=== PATIENT | male | born 1955 | race Caucasian/White ===

== ENCOUNTER 2018-11-14 14:16 | Inpatient (IN) ==
[2018-11-14] MEDS ORDERED: Sod Chloride 0.9% Inj 1,000 ML IV.SIG ONE (17:35)
[2018-11-14 17:57] LABS: Baso # (Auto) 0.1 th/mm3 (0.0-0.2); Baso % (Auto) 0.2 % (0.0-2.0); Hematocrit 39.6 % (39.0-51.0); Lymph # (Auto) 5.7 th/mm3 (1.0-4.8); Lymph % (Auto) 15.7 % (9.0-44.0); Mean Corpuscular HGB Conc 32.9 % (32.0-36.0); Mean Corpuscular Hemoglobin 25.8 pg (27.0-34.0); Mean Corpuscular Volume 78.5 fL (80.0-100.0); Mono # (Auto) 1.8 th/mm3 (0.0-0.9); Neut # (Auto) 28.5 th/mm3 (1.8-7.7); Neut % (Auto) 79.1 % (16.0-70.0); Platelet Count 363 th/mm3 (150-450); Red Blood Count 5.04 mil/mm3 (4.50-5.90)
[2018-11-14 18:09] LABS: Activated Partial Thrombo Time 36.2 sec (23.4-31.7); INR 1.3 Ratio; Prothrombin Time 13.5 sec (9.8-11.6)
[2018-11-14 18:12] LABS: Alanine Aminotransferase 34 U/L (12-78); Albumin 2.5 g/dL (3.4-5.0); Anion Gap 10 meq/L (5-15); Aspartate Aminotransferase 28 U/L (15-37); Blood Urea Nitrogen 20 mg/dL (7-18); Calcium 8.3 mg/dL (8.5-10.1); Carbon Dioxide 25.7 meq/L (21.0-32.0); Chloride 105 meq/L (98-107); Glomerular Filtration Rate 65 mL/min (>89); Glucose,Random 148 mg/dL (74-106); Lipase 114 U/L (73-393); Magnesium 2.1 mg/dL (1.5-2.5); Sodium 141 meq/L (136-145)
--- NOTE | 2018-11-14 18:15 | ED ---
HPI General Chief Complaint: Abdominal Pain Stated Complaint: Abd pain complaint Time Seen by Provider: 11/14/18 17:08 History of Present Illness HPI narrative: 63 year old male with week long history of crampy RUQ pain. He has a history of colitis, cholelithiasis, dementia, and elevated ammonia levels that he takes lactulose for. He is a poor historian and his step-father and son assisted with history. He reports intermittent diarrhea that he says temporarily relieves his abdominal pain. He states that his crampy pain happens periodically but that it usually resolves in a couple days. He denies fevers, nausea/vomiting, and bloody stools. Patient denies chest pain, SOB, cardiac history. Patient is a very poor historian and is really hard to get a history. Family themselves are also not good historian says there are no his medical history other than a few things. Patient apparently takes lactulose as well as a pill that he takes 3 times a day but the family and the patient cannot really tell me what it is. He and the family do tell me that they have a history of gallbladder disease but they are unclear as to what it is alert and having gallstones. Again patient is a poor historian as well as the family' s is really hard to get a good history. Related Data Home Medications Medication Instructions Recorded Confirmed Unable to Obtain Home Meds 11/14/18 11/14/18 Allergies Allergy/AdvReac Type Severity Reaction Status Date / Time No Known Allergies Allergy Verified 11/14/18 17:35 Review of Systems ROS Unobtainable ROS Unobtainable: unobtainable due to mental condition ROS: all other systems reviewed are negative [facility] Medical History Medical History Colitis (Acute) Dementia (Acute) Hypertension (Acute) Social History Social History Substance History: No History of Abuse Second Hand Smoke Exposure: No Smoking Status: Never smoker How Often Do You Have a Drink Containing Alcohol: 2 to 4 times a month Recent Travel in [facility] within the Last 8 Weeks: No Recent Out of Country Travel within the Last 8 Weeks: No Immunization History Tetanus Immunization: Unsure Exam Narrative Exam Narrative: GENERAL: Well-appearing no distress. SKIN: Focused skin assessment warm/dry. HEAD: Atraumatic. Normocephalic. EYES: Pupils equal and round. No scleral icterus. No injection or drainage. ENT: No nasal bleeding or discharge. Mucous membranes pink and moist. Tongue is midline. No uvula deviation. NECK: Trachea midline. No JVD. CARDIOVASCULAR: Regular rate and rhythm. No murmur appreciated. RESPIRATORY: No accessory muscle use. Clear to auscultation. Breath sounds equal bilaterally. GASTROINTESTINAL: Abdomen soft, non-tender, nondistended. Hepatic and splenic margins not palpable. MUSCULOSKELETAL: No obvious deformities. No clubbing. No cyanosis. No edema. Full range of motion of the upper and lower extremities bilaterally. 2+ possible NEUROLOGICAL: Awake and alert. No obvious cranial nerve deficits. Motor grossly within normal limits. Normal speech. PSYCHIATRIC: Appropriate mood and affect; insight and judgment normal. Course Initial Documented Vital Signs Temperature 97.1 F L 11/14/18 14:23 Pulse Rate 111 H 11/14/18 14:23 Respiratory Rate 18 11/14/18 14:23 Blood Pressure 101/55 L 11/14/18 14:23 Pulse Oximetry 96 11/14/18 14:23 Last Documented Vital Signs Temperature 97.7 F 11/16/18 08:00 Pulse Rate 73 11/16/18 08:00 Respiratory Rate 18 11/16/18 08:00 Blood Pressure 178/81 H 11/16/18 08:00 Pulse Oximetry 92 L 11/16/18 08:00 Critical Care Time Critical Care Time: Yes Total Critical Care Time: 40 Attestation: Aggregate critical care time was 40 minutes. Time to perform other separately billable procedures was not included in the critical care time. My time did not include minutes spent treating any other patients simultaneously or on activities that did not directly contribute to the patient's treatment. The services I provided to this patient were to treat and/or prevent clinically significant deterioration that could result in: cardiovascular collapse or . I provided critical care services requiring my management, as noted below: Chart data review, documentation time, medication orders and management, vital sign assessments/reviewing monitor data, ordering and reviewing lab tests, ordering and interpreting/reviewing x-rays and diagnostic studies, care of the patient and discussion of the patient with the admitting physicians. Medical Decision Making NEIL Attestation NEIL supervised visit: Yes Attestation: I, Dr. Ríos, have reviewed the advance practice practitioner's documentation and am in agreement, met with the patient face to face, made the diagnosis, and the medical decision making was done by me. *My assessment and Findings: Acute cholecystitis vs. choledocholithiasis vs. pancreatitis vs. colitis 63yo M with dementia, cholelithiasis here with RUQ pain for a few days. Labs reviewed, marked leukocytosis at 36,000. H/H normal. +Toxic vacuolation. Pt given zosyn. Hypokalemia at 3.0, replaced. BUN elevated at 20. Ammonia mildly elevated at 33, pt takes lactulose. Troponin negative. US showed gallbladder slude and gallstones. Gallbladder wall thickened to 7mm. Common bile duct and pancreas not well visualized. CT a/p showed gallbladder is distended with multiple gallstones including a probable impacted gallstone in gallbladder neck. Questionable adjacent inflammatory changes in right colon versus mild right sided colitis. Common bile duct not significantly dilated. Discussed with GI physician orientation and mobility instructor Dr. Serrano and he will arrange for ERCP tomorrow. Recommended surgery consult for cholecystectomy. Routine general surgery consult placed. Discussed with Dr. Cuellar and accepted to her service. MDM Narrative Medical decision making narrative: 63-year-old male who presents to the ED for evaluation of abdominal pain and altered mental status. Patient was properly examined and was found to have signs and symptoms concerning for abdominal discomfort. Unclear etiology with likely concerning for gallbladder disease. Labs and imaging ordered. Labs and imaging show signs and symptoms consistent with gallbladder stones and what appears to be cholecystitis as well as possible colitis. Case was discussed with my attending Dr. Ríos who spoke with Dr. Serrano who wants the patient n.p.o. and will do ERCP tomorrow. Patient will likely require cholecystectomy as well but will defer this after procedure as well as defer this to general surgery. My attending spoke with [facility] Who agrees to admission to their service. Patient was started on Zosyn here. Patient was admitted. Patient and family agree with plan. Medical Screen Exam Complete: Yes Emergency Medical Condition: Yes Differential Diagnosis Differential Diagnosis: Sepsis versus cholecystitis versus cholelithiasis versus colitis versus obstruction versus cirrhosis Medical Records Medical records reviewed: Yes I reviewed the patient's medical records. Lab Data Lab results reviewed: Yes I reviewed the patient's lab results. Result diagrams: 11/16/18 05:38 11/16/18 05:38 Lab Results 11/14/18 11/14/18 11/14/18 Range/Units 17:40 17:40 17:40 WBC 36.0 H (4.0-11.0) th/mm3 RBC 5.04 (4.50-5.90) mil/mm3 Hgb 13.0 (13.0-17.0) gm/dL Hct 39.6 (39.0-51.0) % MCV 78.5 L (80.0-100.0) fL MCH 25.8 L (27.0-34.0) pg MCHC 32.9 (32.0-36.0) % RDW 17.0 (11.6-17.2) % Plt Count 363 (150-450) th/mm3 MPV 9.0 (7.0-11.0) fL Prelim Diff (Auto) Slide review pending Neut % (Auto) 79.1 H (16.0-70.0) % Lymph % (Auto) 15.7 (9.0-44.0) % Cataño % (Auto) 5.0 (0.0-8.0) % Eos % (Auto) 0.0 (0.0-4.0) % Baso % (Auto) 0.2 (0.0-2.0) % Neut # (Auto) 28.5 H (1.8-7.7) th/mm3 Lymph # (Auto) 5.7 H (1.0-4.8) th/mm3 Cataño # (Auto) 1.8 H (0.0-0.9) th/mm3 Eos # (Auto) 0.0 (0.0-0.4) th/mm3 Baso # (Auto) 0.1 (0.0-0.2) th/mm3 WBC Differential . Diff Scan Auto diff confirmed Differential Comment . Toxic Granulation 1+ H (None) Toxic Vacuolation Present H (None) Dohle Bodies Present H (None) Platelet Estimate Normal (Normal) Platelet Morphology Normal (Normal) RBC Morphology Normal (Normal) PT 13.5 H (9.8-11.6) sec INR 1.3 Ratio APTT 36.2 H (23.4-31.7) sec Sodium 141 (136-145) meq/L Potassium 3.0 L (3.5-5.1) meq/L Chloride 105 (98-107) meq/L Carbon Dioxide 25.7 (21.0-32.0) meq/L Anion Gap 10 (5-15) meq/L BUN 20 H (7-18) mg/dL Creatinine 1.14 (0.60-1.30) mg/dL Estimated GFR 65 L (>89) mL/min Random Glucose 148 H (74-106) mg/dL Lactic Acid (0.4-2.0) mmol/L Calcium 8.3 L (8.5-10.1) mg/dL Magnesium 2.1 (1.5-2.5) mg/dL Total Bilirubin 1.9 H (0.2-1.0) mg/dL AST 28 (15-37) U/L ALT 34 (12-78) U/L Alkaline Phosphatase 240 H (45-117) U/L Ammonia (11-32) mcmol/L Total Creatine Kinase 12 L (39-308) U/L Troponin I Less than 0.02 L (0.02-0.05) ng/mL Total Protein 7.8 (6.4-8.2) g/dL Albumin 2.5 L (3.4-5.0) g/dL Lipase 114 (73-393) U/L 11/14/18 11/14/18 11/15/18 Range/Units 17:47 17:47 05:35 WBC 24.4 H (4.0-11.0) th/mm3 RBC 4.51 (4.50-5.90) mil/mm3 Hgb 11.6 L (13.0-17.0) gm/dL Hct 35.8 L (39.0-51.0) % MCV 79.3 L (80.0-100.0) fL MCH 25.6 L (27.0-34.0) pg MCHC 32.3 (32.0-36.0) % RDW 17.4 H (11.6-17.2) % Plt Count 283 (150-450) th/mm3 MPV 9.0 (7.0-11.0) fL Prelim Diff (Auto) Neut % (Auto) 80.0 H (16.0-70.0) % Lymph % (Auto) 14.6 (9.0-44.0) % Cataño % (Auto) 4.8 (0.0-8.0) % Eos % (Auto) 0.3 (0.0-4.0) % Baso % (Auto) 0.3 (0.0-2.0) % Neut # (Auto) 19.5 H (1.8-7.7) th/mm3 Lymph # (Auto) 3.6 (1.0-4.8) th/mm3 Cataño # (Auto) 1.2 H (0.0-0.9) th/mm3 Eos # (Auto) 0.1 (0.0-0.4) th/mm3 Baso # (Auto) 0.1 (0.0-0.2) th/mm3 WBC Differential . Diff Scan Differential Comment Auto diff final Toxic Granulation (None) Toxic Vacuolation (None) Dohle Bodies (None) Platelet Estimate (Normal) Platelet Morphology (Normal) RBC Morphology (Normal) PT (9.8-11.6) sec INR Ratio APTT (23.4-31.7) sec Sodium (136-145) meq/L Potassium (3.5-5.1) meq/L Chloride (98-107) meq/L Carbon Dioxide (21.0-32.0) meq/L Anion Gap (5-15) meq/L BUN (7-18) mg/dL Creatinine (0.60-1.30) mg/dL Estimated GFR (>89) mL/min Random Glucose (74-106) mg/dL Lactic Acid 1.8 (0.4-2.0) mmol/L Calcium (8.5-10.1) mg/dL Magnesium (1.5-2.5) mg/dL Total Bilirubin (0.2-1.0) mg/dL AST (15-37) U/L ALT (12-78) U/L Alkaline Phosphatase (45-117) U/L Ammonia 33 H (11-32) mcmol/L Total Creatine Kinase (39-308) U/L Troponin I (0.02-0.05) ng/mL Total Protein (6.4-8.2) g/dL Albumin (3.4-5.0) g/dL Lipase (73-393) U/L 11/15/18 11/16/18 11/16/18 Range/Units 05:35 05:38 05:38 WBC 17.1 H (4.0-11.0) th/mm3 RBC 4.35 L (4.50-5.90) mil/mm3 Hgb 10.9 L (13.0-17.0) gm/dL Hct 33.7 L (39.0-51.0) % MCV 77.5 L (80.0-100.0) fL MCH 25.1 L (27.0-34.0) pg MCHC 32.3 (32.0-36.0) % RDW 17.0 (11.6-17.2) % Plt Count 307 (150-450) th/mm3 MPV 8.7 (7.0-11.0) fL Prelim Diff (Auto) Neut % (Auto) 71.4 H (16.0-70.0) % Lymph % (Auto) 21.5 (9.0-44.0) % Cata[place] % (Auto) 5.3 (0.0-8.0) % Eos % (Auto) 1.7 (0.0-4.0) % Baso % (Auto) 0.1 (0.0-2.0) % Neut # (Auto) 12.2 H (1.8-7.7) th/mm3 Lymph # (Auto) 3.7 (1.0-4.8) th/mm3 Cataño # (Auto) 0.9 (0.0-0.9) th/mm3 Eos # (Auto) 0.3 (0.0-0.4) th/mm3 Baso # (Auto) 0.0 (0.0-0.2) th/mm3 WBC Differential . Diff Scan Differential Comment Auto diff final Toxic Granulation (None) Toxic Vacuolation (None) Dohle Bodies (None) Platelet Estimate (Normal) Platelet Morphology (Normal) RBC Morphology (Normal) PT (9.8-11.6) sec INR Ratio APTT (23.4-31.7) sec Sodium 145 148 H (136-145) meq/L Potassium 3.5 3.0 L (3.5-5.1) meq/L Chloride 112 H 115 H (98-107) meq/L Carbon Dioxide 22.1 23.8 (21.0-32.0) meq/L Anion Gap 11 9 (5-15) meq/L BUN 15 12 (7-18) mg/dL Creatinine 0.71 0.66 (0.60-1.30) mg/dL Estimated GFR Greater than 89 Greater than 89 (>89) mL/min Random Glucose 77 82 (74-106) mg/dL Lactic Acid (0.4-2.0) mmol/L Calcium 7.8 L 7.7 L (8.5-10.1) mg/dL Magnesium (1.5-2.5) mg/dL Total Bilirubin 1.5 H 1.2 H (0.2-1.0) mg/dL AST 24 33 (15-37) U/L ALT 27 26 (12-78) U/L Alkaline Phosphatase 205 H 231 H (45-117) U/L Ammonia (11-32) mcmol/L Total Creatine Kinase (39-308) U/L Troponin I (0.02-0.05) ng/mL Total Protein 6.7 D 6.6 (6.4-8.2) g/dL Albumin 2.1 L 2.0 L (3.4-5.0) g/dL Lipase (73-393) U/L Imaging Data Attestation: I personally reviewed and interpreted this imaging study as follows : Radiologist's impression: Gallbladder Ultrasound 11/14/18 17:35 CONCLUSION: 1. Positive for gallbladder sludge and gallstones also seen on prior MRI from May 2018. Gallbladder wall thickened to 7 mm. Common bile duct and pancreas not well visualized. 2. 6.9 cm right renal cyst. No hydronephrosis. 3. Fatty infiltration of the liver. Abdomen/Pelvis CT 11/14/18 18:02 CONCLUSION: 1. Distended gallbladder with pericholecystic inflammatory changes and gallstones including a gallstone that may be impacted in the gallbladder neck. Findings most characteristic of cholecystitis. Questionable adjacent contiguous inflammatory changes in the right colon versus mild right-sided colitis. 2. Subsegmental atelectasis at the lung bases. 3. Mild intrahepatic ductal dilatation. Common bile duct is not significantly dilated. Cholangiopancreatography MRI 11/15/18 00:00 CONCLUSION: 1. ECG Data Attestation: I personally reviewed and interpreted this ECG as follows: Interpretation: EKG shows sinus rhythm with no sign of acute ischemia and arrhythmia read by me and attending. KS interval 160 ms. Ventricular rate 87 bpm. Discharge Plan Discharge Disposition Patient Disposition: ED Admit(ED Internal Use Only) Discharge Order Discharge Orders: ED Use Only Admit Order (Routine); Ordered 11/14/18 Ordered By: Renetta Ríos Discharge Details Diagnosis: Acute cholecystitis Physicians Team ED Provider: Renetta Ríos ED Midlevel Provider: Pacheco Grullon Primary Care Provider: Tabatha Murrell Attending Provider: Ashtyn Canchola Other Providers: Harmeet Serrano ; Gabriele Byers ; Dylan Borja Status ED Status: Left Department Discharge Information Discharge Date/Time: 11/14/18 23:54
[2018-11-14 18:17] LABS: Alkaline Phosphatase 240 U/L (45-117); Creatine Kinase 12 U/L (39-308); Total Protein 7.8 g/dL (6.4-8.2)
[2018-11-14 18:29] LABS: Platelet Estimate Normal (Normal); Platelet Morphology Normal (Normal); RBC Morphology Normal (Normal); Toxic Vacuolation Present
[2018-11-14 18:30] LABS: Dohle Bodies Present; Toxic Granulation 1+
--- NOTE | 2018-11-14 19:17 | US ---
EXAM DATE: 11/14/2018 7:07 PM EST AGE/SEX: 63 years / Male INDICATIONS: Right upper quadrant pain. CLINICAL DATA: This is the patient's initial encounter. Patient reports that signs and symptoms have been present for > 1 year and indicates a pain score of 6/10. MEDICAL/SURGICAL HISTORY: Hypertension. Colitis. None. COMPARISON: . MEASUREMENTS: Liver:__ 16.6 cm. Common Bile Duct:__ Nonvisualized. FINDINGS: Liver: Increased echogenicity with calcification in posterior right lobe. Portal Vein: Hepatopedal flow seen in portal vein. Common Duct: Not clearly visualized. Gallbladder: Positive gallstone with some gallbladder wall thickening to 7 mm. Pancreas: Not well visualized. Right Kidney: Increased echogenicity. 6.9 cm cyst. Other: None. CONCLUSION: 1. Positive for gallbladder sludge and gallstones also seen on prior MRI from May 2018. Gallbladd er wall thickened to 7 mm. Common bile duct and pancreas not well visualized. 2. 6.9 cm right renal cyst. No hydronephrosis. 3. Fatty infiltration of the liver. Electronically signed by: Gabriele Miller MD Board Certified Radiologist 11/14/2018 7:16 PM EST
[2018-11-14] MEDS ORDERED: Piperacil/Tazo 3.375 GM Premix 3.375 GM/50 ML PIGGYBACK IV.SIG ONE (20:08)
--- NOTE | 2018-11-14 20:19 | CT ---
EXAM DATE: 11/14/2018 8:08 PM EST AGE/SEX: 63 years / Male INDICATIONS: Right lower abdomen pain for one week. CLINICAL DATA: This is the patient's initial encounter. Patient reports that signs and symptoms have been present for 1 day and indicates a pain score of 6/10. MEDICAL/SURGICAL HISTORY: Dementia. Hypertension. None. ORAL CONTRAST: No oral contrast ingested. RADIATION DOSE: 12.73 CTDI (mGy) COMPARISON: POI, CT ABDOMEN AND PELVIS W/ CONTRAST, 03/02/2017. . TECHNIQUE: Multiple contiguous axial images were obtained through the abdomen and pelvis following b olus infusion of 93 ml Omnipaque 350 (iohexol) nonionic water-soluble contrast as a single exam dos e. No oral contrast ingested. Using automated exposure control and adjustment of the mA and/or kV ac cording to patient size, radiation dose was kept as low as reasonably achievable to obtain optimal di agnostic quality images. DICOM format image data is available electronically for review and comparis on. FINDINGS: Subsegmental basilar opacity in the lungs is probably atelectasis The gallbladder is distended with multiple gallstones including a probable impacted gallstone in gall bladder neck. There are inflammatory changes around the gallbladder most characteristic cholecystitis . Inflammatory changes extend to adjacent right colon with some mild mural thickening of the right co christine near the hepatic flexure. There is no significant free fluid. No free air. Liver demonstrates somewhat minimal biliary ductal dilatation. Splenic cysts noted. Adrenals and kidn eys and pancreas demonstrate no acute finding. Stable right renal cyst compared with 2017. Mild coronary calcifications. No pelvic mass or adenopathy. No acute bony CONCLUSION: 1. Distended gallbladder with pericholecystic inflammatory changes and gallstones including a gallst one that may be impacted in the gallbladder neck. Findings most characteristic of cholecystitis. Ques tionable adjacent contiguous inflammatory changes in the right colon versus mild right-sided colitis. 2. Subsegmental atelectasis at the lung bases. 3. Mild intrahepatic ductal dilatation. Common bile duct is not significantly dilated. Electronically signed by: Gabriele Miller MD Board Certified Radiologist 11/14/2018 8:18 PM EST
[2018-11-14] MEDS ORDERED: Sod Chloride 0.9% Inj 1,000 ML IV.SIG SCH (21:00)
[2018-11-14] MEDS ORDERED: Morphine Inj 4 MG/ML Vial IV.PUSH ONE (21:17)
[2018-11-14] MEDS ORDERED: Acetaminophen 325 MG Tablet PO PRN (22:44)
[2018-11-14] MEDS ORDERED: Bisacodyl 10 MG Supp RECTAL PRN (22:44)
--- NOTE | 2018-11-14 23:46 | P.HP ---
History of Present Illness Service: [facility] Primary Care Physician: Tabatha Murrell MD History of Present Illness: 63-year-old male with a past medical history significant for dementia, ulcerative colitis and hypertension presents to the emergency department for evaluation of abdominal pain. The patient reports approximately 3 days of bad cramping with associated abdominal pain. He denies any fevers or chills. He states the pain is in his right upper quadrant. He reports intermittent diarrhea. He denies any fevers or nausea/vomiting. No chest pain or shortness of breath. No focal neurologic deficits. Review of Systems All other systems reviewed negative except as stated in HPI [facility] - History History Provided By: Family Member - Medical History Medical History: Medical History (Last Reviewed 11/14/18 @ 23:39 by Pearl Cuellar MD) Colitis Dementia Hypertension - Surgical History Surgical History: Surgical History (Last Updated 11/14/18 @ 23:39 by Pearl Cuellar MD) No history of previous surgery - Family History Family History: Family History (Last Updated 11/14/18 @ 23:39 by Pearl Cuellar MD) Other Family history normal - Social History I have reviewed the patient's Social History: Yes - Tobacco History Smoking Status: Never smoker - Alcohol History How Often Do You Have a Drink Containing Alcohol: Never - Substance Use History Substance History: No History of Abuse - Travel History Recent Travel in the [place] Within the Last 8 Weeks: No Recent Travel Out of the Country Within the Last 8 Weeks: No - Immunization History Tetanus Immunization: Unsure Medications and Allergies Active Medications: Active Medications Acetaminophen (Tylenol) 650 mg PO Q4H PRN PRN Reason: Temp > 100.4 Al Hydroxide/Mg Hydroxide (Milk Of Magnesia Liq) 30 ml PO Q12H PRN PRN Reason: Mild Constipation Bisacodyl (Dulcolax Supp) 10 mg RECTAL DAILY PRN PRN Reason: SEVERE CONSITIPATION Potassium Chloride 10 meq/ (Sodium Chloride) 1,005 mls @ 100 mls/hr IV.CONT .Q10H3M ANG Piperacillin/Tazobactam/Dextrose (Zosyn 3.375 Gm Premix) 3.375 gm in 50 mls @ 100 mls/hr IV.SIG Q6H ANG Ondansetron HCl (Zofran Inj) 4 mg IV.PUSH Q6H PRN PRN Reason: NAUSEA OR VOMITING Sennosides (Senokot) 17.2 mg PO Q12H PRN PRN Reason: Moderate Constipation Sodium Chloride (Ns Flush) 2 ml IV.FLUSH BID ANG Sodium Chloride (Ns Flush) 2 ml IV.FLUSH PRN PRN PRN Reason: FLUSH AFTER USING IV ACCESS Allergies Allergy/AdvReac Type Severity Reaction Status Date / Time No Known Allergies Allergy Verified 11/14/18 17:35 Home Medications Medication Instructions Recorded Confirmed Type Unable to Obtain Home Meds 11/14/18 11/14/18 History Exam Vital signs: Vital Signs 11/14/18 14:23 11/14/18 17:28 11/14/18 20:31 Temperature 97.1 F L Pulse Rate 111 H 81 Respiratory Rate 18 20 20 Blood Pressure 101/55 L 142/71 H Pulse Oximetry 96 95 Intake & Output 11/14/18 11/14/18 11/15/18 06:59 18:59 06:59 Intake Total 2049 Balance 2049 Weight 107.955 kg Intake: IV 2049 Zosyn 3.375 GM Premix 3.375 gm 50 / 50 In 50 ml @ 100 mls/hr IV.SIG ONCE ONE Rx#:[id number] NS Inj 1,000 ML @ 1000 mls/hr 1999 IV.SIG BOLUS AGN Rx#:[id number] Narrative: Gen.: No acute distress Head: Normocephalic. Atraumatic. EENT: Pupils equal round and reactive to light. Nose without drainage. Airway intact. Throat without injection. Cardiovascular: Regular rate and rhythm. No murmurs, rubs or gallops. Respiratory: Lungs clear to auscultation bilaterally. No wheezes or rhonchi. Abdomen: Soft, tender to palpation in the right upper quadrant, nondistended. No peritoneal signs. Musculoskeletal: No gross deformities. No edema. Skin: No obvious rashes or erythema. Neuro: Sensory and motor grossly intact. Cranial nerves II through XII grossly intact. Results - Labs CBC & Chem 7: 11/14/18 17:40 11/14/18 17:40 Labs: Laboratory Results - last 24 hr 11/14/18 11/14/18 11/14/18 17:40 17:40 17:40 WBC 36.0 H RBC 5.04 Hgb 13.0 Hct 39.6 MCV 78.5 L MCH 25.8 L MCHC 32.9 RDW 17.0 Plt Count 363 MPV 9.0 Prelim Diff (Auto) Slide review pending Neut % (Auto) 79.1 H Lymph % (Auto) 15.7 [place] % (Auto) 5.0 Eos % (Auto) 0.0 Baso % (Auto) 0.2 Neut # (Auto) 28.5 H Lymph # (Auto) 5.7 H [place] # (Auto) 1.8 H Eos # (Auto) 0.0 Baso # (Auto) 0.1 WBC Differential . Diff Scan Auto diff confirmed Differential Comment . Toxic Granulation 1+ H Toxic Vacuolation Present H Dohle Bodies Present H Platelet Estimate Normal Platelet Morphology Normal RBC Morphology Normal PT 13.5 H INR 1.3 APTT 36.2 H Sodium 141 Potassium 3.0 L Chloride 105 Carbon Dioxide 25.7 Anion Gap 10 BUN 20 H Creatinine 1.14 Estimated GFR 65 L Random Glucose 148 H Lactic Acid Calcium 8.3 L Magnesium 2.1 Total Bilirubin 1.9 H AST 28 ALT 34 Alkaline Phosphatase 240 H Ammonia Total Creatine Kinase 12 L Troponin I Less than 0.02 L Total Protein 7.8 Albumin 2.5 L Lipase 114 11/14/18 11/14/18 17:47 17:47 WBC RBC Hgb Hct MCV MCH MCHC RDW Plt Count MPV Prelim Diff (Auto) Neut % (Auto) Lymph % (Auto) [place] % (Auto) Eos % (Auto) Baso % (Auto) Neut # (Auto) Lymph # (Auto) [place] # (Auto) Eos # (Auto) Baso # (Auto) WBC Differential Diff Scan Differential Comment Toxic Granulation Toxic Vacuolation Dohle Bodies Platelet Estimate Platelet Morphology RBC Morphology PT INR APTT Sodium Potassium Chloride Carbon Dioxide Anion Gap BUN Creatinine Estimated GFR Random Glucose Lactic Acid 1.8 Calcium Magnesium Total Bilirubin AST ALT Alkaline Phosphatase Ammonia 33 H Total Creatine Kinase Troponin I Total Protein Albumin Lipase - Imaging Impressions Gallbladder Ultrasound 11/14/18 17:35 CONCLUSION: 1. Positive for gallbladder sludge and gallstones also seen on prior MRI from May 2018. Gallbladder wall thickened to 7 mm. Common bile duct and pancreas not well visualized. 2. 6.9 cm right renal cyst. No hydronephrosis. 3. Fatty infiltration of the liver. Abdomen/Pelvis CT 11/14/18 18:02 CONCLUSION: 1. Distended gallbladder with pericholecystic inflammatory changes and gallstones including a gallstone that may be impacted in the gallbladder neck. Findings most characteristic of cholecystitis. Questionable adjacent contiguous inflammatory changes in the right colon versus mild right-sided colitis. 2. Subsegmental atelectasis at the lung bases. 3. Mild intrahepatic ductal dilatation. Common bile duct is not significantly dilated. Caprini VTE Risk Assessment Caprini VTE Risk Assessment: Moderate/High Risk (score >= 2) Caprini Risk Assessment Model: Point Value = 1 Point Value = 2 Point Value = 3 Point Value = 5 Age 41-60 Minor surgery BMI > 25 kg/m2 Swollen legs Varicose veins or History of unexplained or recurrent spontaneous Oral contraceptives or hormone replacement Sepsis (< 1 month) Serious lung disease, including pneumonia (< 1 month) Abnormal pulmonary function Acute myocardial infarction Congestive heart failure (< 1 month) History of inflammatory bowel disease Medical patient at bed rest Age 61-74 Arthroscopic surgery Major open surgery (> 45 min) Laparoscopic surgery (> 45 min) Malignancy Confined to bed (> 72 hours) Immobilizing plaster cast Central venous access Age >= 75 History of VTE Family history of VTE Factor V Leiden Prothrombin [id number] Lupus anticoagulant Anticardiolipin antibodies Elevated serum homocysteine Heparin-induced thrombocytopenia Other congenital or acquired thrombophilia Stroke (< 1 month) Elective arthroplasty Hip, pelvis, or leg fracture Acute spinal cord injury (< 1 month) Prophylaxis Regimen: Total Risk Factor Score Risk Level Prophylaxis Regimen 0-1 Low Early ambulation 2 Moderate Order ONE of the following: *Sequential Compression Device (SCD) *Heparin 5000 units SQ BID 3-4 Higher Order ONE of the following medications: *Heparin 5000 units SQ TID *Enoxaparin/Lovenox 40 mg SQ daily (WT < 150 kg, CrCl > 30 mL/min) *Enoxaparin/Lovenox 30 mg SQ daily (WT < 150 kg, CrCl > 10-29 mL/min) *Enoxaparin/Lovenox 30 mg SQ BID (WT < 150 kg, CrCl > 30 mL/min) AND/OR *Sequential Compression Device (SCD) 5 or more Highest Order ONE of the following medications: *Heparin 5000 units SQ TID (Preferred with Epidurals) *Enoxaparin/Lovenox 40 mg SQ daily (WT < 150 kg, CrCl > 30 mL/min) *Enoxaparin/Lovenox 30 mg SQ daily (WT < 150 kg, CrCl > 10-29 mL/min) *Enoxaparin/Lovenox 30 mg SQ BID (WT < 150 kg, CrCl > 30 mL/min) AND *Sequential Compression Device (SCD) Assessment and Plan - Plan Assessment/plan: 1. Cholecystitis/choledocholithiasis CT abdomen/pelvis shows a distended gallbladder with pericholecystic inflammatory changes and gallstone that may be impacted in the gallbladder neck [facility]on Gastroenterology and general surgery consulted, appreciate assistance Anticipate ERCP tomorrow 2. Hypertension Home medications unknown Vasotec as needed Intensive at this time 3. Dementia Patient's primary caregiver is his father, Saul Carlton, who wishes to be contacted regarding any plans of care for his son. He can be reached at 4. Hypokalemia IV Monitor BMP FEN N.p.o. Electrolytes: As above NS at 100 cc/hour Holding pharmacologic anticoagulation given probable procedure tomorrow
[2018-11-15] MEDS: Potassium Chlor 10 mEq Premix 10 MEQ/100 ML PIGGYBACK IV.SIG SCH ×3 (01:33→05:00)
[2018-11-15] MEDS: Potassium Chloride Inj 10 MEQ in Sod Chloride 0.9% Inj 1,000 ML IV.CONT SCH ×4 (02:03→20:18)
[2018-11-15] MEDS: Piperacil/Tazo 3.375 GM Premix 3.375 GM/50 ML PIGGYBACK IV.SIG SCH ×4 (02:34→20:25)
[2018-11-15 07:19] LABS: Baso # (Auto) 0.1 th/mm3 (0.0-0.2); Baso % (Auto) 0.3 % (0.0-2.0); Eos # (Auto) 0.1 th/mm3 (0.0-0.4); Eos % (Auto) 0.3 % (0.0-4.0); Hematocrit 35.8 % (39.0-51.0); Hemoglobin 11.6 gm/dL (13.0-17.0); Lymph # (Auto) 3.6 th/mm3 (1.0-4.8); Lymph % (Auto) 14.6 % (9.0-44.0); Mean Corpuscular HGB Conc 32.3 % (32.0-36.0); Mean Corpuscular Hemoglobin 25.6 pg (27.0-34.0); Mean Corpuscular Volume 79.3 fL (80.0-100.0); Mono # (Auto) 1.2 th/mm3 (0.0-0.9); Mono % (Auto) 4.8 % (0.0-8.0); Neut # (Auto) 19.5 th/mm3 (1.8-7.7); Platelet Count 283 th/mm3 (150-450); Red Blood Count 4.51 mil/mm3 (4.50-5.90); Red Cell Distribution Width 17.4 % (11.6-17.2); White Blood Count 24.4 th/mm3 (4.0-11.0)
[2018-11-15 09:12] LABS: Albumin 2.1 g/dL (3.4-5.0); Anion Gap 11 meq/L (5-15); Aspartate Aminotransferase 24 U/L (15-37); Blood Urea Nitrogen 15 mg/dL (7-18); Calcium 7.8 mg/dL (8.5-10.1); Carbon Dioxide 22.1 meq/L (21.0-32.0); Chloride 112 meq/L (98-107); Glomerular Filtration Rate Greater Than 89 mL/min (>89); Glucose,Random 77 mg/dL (74-106); Potassium 3.5 meq/L (3.5-5.1); Sodium 145 meq/L (136-145)
[2018-11-15 09:18] LABS: Alanine Aminotransferase 27 U/L (12-78); Alkaline Phosphatase 205 U/L (45-117); Total Protein 6.7 g/dL (6.4-8.2)
--- NOTE | 2018-11-15 10:13 | P.PNIM ---
Subjective Interval history: Follow-up for abdominal pain, acute cholecystitis/ choledocholithiasis. Patient is seen with his patsyronnie Angelo at bedside. Patient is currently oriented to self and [facility] only. Patient is a poor historian himself. He denies any abdominal pain, although has tenderness on exam. Denies any nausea or vomiting. Afebrile. No other medical complaints reported. Physical Exam Vital signs: Vital Signs 11/14/18 14:23 11/14/18 17:28 11/14/18 20:31 Temperature 97.1 F L Pulse Rate 111 H 81 Respiratory Rate 18 20 20 Blood Pressure 101/55 L 142/71 H Pulse Oximetry 96 95 11/15/18 03:14 11/15/18 04:00 11/15/18 07:31 Temperature 98.4 F 98.4 F Pulse Rate 83 74 82 Respiratory Rate 20 16 Blood Pressure 133/73 132/74 Pulse Oximetry 94 L 94 L 11/15/18 08:00 Temperature Pulse Rate 75 Respiratory Rate Blood Pressure Pulse Oximetry Intake & Output 11/14/18 11/15/18 11/15/18 18:59 06:59 18:59 Intake Total 2400 / 2400 655 / 655 Balance 2400 / 2400 655 / 655 Weight 107.955 kg Intake: IV 2400 / 2400 655 / 655 KCl Inj 10 MEQ In NS Inj 1,000 605 / 605 ML @ 100 mls/hr IV.CONT .Q10H3M ANG Rx#:[id number] Zosyn 3.375 GM Premix 3.375 gm 100 / 100 50 / 50 In 50 ml @ 100 mls/hr IV.SIG Q6H ANG Rx#:[id number] KCl 10 mEq Premix Inj 10 meq In 300 / 300 100 ml @ 100 mls/hr IV.SIG Q1H ANG Rx#:[id number] NS Inj 1,000 ML @ 1000 mls/hr 1999 / 1999 IV.SIG BOLUS ANG Rx#:[id number] Oral 0 / 0 Other: # Voids 0 Date of Last Bowel Movement 11/14/18 11/14/18 Narrative: GENERAL: Well-nourished, well-developed middle-aged male in [facility]. SKIN: Warm and dry. No rash. HEENT: Normocephalic. Atraumatic. Pupils equal and round. Mucous membranes pink and slightly dry. NECK: Supple. Trachea midline. No lymphadenopathy noted. CARDIOVASCULAR: Regular rate and rhythm. No murmur appreciated. RESPIRATORY: No accessory muscle use. Clear to auscultation. Breath sounds equal bilaterally. GASTROINTESTINAL: Abdomen soft, moderate diffuse upper abdominal tenderness to palpation, nondistended. Normoactive bowel sounds x4. No hepatosplenomegaly noted. MUSCULOSKELETAL: No obvious deformities. Extremities without clubbing, cyanosis , or edema. NEUROLOGICAL: Awake and alert, oriented to self and place only. No obvious cranial nerve deficits. Motor grossly within normal limits. Moving all extremities spontaneously. Normal speech. PSYCHIATRIC: Appropriate mood and affect; insight and judgment limited. Results Labs CBC & Chem 7: 11/15/18 05:35 11/15/18 05:35 Imaging Imaging: Impressions Gallbladder Ultrasound 11/14/18 17:35 CONCLUSION: 1. Positive for gallbladder sludge and gallstones also seen on prior MRI from May 2018. Gallbladder wall thickened to 7 mm. Common bile duct and pancreas not well visualized. 2. 6.9 cm right renal cyst. No hydronephrosis. 3. Fatty infiltration of the liver. Abdomen/Pelvis CT 11/14/18 18:02 CONCLUSION: 1. Distended gallbladder with pericholecystic inflammatory changes and gallstones including a gallstone that may be impacted in the gallbladder neck. Findings most characteristic of cholecystitis. Questionable adjacent contiguous inflammatory changes in the right colon versus mild right-sided colitis. 2. Subsegmental atelectasis at the lung bases. 3. Mild intrahepatic ductal dilatation. Common bile duct is not significantly dilated. Assessment and Plan Plan 63-year-old male with a past medical history significant for dementia, ulcerative colitis, and hypertension presented to the ED on 11/14 for evaluation of abdominal pain x 3 days. Sepsis with Acute Cholecystitis/Cholelithiasis:+abdominal pain in the bilateral upper quadrants. +Leukocytosis WBC 36K, Tachycardia HR 111, suspected source- cholecystitis. T.bili 1.9, alk phos 240, AST 28, ALT 34. -2/4: Gallbladder US shows gallbladder sludge and gallstones. GB wall thickened to 7 mm. CBD well visualized. -2/4: CT abd/pelvis reviewed, shows a distended gallbladder with pericholecystic inflammatory changes and gallstone that may be impacted in the gallbladder neck; most characteristic of cholecystitis. Mild intrahepatic ductal dilatation. Common bile duct is not significantly dilated. -Continue antibiotics with IV Zosyn 3.375 grams every 6 hours -Gastroenterology and general surgery consulted; recommendations appreciated -MRCP and ERCP scheduled for today 11/15; results pending -Diet per GI/Surgery recommendations, NPO for now -Supportive treatment with IVF hydration, antiemetics prn, IV morphine prn pain -Monitor CBC/CMP Hypertension: chronic; BP fairly well controlled -Obtain and restart home medications -Continue IV Vasotec 2.5mg q6h PRN SBP>160 and/or DBP >90 -Monitor blood pressure; adjust antihypertensives as needed Dementia: chronic. Patient's primary caregiver is his step-father, Saul Carlton , who wishes to be contacted regarding any plans of care for his son. He can be reached at [phone] -Continue home meds once med rec updated Hypokalemia: K 3.0 on 11/14; likely secondary to recent diarrhea and poor oral intake -Replaced with IV KCl -11/15: repeat K 3.5; improving -Monitor BMP DVT Prophylaxis: Holding chemical prophylaxis due to upcoming ERCP. Plan to start Lovenox 40mg subq daily once cleared by GI/Surgery Progress Note: Quality VTE Deep Vein Thrombosis/Pulmonary Embolism Present on Admission: No
--- NOTE | 2018-11-15 12:59 | MR ---
EXAM DATE: 11/15/2018 12:27 PM EST AGE/SEX: 63 years / Male INDICATIONS: Abdominal pain. CLINICAL DATA: This is the patient's subsequent encounter. Patient reports that signs and symptoms h ave been present for 2 days and indicates a pain score of 3/10. MEDICAL/SURGICAL HISTORY: Hypertension. None. COMPARISON: No prior exams available for comparison. TECHNIQUE: Multiplanar, multisequence images of the abdomen were obtained without contrast including dedicated cholangiographic images. FINDINGS: CONCLUSION: 1. Electronically signed by: Kinjal Reeves MD Board Certified Radiologist 11/15/2018 12:58 PM EST
--- NOTE | 2018-11-15 14:48 | P.PNIM ---
Subjective Interval history: Follow up for cholecystitis/choledocholithiasis, HTN, hypokalemia, and dementia. The patient was seen lying in the bed with step-father at bedside. The patient reports 7/10 constant, dull, diffuse abdominal pain in the right and left upper quadrants. The patient denies any fevers, chills, shortness of breath, or chest pain. Patient endorses no nausea, vomiting, or bowel changes. The patient is requesting ice chips, however he is currently NPO. Vital signs reviewed and stable. RN at bedside; no new medical concerns. Physical Exam Vital signs: Vital Signs 11/14/18 14:23 11/14/18 17:28 11/14/18 20:31 Temperature 97.1 F L Pulse Rate 111 H 81 Respiratory Rate 18 20 20 Blood Pressure 101/55 L 142/71 H Pulse Oximetry 96 95 11/15/18 03:14 11/15/18 04:00 11/15/18 07:31 Temperature 98.4 F 98.4 F Pulse Rate 83 74 82 Respiratory Rate 20 16 Blood Pressure 133/73 132/74 Pulse Oximetry 94 L 94 L 11/15/18 08:00 11/15/18 12:00 Temperature Pulse Rate 75 89 Respiratory Rate 16 Blood Pressure 124/78 Pulse Oximetry 92 L Intake & Output 11/14/18 11/15/18 11/15/18 18:59 06:59 18:59 Intake Total 2400 / 2400 655 / 655 Balance 2400 / 2400 655 / 655 Weight 107.955 kg Intake: IV 2400 / 2400 655 / 655 KCl Inj 10 MEQ In NS Inj 1,000 605 / 605 ML @ 100 mls/hr IV.CONT .Q10H3M ANG Rx#:[id number] Zosyn 3.375 GM Premix 3.375 gm 100 / 100 50 / 50 In 50 ml @ 100 mls/hr IV.SIG Q6H ANG Rx#:[id number] KCl 10 mEq Premix Inj 10 meq In 300 / 300 100 ml @ 100 mls/hr IV.SIG Q1H ANG Rx#:[id number] NS Inj 1,000 ML @ 1000 mls/hr 1999 / 1999 IV.SIG BOLUS ANG Rx#:[id number] Oral 0 / 0 Other: # Voids 0 Date of Last Bowel Movement 11/14/18 11/14/18 Narrative: GENERAL: Well-nourished, well-developed middle-aged male in [place]. SKIN: Warm and dry. No rash. HEENT: Normocephalic. Atraumatic. Pupils equal and round. Mucous membranes pink and dry. NECK: Supple. Trachea midline. No lymphadenopathy noted. CARDIOVASCULAR: Regular rate and rhythm. No murmur appreciated. RESPIRATORY: No accessory muscle use. Clear to auscultation. Breath sounds equal bilaterally. GASTROINTESTINAL: Abdomen soft, moderate tenderness to palpation, nondistended. Normoactive bowel sounds x4. Tympanitic sound to percussion in all 4 quadrants. No hepatosplenomegaly noted. MUSCULOSKELETAL: No obvious deformities. Extremities without clubbing, cyanosis , or edema. NEUROLOGICAL: Awake and alert. No obvious cranial nerve deficits. Motor grossly within normal limits. Moving all extremities spontaneously. Normal speech. PSYCHIATRIC: Appropriate mood and affect; insight and judgment impaired. Results - Labs CBC & Chem 7: 11/15/18 05:35 11/15/18 05:35 Laboratory Results - last 24 hr 11/14/18 11/14/18 11/14/18 17:40 17:40 17:40 WBC 36.0 H RBC 5.04 Hgb 13.0 Hct 39.6 MCV 78.5 L MCH 25.8 L MCHC 32.9 RDW 17.0 Plt Count 363 MPV 9.0 Prelim Diff (Auto) Slide review pending Neut % (Auto) 79.1 H Lymph % (Auto) 15.7 [place] % (Auto) 5.0 Eos % (Auto) 0.0 Baso % (Auto) 0.2 Neut # (Auto) 28.5 H Lymph # (Auto) 5.7 H [place] # (Auto) 1.8 H Eos # (Auto) 0.0 Baso # (Auto) 0.1 WBC Differential . Diff Scan Auto diff confirmed Differential Comment . Toxic Granulation 1+ H Toxic Vacuolation Present H Dohle Bodies Present H Platelet Estimate Normal Platelet Morphology Normal RBC Morphology Normal PT 13.5 H INR 1.3 APTT 36.2 H Sodium 141 Potassium 3.0 L Chloride 105 Carbon Dioxide 25.7 Anion Gap 10 BUN 20 H Creatinine 1.14 Estimated GFR 65 L Random Glucose 148 H Lactic Acid Calcium 8.3 L Magnesium 2.1 Total Bilirubin 1.9 H AST 28 ALT 34 Alkaline Phosphatase 240 H Ammonia Total Creatine Kinase 12 L Troponin I Less than 0.02 L Total Protein 7.8 Albumin 2.5 L Lipase 114 11/14/18 11/14/18 11/15/18 17:47 17:47 05:35 WBC 24.4 H RBC 4.51 Hgb 11.6 L Hct 35.8 L MCV 79.3 L MCH 25.6 L MCHC 32.3 RDW 17.4 H Plt Count 283 MPV 9.0 Prelim Diff (Auto) Neut % (Auto) 80.0 H Lymph % (Auto) 14.6 [place] % (Auto) 4.8 Eos % (Auto) 0.3 Baso % (Auto) 0.3 Neut # (Auto) 19.5 H Lymph # (Auto) 3.6 [place] # (Auto) 1.2 H Eos # (Auto) 0.1 Baso # (Auto) 0.1 WBC Differential . Diff Scan Differential Comment Auto diff final Toxic Granulation Toxic Vacuolation Dohle Bodies Platelet Estimate Platelet Morphology RBC Morphology PT INR APTT Sodium Potassium Chloride Carbon Dioxide Anion Gap BUN Creatinine Estimated GFR Random Glucose Lactic Acid 1.8 Calcium Magnesium Total Bilirubin AST ALT Alkaline Phosphatase Ammonia 33 H Total Creatine Kinase Troponin I Total Protein Albumin Lipase 11/15/18 05:35 WBC RBC Hgb Hct MCV MCH MCHC RDW Plt Count MPV Prelim Diff (Auto) Neut % (Auto) Lymph % (Auto) [place] % (Auto) Eos % (Auto) Baso % (Auto) Neut # (Auto) Lymph # (Auto) [place] # (Auto) Eos # (Auto) Baso # (Auto) WBC Differential Diff Scan Differential Comment Toxic Granulation Toxic Vacuolation Dohle Bodies Platelet Estimate Platelet Morphology RBC Morphology PT INR APTT Sodium 145 Potassium 3.5 Chloride 112 H Carbon Dioxide 22.1 Anion Gap 11 BUN 15 Creatinine 0.71 Estimated GFR Greater than 89 Random Glucose 77 Lactic Acid Calcium 7.8 L Magnesium Total Bilirubin 1.5 H AST 24 ALT 27 Alkaline Phosphatase 205 H Ammonia Total Creatine Kinase Troponin I Total Protein 6.7 D Albumin 2.1 L Lipase - Imaging 2 Impressions Gallbladder Ultrasound 11/14/18 17:35 CONCLUSION: 1. Positive for gallbladder sludge and gallstones also seen on prior MRI from May 2018. Gallbladder wall thickened to 7 mm. Common bile duct and pancreas not well visualized. 2. 6.9 cm right renal cyst. No hydronephrosis. 3. Fatty infiltration of the liver. Abdomen/Pelvis CT 11/14/18 18:02 CONCLUSION: 1. Distended gallbladder with pericholecystic inflammatory changes and gallstones including a gallstone that may be impacted in the gallbladder neck. Findings most characteristic of cholecystitis. Questionable adjacent contiguous inflammatory changes in the right colon versus mild right-sided colitis. 2. Subsegmental atelectasis at the lung bases. 3. Mild intrahepatic ductal dilatation. Common bile duct is not significantly dilated. Cholangiopancreatography MRI 11/15/18 00:00 CONCLUSION: 1. Assessment and Plan - Plan 63-year-old male with a past medical history significant for dementia, ulcerative colitis and hypertension presented to the ED on 11/14 for evaluation of abdominal pain and cramping x 3 days. Cholecystitis/choledocholithiasis: patient reports abdominal pain in the upper quadrants -11/14: Gallbladder US showed positive for gallbladder sludge and gallstones also seen on prior MRI from May 2018. Gallbladder wall thickened to 7 mm. Common bile duct and pancreas not well visualized. 6.9 cm right renal cyst. No hydronephrosis. Fatty infiltration of the liver -11/14: CT abdomen/pelvis shows a distended gallbladder with pericholecystic inflammatory changes and gallstone that may be impacted in the gallbladder neck. Findings most characteristic of cholecystitis. Questionable adjacent contiguous inflammatory changes in the right colon versus mild right-sided colitis. Subsegmental atelectasis at the lung bases. Mild intrahepatic ductal dilatation. Common bile duct is not significantly dilated. -Continue IV Zosyn 3.375 grams every 6 hours -Gastroenterology and general surgery consulted; recommendations appreciated -ERCP scheduled for today 11/15; results pending -Diet per GI/Surgery recommendations Hypertension: chronic; BP fairly well controlled -Obtain and confirm home medications -Continue IV Vasotec 2.5mg every 6 hours PRN SBP>160 and/or DBP >90 -11/15: BP 132/74; improving -Monitor blood pressure; adjust antihypertensives as needed Dementia: chronic -Patient's primary caregiver is his step-father, Saul Carlton, who wishes to be contacted regarding any plans of care for his son. He can be reached at [phone] -Home medications unknown -Obtain and confirm home medications Hypokalemia: K 3.0 on 11/14; likely secondary to recent diarrhea and poor oral intake -Replaced with 1L NS with KCL 10meq at 100ml/hr -11/15: K 3.5; improving -Monitor BMP DVT Prophylaxis: Holding chemical prophylaxis due to ERCP scheduled for today 11/15 -Will start Lovenox 40mg subq daily once cleared by GI/Surgery Note prepared by ROBERTA FultonS2. Discussed the patient with Isabel Calles PA-C, agrees with above assessment and plan. See official note from Isabel Calles PA-C.
--- NOTE | 2018-11-15 14:59 | ECG ---
Date Performed: 11/14/2018 Time Performed: 18:12:54 PTAGE: 63 years EKG: Sinus rhythm NONSPECIFIC T-WAVE ABNORMALITY Since the previous tracing, no significant change noted BORDERLINE EC G NO PREVIOUS TRACING DOCTOR: Iza Hooper Interpretating Date/Time 11/15/2018 14:57:45
[2018-11-15] MEDS ORDERED: Morphine Sulfate Inj 2 MG/ML Vial IV.PUSH PRN (15:54)
--- NOTE | 2018-11-15 17:18 | MB ---
cc: Dylan Borja MD,Tabatha DAVID DATE: 11/15/2018 ROOM NUMBER: [id number] REFERRING PHYSICIAN: Pearl Cuellar MD REASON FOR CONSULTATION: Abdominal pain. HISTORY OF PRESENT ILLNESS: This is a 63-year-old male, well known to the undersigned with a history of longstanding ulcerative colitis and a history of chronic liver disease. The patient has had prior liver biopsy a few years ago suggesting possible drug-induced liver disease or liver disease caused by inflammatory bowel disease. He has had common bile duct stones a few years ago and underwent ERCP with removal. He has had a bad gallbladder for some time but has been unable to have it removed because he lost his health insurance sometime ago. He also has not been able to have many studies done that he was advised to have or to have his routine surveillance colonoscopy yet because of his financial situation. He also has been developing dementia, which has been getting somewhat worse. He lives with his stepfather. He states that he started having abdominal pain about 3 days ago, and he points to the right upper quadrant. He denies nausea or vomiting. He has chronic loose bowel movements. He is a poor historian. SOCIAL HISTORY: The patient lives with his stepfather. I believe he is . He does have children. He does not smoke or drink alcohol. MEDICAL HISTORY: Remarkable for history of hypertension, dementia, ulcerative colitis, chronic liver disease, cholelithiasis in the past, history of choledocholithiasis. He also has some cysts in the spleen and a small pancreatic cyst by MRI from last year. FAMILY HISTORY: Negative for liver disease or colon cancer. REVIEW OF SYSTEMS: The patient has chronic loose bowel movements. He denies any cardiopulmonary complaints. No complaints. No fever or chills. No nausea or vomiting. PHYSICAL EXAMINATION: GENERAL: A well-developed male in no acute distress. VITAL SIGNS: His blood pressure is 149/76, pulse 77, respirations 16 and nonlabored, temperature is 98.5 orally. Sclerae are anicteric. LUNGS: Grossly clear with slightly diminished breath sounds at the bases. HEART: Sounds are regular. ABDOMEN: Soft and nondistended. He does have tenderness in the right upper quadrant, but no rebound or guarding. No appreciable ascites. SKIN: Warm and dry. EXTREMITIES: No peripheral edema. He was alert and mostly oriented. He knew the year and the month, that he was in [facility], but did not have the correct name of the hospital. LABORATORY DATA: His BUN is 15 with a creatinine 0.71, total bilirubin 1.5. Transaminases are normal. Alkaline phosphatase 205. Ammonia level 33. Albumin 2.1. Lipase was normal at 114. His white count yesterday was 36,000 and today is down to 24,000. There is a left shift. His hemoglobin is 11.6 and platelet count 283,000. INR is 1.3. Imaging gallbladder ultrasound shows gallbladder sludge and gallstones. Fatty infiltration of the liver. The common bile duct was not well seen. CT scan of the abdomen and pelvis without oral contrast shows a distended gallbladder with what appears to be a stone impacted in the gallbladder neck. Minimal intrahepatic ductal dilatation, but the common bile duct is not significantly dilated. MRCP was done today, and the report is not available, but I reviewed it with Dr. Davison, and it shows distended gallbladder with a stone impacted at the neck of the gallbladder or may be within the cystic duct, but the bile duct is nondilated, and there are no bile duct stones seen. No significant intrahepatic ductal dilatation which is very minimal. IMPRESSION: 1. Right upper quadrant pain. 2. Cholelithiasis and probable cholecystitis. 3. History of chronic liver disease, possibly related to inflammatory bowel disease or medication-induced. Also have been somewhat concerned for primary sclerosing cholangitis, although there has been no clear sign of this. 4. Chronic ulcerative colitis. PLAN: I discussed the case with general surgery, Dr. Byers. I do not see any indication for ERCP. He does need a cholecystectomy, and I have asked for a liver biopsy at the same time. Dr. Byers will arrange for his surgery. We will have the patient follow up in the office in a couple weeks to go over the pathology results. He also will need to get scheduled for a colonoscopy for routine surveillance. We will be available if needed. Thank you for this consult. MD LEILA Durand/leandro , 04:36 PM , 04:49 PM
--- NOTE | 2018-11-15 17:24 | P.CONGS ---
[facility] Gen Surgery Consult Note Consult date: 11/15/18 Reason for consult: gallstones Requesting physician: Pearl Cuellar Narrative: Consultation NOTE FOR SURGICAL ATTENDING, DR. GABRIELE BYERS This is a 63-year-old male with a past medical history of dementia, ulcerative colitis and hypertension. The patient came to the ER after 3 days of abdominal pain. He reports no fevers, chills, nausea or vomiting. A gallbladder ultrasound was obtained which shows gallbladder sludge and gallstones with gallbladder wall thickening up to 7 mm. An abdominal/pelvis CT was obtained which shows distended gallbladder with pericholecystic inflammatory changes and gallstones including one impacted in the neck of the gallbladder and findings consistent with cholecystitis. He does have mild intrahepatic ductal dilatation. His white blood cell count was elevated at 36,000 on admission and now down to 24,000. His total bilirubin on admission was 1.9. An MRCP is pending at this time. His father is at the bedside who assist with his history and history of present illness. A General Surgery consultation has been requested. Review of Systems All other systems reviewed negative except as stated in [facility] (abtained from step father) PMFSH - History History Provided By: Patient, Family Member - Medical History Medical History: Medical History (Last Reviewed 11/15/18 @ 18:20 by Gabriele Byers MD) Colitis Dementia Hypertension Ulcerative colitis - Surgical History Surgical History: Surgical History (Last Reviewed 11/15/18 @ 18:20 by Gabriele Byers MD) No history of previous surgery - Family History Family History: Family History (Last Reviewed 11/15/18 @ 18:20 by Gabriele Byers MD) Other Family history normal - Social History I have reviewed the patient's Social History: Yes - Tobacco History Second Hand Smoke Exposure: No Tobacco Use In Past 30 Days: No Smoking Status: Never smoker - Alcohol History How Often Do You Have a Drink Containing Alcohol: 2 to 4 times a month - Substance Use History Substance History: No History of Abuse - Travel History Recent Travel in the [place] Within the Last 8 Weeks: No Recent Travel Out of the Country Within the Last 8 Weeks: No - Immunization History Tetanus Immunization: Unsure Medications and Allergies Allergies Allergy/AdvReac Type Severity Reaction Status Date / Time No Known Allergies Allergy Verified 11/14/18 17:35 Home Medications Medication Instructions Recorded Confirmed Type Unable to Obtain Home Meds 11/14/18 11/14/18 History Active Medications: Active Medications Acetaminophen (Tylenol) 650 mg PO Q4H PRN PRN Reason: Temp > 100.4 Al Hydroxide/Mg Hydroxide (Milk Of Magnkelli Liq) 30 ml PO Q12H PRN PRN Reason: Mild Constipation Bisacodyl (Dulcolax Supp) 10 mg RECTAL DAILY PRN PRN Reason: SEVERE CONSITIPATION Enalaprilat (Vasotec Inj) 2.5 mg IV.PUSH Q6H PRN PRN Reason: SBP>160, DBP>90 Potassium Chloride 10 meq/ (Sodium Chloride) 1,005 mls @ 100 mls/hr IV.CONT .Q10H3M [facility] Last Admin: 11/15/18 15:36 Dose: 100 mls/hr Piperacillin/Tazobactam/Dextrose (Zosyn 3.375 Gm Premix) 3.375 gm in 50 mls @ 100 mls/hr IV.SIG Q6H [facility] Last Infusion: 11/15/18 14:34 Dose: Infused Morphine Sulfate (Morphine Inj) 2 mg IV.PUSH Q3H PRN PRN Reason: pain scale 1-10 Ondansetron HCl (Zofran Inj) 4 mg IV.PUSH Q6H PRN PRN Reason: NAUSEA OR VOMITING Sennosides (Senokot) 17.2 mg PO Q12H PRN PRN Reason: Moderate Constipation Sodium Chloride (Ns Flush) 2 ml IV.FLUSH BID [facility] Last Admin: 11/15/18 09:08 Dose: Not Given Sodium Chloride (Ns Flush) 2 ml IV.FLUSH PRN PRN PRN Reason: FLUSH AFTER USING IV ACCESS Last Admin: 11/15/18 01:34 Dose: 2 ml Exam Vital signs: Vital Signs 11/14/18 17:28 11/14/18 20:31 11/15/18 03:14 Temperature 98.4 F Pulse Rate 81 83 Respiratory Rate 20 20 20 Blood Pressure 142/71 H 133/73 Pulse Oximetry 95 94 L 11/15/18 04:00 11/15/18 07:31 11/15/18 08:00 Temperature 98.4 F Pulse Rate 74 82 75 Respiratory Rate 16 Blood Pressure 132/74 Pulse Oximetry 94 L 11/15/18 12:00 11/15/18 15:57 Temperature 98.5 F Pulse Rate 89 77 Respiratory Rate 16 16 Blood Pressure 124/78 149/76 H Pulse Oximetry 92 L 93 L Intake & Output 11/14/18 11/15/18 11/15/18 18:59 06:59 18:59 Intake Total 2400 / 2400 1105 / 1105 Balance 2400 / 2400 1105 / 1105 Weight 107.955 kg Intake: IV 2400 / 2400 1105 / 1105 KCl Inj 10 MEQ In NS Inj 1,000 1005 / 1005 ML @ 100 mls/hr IV.CONT .Q10H3M ANG Rx#:[id number] Zosyn 3.375 GM Premix 3.375 gm 100 / 100 100 / 100 In 50 ml @ 100 mls/hr IV.SIG Q6H ANG Rx#:[id number] KCl 10 mEq Premix Inj 10 meq In 300 / 300 100 ml @ 100 mls/hr IV.SIG Q1H ANG Rx#:[id number] NS Inj 1,000 ML @ 1000 mls/hr 1999 / 1999 IV.SIG BOLUS ANG Rx#:[id number] Oral 0 / 0 Other: # Voids 0 Date of Last Bowel Movement 11/14/18 11/14/18 Narrative: GENERAL: 63 year old male resting in bed; pleasantly mildly confused. SKIN: Warm and dry. HEAD: Atraumatic. Normocephalic. EYES: Pupils equal and round. No scleral icterus. No injection or drainage. ENT: No nasal bleeding or discharge. Mucous membranes pink and moist. NECK: Trachea midline. CARDIOVASCULAR: Regular rate and rhythm. RESPIRATORY: No accessory muscle use. Clear to auscultation. Breath sounds equal bilaterally. GASTROINTESTINAL: Abdomen soft, nondistended. RUQ tenderness with palpation. No visible scars of hernias. MUSCULOSKELETAL: Extremities without clubbing, cyanosis, or edema. No obvious deformities. NEUROLOGICAL: Awake and alert. not speaking much PSYCHIATRIC: abnormal Results - Labs 11/15/18 05:35 11/15/18 05:35 Laboratory Results WBC 24.4 th/mm3 (4.0-11.0) H 11/15/18 05:35 RBC 4.51 mil/mm3 (4.50-5.90) 11/15/18 05:35 Hgb 11.6 gm/dL (13.0-17.0) L 11/15/18 05:35 Hct 35.8 % (39.0-51.0) L 11/15/18 05:35 MCV 79.3 fL (80.0-100.0) L 11/15/18 05:35 MCH 25.6 pg (27.0-34.0) L 11/15/18 05:35 MCHC 32.3 % (32.0-36.0) 11/15/18 05:35 RDW 17.4 % (11.6-17.2) H 11/15/18 05:35 Plt Count 283 th/mm3 (150-450) 11/15/18 05:35 MPV 9.0 fL (7.0-11.0) 11/15/18 05:35 Prelim Diff (Auto) Slide review pending 11/14/18 17:40 Neut % (Auto) 80.0 % (16.0-70.0) H 11/15/18 05:35 Lymph % (Auto) 14.6 % (9.0-44.0) 11/15/18 05:35 [place] % (Auto) 4.8 % (0.0-8.0) 11/15/18 05:35 Eos % (Auto) 0.3 % (0.0-4.0) 11/15/18 05:35 Baso % (Auto) 0.3 % (0.0-2.0) 11/15/18 05:35 Neut # (Auto) 19.5 th/mm3 (1.8-7.7) H 11/15/18 05:35 Lymph # (Auto) 3.6 th/mm3 (1.0-4.8) 11/15/18 05:35 [place] # (Auto) 1.2 th/mm3 (0.0-0.9) H 11/15/18 05:35 Eos # (Auto) 0.1 th/mm3 (0.0-0.4) 11/15/18 05:35 Baso # (Auto) 0.1 th/mm3 (0.0-0.2) 11/15/18 05:35 WBC Differential . 11/15/18 05:35 Diff Scan Auto diff confirmed 11/14/18 17:40 Differential Comment Auto diff final 11/15/18 05:35 Toxic Granulation 1+ (None) H 11/14/18 17:40 Toxic Vacuolation Present (None) H 11/14/18 17:40 Dohle Bodies Present (None) H 11/14/18 17:40 Platelet Estimate Normal (Normal) 11/14/18 17:40 Platelet Morphology Normal (Normal) 11/14/18 17:40 RBC Morphology Normal (Normal) 11/14/18 17:40 PT 13.5 sec (9.8-11.6) H 11/14/18 17:40 INR 1.3 Ratio 11/14/18 17:40 APTT 36.2 sec (23.4-31.7) H 11/14/18 17:40 Sodium 145 meq/L (136-145) 11/15/18 05:35 Potassium 3.5 meq/L (3.5-5.1) 11/15/18 05:35 Chloride 112 meq/L (98-107) H 11/15/18 05:35 Carbon Dioxide 22.1 meq/L (21.0-32.0) 11/15/18 05:35 Anion Gap 11 meq/L (5-15) 11/15/18 05:35 BUN 15 mg/dL (7-18) 11/15/18 05:35 Creatinine 0.71 mg/dL (0.60-1.30) 11/15/18 05:35 Estimated GFR Greater than 89 mL/min (>89) 11/15/18 05:35 Random Glucose 77 mg/dL (74-106) 11/15/18 05:35 Lactic Acid 1.8 mmol/L (0.4-2.0) 11/14/18 17:47 Calcium 7.8 mg/dL (8.5-10.1) L 11/15/18 05:35 Magnesium 2.1 mg/dL (1.5-2.5) 11/14/18 17:40 Total Bilirubin 1.5 mg/dL (0.2-1.0) H 11/15/18 05:35 AST 24 U/L (15-37) 11/15/18 05:35 ALT 27 U/L (12-78) 11/15/18 05:35 Alkaline Phosphatase 205 U/L (45-117) H 11/15/18 05:35 Ammonia 33 mcmol/L (11-32) H 11/14/18 17:47 Total Creatine Kinase 12 U/L (39-308) L 11/14/18 17:40 Troponin I Less than 0.02 ng/mL (0.02-0.05) L 11/14/18 17:40 Total Protein 6.7 g/dL (6.4-8.2) D 11/15/18 05:35 Albumin 2.1 g/dL (3.4-5.0) L 11/15/18 05:35 Lipase 114 U/L (73-393) 11/14/18 17:40 Impressions Gallbladder Ultrasound 11/14/18 17:35 CONCLUSION: 1. Positive for gallbladder sludge and gallstones also seen on prior MRI from May 2018. Gallbladder wall thickened to 7 mm. Common bile duct and pancreas not well visualized. 2. 6.9 cm right renal cyst. No hydronephrosis. 3. Fatty infiltration of the liver. Abdomen/Pelvis CT 11/14/18 18:02 CONCLUSION: 1. Distended gallbladder with pericholecystic inflammatory changes and gallstones including a gallstone that may be impacted in the gallbladder neck. Findings most characteristic of cholecystitis. Questionable adjacent contiguous inflammatory changes in the right colon versus mild right-sided colitis. 2. Subsegmental atelectasis at the lung bases. 3. Mild intrahepatic ductal dilatation. Common bile duct is not significantly dilated. Cholangiopancreatography MRI 11/15/18 00:00 CONCLUSION: 1. - Imaging Imaging: ITS Impressions Gallbladder Ultrasound 11/14/18 17:35 CONCLUSION: 1. Positive for gallbladder sludge and gallstones also seen on prior MRI from May 2018. Gallbladder wall thickened to 7 mm. Common bile duct and pancreas not well visualized. 2. 6.9 cm right renal cyst. No hydronephrosis. 3. Fatty infiltration of the liver. Abdomen/Pelvis CT 11/14/18 18:02 CONCLUSION: 1. Distended gallbladder with pericholecystic inflammatory changes and gallstones including a gallstone that may be impacted in the gallbladder neck. Findings most characteristic of cholecystitis. Questionable adjacent contiguous inflammatory changes in the right colon versus mild right-sided colitis. 2. Subsegmental atelectasis at the lung bases. 3. Mild intrahepatic ductal dilatation. Common bile duct is not significantly dilated. Cholangiopancreatography MRI 11/15/18 00:00 CONCLUSION: 1. CT scan - abdomen: report reviewed, image reviewed CT scan - pelvis: report reviewed, image reviewed US - abdomen: report reviewed, image reviewed Assessment and Plan - Assessment (1) RUQ abdominal pain Code(s): R10.11 - Right upper quadrant pain Status: Acute (2) Acute cholecystitis Code(s): K81.0 - Acute cholecystitis Status: Acute - Plan 63 year old male with RUQ tenderness; CT and US findings c/w cholecystis s -Request consult to Dr. Borja as the patient is known to him -Await MRCP results -Repeat CBC in AM -Plan for lap [place] with liver biopsy -Okay for clear liquids from GS standpoint for tonight and tomorrow; NPO after MN Wednesday -Plan explained to patient as well as father at the bedside -Thank you for this consult; We will continue to follow Discussed Condition With: Dr. Modesta FunesLay Lloyd and family - Attending Attestation CONSULTATION NOTE FOR SURGICAL ATTENDING, DR. GABRIELE BYERS I spoke with Dr. Borja his life science technical officer He has had 2 episodes of common duct stones in the past requiring ERCP he does not have a common duct stone at this point I believe he will benefit from cholecystectomy We will try to do this admission Discussed with minal I agree with above assessment and plan. The exam, history, and the medical decision-making described in the above note were completed with the assistance of the mid-level provider. I reviewed and agree with the findings presented. I attest that I had a [id number] encounter with the patient on the same day, and personally performed and documented my assessment and findings in the medical record. The following services were provided during this hospital visit: Chart data review, vital sign assessments/reviewing monitor data Review of consultations notes if present. Medication orders/review and/or management Ordering and/or reviewing lab tests Ordering and/or interpreting/reviewing x-rays and/or diagnostic studies Care of the patient and discussion of the patient with the care team Documentation time To help prompt me to consider important information that might be impacting today's encounter and assessment, Information from prior notes written by myself or my colleagues may have been "brought forward/copy and pasted" into today's note.
[2018-11-16] MEDS: Piperacil/Tazo 3.375 GM Premix 3.375 GM/50 ML PIGGYBACK IV.SIG SCH ×4 (02:09→21:50)
[2018-11-16] MEDS: Potassium Chloride Inj 10 MEQ in Sod Chloride 0.9% Inj 1,000 ML IV.CONT SCH ×3 (02:38→15:07)
[2018-11-16 06:37] LABS: Baso % (Auto) 0.1 % (0.0-2.0); Eos # (Auto) 0.3 th/mm3 (0.0-0.4); Eos % (Auto) 1.7 % (0.0-4.0); Hematocrit 33.7 % (39.0-51.0); Hemoglobin 10.9 gm/dL (13.0-17.0); Lymph # (Auto) 3.7 th/mm3 (1.0-4.8); Lymph % (Auto) 21.5 % (9.0-44.0); Mean Corpuscular HGB Conc 32.3 % (32.0-36.0); Mean Corpuscular Hemoglobin 25.1 pg (27.0-34.0); Mean Corpuscular Volume 77.5 fL (80.0-100.0); Mean Platelet Volume 8.7 fL (7.0-11.0); Mono # (Auto) 0.9 th/mm3 (0.0-0.9); Mono % (Auto) 5.3 % (0.0-8.0); Neut # (Auto) 12.2 th/mm3 (1.8-7.7); Neut % (Auto) 71.4 % (16.0-70.0); Platelet Count 307 th/mm3 (150-450); Red Blood Count 4.35 mil/mm3 (4.50-5.90); White Blood Count 17.1 th/mm3 (4.0-11.0)
[2018-11-16 06:50] LABS: Alanine Aminotransferase 26 U/L (12-78); Anion Gap 9 meq/L (5-15); Aspartate Aminotransferase 33 U/L (15-37); Blood Urea Nitrogen 12 mg/dL (7-18); Calcium 7.7 mg/dL (8.5-10.1); Carbon Dioxide 23.8 meq/L (21.0-32.0); Chloride 115 meq/L (98-107); Glomerular Filtration Rate Greater Than 89 mL/min (>89); Glucose,Random 82 mg/dL (74-106); Sodium 148 meq/L (136-145)
[2018-11-16 06:52] LABS: Alkaline Phosphatase 231 U/L (45-117); Total Protein 6.6 g/dL (6.4-8.2)
--- NOTE | 2018-11-16 13:19 | P.PNIM ---
Subjective Interval history: Patient laying down in bed. Says his abd pain is better with pain meds. No other complaints from him. Physical Exam Vital signs: Vital Signs 11/15/18 15:57 11/15/18 20:46 11/15/18 21:53 Temperature 98.5 F 98.4 F Pulse Rate 77 73 Respiratory Rate 16 20 18 Blood Pressure 149/76 H 207/92 H 137/79 Pulse Oximetry 93 L 95 93 L 11/16/18 00:00 11/16/18 04:00 11/16/18 08:00 Temperature 98.1 F 98.3 F 97.7 F Pulse Rate 79 70 73 Respiratory Rate 18 18 18 Blood Pressure 155/81 H 168/92 H 178/81 H Pulse Oximetry 94 L 92 L 92 L 11/16/18 12:00 Temperature 97.7 F Pulse Rate 69 Respiratory Rate 18 Blood Pressure 137/75 Pulse Oximetry 95 Intake & Output 11/15/18 11/16/18 11/16/18 18:59 06:59 18:59 Intake Total 1375 / 1375 1105 / 1105 50 / 50 Balance 1375 / 1375 1105 / 1105 50 / 50 Weight 107.955 kg Intake: IV 1105 / 1105 1105 / 1105 50 / 50 KCl Inj 10 MEQ In NS Inj 1,000 1005 / 1005 1005 / 1005 ML @ 100 mls/hr IV.CONT .Q10H3M ANG Rx#:[id number] Zosyn 3.375 GM Premix 3.375 gm 100 / 100 100 / 100 50 / 50 In 50 ml @ 100 mls/hr IV.SIG Q6H ANG Rx#:[id number] Oral 270 / 270 Other: # Voids 2 # Incontinent Voids 3 Date of Last Bowel Movement 11/15/18 11/16/18 11/16/18 # Incontinent Bowel Movements 1 Narrative: awake and alert S1S2 CTA b/l abd soft, nontender on palpation, normal bowel sounds no neuro deficits, patient moves all 4 exts, sensation intact b/l Results Labs CBC & Chem 7: 11/16/18 05:38 11/16/18 05:38 Imaging Imaging: Impressions Abdomen/Pelvis CT 11/14/18 18:02 CONCLUSION: 1. Distended gallbladder with pericholecystic inflammatory changes and gallstones including a gallstone that may be impacted in the gallbladder neck. Findings most characteristic of cholecystitis. Questionable adjacent contiguous inflammatory changes in the right colon versus mild right-sided colitis. 2. Subsegmental atelectasis at the lung bases. 3. Mild intrahepatic ductal dilatation. Common bile duct is not significantly dilated. Cholangiopancreatography MRI 11/15/18 00:00 CONCLUSION: 1. Assessment and Plan (1) RUQ abdominal pain: Code(s): R10.11 - Right upper quadrant pain Status: Acute (2) Acute cholecystitis: Code(s): K81.0 - Acute cholecystitis Status: Acute Plan 63 y/o Male with dementia, ulcerative colitis, htn, presented to the ED for evaluation of abd pain and was found to have cholecystitis. 1. Sepsis 2/2 Acute cholecystitis POA Patient with elevated wbc count and tachycardia on admission CT and US findings consistent with cholecystisis MRCP shows a stone in the cystic duct, multiple gallstones, findings consistent with cholecystitis. Dr. Borja evaluated the patient from GI. Gen surgery following the patient. Started on IVF today, tolerating clears NPO pmn fro cholecystectomy tomorrow with liver bx. Blood cxs ordered, pending Continue zosyn. Follow up am labs. WBC ct downtrending 36 to 17 2. HTN Norvasc will be started today Cont to monitor and adjust meds as needed. 3. Dementia Chronic issue. Currently patient is awake and alert. He responds to my questions and commands appropriately. 4. Hypokalemia Electrolytes replaced, follow up am labs. DVT prophylaxis, plan for surgery tomorrow am. SCDs. Progress Note: Quality VTE Deep Vein Thrombosis/Pulmonary Embolism Present on Admission: No
[2018-11-16] MEDS ORDERED: Potassium Chloride 25 MEQ Effervescent Tablet PO ONE (13:20)
[2018-11-16] MEDS: Dextrose 5% in Water Inj 1,000 ML IV.CONT SCH (14:00)
[2018-11-16] MEDS: amLODIPine 5 MG Tablet PO SCH (14:00)
--- NOTE | 2018-11-16 15:34 | P.PNGS ---
Subjective Interval history: DAILY PROGRESS NOTE FOR SURGICAL ATTENDING, DR. HUEY PURCELL Patient is confused; He would like to go home for the evening and come back tomorrow for surgery Reports Dr. Borja came to see him yesterday Physical Exam Vital signs: Vital Signs 11/15/18 15:57 11/15/18 20:46 11/15/18 21:53 Temperature 98.5 F 98.4 F Pulse Rate 77 73 Respiratory Rate 16 20 18 Blood Pressure 149/76 H 207/92 H 137/79 Pulse Oximetry 93 L 95 93 L 11/16/18 00:00 11/16/18 04:00 11/16/18 08:00 Temperature 98.1 F 98.3 F 97.7 F Pulse Rate 79 70 73 Respiratory Rate 18 18 18 Blood Pressure 155/81 H 168/92 H 178/81 H Pulse Oximetry 94 L 92 L 92 L 11/16/18 12:00 Temperature 97.7 F Pulse Rate 69 Respiratory Rate 18 Blood Pressure 137/75 Pulse Oximetry 95 Intake & Output 11/15/18 11/16/18 11/16/18 18:59 06:59 18:59 Intake Total 1375 / 1375 1105 / 1105 1105 / 1105 Balance 1375 / 1375 1105 / 1105 1105 / 1105 Weight 107.955 kg Intake: IV 1105 / 1105 1105 / 1105 1105 / 1105 KCl Inj 10 MEQ In NS Inj 1,000 1005 / 1005 1005 / 1005 1005 / 1005 ML @ 100 mls/hr IV.CONT .Q10H3M ANG Rx#:[id number] Zosyn 3.375 GM Premix 3.375 gm 100 / 100 100 / 100 100 / 100 In 50 ml @ 100 mls/hr IV.SIG Q6H ANG Rx#:[id number] Oral 270 / 270 Other: # Voids 2 # Incontinent Voids 3 Date of Last Bowel Movement 11/15/18 11/16/18 11/16/18 # Incontinent Bowel Movements 1 Narrative: Awake; confused Abd: RUQ tenderness to palpation Results - Labs 11/16/18 05:38 11/16/18 05:38 Laboratory Results - last 24 hr 11/16/18 11/16/18 05:38 05:38 WBC 17.1 H RBC 4.35 L Hgb 10.9 L Hct 33.7 L MCV 77.5 L MCH 25.1 L MCHC 32.3 RDW 17.0 Plt Count 307 MPV 8.7 Neut % (Auto) 71.4 H Lymph % (Auto) 21.5 [place] % (Auto) 5.3 Eos % (Auto) 1.7 Baso % (Auto) 0.1 Neut # (Auto) 12.2 H Lymph # (Auto) 3.7 [place] # (Auto) 0.9 Eos # (Auto) 0.3 Baso # (Auto) 0.0 WBC Differential . Differential Comment Auto diff final Sodium 148 H Potassium 3.0 L Chloride 115 H Carbon Dioxide 23.8 Anion Gap 9 BUN 12 Creatinine 0.66 Estimated GFR Greater than 89 Random Glucose 82 Calcium 7.7 L Total Bilirubin 1.2 H AST 33 ALT 26 Alkaline Phosphatase 231 H Total Protein 6.6 Albumin 2.0 L - Imaging Imaging: ITS Impressions Gallbladder Ultrasound 11/14/18 17:35 CONCLUSION: 1. Positive for gallbladder sludge and gallstones also seen on prior MRI from May 2018. Gallbladder wall thickened to 7 mm. Common bile duct and pancreas not well visualized. 2. 6.9 cm right renal cyst. No hydronephrosis. 3. Fatty infiltration of the liver. Abdomen/Pelvis CT 11/14/18 18:02 CONCLUSION: 1. Distended gallbladder with pericholecystic inflammatory changes and gallstones including a gallstone that may be impacted in the gallbladder neck. Findings most characteristic of cholecystitis. Questionable adjacent contiguous inflammatory changes in the right colon versus mild right-sided colitis. 2. Subsegmental atelectasis at the lung bases. 3. Mild intrahepatic ductal dilatation. Common bile duct is not significantly dilated. Cholangiopancreatography MRI 11/15/18 00:00 CONCLUSION: 1. Assessment and Plan - Assessment (1) RUQ abdominal pain Code(s): R10.11 - Right upper quadrant pain Status: Acute (2) Acute cholecystitis Code(s): K81.0 - Acute cholecystitis Status: Acute - Plan 63 year old male with RUQ tenderness; CT and US findings c/w cholecystis s -Plan for lap clayton with liver biopsy -Clear liquids tonight; NPO after MN -Obtain consents - Attending Attestation NOTE FOR SURGICAL ATTENDING, DR. HUEY PURCELL Spoke with family at bedside Patient had some diarrhea C. difficile pending Plan laparoscopic cholecystectomy tomorrow I agree with above assessment and plan. The exam, history, and the medical decision-making described in the above note were completed with the assistance of the mid-level provider. I reviewed and agree with the findings presented. I attest that I had a [id number] encounter with the patient on the same day, and personally performed and documented my assessment and findings in the medical record. The following services were provided during this hospital visit: Chart data review, vital sign assessments/reviewing monitor data Review of consultations notes if present. Medication orders/review and/or management Ordering and/or reviewing lab tests Ordering and/or interpreting/reviewing x-rays and/or diagnostic studies Care of the patient and discussion of the patient with the care team Documentation time To help prompt me to consider important information that might be impacting today's encounter and assessment, Information from prior notes written by myself or my colleagues may have been "brought forward/copy and pasted" into today's note.
[2018-11-17] MEDS: Dextrose 5% in Water Inj 1,000 ML IV.CONT SCH ×3 (03:27→17:31)
[2018-11-17] MEDS: Piperacil/Tazo 3.375 GM Premix 3.375 GM/50 ML PIGGYBACK IV.SIG SCH ×4 (03:28→21:19)
[2018-11-17] MEDS: Potassium Chloride Inj 10 MEQ in Sod Chloride 0.9% Inj 1,000 ML IV.CONT SCH ×3 (04:59→23:47)
[2018-11-17 06:48] LABS: Baso % (Auto) 0.2 % (0.0-2.0); Eos # (Auto) 0.4 th/mm3 (0.0-0.4); Hematocrit 35.1 % (39.0-51.0); Hemoglobin 11.4 gm/dL (13.0-17.0); Lymph % (Auto) 21.7 % (9.0-44.0); Mean Corpuscular HGB Conc 32.5 % (32.0-36.0); Mean Corpuscular Hemoglobin 25.5 pg (27.0-34.0); Mean Corpuscular Volume 78.3 fL (80.0-100.0); Mean Platelet Volume 8.5 fL (7.0-11.0); Mono # (Auto) 0.6 th/mm3 (0.0-0.9); Mono % (Auto) 4.6 % (0.0-8.0); Neut # (Auto) 9.7 th/mm3 (1.8-7.7); Neut % (Auto) 70.5 % (16.0-70.0); Platelet Count 273 th/mm3 (150-450); Red Blood Count 4.48 mil/mm3 (4.50-5.90); Red Cell Distribution Width 16.7 % (11.6-17.2); White Blood Count 13.7 th/mm3 (4.0-11.0)
[2018-11-17 07:15] LABS: Anion Gap 8 meq/L (5-15); Blood Urea Nitrogen 6 mg/dL (7-18); Calcium 7.8 mg/dL (8.5-10.1); Chloride 108 meq/L (98-107); Glomerular Filtration Rate Greater Than 89 mL/min (>89); Glucose,Random 89 mg/dL (74-106); Sodium 141 meq/L (136-145)
[2018-11-17 07:26] LABS: Potassium 2.8 meq/L (3.5-5.1)
[2018-11-17] MEDS: amLODIPine 5 MG Tablet PO SCH (09:25)
[2018-11-17] MEDS: Potassium Chlor 20 mEq Premix 20 MEQ/100 ML PIGGYBACK IV.SIG SCH ×4 (11:06→18:34)
[2018-11-17] MEDS ORDERED: Potassium Chlor 20 mEq Premix 20 MEQ/100 ML PIGGYBACK IV.SIG SCH (11:18)
--- NOTE | 2018-11-17 11:24 | P.PNIM ---
Subjective Interval history: Patient laying down in bed. He is awake and alert. He is ready for his surgery today. No specific complaints from the patient. Physical Exam Vital signs: Vital Signs 11/16/18 12:00 11/16/18 16:00 11/16/18 20:00 Temperature 97.7 F 97.9 F 97.9 F Pulse Rate 69 69 68 Respiratory Rate 18 16 18 Blood Pressure 137/75 166/91 H 173/92 H Pulse Oximetry 95 94 L 96 11/17/18 00:00 11/17/18 05:34 11/17/18 07:20 Temperature 98.6 F 98.4 F 98.6 F Pulse Rate 69 65 64 Respiratory Rate 18 16 20 Blood Pressure 131/71 165/90 H 179/90 H Pulse Oximetry 95 94 L 96 11/17/18 09:26 Temperature Pulse Rate Respiratory Rate Blood Pressure 162/88 H Pulse Oximetry Intake & Output 11/16/18 11/17/18 11/17/18 18:59 06:59 18:59 Intake Total 1105 / 1105 1220 / 1220 Balance 1105 / 1105 1220 / 1220 Intake: IV 1105 / 1105 1100 / 1100 D5W Inj 1,000 ML @ 84 mls/hr IV 1000 / 1000 .CONT .[id number] ANG Rx#:[id number] KCl Inj 10 MEQ In NS Inj 1,000 1005 / 1005 ML @ 100 mls/hr IV.CONT .Q10H3M ANG Rx#:[id number] Zosyn 3.375 GM Premix 3.375 gm 100 / 100 100 / 100 In 50 ml @ 100 mls/hr IV.SIG Q6H ANG Rx#:[id number] Oral 120 / 120 Other: # Incontinent Voids 3 Date of Last Bowel Movement 11/16/18 11/17/18 # Incontinent Bowel Movements 1 1 Narrative: awake and alert S1S2 CTA b/l abd soft, nontender on palpation, normal bowel sounds no neuro deficits, patient moves all 4 exts, sensation intact b/l Results Labs CBC & Chem 7: 11/17/18 05:49 11/17/18 05:49 Labs: Microbiology 11/16/18 15:11 Blood - Peripheral Aerobic Blood Culture - Preliminary No growth in 1 day 11/16/18 15:11 Blood - Peripheral Anaerobic Blood Culture - Preliminary No growth in 1 day 11/16/18 15:05 Blood - Peripheral Aerobic Blood Culture - Preliminary No growth in 1 day 11/16/18 15:05 Blood - Peripheral Anaerobic Blood Culture - Preliminary No growth in 1 day Assessment and Plan (1) RUQ abdominal pain: Code(s): R10.11 - Right upper quadrant pain Status: Acute (2) Acute cholecystitis: Code(s): K81.0 - Acute cholecystitis Status: Acute Plan 63 y/o Male with dementia, ulcerative colitis, htn, presented to the ED for evaluation of abd pain and was found to have cholecystitis. 1. Sepsis 2/2 Acute cholecystitis POA Patient with elevated wbc count and tachycardia on admission CT and US findings consistent with cholecystisis MRCP shows a stone in the cystic duct, multiple gallstones, findings consistent with cholecystitis. Dr. Borja evaluated the patient from GI. Gen surgery following the patient. Started on IVF today, tolerating clears WBC ct is downtrending Continue IV antibiotics Plan is for lap clayton today. Will follow up with surgery for their recs after surgery this afternoon. Discussed with nurse, no diarrhea for today. Stool for c diff was not sent yesterday. Patient's diarrhea has improved. If he has diarrhea will send stool for c diff. 2. HTN Norvasc dose increased. Will monitor and cont to adjust meds if needed. 3. Dementia Chronic. Patient awake and alert as of now. Answering my questions appropriately. 4. Hypokalemia K 2.8 this am. Ordered IV potassium follow up am labs. DVT prophylaxis, plan for surgery today. SCDs. Progress Note: Quality VTE Deep Vein Thrombosis/Pulmonary Embolism Present on Admission: No
[2018-11-17] MEDS ORDERED: Bupivacaine/Epinephrine PF Inj 0.5% 30 ML Vial ONE (12:56)
--- NOTE | 2018-11-17 15:55 | P.OP ---
- Preoperative Diagnosis (1) Abnormal liver enzymes (2) Acute cholecystitis (3) RUQ abdominal pain - Postoperative Diagnosis (1) Acute cholecystitis (2) RUQ abdominal pain (3) Abnormal liver enzymes Date of procedure: 11/17/18 Procedure: Laparoscopic cholecystectomy with laparoscopic liver biopsy Anesthesia: GETA Surgeon: Gabriele Byers MD Estimated blood loss (mL): 50 Pathology: other (gallbladder) Operation and Findings: PREOPERATIVE DIAGNOSIS: Cholelithiasis And/or Cholecystitis Abnormal liver enzymes POSTOP DIAGNOSIS: Gangrenous cholecystitis Abnormal liver enzymes PROCEDURE: Laparoscopic Cholecystectomy Laparoscopic liver biopsy ANESTHESIA: General SURGEON: Gabriele Byers M.D. PROCEDURE DETAILS The patient was brought to the operating room and after proper identification. The patient was intubated after the induction of appropriate anesthesia. The patient remained under general anesthesia for the duration of the case. The patient was prepped with an antiseptic over the abdomen in the usual fashion and then he was draped in the usual sterile fashion. Following the draping, the pneumoperitoneum was established via Veress needle after saline load test had been performed via a infra-umbilical incision. After direct visualization of the peritoneum, the trocar was introduced and insufflation was begun. After appropriate insufflation a scope was inserted and the abdomen was visually inspected to be benign in gross visualization. Next, another 5 mm port was placed just below the xiphoid. This was then followed by the placement of 5 mm ports in between the 2 previously placed ports. Third working port was placed in the right upper quadrant. all port sites were anesthetized with a Marcaine solution. The gallbladder was easily identified. There were adhesions in the omentum is draped over the gallbladder which is divided and using blunt dissection and hydrodissection. The gallbladder was obviously inflamed and very tense and for this reason a gallbladder drainage needle was placed in the gallbladder and 180 cc of purulent cloudy fluid is returned and sent for cultures Some intraabdominal fluid is seen and evacuated upon retraction of the gallbladder, the infundibulum was identified. After some blunt dissection, the cystic duct was identified and then skeletonized using the small grasper. After appropriate identification of the cystic duct, it was clipped 3 times with 2 clips staying, 1 clip going. It was then transected with scissors. This was performed without any complication. Next, a cystic artery was identified and 2 surgical clips on the proximal end and 1 surgical clip on the distal end were applied and this was transected using the laparoscopic scissors. Following this, the gallbladder was easily retracted back and electrocautery was used to dissect the gallbladder fossa. There was a well- established plane but very inflamed and necrotic. After the gallbladder was resected bleeding is stopped with the electrocautery device A liver biopsy was obtained at the request of the electrical mechanic who is followed this patient for many years. This was accomplished using the Rosalind Biopty gun and 3 passes of the right lobe of the liver were taken for adequate sampling of the liver After application of the clips, no further bleeding from this site was appreciated. Hemostasis was attained on the gallbladder fossa using a small amount of electrocautery. We did place 3 g of Gladys along the gallbladder fossa to assure hemostasis following the removal of the gallbladder from the gallbladder fossa, it was placed in an endobag and subsequently removed from the supraumbilical port site. We double checked for hemostasis at the cystic artery. Also checked the cystic duct stump which showed no bile leakage. All ports were then removed The infra-umbilical fascia was closed directly with 0 Vicryl and then the dermis was closed at all 3 incision sites with a 4-0 absorbable monofilament in a running subcuticular manner. The fascia was closed in a simple interrupted manner. In addition we did place a ASHLYN in the gallbladder fossa and brought out through the right port site secured to the skin with a 3-0 nylon Steri-Strips and dressings were placed over the incision sites. The patient was awakened from anesthesia. The patient was returned to post-anesthesia care unit in a stable condition. DETAIL SPECIFIC TO THIS PROCEDURE: Very inflamed gallbladder Densely adhesed to the omentum Liver with findings consistent with early cirrhosis Cultures were taken of the gallbladder fluid that was purulent Gabriele Byers M.D.
[2018-11-17] MEDS ORDERED: Morphine Inj 4 MG/ML Vial ONE (15:58)
[2018-11-17] MEDS ORDERED: fentaNYL Citrate Inj 100 MCG/2 ML Ampul ONE (15:58)
[2018-11-18] MEDS: Dextrose 5% in Water Inj 1,000 ML IV.CONT SCH ×2 (01:51→05:11)
[2018-11-18] MEDS: Piperacil/Tazo 3.375 GM Premix 3.375 GM/50 ML PIGGYBACK IV.SIG SCH ×4 (01:51→21:17)
[2018-11-18 07:02] LABS: Baso % (Auto) 0.2 % (0.0-2.0); Hematocrit 33.9 % (39.0-51.0); Mean Corpuscular HGB Conc 32.4 % (32.0-36.0); Mean Corpuscular Hemoglobin 25.7 pg (27.0-34.0); Mean Corpuscular Volume 79.3 fL (80.0-100.0); Mean Platelet Volume 8.7 fL (7.0-11.0); Mono # (Auto) 0.8 th/mm3 (0.0-0.9); Mono % (Auto) 4.1 % (0.0-8.0); Neut # (Auto) 15.1 th/mm3 (1.8-7.7); Neut % (Auto) 79.7 % (16.0-70.0); Platelet Count 320 th/mm3 (150-450); Red Blood Count 4.28 mil/mm3 (4.50-5.90); Red Cell Distribution Width 17.1 % (11.6-17.2)
[2018-11-18] MEDS: Potassium Chloride Inj 10 MEQ in Sod Chloride 0.9% Inj 1,000 ML IV.CONT SCH (07:25)
[2018-11-18 07:30] LABS: Anion Gap 7 meq/L (5-15); Blood Urea Nitrogen 8 mg/dL (7-18); Carbon Dioxide 26.6 meq/L (21.0-32.0); Chloride 106 meq/L (98-107); Glomerular Filtration Rate Greater Than 89 mL/min (>89); Glucose,Random 136 mg/dL (74-106); Magnesium 2.2 mg/dL (1.5-2.5); Potassium 3.7 meq/L (3.5-5.1); Sodium 140 meq/L (136-145)
[2018-11-18] MEDS: amLODIPine 10 MG Tablet PO SCH (08:09)
--- NOTE | 2018-11-18 10:33 | P.PNIM ---
Subjective Interval history: Evaluated this morning at the bedside after surgical intervention for cholecystitis Patient denies subjective fever and chills Patient does report abdominal discomfort status post surgery. Expanded patient at this is normal post surgical intervention to have discomfort in the abdominal region we will continue to monitor closely Pain is controlled at this time Physical Exam Vital signs: Vital Signs 11/17/18 11:20 11/17/18 12:37 11/17/18 15:54 Temperature 98.6 F 98.6 F 100.3 F H Pulse Rate 98 H 98 H 98 H Respiratory Rate 20 20 22 Blood Pressure 170/78 H 170/78 H 113/56 L Pulse Oximetry 91 L 93 L 94 L 11/17/18 16:00 11/17/18 16:15 11/17/18 16:30 Temperature Pulse Rate 97 H 96 H 93 H Respiratory Rate 18 20 21 Blood Pressure 124/72 121/69 127/72 Pulse Oximetry 93 L 94 L 95 11/17/18 16:45 11/17/18 17:00 11/17/18 17:15 Temperature Pulse Rate 93 H 90 86 Respiratory Rate 17 22 22 Blood Pressure 127/74 130/77 126/73 Pulse Oximetry 95 93 L 93 L 11/17/18 17:25 11/17/18 18:00 11/17/18 20:00 Temperature 98 F 98.3 F 97.4 F L Pulse Rate 88 84 70 Respiratory Rate 20 18 20 Blood Pressure 126/73 120/62 127/65 Pulse Oximetry 95 96 97 11/18/18 00:00 11/18/18 04:00 11/18/18 08:00 Temperature 97.6 F 97.7 F 98.3 F Pulse Rate 65 63 60 Respiratory Rate 20 20 18 Blood Pressure 142/75 H 137/77 134/76 Pulse Oximetry 94 L 97 93 L Intake & Output 11/17/18 11/18/18 11/18/18 18:59 06:59 18:59 Intake Total 3100 / 3100 1200 / 1200 50 / 50 Output Total 1280 / 1280 2345 / 2345 Balance 1820 / 1820 -1145 / -1145 50 / 50 Weight 97.1 kg 96.6 kg Intake: IV 1400 / 1400 1200 / 1200 50 / 50 D5W Inj 1,000 ML @ 84 mls/hr IV 1000 / 1000 1000 / 1000 .CONT .[id number] [facility] Rx#:[id number] Zosyn 3.375 GM Premix 3.375 gm 100 / 100 100 / 100 50 / 50 In 50 ml @ 100 mls/hr IV.SIG Q6H ANG Rx#:[id number] KCl 20 mEq Premix Inj 20 meq In 300 / 300 100 / 100 100 ml @ 50 mls/hr IV.SIG Q2H ANG Rx#:[id number] Anesthesia Amount 1700 / 1700 Output: Urine 600 / 600 2250 / 2250 Estimated Blood Loss 50 / 50 Urine Amount (Catheter) 600 / 600 Indwelling Urethral Catheter 600 / 600 Wound Drainage 95 / 95 # 1 Abdomen 95 / 95 Other: # Incontinent Voids 1 Date of Last Bowel Movement 11/17/18 11/17/18 Weight On Admission 96.4 kg Narrative: awake and alert S1S2 CTA b/l without wheezing or rales abd soft, nontender on palpation, normal bowel sounds no neuro deficits, patient moves all 4 exts, sensation intact b/l Urinary Catheter Management Indwelling Urethral Catheter: Cath placed during this visit: yes Reason for continuing: Hourly intake/output Insertion date: 11/17/18 Insertion time: 14:07 Results Labs CBC & Chem 7: 11/18/18 06:02 11/18/18 06:02 Labs: Microbiology 11/16/18 15:11 Blood - Peripheral Aerobic Blood Culture - Preliminary No growth in 1 day 11/16/18 15:11 Blood - Peripheral Anaerobic Blood Culture - Preliminary No growth in 1 day 11/16/18 15:05 Blood - Peripheral Aerobic Blood Culture - Preliminary No growth in 1 day 11/16/18 15:05 Blood - Peripheral Anaerobic Blood Culture - Preliminary No growth in 1 day Assessment and Plan (1) RUQ abdominal pain: Code(s): R10.11 - Right upper quadrant pain Status: Acute (2) Acute cholecystitis: Code(s): K81.0 - Acute cholecystitis Status: Acute Plan Patient is a 63-year-old gentleman with reported history of dementia, ulcerative colitis and hypertension who presented with complaints of acute onset abdominal pain found on imaging studies to have cholecystitis status post cholecystectomy 11/17 . Surgery: Cholecystitis status post cholecystectomy Surgery consulted Patient status post cholecystectomy on 11/17 Remove [place], discontinue IV fluid hydration as patient is tolerating oral, clear liquids and advance as tolerated Daily abdominal examination CT and US findings consistent with cholecystisis MRCP shows a stone in the cystic duct, multiple gallstones, findings consistent with cholecystitis. Dr. Borja evaluated the patient from GI. Continue IV antibiotics Cardiology: HTN Norvasc Will monitor and cont to adjust meds if needed. Neurology: Dementia Chronic. Patient CARE: Deconditioning Physical therapy evaluation DVT prophylaxis: SCDs Diet: Clears and advance as tolerated Progress Note: Quality VTE Deep Vein Thrombosis/Pulmonary Embolism Present on Admission: No
--- NOTE | 2018-11-18 12:43 | P.PNGS ---
Subjective Interval history: Up to chair; working with PT Misha Father at bedside Physical Exam Vital signs: Vital Signs 11/17/18 15:54 11/17/18 16:00 11/17/18 16:15 Temperature 100.3 F H Pulse Rate 98 H 97 H 96 H Respiratory Rate 22 18 20 Blood Pressure 113/56 L 124/72 121/69 Pulse Oximetry 94 L 93 L 94 L 11/17/18 16:30 11/17/18 16:45 11/17/18 17:00 Temperature Pulse Rate 93 H 93 H 90 Respiratory Rate 21 17 22 Blood Pressure 127/72 127/74 130/77 Pulse Oximetry 95 95 93 L 11/17/18 17:15 11/17/18 17:25 11/17/18 18:00 Temperature 98 F 98.3 F Pulse Rate 86 88 84 Respiratory Rate 22 20 18 Blood Pressure 126/73 126/73 120/62 Pulse Oximetry 93 L 95 96 11/17/18 20:00 11/18/18 00:00 11/18/18 04:00 Temperature 97.4 F L 97.6 F 97.7 F Pulse Rate 70 65 63 Respiratory Rate 20 20 20 Blood Pressure 127/65 142/75 H 137/77 Pulse Oximetry 97 94 L 97 11/18/18 08:00 Temperature 98.3 F Pulse Rate 60 Respiratory Rate 18 Blood Pressure 134/76 Pulse Oximetry 93 L Intake & Output 11/17/18 11/18/18 11/18/18 18:59 06:59 18:59 Intake Total 3100 / 3100 1200 / 1200 50 / 50 Output Total 1280 / 1280 2345 / 2345 Balance 1820 / 1820 -1145 / -1145 50 / 50 Weight 97.1 kg 96.6 kg Intake: IV 1400 / 1400 1200 / 1200 50 / 50 D5W Inj 1,000 ML @ 84 mls/hr IV 1000 / 1000 1000 / 1000 .CONT .[id number] ANG Rx#:[id number] Zosyn 3.375 GM Premix 3.375 gm 100 / 100 100 / 100 50 / 50 In 50 ml @ 100 mls/hr IV.SIG Q6H ANG Rx#:[id number] KCl 20 mEq Premix Inj 20 meq In 300 / 300 100 / 100 100 ml @ 50 mls/hr IV.SIG Q2H ANG Rx#:[id number] Anesthesia Amount 1700 / 1700 Output: Urine 600 / 600 2250 / 2250 Estimated Blood Loss 50 / 50 Urine Amount (Catheter) 600 / 600 Indwelling Urethral Catheter 600 / 600 Wound Drainage 95 / 95 # 1 Abdomen 95 / 95 Other: # Incontinent Voids 1 Date of Last Bowel Movement 11/17/18 11/17/18 Weight On Admission 96.4 kg Narrative: Alert; pleasantly confused Abd: soft; mildly distended in RUQ; Steri strips in place; ASHLYN with serosanguineous drainage - Urinary Catheter Management Indwelling Urethral Catheter Cath placed during this visit: yes Reason for continuing: Hourly intake/output Insertion date: 11/17/18 Insertion time: 14:07 Results - Labs 11/18/18 06:02 11/18/18 06:02 Laboratory Results - last 24 hr 11/18/18 11/18/18 06:02 06:02 WBC 19.0 H RBC 4.28 L Hgb 11.0 L Hct 33.9 L MCV 79.3 L MCH 25.7 L MCHC 32.4 RDW 17.1 Plt Count 320 MPV 8.7 Neut % (Auto) 79.7 H Lymph % (Auto) 16.0 [place] % (Auto) 4.1 Eos % (Auto) 0.0 Baso % (Auto) 0.2 Neut # (Auto) 15.1 H Lymph # (Auto) 3.0 [place] # (Auto) 0.8 Eos # (Auto) 0.0 Baso # (Auto) 0.0 WBC Differential . Differential Comment Auto diff final Sodium 140 Potassium 3.7 D Chloride 106 Carbon Dioxide 26.6 Anion Gap 7 BUN 8 Creatinine 0.69 Estimated GFR Greater than 89 Random Glucose 136 H Calcium 8.0 L Magnesium 2.2 - Imaging Imaging: ITS Impressions Gallbladder Ultrasound 11/14/18 17:35 CONCLUSION: 1. Positive for gallbladder sludge and gallstones also seen on prior MRI from May 2018. Gallbladder wall thickened to 7 mm. Common bile duct and pancreas not well visualized. 2. 6.9 cm right renal cyst. No hydronephrosis. 3. Fatty infiltration of the liver. Abdomen/Pelvis CT 11/14/18 18:02 CONCLUSION: 1. Distended gallbladder with pericholecystic inflammatory changes and gallstones including a gallstone that may be impacted in the gallbladder neck. Findings most characteristic of cholecystitis. Questionable adjacent contiguous inflammatory changes in the right colon versus mild right-sided colitis. 2. Subsegmental atelectasis at the lung bases. 3. Mild intrahepatic ductal dilatation. Common bile duct is not significantly dilated. Cholangiopancreatography MRI 11/15/18 00:00 CONCLUSION: 1. Assessment and Plan - Assessment (1) RUQ abdominal pain Code(s): R10.11 - Right upper quadrant pain Status: Acute (2) Acute cholecystitis Code(s): K81.0 - Acute cholecystitis Status: Acute - Plan 63 year old male with RUQ tenderness; CT and US findings c/w cholecystis -POD1 lap clayton with drain placement; gangrenous cholecystitis -Continue routine ASHLYN care and monitoring -Continue liquid for today -Pain control -Continue antibiotics -Will need to stay atleast through the weekend for IV antibiotics
[2018-11-19] MEDS: Piperacil/Tazo 3.375 GM Premix 3.375 GM/50 ML PIGGYBACK IV.SIG SCH ×4 (01:21→21:25)
[2018-11-19 09:00] LABS: Anion Gap 9 meq/L (5-15); Blood Urea Nitrogen 11 mg/dL (7-18); Calcium 8.5 mg/dL (8.5-10.1); Carbon Dioxide 27.3 meq/L (21.0-32.0); Chloride 106 meq/L (98-107); Glomerular Filtration Rate Greater Than 89 mL/min (>89); Glucose,Random 80 mg/dL (74-106); Potassium 3.7 meq/L (3.5-5.1)
[2018-11-19 09:04] LABS: Magnesium 2.3 mg/dL (1.5-2.5); Sodium 142 meq/L (136-145)
[2018-11-19] MEDS: amLODIPine 10 MG Tablet PO SCH (09:32)
--- NOTE | 2018-11-19 11:47 | P.PNIM ---
Subjective Interval history: Patient seen on follow up with stepfather and friends present denied fever or chills denied belly pain tolerating PO still with copius serosanguinous fluid outpt into ASHLYN drain + BM as per patient WBC > 19 post surgery may be reactive vs transient bacteremia following OR Physical Exam Vital signs: Vital Signs 11/18/18 12:00 11/18/18 16:00 11/18/18 20:00 Temperature 98.1 F 98 F 97.4 F L Pulse Rate 72 76 80 Respiratory Rate 18 18 18 Blood Pressure 123/75 154/80 H 111/78 Pulse Oximetry 92 L 93 L 87 L 11/19/18 00:00 11/19/18 00:30 11/19/18 03:40 Temperature 98.1 F 97.5 F L Pulse Rate 80 78 76 Respiratory Rate 18 18 Blood Pressure 155/87 H 148/86 H Pulse Oximetry 90 L 91 L 11/19/18 04:00 11/19/18 08:00 Temperature 97.6 F Pulse Rate 87 70 Respiratory Rate 18 Blood Pressure 145/87 H Pulse Oximetry 94 L Intake & Output 11/18/18 11/19/18 11/19/18 18:59 06:59 18:59 Intake Total 980 / 980 340 / 340 50 / 50 Output Total 750 / 750 1110 / 1110 Balance 230 / 230 -770 / -770 50 / 50 Weight 94.4 kg Intake: IV 500 / 500 100 / 100 50 / 50 D5W Inj 1,000 ML @ 84 mls/hr IV 400 / 400 .CONT .[id number] ANG Rx#:[id number] Zosyn 3.375 GM Premix 3.375 gm 100 / 100 100 / 100 50 / 50 In 50 ml @ 100 mls/hr IV.SIG Q6H ANG Rx#:[id number] Oral 480 / 480 240 / 240 Output: Urine 700 / 700 250 / 250 Wound Drainage 50 / 50 860 / 860 # 1 Abdomen 50 / 50 860 / 860 Other: Date of Last Bowel Movement 11/18/18 # Bowel Movements 0 0 gen: NAD heent: eomi cvs: s1/s2 resp: CTA GI: soft, non tender, non distended, no guarding + ASHLYN with serous drainage ext: no edema Urinary Catheter Management Indwelling Urethral Catheter: Cath placed during this visit: yes, but has since been removed by the nurse Reason for continuing: Hourly intake/output Insertion date: 11/17/18 Insertion time: 14:07 Removal date: 11/18/18 Removal time: 13:30 Results Labs CBC & Chem 7: 11/18/18 06:02 11/19/18 08:00 Labs: Microbiology 11/16/18 15:11 Blood - Peripheral Aerobic Blood Culture - Preliminary No growth in 3 days 11/16/18 15:11 Blood - Peripheral Anaerobic Blood Culture - Preliminary No growth in 3 days 11/16/18 15:05 Blood - Peripheral Aerobic Blood Culture - Preliminary No growth in 3 days 11/16/18 15:05 Blood - Peripheral Anaerobic Blood Culture - Preliminary No growth in 3 days 11/17/18 14:44 Fluid - Gallbladder Gram Stain - Final 11/17/18 14:44 Fluid - Gallbladder Wound Culture - Preliminary Assessment and Plan (1) RUQ abdominal pain: Code(s): R10.11 - Right upper quadrant pain Status: Acute (2) Acute cholecystitis: Code(s): K81.0 - Acute cholecystitis Status: Acute Plan Patient is a 63-year-old gentleman with reported history of dementia, ulcerative colitis and hypertension who presented with complaints of acute onset abdominal pain found on imaging studies to have cholecystitis status post cholecystectomy 11/17 . Surgery: Cholecystitis status post cholecystectomy Surgery consulted Patient status post cholecystectomy on 11/[address] and US findings consistent with cholecystisis MRCP shows a stone in the cystic duct, multiple gallstones, findings consistent with cholecystitis. Dr. Borja evaluated the patient from GI. Continue IV antibiotics and follow fever curve Cardiology: HTN Norvasc Will monitor and cont to adjust meds if needed. Neurology: Dementia Chronic. Patient CARE: Deconditioning Physical therapy evaluation - home w/ home health PT DVT prophylaxis: SCDs Diet: advance diet low fat Progress Note: Quality VTE Deep Vein Thrombosis/Pulmonary Embolism Present on Admission: No
[2018-11-19 12:34] LABS: Hematocrit 42.7 % (39.0-51.0); Hemoglobin 13.8 gm/dL (13.0-17.0); Mean Corpuscular HGB Conc 32.4 % (32.0-36.0); Mean Corpuscular Hemoglobin 25.9 pg (27.0-34.0); Mean Platelet Volume 8.6 fL (7.0-11.0); Platelet Count 595 th/mm3 (150-450); Red Blood Count 5.34 mil/mm3 (4.50-5.90); Red Cell Distribution Width 17.3 % (11.6-17.2); White Blood Count 34.5 th/mm3 (4.0-11.0)
--- NOTE | 2018-11-19 22:09 | P.PNGS ---
Subjective Patient reports: feels better, pain is less Physical Exam Vital signs: Vital Signs 11/19/18 00:00 11/19/18 00:30 11/19/18 03:40 Temperature 98.1 F 97.5 F L Pulse Rate 80 78 76 Respiratory Rate 18 18 Blood Pressure 155/87 H 148/86 H Pulse Oximetry 90 L 91 L 11/19/18 04:00 11/19/18 08:00 11/19/18 12:00 Temperature 97.6 F 97.7 F Pulse Rate 87 88 94 H Respiratory Rate 18 18 Blood Pressure 145/87 H 135/90 Pulse Oximetry 94 L 93 L 11/19/18 16:00 11/19/18 19:35 Temperature 98.1 F 97.3 F L Pulse Rate 90 118 H Respiratory Rate 18 18 Blood Pressure 134/81 122/81 Pulse Oximetry 94 L 93 L Intake & Output 11/19/18 11/19/18 11/20/18 06:59 18:59 06:59 Intake Total 340 / 340 820 / 820 Output Total 1110 / 1110 Balance -770 / -770 820 / 820 Weight 94.4 kg Intake: IV 100 / 100 100 / 100 Zosyn 3.375 GM Premix 3.375 gm 100 / 100 100 / 100 In 50 ml @ 100 mls/hr IV.SIG Q6H ANG Rx#:[id number] Oral 240 / 240 720 / 720 Output: Urine 250 / 250 Wound Drainage 860 / 860 # 1 Abdomen 860 / 860 Other: # Voids 3 Date of Last Bowel Movement 11/18/18 # Bowel Movements 0 0 - Constitutional no acute distress - Routine Abdominal Exam Present: soft, normoactive bowel sounds. Absent: tenderness, distended, rebound , guarding Comments: Dressings clean dry and intact, ASHLYN drain with serosanguineous fluid without bile - Urinary Catheter Management Indwelling Urethral Catheter Cath placed during this visit: yes, but has since been removed by the nurse Reason for continuing: Hourly intake/output Insertion date: 11/17/18 Insertion time: 14:07 Removal date: 11/18/18 Removal time: 13:30 Results - Labs 11/19/18 11:58 11/19/18 08:00 Laboratory Results - last 24 hr 11/19/18 11/19/18 08:00 11:58 WBC 34.5 H RBC 5.34 Hgb 13.8 D Hct 42.7 MCV 80.0 MCH 25.9 L MCHC 32.4 RDW 17.3 H Plt Count 595 H D MPV 8.6 Sodium 142 Potassium 3.7 Chloride 106 Carbon Dioxide 27.3 Anion Gap 9 BUN 11 Creatinine 0.69 Estimated GFR Greater than 89 Random Glucose 80 Calcium 8.5 Magnesium 2.3 - Imaging Imaging: ITS Impressions Gallbladder Ultrasound 11/14/18 17:35 CONCLUSION: 1. Positive for gallbladder sludge and gallstones also seen on prior MRI from May 2018. Gallbladder wall thickened to 7 mm. Common bile duct and pancreas not well visualized. 2. 6.9 cm right renal cyst. No hydronephrosis. 3. Fatty infiltration of the liver. Abdomen/Pelvis CT 11/14/18 18:02 CONCLUSION: 1. Distended gallbladder with pericholecystic inflammatory changes and gallstones including a gallstone that may be impacted in the gallbladder neck. Findings most characteristic of cholecystitis. Questionable adjacent contiguous inflammatory changes in the right colon versus mild right-sided colitis. 2. Subsegmental atelectasis at the lung bases. 3. Mild intrahepatic ductal dilatation. Common bile duct is not significantly dilated. Cholangiopancreatography MRI 11/15/18 00:00 CONCLUSION: 1. Assessment and Plan - Assessment (1) RUQ abdominal pain Code(s): R10.11 - Right upper quadrant pain Status: Acute (2) Acute cholecystitis Code(s): K81.0 - Acute cholecystitis Status: Acute Plan: 63-year-old male status post laparoscopic cholecystectomy for acute cholecystitis Pain is well controlled Patient can advance to regular diet as tolerated Continue ASHLYN drain Surgery will follow Discharge planning
[2018-11-20] MEDS: Piperacil/Tazo 3.375 GM Premix 3.375 GM/50 ML PIGGYBACK IV.SIG SCH ×3 (02:18→14:29)
[2018-11-20] MEDS: amLODIPine 10 MG Tablet PO SCH (08:39)
[2018-11-20 08:45] LABS: Hematocrit 36.7 % (39.0-51.0); Mean Corpuscular HGB Conc 32.7 % (32.0-36.0); Mean Corpuscular Hemoglobin 26.1 pg (27.0-34.0); Mean Corpuscular Volume 79.9 fL (80.0-100.0); Mean Platelet Volume 8.6 fL (7.0-11.0); Platelet Count 567 th/mm3 (150-450); Red Blood Count 4.59 mil/mm3 (4.50-5.90); Red Cell Distribution Width 17.1 % (11.6-17.2); White Blood Count 28.4 th/mm3 (4.0-11.0)
[2018-11-20 09:13] LABS: Anion Gap 6 meq/L (5-15); Blood Urea Nitrogen 26 mg/dL (7-18); Calcium 8.2 mg/dL (8.5-10.1); Carbon Dioxide 31.2 meq/L (21.0-32.0); Chloride 104 meq/L (98-107); Glomerular Filtration Rate Greater Than 89 mL/min (>89); Glucose,Random 105 mg/dL (74-106); Magnesium 2.3 mg/dL (1.5-2.5); Potassium 3.8 meq/L (3.5-5.1); Sodium 141 meq/L (136-145)
--- NOTE | 2018-11-20 11:15 | P.PNGS ---
Subjective Patient reports: feels better, pain is less, tolerating a regular diet, afebrile Physical Exam Vital signs: Vital Signs 11/19/18 12:00 11/19/18 16:00 11/19/18 19:35 Temperature 97.7 F 98.1 F 97.3 F L Pulse Rate 94 H 90 118 H Respiratory Rate 18 18 18 Blood Pressure 135/90 134/81 122/81 Pulse Oximetry 93 L 94 L 93 L 11/19/18 20:00 11/20/18 03:39 11/20/18 03:40 Temperature 98.2 F Pulse Rate 111 H 97 H 89 Respiratory Rate 18 Blood Pressure 111/70 Pulse Oximetry 94 L 11/20/18 04:00 11/20/18 08:00 11/20/18 08:01 Temperature 98.0 F Pulse Rate 92 H 87 91 H Respiratory Rate 18 Blood Pressure 107/78 Pulse Oximetry 93 L Intake & Output 11/19/18 11/20/18 11/20/18 18:59 06:59 18:59 Intake Total 820 / 820 340 / 340 50 / 50 Output Total 125 / 125 Balance 820 / 820 215 / 215 50 / 50 Weight 93.1 kg Intake: IV 100 / 100 100 / 100 50 / 50 Zosyn 3.375 GM Premix 3.375 gm 100 / 100 100 / 100 50 / 50 In 50 ml @ 100 mls/hr IV.SIG Q6H [facility] Rx#:[id number] Oral 720 / 720 240 / 240 Output: Wound Drainage 125 / 125 # 1 Abdomen 125 / 125 Other: # Voids 3 # Urine Diapers 2 Date of Last Bowel Movement 11/19/18 # Bowel Movements 0 0 - Routine Abdominal Exam Present: soft, normoactive bowel sounds, wound, drain Comments: drain with serous output, no bile, no pus - Urinary Catheter Management Indwelling Urethral Catheter Cath placed during this visit: yes, but has since been removed by the nurse Reason for continuing: Hourly intake/output Insertion date: 11/17/18 Insertion time: 14:07 Removal date: 11/18/18 Removal time: 13:30 Results - Labs 11/20/18 08:07 11/20/18 08:07 Laboratory Results - last 24 hr 11/19/18 11/20/18 11/20/18 11:58 08:07 08:07 WBC 34.5 H 28.4 H RBC 5.34 4.59 Hgb 13.8 D 12.0 L Hct 42.7 36.7 L MCV 80.0 79.9 L MCH 25.9 L 26.1 L MCHC 32.4 32.7 RDW 17.3 H 17.1 Plt Count 595 H D 567 H MPV 8.6 8.6 Sodium 141 Potassium 3.8 Chloride 104 Carbon Dioxide 31.2 Anion Gap 6 BUN 26 H Creatinine 0.78 Estimated GFR Greater than 89 Random Glucose 105 Calcium 8.2 L Magnesium 2.3 - Imaging Imaging: ITS Impressions Gallbladder Ultrasound 11/14/18 17:35 CONCLUSION: 1. Positive for gallbladder sludge and gallstones also seen on prior MRI from May 2018. Gallbladder wall thickened to 7 mm. Common bile duct and pancreas not well visualized. 2. 6.9 cm right renal cyst. No hydronephrosis. 3. Fatty infiltration of the liver. Abdomen/Pelvis CT 11/14/18 18:02 CONCLUSION: 1. Distended gallbladder with pericholecystic inflammatory changes and gallstones including a gallstone that may be impacted in the gallbladder neck. Findings most characteristic of cholecystitis. Questionable adjacent contiguous inflammatory changes in the right colon versus mild right-sided colitis. 2. Subsegmental atelectasis at the lung bases. 3. Mild intrahepatic ductal dilatation. Common bile duct is not significantly dilated. Cholangiopancreatography MRI 11/15/18 00:00 CONCLUSION: 1. Assessment and Plan - Assessment (1) RUQ abdominal pain Code(s): R10.11 - Right upper quadrant pain Status: Acute (2) Acute cholecystitis Code(s): K81.0 - Acute cholecystitis Status: Acute Plan: 63-year-old male status post laparoscopic cholecystectomy for acute cholecystitis Pain is well controlled Patient can advance to regular diet as tolerated Continue ASHLYN drain Surgery will follow Discharge planning - Plan clinically doing well continue ABX, drain unsure of etiology of elevated WBC? SHARRI per CECILIA Byers in office this week to SHARRI drain [phone]
--- NOTE | 2018-11-20 14:20 | P.PNIM ---
Subjective Interval history: Patient seen in follow-up status post cholecystectomy Patient denies subjective fever and chills but continues to have leukocytosis without a clear etiology at this time Fever curve reviewed and patient has been afebrile Physical Exam Vital signs: Vital Signs 11/19/18 16:00 11/19/18 19:35 11/19/18 20:00 Temperature 98.1 F 97.3 F L Pulse Rate 90 118 H 111 H Respiratory Rate 18 18 Blood Pressure 134/81 122/81 Pulse Oximetry 94 L 93 L 11/20/18 03:39 11/20/18 03:40 11/20/18 04:00 Temperature 98.2 F Pulse Rate 97 H 89 92 H Respiratory Rate 18 Blood Pressure 111/70 Pulse Oximetry 94 L 11/20/18 08:00 11/20/18 08:01 11/20/18 14:08 Temperature 98.0 F 97.2 F L Pulse Rate 87 91 H 95 H Respiratory Rate 18 18 Blood Pressure 107/78 147/91 H Pulse Oximetry 93 L 92 L Intake & Output 11/19/18 11/20/18 11/20/18 18:59 06:59 18:59 Intake Total 820 / 820 340 / 340 50 / 50 Output Total 125 / 125 Balance 820 / 820 215 / 215 50 / 50 Weight 93.1 kg Intake: IV 100 / 100 100 / 100 50 / 50 Zosyn 3.375 GM Premix 3.375 gm 100 / 100 100 / 100 50 / 50 In 50 ml @ 100 mls/hr IV.SIG Q6H ANG Rx#:[id number] Oral 720 / 720 240 / 240 Output: Wound Drainage 125 / 125 # 1 Abdomen 125 / 125 Other: # Voids 3 # Urine Diapers 2 Date of Last Bowel Movement 11/19/18 # Bowel Movements 0 0 General: No acute distress Cardiovascular: S1/S2 Respiratory: Clear to auscultation bilaterally Gastroenterology: Soft, nontender, + mildly distended, no guarding rebound appreciated. Positive bowel sounds. Does not appear to have any acute signs Extremity: 2+ radial and dorsalis pedis pulse bilaterally. Urinary Catheter Management Indwelling Urethral Catheter: Cath placed during this visit: yes, but has since been removed by the nurse Reason for continuing: Hourly intake/output Insertion date: 11/17/18 Insertion time: 14:07 Removal date: 11/18/18 Removal time: 13:30 Results Labs CBC & Chem 7: 11/20/18 08:07 11/20/18 08:07 Labs: Microbiology 11/16/18 15:11 Blood - Peripheral Aerobic Blood Culture - Preliminary No growth in 4 days 11/16/18 15:11 Blood - Peripheral Anaerobic Blood Culture - Preliminary No growth in 4 days 11/16/18 15:05 Blood - Peripheral Aerobic Blood Culture - Preliminary No growth in 4 days 11/16/18 15:05 Blood - Peripheral Anaerobic Blood Culture - Preliminary No growth in 4 days 11/17/18 14:44 Fluid - Gallbladder Gram Stain - Final 11/17/18 14:44 Fluid - Gallbladder Wound Culture - Preliminary Assessment and Plan (1) RUQ abdominal pain: Code(s): R10.11 - Right upper quadrant pain Status: Acute (2) Acute cholecystitis: Code(s): K81.0 - Acute cholecystitis Status: Acute Plan Patient is a 63-year-old gentleman with reported history of dementia, ulcerative colitis and hypertension who presented with complaints of acute onset abdominal pain found on imaging studies to have cholecystitis status post cholecystectomy 11/17 . Surgery: Cholecystitis status post cholecystectomy Surgery consulted Patient status post cholecystectomy on 11/[address] and US findings consistent with cholecystisis MRCP shows a stone in the cystic duct, multiple gallstones, findings consistent with cholecystitis. Dr. Borja evaluated the patient from GI. - liver biopsy pathology -PENDING Continue IV antibiotics but will transition from Zosyn to Flagyl Repeat blood culture for possible transient bacteremia Chest x-ray to rule out consolidation Cardiology: HTN Norvasc Will monitor and cont to adjust meds if needed. Neurology: Dementia Chronic. Patient CARE: Deconditioning Physical therapy evaluation - home w/ home health PT DVT prophylaxis: SCDs Diet: advance diet low fat Progress Note: Quality VTE Deep Vein Thrombosis/Pulmonary Embolism Present on Admission: No
[2018-11-20] MEDS: metroNIDAZOLE 500 MG Tablet PO SCH ×2 (14:33→21:07)
--- NOTE | 2018-11-20 14:35 | XR ---
EXAM DATE: 11/20/2018 2:27 PM EST AGE/SEX: 63 years / Male INDICATIONS: Congestion CLINICAL DATA: This is the patient's initial encounter. Patient reports that signs and symptoms have been present for 4 - 6 days and indicates a pain score of 0/10. MEDICAL/SURGICAL HISTORY: . Dementia. Hypertension . COMPARISON: [facility] [place], CHEST PA & LAT, 07/18/2016. . FINDINGS: A single AP view of the chest demonstrates consolidation within both lung bases more pronounced on th e left. The heart is mildly enlarged. Low lung volumes are noted with resulting bronchovascular crowd ing. No effusions. Trachea is deviated towards the patient's right which is a new finding from the pr ior study. There is prominence to the right paratracheal stripe this is accentuated by the obliquity of the film. CONCLUSION: 1. Cardiomegaly. 2. Bibasilar consolidation but there is a poor inspiratory effort and this may simply relate to atel ectasis. 3. Tracheal deviation towards the right which is going to be accentuated by the obliquity of the francia m. There is a right paratracheal stripe prominence. At this point mediastinal mass cannot be excluded . Consider CT of the thorax with IV contrast to further assess. Electronically signed by: Eric Allen MD Board Certified Radiologist 11/20/2018 2:34 PM EST
[2018-11-20] MEDS: Simethicone 80 MG Chew Tablet PO SCH (18:18)
[2018-11-21] MEDS: metroNIDAZOLE 500 MG Tablet PO SCH ×3 (05:18→22:28)
[2018-11-21] MEDS: amLODIPine 10 MG Tablet PO SCH (08:51)
[2018-11-21] MEDS: Simethicone 80 MG Chew Tablet PO SCH (08:51)
[2018-11-21 10:05] LABS: Hematocrit 37.7 % (39.0-51.0); Hemoglobin 12.1 gm/dL (13.0-17.0); Mean Corpuscular HGB Conc 31.9 % (32.0-36.0); Mean Corpuscular Hemoglobin 25.4 pg (27.0-34.0); Mean Corpuscular Volume 79.5 fL (80.0-100.0); Mean Platelet Volume 8.3 fL (7.0-11.0); Platelet Count 620 th/mm3 (150-450); Red Blood Count 4.75 mil/mm3 (4.50-5.90); Red Cell Distribution Width 17.2 % (11.6-17.2); White Blood Count 23.7 th/mm3 (4.0-11.0)
[2018-11-21 10:38] LABS: Anion Gap 8 meq/L (5-15); Blood Urea Nitrogen 25 mg/dL (7-18); Calcium 8.2 mg/dL (8.5-10.1); Carbon Dioxide 30.8 meq/L (21.0-32.0); Chloride 103 meq/L (98-107); Glomerular Filtration Rate Greater Than 89 mL/min (>89); Glucose,Random 87 mg/dL (74-106); Magnesium 2.5 mg/dL (1.5-2.5); Potassium 3.7 meq/L (3.5-5.1); Sodium 142 meq/L (136-145)
--- NOTE | 2018-11-21 11:15 | P.PNIM ---
Subjective Interval history: wbc started to downtrend but still elevated s/p surgery without clear etiology cxr reviewed with patient and will do folow up CT chest will check ct abd to r/o abscess too denied belly pain tolerating PO + bowel movements no chills no urinary complaints Physical Exam Vital signs: Vital Signs 11/20/18 12:00 11/20/18 14:08 11/20/18 16:00 Temperature 97.2 F L Pulse Rate 86 95 H 88 Respiratory Rate 18 Blood Pressure 147/91 H Pulse Oximetry 92 L 11/20/18 18:16 11/20/18 20:00 11/20/18 20:24 Temperature 98.2 F 97.9 F Pulse Rate 95 H 90 90 Respiratory Rate 18 17 Blood Pressure 139/85 115/81 Pulse Oximetry 95 92 L 11/20/18 23:55 11/21/18 00:00 11/21/18 04:00 Temperature 97.6 F Pulse Rate 90 90 83 Respiratory Rate 17 Blood Pressure 141/85 H Pulse Oximetry 92 L 11/21/18 04:25 11/21/18 08:00 11/21/18 08:10 Temperature 97.7 F 98.1 F Pulse Rate 81 79 77 Respiratory Rate 17 18 Blood Pressure 121/84 126/74 Pulse Oximetry 93 L 93 L Intake & Output 11/20/18 11/21/18 11/21/18 18:59 06:59 18:59 Intake Total 50 / 50 400 / 400 Output Total 0 / 0 Balance 50 / 50 400 / 400 Weight 91.9 kg Intake: IV 50 / 50 Zosyn 3.375 GM Premix 3.375 gm 50 / 50 In 50 ml @ 100 mls/hr IV.SIG Q6H ANG Rx#:[id number] Oral 400 / 400 Output: Wound Drainage 0 / 0 # 1 Abdomen 0 / 0 Other: # Voids 3 # Urine Diapers 3 Date of Last Bowel Movement 11/19/18 gen: nad heent: eomi cvs: s1/s2 resp: dec breath sound lung base, no wheeze gi: soft, non tender, non distended, wounds c/d/i. ext: no edema or calf tenderness Urinary Catheter Management Indwelling Urethral Catheter: Cath placed during this visit: yes, but has since been removed by the nurse Reason for continuing: Hourly intake/output Insertion date: 11/17/18 Insertion time: 14:07 Removal date: 11/18/18 Removal time: 13:30 Results Labs CBC & Chem 7: 11/21/18 08:57 11/21/18 08:57 Labs: Microbiology 11/20/18 16:46 Blood - Peripheral Aerobic Blood Culture - Preliminary No growth in 1 day 11/20/18 16:46 Blood - Peripheral Anaerobic Blood Culture - Preliminary No growth in 1 day 11/16/18 15:11 Blood - Peripheral Aerobic Blood Culture - Final No growth in 5 days 11/16/18 15:11 Blood - Peripheral Anaerobic Blood Culture - Final No growth in 5 days 11/16/18 15:05 Blood - Peripheral Aerobic Blood Culture - Final No growth in 5 days 11/16/18 15:05 Blood - Peripheral Anaerobic Blood Culture - Final No growth in 5 days 11/17/18 14:44 Fluid - Gallbladder Gram Stain - Final 11/17/18 14:44 Fluid - Gallbladder Wound Culture - Preliminary Imaging Imaging: Impressions Chest X-Ray 11/20/18 00:00 CONCLUSION: 1. Cardiomegaly. 2. Bibasilar consolidation but there is a poor inspiratory effort and this may simply relate to atelectasis. 3. Tracheal deviation towards the right which is going to be accentuated by the obliquity of the film. There is a right paratracheal stripe prominence. At this point mediastinal mass cannot be excluded. Consider CT of the thorax with IV contrast to further assess. Assessment and Plan (1) RUQ abdominal pain: Code(s): R10.11 - Right upper quadrant pain Status: Acute (2) Acute cholecystitis: Code(s): K81.0 - Acute cholecystitis Status: Acute Plan Patient is a 63-year-old gentleman with reported history of dementia, ulcerative colitis and hypertension who presented with complaints of acute onset abdominal pain found on imaging studies to have cholecystitis status post cholecystectomy 11/17 . Surgery: Cholecystitis status post cholecystectomy Surgery consulted and following Patient status post cholecystectomy on 11/[address] and US findings consistent with cholecystisis MRCP shows a stone in the cystic duct, multiple gallstones, findings consistent with cholecystitis. Dr. Borja evaluated the patient from GI. - liver biopsy pathology -PENDING Continue Flagyl Blood cultures- ngtd Chest x-ray to rule out consolidation reviewed. CT scan recommended for chest. Will check abdomen since I am evaluating elevated wbc s/p surgery - continue ASHLYN drain. outpt seems small - gallbladder culture - mixed anerobes - i called PMD office on 11/21 to get outpatient records of labwork. will have it faxed - prior labwork in 2017 suggested WBC elevation to 14. Cardiology: HTN Norvasc Will monitor and cont to adjust meds if needed. Neurology: Dementia Chronic. Patient CARE: Deconditioning Physical therapy evaluation - home w/ home health PT DVT prophylaxis: SCDs Diet: advance diet low fat Progress Note: Quality VTE Deep Vein Thrombosis/Pulmonary Embolism Present on Admission: No
[2018-11-21] MEDS ORDERED: Diatrizoate Meglum/Diatrizoate Sod Liq 9 ML UDC PO ONE (11:30)
--- NOTE | 2018-11-21 12:16 | P.PNGS ---
Subjective Patient reports: feels better, other (still confused ? baseline) Physical Exam Vital signs: Vital Signs 11/20/18 14:08 11/20/18 16:00 11/20/18 18:16 Temperature 97.2 F L 98.2 F Pulse Rate 95 H 88 95 H Respiratory Rate 18 18 Blood Pressure 147/91 H 139/85 Pulse Oximetry 92 L 95 11/20/18 20:00 11/20/18 20:24 11/20/18 23:55 Temperature 97.9 F 97.6 F Pulse Rate 90 90 90 Respiratory Rate 17 17 Blood Pressure 115/81 141/85 H Pulse Oximetry 92 L 92 L 11/21/18 00:00 11/21/18 04:00 11/21/18 04:25 Temperature 97.7 F Pulse Rate 90 83 81 Respiratory Rate 17 Blood Pressure 121/84 Pulse Oximetry 93 L 11/21/18 08:00 11/21/18 08:10 Temperature 98.1 F Pulse Rate 79 77 Respiratory Rate 18 Blood Pressure 126/74 Pulse Oximetry 93 L Intake & Output 11/20/18 11/21/18 11/21/18 18:59 06:59 18:59 Intake Total 50 / 50 400 / 400 Output Total 0 / 0 Balance 50 / 50 400 / 400 Weight 91.9 kg Intake: IV 50 / 50 Zosyn 3.375 GM Premix 3.375 gm 50 / 50 In 50 ml @ 100 mls/hr IV.SIG Q6H [facility] Rx#:[id number] Oral 400 / 400 Output: Wound Drainage 0 / 0 # 1 Abdomen 0 / 0 Other: # Voids 3 # Urine Diapers 3 Date of Last Bowel Movement 11/19/18 Narrative: Alert; pleasantly confused Abd: soft; mildly distended in RUQ; Steri strips in place; ASHLYN with serosanguineous drainage dressing changed - Urinary Catheter Management Indwelling Urethral Catheter Cath placed during this visit: yes, but has since been removed by the nurse Reason for continuing: Hourly intake/output Insertion date: 11/17/18 Insertion time: 14:07 Removal date: 11/18/18 Removal time: 13:30 Results - Labs 11/21/18 08:57 11/21/18 08:57 - Imaging Imaging: ITS Impressions Gallbladder Ultrasound 11/14/18 17:35 CONCLUSION: 1. Positive for gallbladder sludge and gallstones also seen on prior MRI from May 2018. Gallbladder wall thickened to 7 mm. Common bile duct and pancreas not well visualized. 2. 6.9 cm right renal cyst. No hydronephrosis. 3. Fatty infiltration of the liver. Abdomen/Pelvis CT 11/14/18 18:02 CONCLUSION: 1. Distended gallbladder with pericholecystic inflammatory changes and gallstones including a gallstone that may be impacted in the gallbladder neck. Findings most characteristic of cholecystitis. Questionable adjacent contiguous inflammatory changes in the right colon versus mild right-sided colitis. 2. Subsegmental atelectasis at the lung bases. 3. Mild intrahepatic ductal dilatation. Common bile duct is not significantly dilated. Cholangiopancreatography MRI 11/15/18 00:00 CONCLUSION: 1. Chest X-Ray 11/20/18 00:00 CONCLUSION: 1. Cardiomegaly. 2. Bibasilar consolidation but there is a poor inspiratory effort and this may simply relate to atelectasis. 3. Tracheal deviation towards the right which is going to be accentuated by the obliquity of the film. There is a right paratracheal stripe prominence. At this point mediastinal mass cannot be excluded. Consider CT of the thorax with IV contrast to further assess. Additional studies: ct abd pending Assessment and Plan - Assessment (1) Dementia Code(s): F03.90 - Unspecified dementia without behavioral disturbance Status: Acute (2) Status post laparoscopic cholecystectomy Code(s): Z90.49 - Acquired absence of other specified parts of digestive tract Status: Acute (3) Elevated WBC count Code(s): D72.829 - Elevated white blood cell count, unspecified Status: Acute - Plan 63-year-old male status post laparoscopic cholecystectomy for acute cholecystitis Pain is well controlled Patient can advance to regular diet as tolerated Continue ASHLYN drain Surgery will follow ct today for persistent elevated wbc cults of gallbladder fluid pending Discharge planning Discussed Condition With: family at bedside may need extermination supervisor placement for his dementia
[2018-11-21] MEDS: Ciprofloxacin 400 MG/200 ML 400 MG/200 ML PIGGYBACK IV.SIG SCH (14:07)
--- NOTE | 2018-11-21 18:48 | CT ---
EXAM DATE: 11/21/2018 6:27 PM EST AGE/SEX: 63 years / Male INDICATIONS: Paratracheal stripe on chest xray ,infection. CLINICAL DATA: This is the patient's initial encounter. Patient reports that signs and symptoms have been present for 1 day and indicates a pain score of 3/10. MEDICAL/SURGICAL HISTORY: Dementia. Hypertension. colitis None. RADIATION DOSE: 17.33 CTDI (mGy) ; Combined studies COMPARISON: No prior exams available for comparison. TECHNIQUE: Multiple contiguous axial images were obtained through the chest during bolus infusion of 94 ml Omnipaque 350 (iohexol) nonionic water-soluble contrast as a cumulative dose for multiple exa ms. Images were obtained in suspended respiration using multiple row detector helical technique. U sing automated exposure control and adjustment of the mA and/or kV according to patient size, radiati on dose was kept as low as reasonably achievable to obtain optimal diagnostic quality images. DICOM format image data is available electronically for review and comparison. FINDINGS: The mediastinum is widened from fat deposition. There is dependent atelectasis in both lungs with sma ll pleural effusions. No hilar, mediastinal or axillary adenopathy. Moderate coronary calcifications. Upper abdomen reveals distended stomach. Numerous dilated small bowel loops present. CONCLUSION: 1. Dependent atelectasis with small effusions in both lungs. No pneumothorax. 2. Moderate coronary calcifications. 3. Mediastinal fat deposition. No adenopathy. Electronically signed by: Gabriele Miller MD Board Certified Radiologist 11/21/2018 6:46 PM EST
--- NOTE | 2018-11-21 18:52 | CT ---
EXAM DATE: 11/21/2018 6:31 PM EST AGE/SEX: 63 years / Male INDICATIONS: Abscess CLINICAL DATA: This is the patient's initial encounter. Patient reports that signs and symptoms have been present for 1 day and indicates a pain score of 3/10. MEDICAL/SURGICAL HISTORY: Hypertension. Dementia. Colitis None. ORAL CONTRAST: No oral contrast ingested. RADIATION DOSE: 17.33 CTDI (mGy) ; Combined studies COMPARISON: [facility] – [place], [place], CT ABDOMEN & PELVIS W CONTRAST, 11/14/2018. . TECHNIQUE: Multiple contiguous axial images were obtained through the abdomen and pelvis following b olus infusion of 94 ml Omnipaque 350 (iohexol) nonionic water-soluble contrast as a cumulative dose for multiple exams. No oral contrast ingested. Using automated exposure control and adjustment of t mA and/or kV according to patient size, radiation dose was kept as low as reasonably achievable to obtain optimal diagnostic quality images. DICOM format image data is available electronically for r eview and comparison. FINDINGS: Right infrahilar lymph node is stable. Dependent atelectasis and small pleural effusions have increas ed since November 14. Physical development of a distended stomach in distended proximal and mid small bowel loops with dist al decompression most characteristic of a small bowel obstruction. The gallbladder has been removed and there is a nonspecific residual fluid collection in the gallblad essie fossa measuring up to 6.4 x 3 cm. A small locule of air is present. Cannot exclude infection of t he gallbladder fossa. Stable 2.7 cm lymph node in the aortocaval region and other smaller lymph nodes. CONCLUSION: 1. Interval cholecystectomy with residual fluid collection in the gallbladder fossa and small locule of air. Differential diagnosis includes postoperative fluid but cannot exclude infection. 2. Distended stomach with dilated proximal and mid small bowel and distal decompression most charact eristic of at least a partial small bowel obstruction. Colon is relatively decompressed as well. 3. Stable enlargement of right infrahilar lymph node and aortocaval lymph node compared with prior r ecent CT. Electronically signed by: Gabriele Miller MD Board Certified Radiologist 11/21/2018 6:50 PM EST
[2018-11-22] MEDS: Ciprofloxacin 400 MG/200 ML 400 MG/200 ML PIGGYBACK IV.SIG SCH ×2 (01:19→13:26)
[2018-11-22] MEDS: metroNIDAZOLE 500 MG Tablet PO SCH ×3 (05:35→21:42)
[2018-11-22 07:06] LABS: Hematocrit 38.1 % (39.0-51.0); Hemoglobin 12.4 gm/dL (13.0-17.0); Mean Corpuscular HGB Conc 32.5 % (32.0-36.0); Mean Corpuscular Hemoglobin 25.9 pg (27.0-34.0); Mean Corpuscular Volume 79.7 fL (80.0-100.0); Mean Platelet Volume 8.4 fL (7.0-11.0); Platelet Count 658 th/mm3 (150-450); Red Blood Count 4.78 mil/mm3 (4.50-5.90); Red Cell Distribution Width 16.9 % (11.6-17.2); White Blood Count 25.8 th/mm3 (4.0-11.0)
[2018-11-22 07:53] LABS: Anion Gap 7 meq/L (5-15); Blood Urea Nitrogen 20 mg/dL (7-18); Calcium 8.1 mg/dL (8.5-10.1); Carbon Dioxide 30.1 meq/L (21.0-32.0); Chloride 102 meq/L (98-107); Glomerular Filtration Rate Greater Than 89 mL/min (>89); Glucose,Random 97 mg/dL (74-106); Magnesium 2.5 mg/dL (1.5-2.5); Potassium 3.7 meq/L (3.5-5.1); Sodium 139 meq/L (136-145)
[2018-11-22] MEDS: Simethicone 80 MG Chew Tablet PO SCH (08:13)
[2018-11-22] MEDS: amLODIPine 10 MG Tablet PO SCH (08:13)
--- NOTE | 2018-11-22 13:18 | P.PNIM ---
Subjective Interval history: Patient seen and evaluated this morning on follow-up for persistent leukocytosis almost 1 week after cholecystectomy for cholecystitis. CT imaging reviewed with patient, sister, and stepfather at the bedside. At this time there does not appreciate appear to be any significant focal finding of infection. Case briefly reviewed with general surgery team and they will follow-up and make a comment on the CT abdomen finding by radiology but at this point I do not think it is an appreciable source of infection. Patient remained afebrile overnight. Patient may benefit from hematological workup for persistent leukocytosis in the setting of noninfectious etiology. Otherwise patient seen this morning and denies any abdominal pain, diarrhea, cough, fever, or chills. Patient has been doing well otherwise. Briefly discussed with patient sister that patient may not be fit to live at home by himself anymore. Will discuss with care management team to help devise a plan for patient once he is cleared medically for discharge Discussed with patient sister that at this time surgical pathology from liver biopsy taken during surgery on 11/18 has not been finalized at this time. Physical Exam Vital signs: Vital Signs 11/21/18 16:00 11/21/18 20:00 11/21/18 20:45 Temperature 98 F 97.7 F Pulse Rate 77 82 85 Respiratory Rate 18 18 Blood Pressure 128/68 138/81 Pulse Oximetry 93 L 92 L 11/21/18 23:05 11/22/18 00:00 11/22/18 04:00 Temperature 97.4 F L Pulse Rate 83 85 85 Respiratory Rate 18 Blood Pressure 130/83 Pulse Oximetry 91 L 11/22/18 04:50 11/22/18 08:00 Temperature 97 F L 97.4 F L Pulse Rate 88 88 Respiratory Rate 18 16 Blood Pressure 121/84 135/82 Pulse Oximetry 94 L 94 L Intake & Output 11/21/18 11/22/18 11/22/18 18:59 06:59 18:59 Intake Total 440 / 440 440 / 440 Output Total 50 / 50 Balance 420 / 420 390 / 390 Weight 91.9 kg Intake: IV 200 / 200 200 / 200 Cipro 400 MG/200 ML Inj 400 mg 200 / 200 200 / 200 In 200 ml @ 200 mls/hr IV.SIG Q12H ANG Rx#:[id number] Oral 240 / 240 240 / 240 Output: Wound Drainage 50 / 50 # 1 Abdomen 50 / 50 Other: # Incontinent Voids 3 # Urine Diapers 2 Date of Last Bowel Movement 11/19/18 # Bowel Movements 0 General: No acute distress, conversational HEENT: EOMI, PERRLA Cardiovascular: S1/S2. Respiratory: Clear anteriorly and posteriorly without wheezing, rales, or appreciable rhonchi. No intercostal muscle use Gastroenterology: Postsurgical scars noted but appear clean, dry, intact. No guarding or rebound appreciated. Positive bowel sounds throughout Extremity: No lower extremity edema or calf tenderness appreciated Urology: No suprapubic tenderness Urinary Catheter Management Indwelling Urethral Catheter: Cath placed during this visit: yes, but has since been removed by the nurse Reason for continuing: Hourly intake/output Insertion date: 11/17/18 Insertion time: 14:07 Removal date: 11/18/18 Removal time: 13:30 Results Labs CBC & Chem 7: 11/22/18 05:40 11/22/18 05:40 Labs: Microbiology 11/20/18 16:46 Blood - Peripheral Aerobic Blood Culture - Preliminary No growth in 2 days 11/20/18 16:46 Blood - Peripheral Anaerobic Blood Culture - Preliminary No growth in 2 days 11/17/18 14:44 Fluid - Gallbladder Gram Stain - Final 11/17/18 14:44 Fluid - Gallbladder Wound Culture - Final Mixed Anaerobes 11/16/18 15:11 Blood - Peripheral Aerobic Blood Culture - Final No growth in 5 days 11/16/18 15:11 Blood - Peripheral Anaerobic Blood Culture - Final No growth in 5 days 11/16/18 15:05 Blood - Peripheral Aerobic Blood Culture - Final No growth in 5 days 11/16/18 15:05 Blood - Peripheral Anaerobic Blood Culture - Final No growth in 5 days Imaging Imaging: Impressions Abdomen/Pelvis CT 11/21/18 00:00 CONCLUSION: 1. Interval cholecystectomy with residual fluid collection in the gallbladder fossa and small locule of air. Differential diagnosis includes postoperative fluid but cannot exclude infection. 2. Distended stomach with dilated proximal and mid small bowel and distal decompression most characteristic of at least a partial small bowel obstruction. Colon is relatively decompressed as well. 3. Stable enlargement of right infrahilar lymph node and aortocaval lymph node compared with prior recent CT. Chest CT 11/21/18 00:00 CONCLUSION: 1. Dependent atelectasis with small effusions in both lungs. No pneumothorax. 2. Moderate coronary calcifications. 3. Mediastinal fat deposition. No adenopathy. Assessment and Plan (1) RUQ abdominal pain: Code(s): R10.11 - Right upper quadrant pain Status: Acute (2) Acute cholecystitis: Code(s): K81.0 - Acute cholecystitis Status: Acute Plan Patient is a 63-year-old gentleman with reported history of dementia, ulcerative colitis and hypertension who presented with complaints of acute onset abdominal pain found on imaging studies to have cholecystitis status post cholecystectomy 11/17 . Hospital course complicated by persistent leukocytosis in the setting of surgical intervention. Surgery: Cholecystitis status post cholecystectomy Surgery consulted and following Patient status post cholecystectomy on 11/[address] and US findings consistent with cholecystisis MRCP shows a stone in the cystic duct, multiple gallstones, findings consistent with cholecystitis. Dr. Borja evaluated the patient from GI. - liver biopsy pathology -PENDING Continue Flagyl Blood cultures- ngtd Chest x-ray to rule out consolidation reviewed. CT imaging reviewed. Does not appear to show any focal evidence of infectious etiology. Will request general surgery to also review abdomen imaging with documentation of small fluid collection. Likely postsurgical in nature is my suspicion - continue ASHLYN drain. Management as per surgery - gallbladder culture - mixed anerobes - i called PMD office on 11/21 to get outpatient records of labwork. Patient prior labwork in 2017 suggested WBC elevation to 14. We will request hematology to take a look at the case as infectious etiology at this time seems less likely etiology for persistent leukocytosis without fever or appreciable positive cultures Cardiology: HTN Norvasc Will monitor and cont to adjust meds if needed. Neurology: Dementia Chronic. Discussed with family their concerns regarding patient being able to live by himself. Will work with case management team to help fine a proper disposition plan for the patient. At this time patient does not appear to have insurance coverage and family appears to is Medicaid pending. Patient CARE: Deconditioning Physical therapy evaluation - home w/ home health PT DVT prophylaxis: SCDs Diet: advance diet low fat. Disposition: Surgery follow-up regarding CT abdomen. Hematology evaluation. Disposition needs to be clarified regarding where patient will go after hospitalization and cleared by medicine. Surgical pathology still pending but may be followed up outpatient if needed. Progress Note: Quality VTE Deep Vein Thrombosis/Pulmonary Embolism Present on Admission: No
--- NOTE | 2018-11-22 15:19 | MB ---
cc: Du Truong MD DATE: 11/22/2018 ATTENDING PHYSICIAN: Jonathon Lucero Jr., MD REASON FOR CONSULTATION: Hematology concerned regarding patient with persistent leukocytosis. HISTORY OF PRESENT ILLNESS: The patient is a 63-year-old male with dementia, admitted to the hospital 11/14/2018 with right upper quadrant pain and intermittent diarrhea. He was found to have cholecystitis. According to his stepfather, patient known history of gallbladder problem, but not able to have surgery due to lack of insurance. He underwent a laparoscopic cholecystectomy on 11/17/2018. He was to have a liver biopsy. Noted to have a gangrenous cholecystitis. Pathology is pending. The patient not able to provide a detailed history. History was obtained from his stepfather as well as his sister at the bedside. The patient noted to have significant leukocytosis when he first presented, his white blood cell count trended down, but then trended back up again in the last few days. He remains afebrile. He denies any headache. He denies any visual changes. He denies any sore throat. He denies chest pain. He denies any shortness of breath or cough. He has had nausea, vomiting according to the nursing staff. He has mild right upper quadrant tenderness. He has not had a bowel movement for 2 days. He reportedly had a rash on his buttock area, but has refused medication. He has urinary incontinence. PAST MEDICAL HISTORY: 1. Dementia. 2. Ulcerative colitis, which reportedly is controlled. 3. Hypertension. 4. Cholelithiasis. PAST SURGICAL HISTORY: Last colonoscopy was several years ago. FAMILY HISTORY: No hematologic disorder. SOCIAL HISTORY: No tobacco or alcohol use. ALLERGIES: NO KNOWN DRUG ALLERGIES. CURRENT MEDICATIONS: 1. Norvasc. 2. Cipro. 3. Flagyl. 4. Mylicon. REVIEW OF SYSTEMS: CONSTITUTIONAL: Generalized weakness and fatigue. EYES: Negative. ENT: Negative. CARDIOVASCULAR: No chest pain or palpitation. RESPIRATORY: No shortness of breath or cough. GASTROINTESTINAL: As above. GENITOURINARY: As above. MUSCULOSKELETAL: Negative. HEMATOLOGIC: As above. ENDOCRINE: Negative. HEMATOLOGIC: As above. PSYCHIATRIC: As above. NEUROLOGIC: As above. PHYSICAL EXAMINATION: VITAL SIGNS: Temperature 97.7, blood pressure 138/89, O2 saturation 92%. GENERAL: He is awake. He is very forgetful. HEENT: Atraumatic, normocephalic. Pupils are equal, round and reactive. Oropharynx dry mucosa. No thrush. NECK: No thyromegaly. No palpable mass. LYMPHATIC: No palpable cervical, clavicular, axillary, or inguinal nodes. HEART: Regular S1, S2. No murmur. LUNGS: Clear to auscultation bilaterally. ABDOMEN: Surgical site well healed. There is tenderness in right upper quadrant. No rebound or rigidity. Positive bowel sounds. EXTREMITIES: No cyanosis, clubbing, or edema. No calf tenderness. SKIN: He has mild rash on the buttock area. No skin breakdown. NEUROLOGIC: Nonfocal. LABORATORY DATA: I reviewed his blood work drawn during this hospital stay. ASSESSMENT: 1. Persistent leukocytosis predominantly neutrophils. I think this is most likely reactive. I do not have a prior CBC for comparison. On presentation his white blood cell count was 36,000. It trended down to 13,000. After surgery, it trended back up to 35,000, but again trended back down to 25,000 today. This is most likely a leukemoid reaction. However, the patient remains afebrile. He had a CT abdomen and pelvis yesterday, which showed a fluid collection in the gallbladder fossa with small loculated air, likely postoperative changes, but cannot totally rule out infection. His abdomen is distended with possible partial small bowel obstruction. The patient also has history of colitis which could be the source of inflammation. I do not think this is a primary hematologic disorder. I would recommend continue to monitor CBC. If he has worsening of leukocytosis, may need to repeat radiologic studies or consider doing blood cells tagged scan to look for possible occult infection. 2. Nonspecific abdominal adenopathy. This reportedly had been there since 2005 and slightly more prominent. CT of the chest did not show any adenopathy. 3. Cholecystitis, status post cholecystectomy reportedly a gangrenous cholecystitis. Pathology is pending. He also had a biopsy of liver which is pending. 4. Dementia. 5. Hypertension. RECOMMENDATIONS: 1. Check peripheral smear, iron studies and a sedimentation rate. 2. Continue to monitor CBC. I doubt that he has a primary bone marrow disorder. 3. Consider a repeat radiologic study or doing white blood cell tagged scan if he has worsening leukocytosis. 4. I had an extensive discussion with the patient's sister and stepfather. Thank you Dr. Lucero for asking me to see this patient. MD BECKIE Eaton/shakeel , 02:29 PM , 02:48 PM MTDTessa
--- NOTE | 2018-11-22 15:49 | P.PNGS ---
Subjective Interval history: Resting in bed Family at bedside--- concerned because patient has been weak since surgery and has not been OOB much to walk Physical Exam Vital signs: Vital Signs 11/21/18 16:00 11/21/18 20:00 11/21/18 20:45 Temperature 98 F 97.7 F Pulse Rate 77 82 85 Respiratory Rate 18 18 Blood Pressure 128/68 138/81 Pulse Oximetry 93 L 92 L 11/21/18 23:05 11/22/18 00:00 11/22/18 04:00 Temperature 97.4 F L Pulse Rate 83 85 85 Respiratory Rate 18 Blood Pressure 130/83 Pulse Oximetry 91 L 11/22/18 04:50 11/22/18 08:00 11/22/18 11:35 Temperature 97 F L 97.4 F L 97.7 F Pulse Rate 88 88 105 H Respiratory Rate 18 16 16 Blood Pressure 121/84 135/82 138/89 Pulse Oximetry 94 L 94 L 92 L 11/22/18 12:00 Temperature Pulse Rate 109 H Respiratory Rate Blood Pressure Pulse Oximetry Intake & Output 11/21/18 11/22/18 11/22/18 18:59 06:59 18:59 Intake Total 440 / 440 440 / 440 200 / 200 Output Total 20 / 20 50 / 50 Balance 420 / 420 390 / 390 200 / 200 Weight 91.9 kg Intake: IV 200 / 200 200 / 200 200 / 200 Cipro 400 MG/200 ML Inj 400 mg 200 / 200 200 / 200 200 / 200 In 200 ml @ 200 mls/hr IV.SIG Q12H AGN Rx#:[id number] Oral 240 / 240 240 / 240 Output: Wound Drainage 20 / 20 50 / 50 # 1 Abdomen 20 / 20 50 / 50 Other: # Incontinent Voids 3 # Urine Diapers 2 Date of Last Bowel Movement 11/19/18 # Bowel Movements 0 Narrative: Awake; confused Abd: soft; incision sites with Steri Strips--- no evidence of infection; ASHLYN with clear non cloudy serous fluid - Urinary Catheter Management Indwelling Urethral Catheter Cath placed during this visit: yes, but has since been removed by the nurse Reason for continuing: Hourly intake/output Insertion date: 11/17/18 Insertion time: 14:07 Removal date: 11/18/18 Removal time: 13:30 Results - Labs 11/22/18 05:40 11/22/18 05:40 Laboratory Results - last 24 hr 11/22/18 11/22/18 05:40 05:40 WBC 25.8 H RBC 4.78 Hgb 12.4 L Hct 38.1 L MCV 79.7 L MCH 25.9 L MCHC 32.5 RDW 16.9 Plt Count 658 H MPV 8.4 Sodium 139 Potassium 3.7 Chloride 102 Carbon Dioxide 30.1 Anion Gap 7 BUN 20 H Creatinine 0.72 Estimated GFR Greater than 89 Random Glucose 97 Calcium 8.1 L Magnesium 2.5 - Imaging Imaging: ITS Impressions Gallbladder Ultrasound 11/14/18 17:35 CONCLUSION: 1. Positive for gallbladder sludge and gallstones also seen on prior MRI from May 2018. Gallbladder wall thickened to 7 mm. Common bile duct and pancreas not well visualized. 2. 6.9 cm right renal cyst. No hydronephrosis. 3. Fatty infiltration of the liver. Cholangiopancreatography MRI 11/15/18 00:00 CONCLUSION: 1. Chest X-Ray 11/20/18 00:00 CONCLUSION: 1. Cardiomegaly. 2. Bibasilar consolidation but there is a poor inspiratory effort and this may simply relate to atelectasis. 3. Tracheal deviation towards the right which is going to be accentuated by the obliquity of the film. There is a right paratracheal stripe prominence. At this point mediastinal mass cannot be excluded. Consider CT of the thorax with IV contrast to further assess. Abdomen/Pelvis CT 11/21/18 00:00 CONCLUSION: 1. Interval cholecystectomy with residual fluid collection in the gallbladder fossa and small locule of air. Differential diagnosis includes postoperative fluid but cannot exclude infection. 2. Distended stomach with dilated proximal and mid small bowel and distal decompression most characteristic of at least a partial small bowel obstruction. Colon is relatively decompressed as well. 3. Stable enlargement of right infrahilar lymph node and aortocaval lymph node compared with prior recent CT. Chest CT 11/21/18 00:00 CONCLUSION: 1. Dependent atelectasis with small effusions in both lungs. No pneumothorax. 2. Moderate coronary calcifications. 3. Mediastinal fat deposition. No adenopathy. Assessment and Plan - Assessment (1) Dementia Code(s): F03.90 - Unspecified dementia without behavioral disturbance Status: Acute (2) Status post laparoscopic cholecystectomy Code(s): Z90.49 - Acquired absence of other specified parts of digestive tract Status: Acute (3) Elevated WBC count Code(s): D72.829 - Elevated white blood cell count, unspecified Status: Acute - Plan 63 year old male with RUQ tenderness; CT and US findings c/w cholecystis -s/p lap clayton with drain placement; gangrenous cholecystitis -Continue routine ASHLYN care and monitoring -Diet as tolerated -Pain control -Continue antibiotics; WBC remains elevated--- Hematology consulted
[2018-11-23] MEDS: Ciprofloxacin 400 MG/200 ML 400 MG/200 ML PIGGYBACK IV.SIG SCH ×2 (03:00→13:08)
[2018-11-23] MEDS: metroNIDAZOLE 500 MG Tablet PO SCH ×3 (06:11→22:41)
[2018-11-23] MEDS: amLODIPine 10 MG Tablet PO SCH (08:51)
[2018-11-23] MEDS: Simethicone 80 MG Chew Tablet PO SCH (08:51)
[2018-11-23] MEDS: Enoxaparin Inj 40 MG/0.4 ML Syringe SQ SCH (09:00)
[2018-11-23 11:11] LABS: Baso % (Auto) 0.1 % (0.0-2.0); Eos # (Auto) 0.1 th/mm3 (0.0-0.4); Eos % (Auto) 0.4 % (0.0-4.0); Hematocrit 38.2 % (39.0-51.0); Hemoglobin 12.4 gm/dL (13.0-17.0); Lymph # (Auto) 7.7 th/mm3 (1.0-4.8); Lymph % (Auto) 28.4 % (9.0-44.0); Mean Corpuscular HGB Conc 32.4 % (32.0-36.0); Mean Corpuscular Hemoglobin 25.5 pg (27.0-34.0); Mean Corpuscular Volume 78.9 fL (80.0-100.0); Mean Platelet Volume 8.7 fL (7.0-11.0); Mono # (Auto) 1.4 th/mm3 (0.0-0.9); Mono % (Auto) 5.2 % (0.0-8.0); Neut # (Auto) 17.9 th/mm3 (1.8-7.7); Neut % (Auto) 65.9 % (16.0-70.0); Platelet Count 658 th/mm3 (150-450); Red Blood Count 4.84 mil/mm3 (4.50-5.90); Red Cell Distribution Width 17.4 % (11.6-17.2); White Blood Count 27.2 th/mm3 (4.0-11.0)
[2018-11-23 11:28] LABS: Erythrocyte Sedimentation Rate 46 mm/hr (0-20)
[2018-11-23 11:32] LABS: Alanine Aminotransferase 99 U/L (12-78); Albumin 2.3 g/dL (3.4-5.0); Anion Gap 7 meq/L (5-15); Aspartate Aminotransferase 79 U/L (15-37); Blood Urea Nitrogen 28 mg/dL (7-18); C-Reactive Protein 3.31 mg/dL (0.00-0.30); Calcium 8.1 mg/dL (8.5-10.1); Chloride 105 meq/L (98-107); Glomerular Filtration Rate 75 mL/min (>89); Glucose,Random 144 mg/dL (74-106); Iron 22 mcg/dL (65-175); Potassium 3.5 meq/L (3.5-5.1); Sodium 142 meq/L (136-145)
[2018-11-23 11:35] LABS: % Iron Saturation 7.1 % (20-50); Alkaline Phosphatase 265 U/L (45-117); Ferritin 62 ng/mL (26-388); Total Iron Binding Capacity 308 mcg/dL (250-450); Total Protein 6.7 g/dL (6.4-8.2)
[2018-11-23 13:58] LABS: Lymphocytes 37 % (9-44); Monocytes 2 % (0-8)
--- NOTE | 2018-11-23 15:56 | P.PNGS ---
Subjective Interval history: DAILY PROGRESS NOTE FOR SURGICAL ATTENDING, DR. HUEY PURCELL Now with diarrhea Sister at bedside Physical Exam Vital signs: Vital Signs 11/22/18 16:00 11/22/18 16:15 11/22/18 20:00 Temperature 97.9 F Pulse Rate 101 H 103 H 107 H Respiratory Rate 16 Blood Pressure 140/78 Pulse Oximetry 94 L 11/22/18 20:30 11/22/18 23:30 11/23/18 00:00 Temperature 97.7 F 98.3 F Pulse Rate 99 H 100 H 98 H Respiratory Rate 18 18 Blood Pressure 123/81 122/81 Pulse Oximetry 91 L 92 L 11/23/18 04:00 11/23/18 04:15 11/23/18 08:00 Temperature 97.5 F L Pulse Rate 94 H 90 95 H Respiratory Rate 18 Blood Pressure 124/80 Pulse Oximetry 93 L 11/23/18 08:40 11/23/18 12:00 11/23/18 12:10 Temperature 97.8 F 97.8 F Pulse Rate 88 96 H 96 H Respiratory Rate 18 18 Blood Pressure 121/83 107/77 Pulse Oximetry 93 L 93 L Intake & Output 11/22/18 11/23/18 11/23/18 18:59 06:59 18:59 Intake Total 560 / 560 400 / 400 200 / 200 Output Total 30 Balance 530 / 530 400 / 400 200 / 200 Weight 91 kg Intake: IV 200 / 200 200 / 200 200 / 200 Cipro 400 MG/200 ML Inj 400 mg 200 / 200 200 / 200 200 / 200 In 200 ml @ 200 mls/hr IV.SIG Q12H ANG Rx#:[id number] Oral 360 / 360 200 / 200 Output: Wound Drainage # 1 Abdomen Other: # Urine Diapers 2 3 Date of Last Bowel Movement 11/19/18 11/19/18 # Bowel Movements 0 0 Narrative: Awake; responds to questions appropriately Abd: soft; ASHLYN with non cloudy serous drainage - Urinary Catheter Management Indwelling Urethral Catheter Cath placed during this visit: yes, but has since been removed by the nurse Reason for continuing: Hourly intake/output Insertion date: 11/17/18 Insertion time: 14:07 Removal date: 11/18/18 Removal time: 13:30 Results - Labs 11/24/18 06:32 11/24/18 06:32 Laboratory Results - last 24 hr 11/23/18 11/23/18 10:13 10:13 WBC 27.2 H RBC 4.84 Hgb 12.4 L Hct 38.2 L MCV 78.9 L MCH 25.5 L MCHC 32.4 RDW 17.4 H Plt Count 658 H MPV 8.7 Prelim Diff (Auto) Slide review pending Neut % (Auto) 65.9 Lymph % (Auto) 28.4 [place] % (Auto) 5.2 Eos % (Auto) 0.4 Baso % (Auto) 0.1 Neut # (Auto) 17.9 H Lymph # (Auto) 7.[address] [place] # (Auto) 1.4 H Eos # (Auto) 0.1 Baso # (Auto) 0.0 WBC Differential Manual diff final Seg Neuts % (Manual) 57 Band Neuts % (Manual) 4 Lymphocytes % (Manual) 37 Monocytes % (Manual) 2 Abs Neuts (Manual) 16.6 H Differential Comment . Platelet Estimate High H Platelet Morphology Enlarged H Smear Path Review ESR 46 H Sodium 142 Potassium 3.5 Chloride 105 Carbon Dioxide 30.0 Anion Gap 7 BUN 28 H Creatinine 1.00 Estimated GFR 75 L Random Glucose 144 H Calcium 8.1 L Iron 22 L TIBC 308 % Saturation 7.1 L Ferritin 62 Total Bilirubin 1.2 H AST 79 H ALT 99 H Alkaline Phosphatase 265 H C-Reactive Protein 3.31 H Total Protein 6.7 Albumin 2.3 L - Imaging Imaging: ITS Impressions Gallbladder Ultrasound 11/14/18 17:35 CONCLUSION: 1. Positive for gallbladder sludge and gallstones also seen on prior MRI from May 2018. Gallbladder wall thickened to 7 mm. Common bile duct and pancreas not well visualized. 2. 6.9 cm right renal cyst. No hydronephrosis. 3. Fatty infiltration of the liver. Cholangiopancreatography MRI 11/15/18 00:00 CONCLUSION: 1. Chest X-Ray 11/20/18 00:00 CONCLUSION: 1. Cardiomegaly. 2. Bibasilar consolidation but there is a poor inspiratory effort and this may simply relate to atelectasis. 3. Tracheal deviation towards the right which is going to be accentuated by the obliquity of the film. There is a right paratracheal stripe prominence. At this point mediastinal mass cannot be excluded. Consider CT of the thorax with IV contrast to further assess. Abdomen/Pelvis CT 11/21/18 00:00 CONCLUSION: 1. Interval cholecystectomy with residual fluid collection in the gallbladder fossa and small locule of air. Differential diagnosis includes postoperative fluid but cannot exclude infection. 2. Distended stomach with dilated proximal and mid small bowel and distal decompression most characteristic of at least a partial small bowel obstruction. Colon is relatively decompressed as well. 3. Stable enlargement of right infrahilar lymph node and aortocaval lymph node compared with prior recent CT. Chest CT 11/21/18 00:00 CONCLUSION: 1. Dependent atelectasis with small effusions in both lungs. No pneumothorax. 2. Moderate coronary calcifications. 3. Mediastinal fat deposition. No adenopathy. Assessment and Plan - Assessment (1) Dementia Code(s): F03.90 - Unspecified dementia without behavioral disturbance Status: Acute (2) Status post laparoscopic cholecystectomy Code(s): Z90.49 - Acquired absence of other specified parts of digestive tract Status: Acute (3) Elevated WBC count Code(s): D72.829 - Elevated white blood cell count, unspecified Status: Acute - Plan 63 year old male with RUQ tenderness; CT and US findings c/w cholecystis -s/p lap clayton with drain placement; gangrenous cholecystitis -Continue routine ASHLYN care and monitoring -Diet as tolerated -Pain control -Continue antibiotics; WBC remains elevated--- Hematology following -In light of elevated WBC and now diarrhea---will check c.diff
--- NOTE | 2018-11-23 16:09 | P.PNONC ---
Subjective Interval history: Patient resting in bed watching TV with family at bedside. Family reports that patient has a poor appetite and is concerned about white blood cell count. Father states that patient has a rash on his bottom that he is concerned about. Per his sister states that patient has had diarrhea x2 episodes today. Reports that patient has diffuse abdominal pain when asked to lie on his side. Objective Vital Signs/Intake & Output: Vital Signs 11/22/18 16:00 11/22/18 16:15 11/22/18 20:00 Temperature 97.9 F Pulse Rate 101 H 103 H 107 H Respiratory Rate 16 Blood Pressure 140/78 Pulse Oximetry 94 L 11/22/18 20:30 11/22/18 23:30 11/23/18 00:00 Temperature 97.7 F 98.3 F Pulse Rate 99 H 100 H 98 H Respiratory Rate 18 18 Blood Pressure 123/81 122/81 Pulse Oximetry 91 L 92 L 11/23/18 04:00 11/23/18 04:15 11/23/18 08:00 Temperature 97.5 F L Pulse Rate 94 H 90 95 H Respiratory Rate 18 Blood Pressure 124/80 Pulse Oximetry 93 L 11/23/18 08:40 11/23/18 12:00 11/23/18 12:10 Temperature 97.8 F 97.8 F Pulse Rate 88 96 H 96 H Respiratory Rate 18 18 Blood Pressure 121/83 107/77 Pulse Oximetry 93 L 93 L Intake & Output 11/22/18 11/23/18 11/23/18 18:59 06:59 18:59 Intake Total 560 / 560 400 / 400 200 / 200 Output Total 30 / 30 Balance 530 / 530 400 / 400 200 / 200 Weight 91 kg Intake: IV 200 / 200 200 / 200 200 / 200 Cipro 400 MG/200 ML Inj 400 mg 200 / 200 200 / 200 200 / 200 In 200 ml @ 200 mls/hr IV.SIG Q12H ANG Rx#:[id number] Oral 360 / 360 200 / 200 Output: Wound Drainage # 1 Abdomen Other: # Urine Diapers 2 3 Date of Last Bowel Movement 11/19/18 11/19/18 # Bowel Movements 0 0 Result Diagrams: 11/23/18 10:13 11/23/18 10:13 Laboratory Results: Laboratory Results - last 24 hr 02/13/19 02/13/19 10:13 10:13 WBC 27.2 H RBC 4.84 Hgb 12.4 L Hct 38.2 L MCV 78.9 L MCH 25.5 L MCHC 32.4 RDW 17.4 H Plt Count 658 H MPV 8.7 Prelim Diff (Auto) Slide review pending Neut % (Auto) 65.9 Lymph % (Auto) 28.4 [place] % (Auto) 5.2 Eos % (Auto) 0.4 Baso % (Auto) 0.1 Neut # (Auto) 17.9 H Lymph # (Auto) 7.7 H [place] # (Auto) 1.4 H Eos # (Auto) 0.1 Baso # (Auto) 0.0 WBC Differential Manual diff final Seg Neuts % (Manual) 57 Band Neuts % (Manual) 4 Lymphocytes % (Manual) 37 Monocytes % (Manual) 2 Abs Neuts (Manual) 16.6 H Differential Comment . Platelet Estimate High H Platelet Morphology Enlarged H Smear Path Review ESR 46 H Sodium 142 Potassium 3.5 Chloride 105 Carbon Dioxide 30.0 Anion Gap 7 BUN 28 H Creatinine 1.00 Estimated GFR 75 L Random Glucose 144 H Calcium 8.1 L Iron 22 L TIBC 308 % Saturation 7.1 L Ferritin 62 Total Bilirubin 1.2 H AST 79 H ALT 99 H Alkaline Phosphatase 265 H C-Reactive Protein 3.31 H Total Protein 6.7 Albumin 2.3 L Culture Results: Microbiology 11/23/18 06:30 Stool Occult Blood (JEMIMA) - Final Stool Hemoccult positive 11/20/18 16:46 Aerobic Blood Culture - Preliminary Blood - Peripheral No growth in 3 days Anaerobic Blood Culture - Preliminary No growth in 3 days 11/17/18 14:44 Gram Stain - Final Fluid - Gallbladder Wound Culture - Final Mixed Anaerobes 11/16/18 15:11 Aerobic Blood Culture - Final Blood - Peripheral No growth in 5 days Anaerobic Blood Culture - Final No growth in 5 days 11/16/18 15:05 Aerobic Blood Culture - Final Blood - Peripheral No growth in 5 days Anaerobic Blood Culture - Final No growth in 5 days Medications: Active Medications Generic Name Dose Route Start Last Admin Trade Name Freq PRN Reason Stop Dose Admin Hydrocodone Bitart/Acetaminophen 1 tab 11/17/18 16:08 11/23/18 08:56 Spencer 5/325 PO 1 tab Q6H PRN Administration PAIN 1-10 AND/OR FEVER >101F Amlodipine Besylate 10 mg 11/18/18 09:00 11/23/18 08:51 Norvasc PO 10 mg DAILY ANG Administration Enalaprilat 2.5 mg 11/14/18 23:42 11/17/18 05:39 Vasotec Inj IV.PUSH 2.5 mg Q6H PRN Administration SBP>160, DBP>90 Enoxaparin Sodium 40 mg 11/23/18 09:00 11/23/18 09:00 Lovenox Inj SQ 40 mg DAILY ANG Administration Ciprofloxacin/Dextrose 400 mg in 200 mls @ 200 mls/hr 11/21/18 14:00 14:08 Cipro 400 Mg/200 Ml Inj IV.SIG Infused Q12H ANG Infusion Metronidazole 500 mg 11/20/18 14:15 11/23/18 13:08 Flagyl PO 500 mg Q8HR ANG Administration Ondansetron HCl 4 mg 11/14/18 22:44 11/22/18 20:29 Zofran Inj IV.PUSH 4 mg Q6H PRN Administration NAUSEA OR VOMITING Simethicone 80 mg 11/20/18 15:00 11/23/18 08:51 Mylicon Chew PO 80 mg DAILY ANG Administration Sodium Chloride 2 ml 11/15/18 09:00 11/23/18 08:51 Ns Flush IV.FLUSH 2 ml BID ANG Administration Sodium Chloride 2 ml 11/14/18 22:44 11/15/18 01:34 Ns Flush IV.FLUSH 2 ml PRN PRN Administration FLUSH AFTER USING IV ACCESS Objective Remarks: GENERAL: Well-nourished, well-developed ill-appearing male patient in no acute distress. SKIN: Warm and dry. Stage I decubitus noted to sacral/coccygeal area. HEAD: Normocephalic. EYES: No scleral icterus. No injection or drainage. NECK: Supple, trachea midline. CARDIOVASCULAR: Regular rate and rhythm without murmurs. RESPIRATORY: Breath sounds equal bilaterally. No accessory muscle use. GASTROINTESTINAL: Abdomen soft, non-tender, +distended. EXTREMITIES: No cyanosis, or edema. MUSCULOSKELETAL: Adequate muscle tone. NEUROLOGICAL: No obvious focal deficit. Awake and alert. Assessment/Plan - Plan This is a 63-year-old male patient status post cholecystectomy related to gangrenous cholecystitis, pathology pending. Oncology consulted in relation to leukocytosis. Plan: 1. Leukocytosis, will continue to monitor blood counts. Urinalysis and urine culture ordered, pending specimen being sent to lab. If no urinary output, recommend bladder scanning. 2. Stool Hemoccult positive, maintaining stable hemoglobin. Family reports diarrhea. Discussed with surgical [employer], she has ordered stool specimen for C. difficile. We will continue to monitor and follow. 3. Await pending urinalysis, will repeat CBC in a.m. - Attending Statement The exam, history, and the medical decision-making described in the above note were completed with the assistance of the mid-level provider. I reviewed and agree with the findings presented. I attest that I had a [id number] encounter with the patient on the same day, and personally performed and documented my assessment and findings in the medical record. Patient reportedly has diarrhea. He is not able to provide accurate history. His stepfather and sister are at the bedside. He still has persistent leukocytosis. He remains afebrile. I think the leukocytosis is due to underlying occult infection. I doubt that he has primary bone marrow disorder. Surgery has ordered a C. difficile test. Will check urinalysis. His CBC today showed 4% bandemia. Peripheral smear is still pending. His C-reactive protein is elevated. His liver enzyme is also slightly elevated.
--- NOTE | 2018-11-23 18:13 | P.PNIM ---
Subjective Interval history: 63 yo m w dementia admitted for acute cholecystitis s/p lap cholecystectomy on 11/17/18. Since patient has developed increasing leukocytosis w no fevers, ct scan of abd and pelvis showing post op changes in gb fossa w fluid and mild ileus, but nurses reported that patient has had large bm yesterday with some blood, patient doesnt appear to have worsening abd pain, no nv, no fevers and was seen by hematology, also sister was at bedside today states that patient is normally very active and spry and talkative even tho forgetful, and she is concerned about rash on his buttocks and that hes not getting oob much. pt seen and examined , he had another large soft bm again, denies nv, denies significant pain, no sob, no cough. Physical Exam Vital signs: Vital Signs 11/22/18 20:00 11/22/18 20:30 11/22/18 23:30 Temperature 97.7 F 98.3 F Pulse Rate 107 H 99 H 100 H Respiratory Rate 18 18 Blood Pressure 123/81 122/81 Pulse Oximetry 91 L 92 L 11/23/18 00:00 11/23/18 04:00 11/23/18 04:15 Temperature 97.5 F L Pulse Rate 98 H 94 H 90 Respiratory Rate 18 Blood Pressure 124/80 Pulse Oximetry 93 L 11/23/18 08:00 11/23/18 08:40 11/23/18 12:00 Temperature 97.8 F Pulse Rate 95 H 88 96 H Respiratory Rate 18 Blood Pressure 121/83 Pulse Oximetry 93 L 11/23/18 12:10 11/23/18 15:45 Temperature 97.8 F 97.6 F Pulse Rate 96 H 92 H Respiratory Rate 18 18 Blood Pressure 107/77 94/67 L Pulse Oximetry 93 L 93 L Intake & Output 11/22/18 11/23/18 11/23/18 18:59 06:59 18:59 Intake Total 560 / 560 400 / 400 200 / 200 Output Total 30 / 30 Balance 530 / 530 400 / 400 200 / 200 Weight 91 kg Intake: IV 200 / 200 200 / 200 200 / 200 Cipro 400 MG/200 ML Inj 400 mg 200 / 200 200 / 200 200 / 200 In 200 ml @ 200 mls/hr IV.SIG Q12H ANG Rx#:[id number] Oral 360 / 360 200 / 200 Output: Wound Drainage 30 / 30 # 1 Abdomen Other: # Urine Diapers 2 3 Date of Last Bowel Movement 11/19/18 11/19/18 # Bowel Movements 0 0 Narrative: wdwn 63yo w m aaox2 forgetful, pleasant follows no distress quiet flat affect heart s1s2 reg lungs decreased bs bl abd soft nondt pos bs, no mass incision clean dry ext no edema no clubbing no cyanosis no calf tenderness he is moving ext back, sacral erythematous rash with satelite lesions Urinary Catheter Management Indwelling Urethral Catheter: Cath placed during this visit: yes, but has since been removed by the nurse Reason for continuing: Hourly intake/output Insertion date: 11/17/18 Insertion time: 14:07 Removal date: 11/18/18 Removal time: 13:30 Results Labs CBC & Chem 7: 11/23/18 10:13 11/23/18 10:13 Labs: Microbiology 11/23/18 06:30 Stool Stool Occult Blood (JEMIMA) - Final Hemoccult positive 11/20/18 16:46 Blood - Peripheral Aerobic Blood Culture - Preliminary No growth in 3 days 11/20/18 16:46 Blood - Peripheral Anaerobic Blood Culture - Preliminary No growth in 3 days Assessment and Plan Plan ACUTE GANGRENOUS CHOLECYCTITIS s/p lap choly 11/17/18 and liver bx, mild elevation lfts will trend, LEUKOCYTOSIS w reactive throbocythemia - likely reactive post op r/o cdif, seroma in gb fossa infected? acute colitis? - on flagyl DIARRHEA abx assc w bleeding- hemorroidal vs UC vc dcif colitis - check stool studies, gi fu, on flagyl, monitor hh, pepcid DEPENDENT ATELECTASIS of both lungs - incentive spirometry, ezpap, oob to chair and ambulate daily DEMENTIA baseline ULCERTIVE COLITIS hx ? exacerbation - fu w GI, asacol? HTN - DEHYDRATION - fluids, encourage po dvt prophylaxis - scd dispo - patient has no placement benefits at this time, medicaid pending, will need to go home w family when stable, discussed w cm, will dw sister. Progress Note: Quality VTE Deep Vein Thrombosis/Pulmonary Embolism Present on Admission: No
[2018-11-23] MEDS ORDERED: Potassium Chloride Inj 10 MEQ in Sodium Chloride 0.45 % Inj 1,000 ML IV.CONT SCH (20:00)
[2018-11-23] MEDS: Famotidine 20 MG Tablet PO SCH (22:41)
[2018-11-24 05:34] LABS: Bacteria,Urine Many /hpf; Bilirubin,Urine Small (Negative); Clarity,Urine Cloudy (Clear); Color,Urine Amber (Yellw/Straw); Glucose,Urine (UA) Negative (Negative); Hyaline Casts,Urine 14 /lpf (0-3); Leukocyte Esterase,Urine Trace (Negative); Mucus,Urine Many /lpf (Occasional); Nitrite,Urine Negative (Negative); Specific Gravity,Urine 1.029 (1.002-1.035)
[2018-11-24 05:37] LABS: Ictotest,Urine Positive (Negative); Urobilinogen,Urine 0.2 mg/dL (Less than 2)
[2018-11-24] MEDS: metroNIDAZOLE 500 MG Tablet PO SCH ×3 (06:23→21:00)
[2018-11-24 07:56] LABS: Baso % (Auto) 0.1 % (0.0-2.0); Eos # (Auto) 0.4 th/mm3 (0.0-0.4); Eos % (Auto) 1.7 % (0.0-4.0); Hematocrit 38.5 % (39.0-51.0); Hemoglobin 12.2 gm/dL (13.0-17.0); Lymph # (Auto) 7.8 th/mm3 (1.0-4.8); Mean Corpuscular HGB Conc 31.8 % (32.0-36.0); Mean Corpuscular Hemoglobin 25.5 pg (27.0-34.0); Mean Corpuscular Volume 80.2 fL (80.0-100.0); Mean Platelet Volume 8.5 fL (7.0-11.0); Mono # (Auto) 1.5 th/mm3 (0.0-0.9); Neut # (Auto) 15.4 th/mm3 (1.8-7.7); Neut % (Auto) 61.2 % (16.0-70.0); Platelet Count 606 th/mm3 (150-450); Red Blood Count 4.79 mil/mm3 (4.50-5.90); Red Cell Distribution Width 17.3 % (11.6-17.2); White Blood Count 25.1 th/mm3 (4.0-11.0)
[2018-11-24 08:24] LABS: Albumin 2.3 g/dL (3.4-5.0); Anion Gap 7 meq/L (5-15); Aspartate Aminotransferase 47 U/L (15-37); Blood Urea Nitrogen 28 mg/dL (7-18); Calcium 7.5 mg/dL (8.5-10.1); Carbon Dioxide 25.7 meq/L (21.0-32.0); Chloride 108 meq/L (98-107); Glomerular Filtration Rate 71 mL/min (>89); Glucose,Random 110 mg/dL (74-106); Lipase 426 U/L (73-393); Magnesium 2.4 mg/dL (1.5-2.5); Potassium 3.5 meq/L (3.5-5.1); Sodium 141 meq/L (136-145)
[2018-11-24 08:28] LABS: Alanine Aminotransferase 78 U/L (12-78); Alkaline Phosphatase 270 U/L (45-117); Total Protein 6.7 g/dL (6.4-8.2)
[2018-11-24 08:47] LABS: Lymphocytes 30 % (9-44); Monocytes 5 % (0-8); Myelocytes 1 % (0-0); Platelet Morphology Normal (Normal)
[2018-11-24] MEDS: Enoxaparin Inj 40 MG/0.4 ML Syringe SQ SCH (08:50)
[2018-11-24] MEDS: Simethicone 80 MG Chew Tablet PO SCH (08:50)
[2018-11-24] MEDS: Famotidine 20 MG Tablet PO SCH ×2 (08:51→20:44)
--- NOTE | 2018-11-24 15:21 | P.PNGS ---
Subjective Interval history: DAILY PROGRESS NOTE FOR SURGICAL ATTENDING, DR. HUEY PURCELL Resting in bed No issues Physical Exam Vital signs: Vital Signs 11/23/18 15:45 11/23/18 16:00 11/23/18 20:00 Temperature 97.6 F Pulse Rate 92 H 91 H 95 H Respiratory Rate 18 Blood Pressure 94/67 L Pulse Oximetry 93 L 11/23/18 21:15 11/23/18 23:20 11/24/18 00:00 Temperature 96.2 F L 97.9 F Pulse Rate 95 H 93 H 87 Respiratory Rate 16 16 Blood Pressure 118/73 116/76 Pulse Oximetry 94 L 93 L 11/24/18 04:00 11/24/18 04:10 11/24/18 08:00 Temperature 98 F Pulse Rate 88 86 82 Respiratory Rate 16 Blood Pressure 116/74 Pulse Oximetry 94 L 11/24/18 08:07 11/24/18 12:00 11/24/18 12:06 Temperature 97.8 F 97.9 F Pulse Rate 84 82 79 Respiratory Rate 17 17 Blood Pressure 113/66 119/73 Pulse Oximetry 94 L 94 L Intake & Output 11/23/18 11/24/18 11/24/18 18:59 06:59 18:59 Intake Total 680 / 680 120 / 120 900 / 900 Output Total 200 / 200 Balance 680 / 680 -80 / -80 900 / 900 Weight 88.5 kg Intake: IV 200 / 200 900 / 900 KCl Inj 10 MEQ In 1/2 Normal 900 / 900 Saline Inj 1,000 ML @ 100 mls/ hr IV.CONT .Q10H3M ANG Rx#: [id number] Cipro 400 MG/200 ML Inj 400 mg 200 / 200 In 200 ml @ 200 mls/hr IV.SIG Q12H ANG Rx#:[id number] Oral 480 / 480 120 / 120 Output: Urine 150 / 150 Wound Drainage 50 / 50 # 1 Abdomen 50 / 50 Other: # Urine Diapers 4 Date of Last Bowel Movement 11/19/18 11/19/18 # Bowel Movements 3 6 Narrative: Alert and awake Abd: soft; non distended;non tender; ASHLYN removed at bedside; Steri strips in place - Urinary Catheter Management Indwelling Urethral Catheter Cath placed during this visit: yes, but has since been removed by the nurse Reason for continuing: Hourly intake/output Insertion date: 11/17/18 Insertion time: 14:07 Removal date: 11/18/18 Removal time: 13:30 Results - Labs 11/24/18 06:32 11/24/18 06:32 Laboratory Results - last 24 hr 11/23/18 11/24/18 11/24/18 06:30 05:00 06:32 WBC 25.1 H RBC 4.79 Hgb 12.2 L Hct 38.5 L MCV 80.2 MCH 25.5 L MCHC 31.8 L RDW 17.3 H Plt Count 606 H MPV 8.5 Prelim Diff (Auto) Slide review pending Neut % (Auto) 61.2 Lymph % (Auto) 31.0 [place] % (Auto) 6.0 Eos % (Auto) 1.7 Baso % (Auto) 0.1 Neut # (Auto) 15.4 H Lymph # (Auto) 7.8 H [place] # (Auto) 1.5 H Eos # (Auto) 0.4 Baso # (Auto) 0.0 WBC Differential Manual diff final Seg Neuts % (Manual) 56 Band Neuts % (Manual) 8 H Lymphocytes % (Manual) 30 Monocytes % (Manual) 5 Myelocytes % (Man) 1 H Abs Neuts (Manual) 16.3 H Differential Comment . Platelet Estimate High H Platelet Morphology Normal Sodium Potassium Chloride Carbon Dioxide Anion Gap BUN Creatinine Estimated GFR Random Glucose Calcium Magnesium Total Bilirubin AST ALT Alkaline Phosphatase Total Protein Albumin Lipase Urine Color [place] Urine Clarity Cloudy H Urine pH 5.0 Ur Specific Josephine 1.029 Urine Protein 30 H Urine Glucose (UA) Negative Urine Ketones Negative Urine Occult Blood Negative Urine Nitrate Negative Urine Bilirubin Small H Urine Ictotest Positive H Urine Urobilinogen 0.2 Ur Leukocyte Esterase Trace H Urine RBC 1 Urine WBC 11 H Urine Bacteria Many H Hyaline Casts 14 Urine Mucus Many H Ur Microscopic Review Not Reportable Stl C.difficile DNA Amp Negative St C. diff Tox Epid 027 Negative 11/24/18 06:32 WBC RBC Hgb Hct MCV MCH MCHC RDW Plt Count MPV Prelim Diff (Auto) Neut % (Auto) Lymph % (Auto) [place] % (Auto) Eos % (Auto) Baso % (Auto) Neut # (Auto) Lymph # (Auto) [place] # (Auto) Eos # (Auto) Baso # (Auto) WBC Differential Seg Neuts % (Manual) Band Neuts % (Manual) Lymphocytes % (Manual) Monocytes % (Manual) Myelocytes % (Man) Abs Neuts (Manual) Differential Comment Platelet Estimate Platelet Morphology Sodium 141 Potassium 3.5 Chloride 108 H Carbon Dioxide 25.7 Anion Gap 7 BUN 28 H Creatinine 1.05 Estimated GFR 71 L Random Glucose 110 H Calcium 7.5 L Magnesium 2.4 Total Bilirubin 1.0 AST 47 H ALT 78 Alkaline Phosphatase 270 H Total Protein 6.7 Albumin 2.3 L Lipase 426 H Urine Color Urine Clarity Urine pH Ur Specific Josephine Urine Protein Urine Glucose (UA) Urine Ketones Urine Occult Blood Urine Nitrate Urine Bilirubin Urine Ictotest Urine Urobilinogen Ur Leukocyte Esterase Urine RBC Urine WBC Urine Bacteria Hyaline Casts Urine Mucus Ur Microscopic Review Stl C.difficile DNA Amp St C. diff Tox Epid 027 - Imaging Imaging: ITS Impressions Gallbladder Ultrasound 11/14/18 17:35 CONCLUSION: 1. Positive for gallbladder sludge and gallstones also seen on prior MRI from May 2018. Gallbladder wall thickened to 7 mm. Common bile duct and pancreas not well visualized. 2. 6.9 cm right renal cyst. No hydronephrosis. 3. Fatty infiltration of the liver. Cholangiopancreatography MRI 11/15/18 00:00 CONCLUSION: 1. Chest X-Ray 11/20/18 00:00 CONCLUSION: 1. Cardiomegaly. 2. Bibasilar consolidation but there is a poor inspiratory effort and this may simply relate to atelectasis. 3. Tracheal deviation towards the right which is going to be accentuated by the obliquity of the film. There is a right paratracheal stripe prominence. At this point mediastinal mass cannot be excluded. Consider CT of the thorax with IV contrast to further assess. Abdomen/Pelvis CT 11/21/18 00:00 CONCLUSION: 1. Interval cholecystectomy with residual fluid collection in the gallbladder fossa and small locule of air. Differential diagnosis includes postoperative fluid but cannot exclude infection. 2. Distended stomach with dilated proximal and mid small bowel and distal decompression most characteristic of at least a partial small bowel obstruction. Colon is relatively decompressed as well. 3. Stable enlargement of right infrahilar lymph node and aortocaval lymph node compared with prior recent CT. Chest CT 11/21/18 00:00 CONCLUSION: 1. Dependent atelectasis with small effusions in both lungs. No pneumothorax. 2. Moderate coronary calcifications. 3. Mediastinal fat deposition. No adenopathy. Assessment and Plan - Assessment (1) Dementia Code(s): F03.90 - Unspecified dementia without behavioral disturbance Status: Acute (2) Status post laparoscopic cholecystectomy Code(s): Z90.49 - Acquired absence of other specified parts of digestive tract Status: Acute (3) Elevated WBC count Code(s): D72.829 - Elevated white blood cell count, unspecified Status: Acute - Plan 63 year old male with RUQ tenderness; CT and US findings c/w cholecystis -s/p lap clayton with drain placement; gangrenous cholecystitis -ASHLYN removed at bedside -Diet as tolerated -Pain control -WBC elevated although trending down; Hematology following -Cdiff negative -GS will sign off; no office follow up needed - Attending Attestation NOTE FOR SURGICAL ATTENDING, DR. HUEY PURCELL I agree with above assessment and plan. The exam, history, and the medical decision-making described in the above note were completed with the assistance of the mid-level provider. I reviewed and agree with the findings presented. I attest that I had a [id number] encounter with the patient on the same day, and personally performed and documented my assessment and findings in the medical record. The following services were provided during this hospital visit: Chart data review, vital sign assessments/reviewing monitor data Review of consultations notes if present. Medication orders/review and/or management Ordering and/or reviewing lab tests Ordering and/or interpreting/reviewing x-rays and/or diagnostic studies Care of the patient and discussion of the patient with the care team Documentation time To help prompt me to consider important information that might be impacting today's encounter and assessment, Information from prior notes written by myself or my colleagues may have been "brought forward/copy and pasted" into today's note.
--- NOTE | 2018-11-24 16:53 | P.PNONC ---
Subjective Interval history: Late entry patient seen earlier in the day. Patient resting in bed in the supine position watching television upon entering room. States that he has not had any further diarrhea. Patient denies any shortness of breath chest pain or bleeding. Objective Vital Signs/Intake & Output: Vital Signs 11/23/18 20:00 11/23/18 21:15 11/23/18 23:20 Temperature 96.2 F L 97.9 F Pulse Rate 95 H 95 H 93 H Respiratory Rate 16 16 Blood Pressure 118/73 116/76 Pulse Oximetry 94 L 93 L 11/24/18 00:00 11/24/18 04:00 11/24/18 04:10 Temperature 98 F Pulse Rate 87 88 86 Respiratory Rate 16 Blood Pressure 116/74 Pulse Oximetry 94 L 11/24/18 08:00 11/24/18 08:07 11/24/18 12:00 Temperature 97.8 F Pulse Rate 82 84 82 Respiratory Rate 17 Blood Pressure 113/66 Pulse Oximetry 94 L 11/24/18 12:06 11/24/18 16:00 Temperature 97.9 F Pulse Rate 79 84 Respiratory Rate 17 Blood Pressure 119/73 Pulse Oximetry 94 L Intake & Output 11/23/18 11/24/18 11/24/18 18:59 06:59 18:59 Intake Total 680 / 680 120 / 120 900 / 900 Output Total 200 / 200 Balance 680 / 680 -80 / -80 900 / 900 Weight 88.5 kg Intake: IV 200 / 200 900 / 900 KCl Inj 10 MEQ In 1/2 Normal 900 / 900 Saline Inj 1,000 ML @ 100 mls/ hr IV.CONT .Q10H3M ANG Rx#: [id number] Cipro 400 MG/200 ML Inj 400 mg 200 / 200 In 200 ml @ 200 mls/hr IV.SIG Q12H ANG Rx#:[id number] Oral 480 / 480 120 / 120 Output: Urine 150 / 150 Wound Drainage 50 / 50 # 1 Abdomen 50 / 50 Other: # Urine Diapers 4 Date of Last Bowel Movement 11/19/18 11/19/18 # Bowel Movements 3 6 Result Diagrams: 11/24/18 06:32 11/24/18 06:32 Laboratory Results: Laboratory Results - last 24 hr 11/23/18 11/24/18 11/24/18 06:30 05:00 06:32 WBC 25.1 H RBC 4.79 Hgb 12.2 L Hct 38.5 L MCV 80.2 MCH 25.5 L MCHC 31.8 L RDW 17.3 H Plt Count 606 H MPV 8.5 Prelim Diff (Auto) Slide review pending Neut % (Auto) 61.2 Lymph % (Auto) 31.0 [place] % (Auto) 6.0 Eos % (Auto) 1.7 Baso % (Auto) 0.1 Neut # (Auto) 15.4 H Lymph # (Auto) 7.8 H [place] # (Auto) 1.5 H Eos # (Auto) 0.4 Baso # (Auto) 0.0 WBC Differential Manual diff final Seg Neuts % (Manual) 56 Band Neuts % (Manual) 8 H Lymphocytes % (Manual) 30 Monocytes % (Manual) 5 Myelocytes % (Man) 1 H Abs Neuts (Manual) 16.3 H Differential Comment . Platelet Estimate High H Platelet Morphology Normal Sodium Potassium Chloride Carbon Dioxide Anion Gap BUN Creatinine Estimated GFR Random Glucose Calcium Magnesium Total Bilirubin AST ALT Alkaline Phosphatase Total Protein Albumin Lipase Urine Color [place] Urine Clarity Cloudy H Urine pH 5.0 Ur Specific [place] 1.029 Urine Protein 30 H Urine Glucose (UA) Negative Urine Ketones Negative Urine Occult Blood Negative Urine Nitrate Negative Urine Bilirubin Small H Urine Ictotest Positive H Urine Urobilinogen 0.2 Ur Leukocyte Esterase Trace H Urine RBC 1 Urine WBC 11 H Urine Bacteria Many H Hyaline Casts 14 Urine Mucus Many H Ur Microscopic Review Not Reportable Stl C.difficile DNA Amp Negative St C. diff Tox Epid 027 Negative 11/24/18 06:32 WBC RBC Hgb Hct MCV MCH MCHC RDW Plt Count MPV Prelim Diff (Auto) Neut % (Auto) Lymph % (Auto) [place] % (Auto) Eos % (Auto) Baso % (Auto) Neut # (Auto) Lymph # (Auto) [place] # (Auto) Eos # (Auto) Baso # (Auto) WBC Differential Seg Neuts % (Manual) Band Neuts % (Manual) Lymphocytes % (Manual) Monocytes % (Manual) Myelocytes % (Man) Abs Neuts (Manual) Differential Comment Platelet Estimate Platelet Morphology Sodium 141 Potassium 3.5 Chloride 108 H Carbon Dioxide 25.7 Anion Gap 7 BUN 28 H Creatinine 1.05 Estimated GFR 71 L Random Glucose 110 H Calcium 7.5 L Magnesium 2.4 Total Bilirubin 1.0 AST 47 H ALT 78 Alkaline Phosphatase 270 H Total Protein 6.7 Albumin 2.3 L Lipase 426 H Urine Color Urine Clarity Urine pH Ur Specific [place] Urine Protein Urine Glucose (UA) Urine Ketones Urine Occult Blood Urine Nitrate Urine Bilirubin Urine Ictotest Urine Urobilinogen Ur Leukocyte Esterase Urine RBC Urine WBC Urine Bacteria Hyaline Casts Urine Mucus Ur Microscopic Review Stl C.difficile DNA Amp St C. diff Tox Epid 027 Culture Results: Microbiology 11/20/18 16:46 Aerobic Blood Culture - Preliminary Blood - Peripheral No growth in 4 days Anaerobic Blood Culture - Preliminary No growth in 4 days 11/23/18 06:30 Stool Occult Blood (JEMIMA) - Final Stool Hemoccult positive 11/17/18 14:44 Gram Stain - Final Fluid - Gallbladder Wound Culture - Final Mixed Anaerobes Medications: Active Medications Generic Name Dose Route Start Last Admin Trade Name Freq PRN Reason Stop Dose Admin Hydrocodone Bitart/Acetaminophen 1 tab 11/17/18 16:08 11/24/18 08:51 [place] 5/325 PO 1 tab Q6H PRN Administration PAIN 1-10 AND/OR FEVER >101F Amlodipine Besylate 10 mg 11/18/18 09:00 11/23/18 08:51 Norvasc PO 10 mg DAILY ANG Administration Enalaprilat 2.5 mg 11/14/18 23:42 11/17/18 05:39 Vasotec Inj IV.PUSH 2.5 mg Q6H PRN Administration SBP>160, DBP>90 Enoxaparin Sodium 40 mg 11/23/18 09:00 11/24/18 08:50 Lovenox Inj SQ 40 mg DAILY ANG Administration Famotidine 20 mg 11/23/18 21:00 11/24/18 08:51 Pepcid PO 20 mg BID ANG Administration Lactobacillus Acidophilus 1 gm 11/23/18 18:30 11/24/18 13:13 Lactinex Pkt PO 1 gm TID ANG Administration Metronidazole 500 mg 11/20/18 14:15 11/24/18 13:12 Flagyl PO 500 mg Q8HR ANG Administration Nystatin 1 applicatio 11/23/18 21:00 11/24/18 08:55 Mycostatin Cream TOPICAL 1 applicatio BID ANG Administration Ondansetron HCl 4 mg 11/14/18 22:44 11/22/18 20:29 Zofran Inj IV.PUSH 4 mg Q6H PRN Administration NAUSEA OR VOMITING Simethicone 80 mg 11/20/18 15:00 11/24/18 08:50 Mylicon Chew PO 80 mg DAILY ANG Administration Sodium Chloride 2 ml 11/15/18 09:00 11/24/18 08:52 Ns Flush IV.FLUSH 2 ml BID ANG Administration Sodium Chloride 2 ml 11/14/18 22:44 11/15/18 01:34 Ns Flush IV.FLUSH 2 ml PRN PRN Administration FLUSH AFTER USING IV ACCESS Objective Remarks: GENERAL: Well-nourished, well-developed ill-appearing male patient in no acute distress. SKIN: Warm and dry. Stage I decubitus noted to sacral/coccygeal area with ointment/barrier cream noted to the area. HEAD: Normocephalic. EYES: No scleral icterus. No injection or drainage. NECK: Supple, trachea midline. CARDIOVASCULAR: Regular rate and rhythm without murmurs. RESPIRATORY: Breath sounds equal bilaterally. No accessory muscle use. GASTROINTESTINAL: Abdomen soft, non-tender, non-distended. ASHLYN drain patent, dressing dry and intact. EXTREMITIES: No cyanosis, or edema. MUSCULOSKELETAL: Adequate muscle tone. NEUROLOGICAL: No obvious focal deficit. Awake and alert. Assessment/Plan - Plan This is a 63-year-old male patient status post cholecystectomy related to gangrenous cholecystitis, pathology pending. Oncology consulted in relation to leukocytosis. Plan: 1. Leukocytosis, afebrile, urine culture pending. Patient completed a 3-day course of Cipro regiment and continues on Flagyl. Peripheral flow cytology ordered. 2. Stool Hemoccult positive, maintaining stable hemoglobin. C. difficile negative. Hemoglobin 12.2. 3. Await pending urine culture and flow cytometry. - Attending Statement The exam, history, and the medical decision-making described in the above note were completed with the assistance of the mid-level provider. I reviewed and agree with the findings presented. I attest that I had a [id number] encounter with the patient on the same day, and personally performed and documented my assessment and findings in the medical record. Patient has no new complaint. Diarrhea has improved. C. difficile toxin was negative. Urinalysis positive bacteriuria. Urine culture is pending. WBC trended down slightly to 25,000 with bandemia. Peripheral smear showed leukocytosis with atypical lymphocyte and the pathologist favor reactive process. His lymphocyte count was slightly elevated which is new. I doubt that he has lymphoproliferative disorder. We will get flow cytometry for further evaluation.
--- NOTE | 2018-11-24 17:33 | P.PNIM ---
Subjective Interval history: 63 yo w m w acute gangrenous cholyecystitis and ongoing leukocytosis and worsening confusion pt seen and examined and case discussed at bedside Physical Exam Vital signs: Vital Signs 11/23/18 20:00 11/23/18 21:15 11/23/18 23:20 Temperature 96.2 F L 97.9 F Pulse Rate 95 H 95 H 93 H Respiratory Rate 16 16 Blood Pressure 118/73 116/76 Pulse Oximetry 94 L 93 L 11/24/18 00:00 11/24/18 04:00 11/24/18 04:10 Temperature 98 F Pulse Rate 87 88 86 Respiratory Rate 16 Blood Pressure 116/74 Pulse Oximetry 94 L 11/24/18 08:00 11/24/18 08:07 11/24/18 12:00 Temperature 97.8 F Pulse Rate 82 84 82 Respiratory Rate 17 Blood Pressure 113/66 Pulse Oximetry 94 L 11/24/18 12:06 11/24/18 16:00 11/24/18 16:06 Temperature 97.9 F 98.1 F Pulse Rate 79 84 82 Respiratory Rate 17 17 Blood Pressure 119/73 116/71 Pulse Oximetry 94 L 93 L Intake & Output 11/23/18 11/24/18 11/24/18 18:59 06:59 18:59 Intake Total 680 / 680 120 / 120 900 / 900 Output Total 200 / 200 Balance 680 / 680 -80 / -80 900 / 900 Weight 88.5 kg Intake: IV 200 / 200 900 / 900 KCl Inj 10 MEQ In 1/2 Normal 900 / 900 Saline Inj 1,000 ML @ 100 mls/ hr IV.CONT .Q10H3M ANG Rx#: [id number] Cipro 400 MG/200 ML Inj 400 mg 200 / 200 In 200 ml @ 200 mls/hr IV.SIG Q12H ANG Rx#:[id number] Oral 480 / 480 120 / 120 Output: Urine 150 / 150 Wound Drainage 50 / 50 # 1 Abdomen 50 / 50 Other: # Urine Diapers 4 Date of Last Bowel Movement 11/19/18 11/19/18 # Bowel Movements 3 6 Narrative: wdwn 63yo w m aaox2 forgetful, pleasant follows no distress quiet flat affect heart s1s2 reg lungs decreased bs bl abd soft nondt pos bs, no mass incision clean dry ext no edema no clubbing no cyanosis no calf tenderness he is moving ext w full strength back, sacral erythematous rash with satelite lesions Urinary Catheter Management Indwelling Urethral Catheter: Cath placed during this visit: yes, but has since been removed by the nurse Reason for continuing: Hourly intake/output Insertion date: 11/17/18 Insertion time: 14:07 Removal date: 11/18/18 Removal time: 13:30 Results Labs CBC & Chem 7: 11/24/18 06:32 11/24/18 06:32 Labs: Microbiology 11/20/18 16:46 Blood - Peripheral Aerobic Blood Culture - Preliminary No growth in 4 days 11/20/18 16:46 Blood - Peripheral Anaerobic Blood Culture - Preliminary No growth in 4 days 11/23/18 06:30 Stool Stool Occult Blood (JEMIMA) - Final Hemoccult positive Assessment and Plan Plan ACUTE GANGRENOUS CHOLECYCTITIS s/p lap choly 11/17/18 and liver bx, mild elevation lfts will trend, LEUKOCYTOSIS w reactive throbocythemia - likely reactive post op r/o cdif, seroma in gb fossa infected? acute colitis? - on flagyl, dc cipro, now noted to have uti, will wait for urine cx, all bc neg, DIARRHEA abx assc w bleeding- hemorroidal vs UC vc dcif colitis - check stool studies, gi fu, on flagyl, monitor hh, pepcid DEPENDENT ATELECTASIS of both lungs - incentive spirometry, ezpap, oob to chair and ambulate daily DEMENTIA baseline ULCERTIVE COLITIS hx ? exacerbation - fu w GI, asacol? HTN - cont bp control DEHYDRATION - fluids, encourage po dvt prophylaxis - scd dispo - patient has no placement benefits at this time, medicaid pending, will need to go home w family when stable, discussed w cm, will dw sister.again. Progress Note: Quality VTE Deep Vein Thrombosis/Pulmonary Embolism Present on Admission: No
[2018-11-24 20:06] LABS: Baso # (Auto) 0.1 th/mm3 (0.0-0.2); Baso % (Auto) 0.4 % (0.0-2.0); Eos # (Auto) 0.6 th/mm3 (0.0-0.4); Eos % (Auto) 2.9 % (0.0-4.0); Hematocrit 36.5 % (39.0-51.0); Hemoglobin 11.6 gm/dL (13.0-17.0); Lymph # (Auto) 7.2 th/mm3 (1.0-4.8); Lymph % (Auto) 33.4 % (9.0-44.0); Mean Corpuscular HGB Conc 31.7 % (32.0-36.0); Mean Corpuscular Hemoglobin 25.7 pg (27.0-34.0); Mean Platelet Volume 8.3 fL (7.0-11.0); Mono # (Auto) 1.2 th/mm3 (0.0-0.9); Mono % (Auto) 5.6 % (0.0-8.0); Neut # (Auto) 12.5 th/mm3 (1.8-7.7); Neut % (Auto) 57.7 % (16.0-70.0); Platelet Count 580 th/mm3 (150-450); Red Blood Count 4.51 mil/mm3 (4.50-5.90); Red Cell Distribution Width 17.5 % (11.6-17.2); White Blood Count 21.7 th/mm3 (4.0-11.0)
[2018-11-24 20:33] LABS: Eosinophils 7 % (0-4); Lymphocytes 21 % (9-44); Monocytes 3 % (0-8)
[2018-11-24 20:36] LABS: Platelet Morphology Normal (Normal); Toxic Granulation 1+
[2018-11-25 04:32] LABS: Baso % (Auto) 0.1 % (0.0-2.0); Eos # (Auto) 0.7 th/mm3 (0.0-0.4); Eos % (Auto) 3.4 % (0.0-4.0); Hematocrit 36.2 % (39.0-51.0); Hemoglobin 11.5 gm/dL (13.0-17.0); Lymph # (Auto) 6.9 th/mm3 (1.0-4.8); Lymph % (Auto) 33.6 % (9.0-44.0); Mean Corpuscular HGB Conc 31.9 % (32.0-36.0); Mean Corpuscular Hemoglobin 25.6 pg (27.0-34.0); Mean Corpuscular Volume 80.4 fL (80.0-100.0); Mean Platelet Volume 8.5 fL (7.0-11.0); Mono # (Auto) 1.2 th/mm3 (0.0-0.9); Mono % (Auto) 5.8 % (0.0-8.0); Neut # (Auto) 11.6 th/mm3 (1.8-7.7); Neut % (Auto) 57.1 % (16.0-70.0); Platelet Count 531 th/mm3 (150-450); Red Cell Distribution Width 17.2 % (11.6-17.2); White Blood Count 20.4 th/mm3 (4.0-11.0)
[2018-11-25 05:00] LABS: Calcium 7.6 mg/dL (8.5-10.1); Carbon Dioxide 24.3 meq/L (21.0-32.0)
[2018-11-25] MEDS: metroNIDAZOLE 500 MG Tablet PO SCH ×3 (05:06→21:59)
[2018-11-25 05:07] LABS: Potassium 2.9 meq/L (3.5-5.1)
[2018-11-25 07:29] LABS: Eosinophils 3 % (0-4); Lymphocytes 44 % (9-44); Monocytes 6 % (0-8)
[2018-11-25 07:30] LABS: Platelet Morphology Normal (Normal)
[2018-11-25 07:31] LABS: RBC Morphology Normal (Normal); Smudge Cells Present
--- NOTE | 2018-11-25 07:46 | P.PNONC ---
Subjective Interval history: Patient denies any chest pain or shortness of breath. He remains afebrile. Diarrhea has improved. Objective Vital Signs/Intake & Output: Vital Signs 11/24/18 07:50 11/24/18 08:00 11/24/18 08:07 Temperature 97.9 F 97.8 F Pulse Rate 83 82 84 Respiratory Rate 17 17 Blood Pressure 118/67 113/66 Pulse Oximetry 94 L 94 L 11/24/18 12:00 11/24/18 12:06 11/24/18 16:00 Temperature 97.9 F Pulse Rate 82 79 84 Respiratory Rate 17 Blood Pressure 119/73 Pulse Oximetry 94 L 11/24/18 16:06 11/24/18 19:56 11/24/18 23:52 Temperature 98.1 F Pulse Rate 82 84 80 Respiratory Rate 17 Blood Pressure 116/71 Pulse Oximetry 93 L 11/25/18 00:00 11/25/18 03:50 11/25/18 03:56 Temperature 97.7 F 97.9 F Pulse Rate 81 81 81 Respiratory Rate 18 18 Blood Pressure 119/69 119/69 Pulse Oximetry 92 L 94 L Intake & Output 11/24/18 11/25/18 11/25/18 18:59 06:59 18:59 Intake Total 1480 / 1480 0 / 0 Output Total 300 / 300 120 / 120 Balance 1180 / 1180 -120 / -120 Intake: IV 1000 / 1000 KCl Inj 10 MEQ In 1/2 Normal 900 / 900 Saline Inj 1,000 ML @ 100 mls/ hr IV.CONT .Q10H3M ANG Rx#: [id number] Rocephin Inj 1,000 MG In NS Inj 100 / 100 100 ML @ 200 mls/hr IV.SIG Q24H ANG Rx#:[id number] Oral 480 / 480 0 / 0 Output: Urine 300 / 300 120 / 120 Other: Date of Last Bowel Movement 11/19/18 11/24/18 # Bowel Movements 5 4 Result Diagrams: 11/25/18 03:58 11/25/18 03:58 Laboratory Results: Laboratory Results - last 24 hr 11/24/18 11/24/18 11/24/18 06:32 06:32 19:46 WBC 25.1 H 21.7 H RBC 4.79 4.51 Hgb 12.2 L 11.6 L Hct 38.5 L 36.5 L MCV 80.2 81.0 MCH 25.5 L 25.7 L MCHC 31.8 L 31.7 L RDW 17.3 H 17.5 H Plt Count 606 H 580 H MPV 8.5 8.3 Prelim Diff (Auto) Slide review pending Slide review pending Neut % (Auto) 61.2 57.7 Lymph % (Auto) 31.0 33.4 [place] % (Auto) 6.0 5.6 Eos % (Auto) 1.7 2.9 Baso % (Auto) 0.1 0.4 Neut # (Auto) 15.4 H 12.5 H Lymph # (Auto) 7.8 H 7.2 H [place] # (Auto) 1.5 H 1.2 H Eos # (Auto) 0.4 0.6 H Baso # (Auto) 0.0 0.1 WBC Differential Manual diff final Manual diff final Seg Neuts % (Manual) 56 67 Band Neuts % (Manual) 8 H 2 Lymphocytes % (Manual) 30 21 Monocytes % (Manual) 5 3 Eosinophils % (Manual) 7 H Myelocytes % (Man) 1 H Abs Neuts (Manual) 16.3 H 15.0 H Differential Comment . . Smudge Cells Toxic Granulation 1+ H Platelet Estimate High H High H Platelet Morphology Normal Normal RBC Morphology Sodium 141 Potassium 3.5 Chloride 108 H Carbon Dioxide 25.7 Anion Gap 7 BUN 28 H Creatinine 1.05 Estimated GFR 71 L Random Glucose 110 H Calcium 7.5 L Magnesium 2.4 Total Bilirubin 1.0 AST 47 H ALT 78 Alkaline Phosphatase 270 H Total Protein 6.7 Albumin 2.3 L Lipase 426 H 11/25/18 11/25/18 03:58 03:58 WBC 20.4 H RBC 4.50 Hgb 11.5 L Hct 36.2 L MCV 80.4 MCH 25.6 L MCHC 31.9 L RDW 17.2 Plt Count 531 H MPV 8.5 Prelim Diff (Auto) Slide review pending Neut % (Auto) 57.1 Lymph % (Auto) 33.6 [place] % (Auto) 5.8 Eos % (Auto) 3.4 Baso % (Auto) 0.1 Neut # (Auto) 11.6 H Lymph # (Auto) 6.9 H [place] # (Auto) 1.2 H Eos # (Auto) 0.7 H Baso # (Auto) 0.0 WBC Differential Manual diff final Seg Neuts % (Manual) 46 Band Neuts % (Manual) 1 Lymphocytes % (Manual) 44 Monocytes % (Manual) 6 Eosinophils % (Manual) 3 Myelocytes % (Man) Abs Neuts (Manual) 9.6 H Differential Comment . Smudge Cells Present H Toxic Granulation Platelet Estimate High H Platelet Morphology Normal RBC Morphology Normal Sodium 145 Potassium 2.9 L* Chloride 114 H Carbon Dioxide 24.3 Anion Gap 7 BUN 22 H Creatinine 0.88 Estimated GFR 87 L Random Glucose 109 H Calcium 7.6 L Magnesium Total Bilirubin AST ALT Alkaline Phosphatase Total Protein Albumin Lipase Culture Results: Microbiology 11/20/18 16:46 Aerobic Blood Culture - Preliminary Blood - Peripheral No growth in 4 days Anaerobic Blood Culture - Preliminary No growth in 4 days 11/23/18 06:30 Stool Occult Blood (JEMIMA) - Final Stool Hemoccult positive Medications: Active Medications Generic Name Dose Route Start Last Admin Trade Name Freq PRN Reason Stop Dose Admin Hydrocodone Bitart/Acetaminophen 1 tab 11/17/18 16:08 11/25/18 05:09 [place] 5/325 PO 1 tab Q6H PRN Administration PAIN 1-10 AND/OR FEVER >101F Amlodipine Besylate 10 mg 11/18/18 09:00 11/23/18 08:51 Norvasc PO 10 mg DAILY ANG Administration Enalaprilat 2.5 mg 11/14/18 23:42 11/17/18 05:39 Vasotec Inj IV.PUSH 2.5 mg Q6H PRN Administration SBP>160, DBP>90 Enoxaparin Sodium 40 mg 11/23/18 09:00 11/24/18 08:50 Lovenox Inj SQ 40 mg DAILY ANG Administration Famotidine 20 mg 11/23/18 21:00 11/24/18 20:44 Pepcid PO 20 mg BID ANG Administration Ceftriaxone Sodium 1,000 mg/ 100 mls @ 200 mls/hr 11/24/18 18:00 11/24/18 18: 39 Sodium Chloride IV.SIG Infused Q24H ANG Infusion Lactobacillus Acidophilus 1 gm 11/23/18 18:30 11/24/18 18:36 Lactinex Pkt PO 1 gm TID ANG Administration Metronidazole 500 mg 11/20/18 14:15 11/25/18 05:06 Flagyl PO 500 mg Q8HR ANG Administration Nystatin 1 applicatio 11/23/18 21:00 11/24/18 20:45 Mycostatin Cream TOPICAL 1 applicatio BID ANG Administration Ondansetron HCl 4 mg 11/14/18 22:44 11/22/18 20:29 Zofran Inj IV.PUSH 4 mg Q6H PRN Administration NAUSEA OR VOMITING Potassium Chloride 40 meq 11/25/18 05:30 11/25/18 05:56 K-Dur PO 40 meq Q2H ANG Administration Simethicone 80 mg 11/20/18 15:00 11/24/18 08:50 Mylicon Chew PO 80 mg DAILY ANG Administration Sodium Chloride 2 ml 11/15/18 09:00 11/24/18 20:44 Ns Flush IV.FLUSH 2 ml BID ANG Administration Sodium Chloride 2 ml 11/14/18 22:44 11/15/18 01:34 Ns Flush IV.FLUSH 2 ml PRN PRN Administration FLUSH AFTER USING IV ACCESS Objective Remarks: GENERAL: Well-nourished, well-developed patient. Not a good historian. SKIN: Warm and dry. HEAD: Normocephalic. EYES: No scleral icterus. No injection or drainage. NECK: Supple, trachea midline. No JVD or lymphadenopathy. LYMPHATIC: No adenopathy. CARDIOVASCULAR: Regular rate and rhythm without murmurs. RESPIRATORY: Breath sounds equal bilaterally. No accessory muscle use. GASTROINTESTINAL: Abdomen soft, non-tender, nondistended. Positive bowel sound. EXTREMITIES: No cyanosis, or edema. MUSCULOSKELETAL: Adequate muscle tone. NEUROLOGICAL: No obvious focal deficit. Awake, alert, and oriented x3. PSYCHIATRIC: Poor insight. Assessment/Plan - Plan This is a 63-year-old male patient status post cholecystectomy related to gangrenous cholecystitis, pathology pending. Oncology consulted in relation to leukocytosis. Plan: 1. Leukocytosis, afebrile. WBC has trended down to 20. He still has mild bandemia. C. difficile toxin was negative. No obvious lymphocytosis noted. Flow cytometry is pending but likely going to be negative. Leukocytosis most consistent with reactive process. He may have urinary tract infection. Continue antibiotics per primary team. 2. Stool Hemoccult positive, maintaining stable hemoglobin. C. difficile negative. Diarrhea has improved. 3. Await pending urine culture and flow cytometry.
[2018-11-25] MEDS: Enoxaparin Inj 40 MG/0.4 ML Syringe SQ SCH (09:28)
[2018-11-25] MEDS: Simethicone 80 MG Chew Tablet PO SCH (09:29)
[2018-11-25] MEDS: Famotidine 20 MG Tablet PO SCH ×2 (09:30→20:10)
--- NOTE | 2018-11-25 16:22 | P.PNIM ---
Subjective Interval history: 63yo m w dementia admitted w acute cholecystitis s/p lap choly , ongoing admission due to leukocytosis and UTI pt seen and examined he is refusing PT and not wanting to participate in therapy , he states abd pain a little better, condom cath in place as hes been incontinent and there is bloody urine in bag, Physical Exam Vital signs: Vital Signs 11/24/18 19:56 11/24/18 23:52 11/25/18 00:00 Temperature 97.7 F Pulse Rate 84 80 81 Respiratory Rate 18 Blood Pressure 119/69 Pulse Oximetry 92 L 11/25/18 03:50 11/25/18 03:56 11/25/18 08:00 Temperature 97.9 F 98.6 F Pulse Rate 81 81 78 Respiratory Rate 18 16 Blood Pressure 119/69 113/71 Pulse Oximetry 94 L 93 L 11/25/18 12:00 Temperature 97.8 F Pulse Rate 79 Respiratory Rate 14 Blood Pressure 130/78 Pulse Oximetry 93 L Intake & Output 11/24/18 11/25/18 11/25/18 18:59 06:59 18:59 Intake Total 1480 / 1480 0 / 0 Output Total 300 / 300 120 / 120 Balance 1180 / 1180 -120 / -120 Intake: IV 1000 / 1000 KCl Inj 10 MEQ In 1/2 Normal 900 / 900 Saline Inj 1,000 ML @ 100 mls/ hr IV.CONT .Q10H3M ANG Rx#: [id number] Rocephin Inj 1,000 MG In NS Inj 100 / 100 100 ML @ 200 mls/hr IV.SIG Q24H ANG Rx#:[id number] Oral 480 / 480 0 / 0 Output: Urine 300 / 300 120 / 120 Other: Date of Last Bowel Movement 11/19/18 11/24/18 # Bowel Movements 5 4 Narrative: wdwn 63yo w m aaox2 forgetful, pleasant follows no distress quiet flat affect heart s1s2 reg lungs decreased bs bl abd soft nondt pos bs, no mass incision clean dry pos bs, min tenderness Right side, benign ext no edema no clubbing no cyanosis no calf tenderness he is moving ext w full strength back, sacral erythematous rash with satelite lesions improved Urinary Catheter Management Indwelling Urethral Catheter: Cath placed during this visit: yes, but has since been removed by the nurse Reason for continuing: Hourly intake/output Insertion date: 11/17/18 Insertion time: 14:07 Removal date: 11/18/18 Removal time: 13:30 Results Labs CBC & Chem 7: 11/25/18 03:58 11/25/18 13:49 Labs: Microbiology 11/24/18 05:00 Clean Catch Urine Urine Culture - Preliminary <10,000 cfu/mL gram positive xuan - no further workup 11/20/18 16:46 Blood - Peripheral Aerobic Blood Culture - Final No growth in 5 days 11/20/18 16:46 Blood - Peripheral Anaerobic Blood Culture - Final No growth in 5 days Assessment and Plan (1) Dementia: Code(s): F03.90 - Unspecified dementia without behavioral disturbance Status: Acute (2) Status post laparoscopic cholecystectomy: Code(s): Z90.49 - Acquired absence of other specified parts of digestive tract Status: Acute (3) Elevated WBC count: Code(s): D72.829 - Elevated white blood cell count, unspecified Status: Acute Plan ACUTE GANGRENOUS CHOLECYCTITIS s/p lap choly 11/17/18 and liver bx, mild elevation lfts will trend, LEUKOCYTOSIS w reactive thrombocythemia - likely reactive post op r/o cdif, seroma in gb fossa infected? acute colitis? - on flagyl, dc cipro, now noted to have uti, will wait for urine cx, all bc neg, DIARRHEA abx assc w bleeding- hemorroidal vs UC vc dcif colitis - check stool studies, gi fu, on flagyl, monitor hh, pepcid DEPENDENT ATELECTASIS of both lungs - incentive spirometry, ezpap, oob to chair and ambulate daily DEMENTIA baseline ULCERTIVE COLITIS hx ? exacerbation - fu w GI, asacol HTN - cont bp control DEHYDRATION - IVT fluids, encourage po dvt prophylaxis - scd dispo - patient has no placement benefits at this time, medicaid pending, will need to go home w family when stable, discussed w cm, will dw sister.again., encouraged oob Progress Note: Quality VTE Deep Vein Thrombosis/Pulmonary Embolism Present on Admission: No _ (1) Dementia Qualifiers: Dementia type: Alzheimer's disease onset: Dementia behavioral disturbance : (2) Elevated WBC count Qualifiers: Leukocytosis type:
[2018-11-25 16:51] LABS: Baso # (Auto) 0.1 th/mm3 (0.0-0.2); Baso % (Auto) 0.7 % (0.0-2.0); Eos # (Auto) 0.4 th/mm3 (0.0-0.4); Eos % (Auto) 2.2 % (0.0-4.0); Hematocrit 35.7 % (39.0-51.0); Hemoglobin 11.4 gm/dL (13.0-17.0); Lymph % (Auto) 35.1 % (9.0-44.0); Mean Corpuscular HGB Conc 31.8 % (32.0-36.0); Mean Corpuscular Hemoglobin 25.4 pg (27.0-34.0); Mean Corpuscular Volume 79.9 fL (80.0-100.0); Mean Platelet Volume 8.5 fL (7.0-11.0); Mono # (Auto) 1.2 th/mm3 (0.0-0.9); Mono % (Auto) 5.8 % (0.0-8.0); Neut # (Auto) 11.3 th/mm3 (1.8-7.7); Neut % (Auto) 56.2 % (16.0-70.0); Platelet Count 558 th/mm3 (150-450); Red Blood Count 4.46 mil/mm3 (4.50-5.90); Red Cell Distribution Width 17.3 % (11.6-17.2)
[2018-11-25 18:18] LABS: Eosinophils 2 % (0-4); Lymphocytes 19 % (9-44); Metamyelocytes 1 % (0-1); Monocytes 5 % (0-8)
[2018-11-25 18:19] LABS: Smudge Cells Present
[2018-11-25 18:20] LABS: Platelet Morphology Normal (Normal)
[2018-11-26] MEDS: metroNIDAZOLE 500 MG Tablet PO SCH ×3 (05:11→22:10)
[2018-11-26 05:35] LABS: Anion Gap 3 meq/L (5-15); Blood Urea Nitrogen 14 mg/dL (7-18); Calcium 7.7 mg/dL (8.5-10.1); Carbon Dioxide 23.1 meq/L (21.0-32.0); Chloride 117 meq/L (98-107); Glomerular Filtration Rate Greater Than 89 mL/min (>89); Glucose,Random 121 mg/dL (74-106); Potassium 5.2 meq/L (3.5-5.1); Sodium 143 meq/L (136-145)
[2018-11-26] MEDS: Famotidine 20 MG Tablet PO SCH ×2 (08:48→20:43)
[2018-11-26] MEDS: Simethicone 80 MG Chew Tablet PO SCH (08:48)
[2018-11-26 13:47] LABS: Baso # (Auto) 0.1 th/mm3 (0.0-0.2); Baso % (Auto) 0.4 % (0.0-2.0); Eos # (Auto) 0.5 th/mm3 (0.0-0.4); Eos % (Auto) 2.1 % (0.0-4.0); Hematocrit 35.4 % (39.0-51.0); Hemoglobin 11.1 gm/dL (13.0-17.0); Lymph # (Auto) 7.6 th/mm3 (1.0-4.8); Lymph % (Auto) 34.6 % (9.0-44.0); Mean Corpuscular HGB Conc 31.4 % (32.0-36.0); Mean Corpuscular Hemoglobin 25.3 pg (27.0-34.0); Mean Corpuscular Volume 80.3 fL (80.0-100.0); Mean Platelet Volume 8.5 fL (7.0-11.0); Mono # (Auto) 1.5 th/mm3 (0.0-0.9); Mono % (Auto) 6.9 % (0.0-8.0); Neut # (Auto) 12.3 th/mm3 (1.8-7.7); Platelet Count 551 th/mm3 (150-450); Red Blood Count 4.41 mil/mm3 (4.50-5.90); Red Cell Distribution Width 17.7 % (11.6-17.2)
[2018-11-26 14:18] LABS: Eosinophils 1 % (0-4); Lymphocytes 35 % (9-44); Monocytes 4 % (0-8); Myelocytes 1 % (0-0); Ovalocytes 1+; Platelet Morphology Normal (Normal)
--- NOTE | 2018-11-26 18:07 | P.PNIM ---
Subjective Interval history: 63 yo m w ongoing leukocytosis post lap choly, and ongoing refusal to work w pt pt seen and exmined and case duscussed wth family at bedside, pt states still w abd pain ruq, some nausea, no vomiting, no diarrhea reported. patient family state hes only eating a few bites of food. Physical Exam Vital signs: Vital Signs 11/25/18 19:15 11/25/18 20:00 11/25/18 23:25 Temperature 97.9 F 98 F Pulse Rate 77 76 77 Respiratory Rate 18 18 Blood Pressure 119/66 119/66 Pulse Oximetry 95 93 L 11/26/18 00:20 11/26/18 03:40 11/26/18 04:00 Temperature 97.3 F L Pulse Rate 74 78 76 Respiratory Rate 18 Blood Pressure 121/62 Pulse Oximetry 93 L 11/26/18 08:00 11/26/18 12:00 11/26/18 16:00 Temperature 98 F 97.6 F 98 F Pulse Rate 82 77 77 Respiratory Rate 18 18 18 Blood Pressure 122/65 125/67 122/68 Pulse Oximetry 98 96 95 Intake & Output 11/25/18 11/26/18 11/26/18 18:59 06:59 18:59 Intake Total 320 / 320 Output Total 500 / 500 550 / 550 Balance -180 / -180 -550 / -550 Weight 87.3 kg Intake: IV 100 / 100 Rocephin Inj 1,000 MG In NS Inj 100 / 100 100 ML @ 200 mls/hr IV.SIG Q24H ANG Rx#:[id number] Oral 220 / 220 Output: Urine 500 / 500 550 / 550 Other: Date of Last Bowel Movement 11/24/18 11/25/18 # Bowel Movements 3 # Incontinent Bowel Movements 4 Narrative: wdwn 63yo w m aaox2 forgetful, pleasant follows no distress quiet flat affect heart s1s2 reg lungs decreased bs bl abd soft nondt pos bs, no mass incision clean dry pos bs, min tenderness Right side, benign ext no edema no clubbing no cyanosis no calf tenderness he is moving ext w full strength back, sacral erythematous rash with satelite lesions improved Urinary Catheter Management Indwelling Urethral Catheter: Cath placed during this visit: yes, but has since been removed by the nurse Reason for continuing: Hourly intake/output Insertion date: 11/17/18 Insertion time: 14:07 Removal date: 11/18/18 Removal time: 13:30 Results Labs CBC & Chem 7: 11/26/18 13:14 11/26/18 03:46 Labs: Microbiology 11/24/18 05:00 Clean Catch Urine Urine Culture - Final <10,000 cfu/mL gram positive xuan - no further workup Assessment and Plan (1) Dementia: Code(s): F03.90 - Unspecified dementia without behavioral disturbance Status: Acute (2) Status post laparoscopic cholecystectomy: Code(s): Z90.49 - Acquired absence of other specified parts of digestive tract Status: Acute (3) Elevated WBC count: Code(s): D72.829 - Elevated white blood cell count, unspecified Status: Acute Plan ACUTE GANGRENOUS CHOLECYCTITIS s/p lap choly 11/17/18 and liver bx, mild elevation lfts will trend, LEUKOCYTOSIS w reactive thrombocythemia - likely reactive post op r/o cdif, seroma in gb fossa infected? acute colitis? - on flagyl, dc cipro, now noted to have uti, will wait for urine cx, all bc neg, DIARRHEA abx assc w bleeding- hemorroidal vs UC vc dcif colitis - check stool studies, gi fu, on flagyl, monitor hh, pepcid DEPENDENT ATELECTASIS of both lungs - incentive spirometry, ezpap, oob to chair and ambulate daily DEMENTIA baseline w mild decompensation due to acute illness, discussed w family. ULCERTIVE COLITIS hx ? exacerbation - fu w GI, asacol HTN - cont bp control DEHYDRATION - IVT fluids, encourage po dvt prophylaxis - scd dispo - patient has no placement benefits at this time, medicaid pending, will need to go home w family when stable, discussed w cm, will dw sister.again., encouraged oob Progress Note: Quality VTE Deep Vein Thrombosis/Pulmonary Embolism Present on Admission: No _ (1) Dementia Qualifiers: Dementia type: Alzheimer's disease onset: Dementia behavioral disturbance : (2) Elevated WBC count Qualifiers: Leukocytosis type:
[2018-11-26 22:15] LABS: Baso # (Auto) 0.1 th/mm3 (0.0-0.2); Baso % (Auto) 0.4 % (0.0-2.0); Eos # (Auto) 0.6 th/mm3 (0.0-0.4); Eos % (Auto) 2.8 % (0.0-4.0); Hematocrit 34.1 % (39.0-51.0); Hemoglobin 10.6 gm/dL (13.0-17.0); Lymph # (Auto) 7.2 th/mm3 (1.0-4.8); Lymph % (Auto) 33.4 % (9.0-44.0); Mean Corpuscular Hemoglobin 24.6 pg (27.0-34.0); Mean Corpuscular Volume 79.7 fL (80.0-100.0); Mean Platelet Volume 8.1 fL (7.0-11.0); Mono # (Auto) 1.2 th/mm3 (0.0-0.9); Mono % (Auto) 5.5 % (0.0-8.0); Neut # (Auto) 12.5 th/mm3 (1.8-7.7); Neut % (Auto) 57.9 % (16.0-70.0); Platelet Count 485 th/mm3 (150-450); Red Blood Count 4.28 mil/mm3 (4.50-5.90); White Blood Count 21.6 th/mm3 (4.0-11.0)
[2018-11-26 22:24] LABS: Mean Corpuscular HGB Conc 30.9 % (32.0-36.0)
[2018-11-26 22:50] LABS: Eosinophils 2 % (0-4); Lymphocytes 36 % (9-44); Monocytes 5 % (0-8)
[2018-11-26 22:51] LABS: Platelet Morphology Normal (Normal)
[2018-11-27] MEDS: metroNIDAZOLE 500 MG Tablet PO SCH ×2 (05:30→14:53)
[2018-11-27] MEDS: Simethicone 80 MG Chew Tablet PO SCH (09:21)
[2018-11-27] MEDS: Famotidine 20 MG Tablet PO SCH ×2 (09:21→20:55)
[2018-11-27 09:55] LABS: Baso # (Auto) 0.1 th/mm3 (0.0-0.2); Baso % (Auto) 0.7 % (0.0-2.0); Eos # (Auto) 0.7 th/mm3 (0.0-0.4); Eos % (Auto) 3.1 % (0.0-4.0); Hematocrit 34.5 % (39.0-51.0); Hemoglobin 10.9 gm/dL (13.0-17.0); Lymph # (Auto) 6.9 th/mm3 (1.0-4.8); Lymph % (Auto) 32.9 % (9.0-44.0); Mean Corpuscular HGB Conc 31.6 % (32.0-36.0); Mean Corpuscular Hemoglobin 25.3 pg (27.0-34.0); Mean Corpuscular Volume 80.1 fL (80.0-100.0); Mean Platelet Volume 8.6 fL (7.0-11.0); Mono # (Auto) 1.1 th/mm3 (0.0-0.9); Neut # (Auto) 12.3 th/mm3 (1.8-7.7); Neut % (Auto) 58.3 % (16.0-70.0); Platelet Count 479 th/mm3 (150-450); Red Blood Count 4.31 mil/mm3 (4.50-5.90); Red Cell Distribution Width 18.1 % (11.6-17.2)
[2018-11-27 10:24] LABS: Alanine Aminotransferase 92 U/L (12-78); Albumin 2.2 g/dL (3.4-5.0); Anion Gap 6 meq/L (5-15); Aspartate Aminotransferase 152 U/L (15-37); Blood Urea Nitrogen 10 mg/dL (7-18); Calcium 7.7 mg/dL (8.5-10.1); Carbon Dioxide 20.1 meq/L (21.0-32.0); Chloride 114 meq/L (98-107); Glomerular Filtration Rate Greater Than 89 mL/min (>89); Glucose,Random 100 mg/dL (74-106); Potassium 4.4 meq/L (3.5-5.1); Sodium 140 meq/L (136-145)
[2018-11-27 10:27] LABS: Alkaline Phosphatase 815 U/L (45-117); Total Protein 6.4 g/dL (6.4-8.2)
[2018-11-27 10:32] LABS: Hypersegmented Neutrophils 1+; Lymphocytes 31 % (9-44); Monocytes 3 % (0-8); Myelocytes 1 % (0-0); Platelet Morphology Clumped (Normal)
--- NOTE | 2018-11-27 15:45 | P.PNIM ---
Subjective Interval history: 63 yo m w ongoing leukocytosis post lap choly, and ongoing refusal to work w pt , get oob or eat much, per nursing he has refused attempts at getting oob or to bathroom, he will not call for bms but goes on the bed, per nursing he has been confrontational about refusing to get oob or ambulate, he is not turning himself in bed and getting sore on his bottom, sister at bedside states hes refusing to stand for her as well, pt seen and examined and case duscussed wth family at bedside, pt states abd pain ruq is improving, patient family state hes only eating a few bites of food Physical Exam Vital signs: Vital Signs 11/26/18 16:00 11/26/18 20:00 11/26/18 20:01 Temperature 98 F 97.8 F Pulse Rate 77 101 H 74 Respiratory Rate 18 16 Blood Pressure 122/68 116/58 L Pulse Oximetry 95 95 11/27/18 00:00 11/27/18 04:00 11/27/18 08:00 Temperature 97.6 F 97.8 F Pulse Rate 74 73 69 Respiratory Rate 17 18 Blood Pressure 123/75 127/74 Pulse Oximetry 96 93 L 11/27/18 08:40 11/27/18 12:25 Temperature 97.8 F 98 F Pulse Rate 73 70 Respiratory Rate 16 16 Blood Pressure 128/77 126/79 Pulse Oximetry 96 97 Intake & Output 11/26/18 11/27/18 11/27/18 18:59 06:59 18:59 Intake Total 2019 480 / 480 Output Total 650 / 650 400 / 400 Balance 1370 / 1370 80 / 80 Weight 89 kg Intake: IV 100 / 100 Rocephin Inj 1,000 MG In NS Inj 100 / 100 100 ML @ 200 mls/hr IV.SIG Q24H ANG Rx#:[id number] Oral 220 / 220 480 / 480 Anesthesia Amount 1700 / 1700 Output: Urine 550 / 550 400 / 400 Estimated Blood Loss 50 / 50 Wound Drainage 50 / 50 # 1 Abdomen 50 / 50 Other: # Voids 3 # Incontinent Voids 3 # Urine Diapers 4 Date of Last Bowel Movement 11/25/18 11/26/18 # Bowel Movements 3 # Incontinent Bowel Movements 4 1 Narrative: wdwn 63yo w m aaox2 forgetful, follows no distress quiet flat affect heart s1s2 reg lungs decreased bs bl abd soft nondt pos bs, no mass incision clean dry pos bs, min tenderness Right side, benign ext no edema no clubbing no cyanosis no calf tenderness he is moving ext w full strength back, sacral erythematous Urinary Catheter Management Indwelling Urethral Catheter: Cath placed during this visit: yes, but has since been removed by the nurse Reason for continuing: Hourly intake/output Insertion date: 11/17/18 Insertion time: 14:07 Removal date: 11/18/18 Removal time: 13:30 Results Labs CBC & Chem 7: 11/27/18 09:33 11/27/18 09:33 Assessment and Plan (1) Dementia: Code(s): F03.90 - Unspecified dementia without behavioral disturbance Status: Acute (2) Status post laparoscopic cholecystectomy: Code(s): Z90.49 - Acquired absence of other specified parts of digestive tract Status: Acute (3) Elevated WBC count: Code(s): D72.829 - Elevated white blood cell count, unspecified Status: Acute Plan ACUTE GANGRENOUS CHOLECYSTITIS s/p lap choly 11/17/18 and liver bx, mild elevation lfts will trend, pathology report severe acute necrotizing gangrenous and suppurative cholecystitis and cholelithiasis Liver biopsy showing chronic hepatitis with bridging fibrosis and steatosis consistent with inflammatory bowel disease not changed from 04/23/14 LEUKOCYTOSIS w reactive thrombocythemia - likely reactive post op seroma in gb fossa infected? acute colitis? - on flagyl, dc cipro, now noted to have uti, will wait for urine cx w few colonies of gram pos growth not significant, started on rocephin for uti, cdif was neg, now lfts up a bit prob due to rocephin. I will stop all abx and monitor, and repeat crp/esr, if still up will start augmentin. wbc still up but not rising. cont is, encourage oob. DIARRHEA abx assc w bleeding- hemorroidal vs UC vc dcif colitis - guiac pos, gi fu, on flagyl, no further bleeding, pepcid DEPENDENT ATELECTASIS of both lungs - incentive spirometry, ezpap, oob to chair and ambulate daily DEMENTIA baseline w mild decompensation due to acute illness, discussed w family. he is refusing oob and mobilization, not being cooperative and very apathetic and self neglectful, will consult psychiatry ULCERTIVE COLITIS hx ? exacerbation - fu w GI, asacol HTN - cont bp control DEHYDRATION - IVT fluids, encourage po dvt prophylaxis - scd dispo - patient has no placement benefits at this time, medicaid pending, will need to go home w family when stable, discussed w cm, will dw sister.again., encouraged oob Progress Note: Quality VTE Deep Vein Thrombosis/Pulmonary Embolism Present on Admission: No _ (1) Dementia Qualifiers: Dementia type: Alzheimer's disease onset: Dementia behavioral disturbance : (2) Elevated WBC count Qualifiers: Leukocytosis type:
[2018-11-27] MEDS: Mesalamine 800 MG Tablet DR PO SCH (18:33)
[2018-11-28 08:00] LABS: Baso % (Auto) 0.2 % (0.0-2.0); Eos # (Auto) 0.7 th/mm3 (0.0-0.4); Eos % (Auto) 3.5 % (0.0-4.0); Hematocrit 34.7 % (39.0-51.0); Lymph # (Auto) 6.8 th/mm3 (1.0-4.8); Lymph % (Auto) 34.3 % (9.0-44.0); Mean Corpuscular HGB Conc 31.8 % (32.0-36.0); Mean Corpuscular Hemoglobin 25.4 pg (27.0-34.0); Mean Corpuscular Volume 80.1 fL (80.0-100.0); Mean Platelet Volume 8.9 fL (7.0-11.0); Mono # (Auto) 1.3 th/mm3 (0.0-0.9); Mono % (Auto) 6.5 % (0.0-8.0); Neut % (Auto) 55.5 % (16.0-70.0); Platelet Count 431 th/mm3 (150-450); Red Blood Count 4.33 mil/mm3 (4.50-5.90); Red Cell Distribution Width 18.1 % (11.6-17.2); White Blood Count 19.9 th/mm3 (4.0-11.0)
[2018-11-28 08:43] LABS: Albumin 2.1 g/dL (3.4-5.0); Anion Gap 7 meq/L (5-15); Aspartate Aminotransferase 133 U/L (15-37); Blood Urea Nitrogen 10 mg/dL (7-18); Calcium 7.7 mg/dL (8.5-10.1); Carbon Dioxide 22.5 meq/L (21.0-32.0); Chloride 108 meq/L (98-107); Glomerular Filtration Rate Greater Than 89 mL/min (>89); Glucose,Random 86 mg/dL (74-106); Lipase 379 U/L (73-393); Potassium 4.1 meq/L (3.5-5.1); Sodium 137 meq/L (136-145)
[2018-11-28 08:44] LABS: Alanine Aminotransferase 88 U/L (12-78)
[2018-11-28 08:46] LABS: Alkaline Phosphatase 843 U/L (45-117); Total Protein 6.2 g/dL (6.4-8.2)
[2018-11-28] MEDS: Famotidine 20 MG Tablet PO SCH ×2 (09:20→21:31)
[2018-11-28] MEDS: Simethicone 80 MG Chew Tablet PO SCH (09:20)
[2018-11-28] MEDS: Mesalamine 800 MG Tablet DR PO SCH ×3 (09:20→18:11)
[2018-11-28 09:24] LABS: Eosinophils 2 % (0-4); Lymphocytes 47 % (9-44); Monocytes 7 % (0-8); Myelocytes 2 % (0-0)
[2018-11-28 09:25] LABS: Platelet Estimate Normal (Normal); Platelet Morphology Normal (Normal); Smudge Cells Present
--- NOTE | 2018-11-28 14:20 | P.CONPSY ---
Provisional Diagnosis Admission Date: November 15, 2018 11:32 [place] I.: Alzheimer's disease with early onset, with behavioral disturbances History of Present Illness Service: Psychiatry Consult date: 11/28/18 Requesting Physician: Apoorva Grayson Reason for Consult: Assessment Primary Care Provider: Tabatha Murrell MD History of Present Illness: Patient is 63-year-old white male initially admitted for abdominal complaints has been noted over the past almost 2 weeks with this admission showing some memory deficits also showing some resistance and defiance to one nursing care is not been ambulatory is also not been cooperative with interventions leading to stool incontinence or urinary incontinence in bed. Patient initially seen with RN he is alert fairly well oriented white male he is calm cooperative with me. It appears that there is some confabulation, some fantasies about his past history work history his relationship to the [place] family here in [place] and [place]. After talking with him I did talk to the patient's stepfather patient's sister. They give a history of multiple year gradually increasing cognitive deficits he has been seen by neurology and neuropsychology with a diagnosis of his advanced dementia. I agree with this. We did discuss the agree that they need to find an appropriate placement for this gentleman that they are unable to care for him at home anymore. The may be some funding issues and need to be addressed. It appears his stepfather has talked with [facility]. They verify there is no significant alcohol or drug history, no significant past psychiatric history, no significant trauma history. He has been and and has adult children who are close to him. I have talked with the treatment team with this they will make a referral to [facility]. The stepfather's contacted them already, and also make a referral to palliative care. I also suggested to the treatment team perhaps small dose of Seroquel might be helpful in gaining some further cooperation by him. Otherwise patient is not a candidate for HPC he does need appropriate long-term placement. Thanks for the consult I will sign off the present time please reconsult us as necessary Review of Systems unobtainable due to mental condition PMFSH - History History Provided By: Patient, Family Member - Medical History Medical History: Medical History (Last Reviewed 11/28/18 @ 14:26 by Antonino Wynn MD) Colitis Dementia Hypertension Ulcerative colitis - Surgical History Surgical History: Surgical History (Last Reviewed 11/28/18 @ 14:26 by Antonino Wynn MD) No history of previous surgery - Family History Family History: Family History (Last Reviewed 11/28/18 @ 14:26 by Antonino Wynn MD) Other Family history normal - Social History I have reviewed the patient's Social History: Yes - Tobacco History Second Hand Smoke Exposure: No Tobacco Use In Past 30 Days: No Smoking Status: Never smoker - Alcohol History How Often Do You Have a Drink Containing Alcohol: Never - Substance Use History Substance History: No History of Abuse - Travel History Recent Travel in the [facility] Within the Last 8 Weeks: No Recent Travel Out of the Country Within the Last 8 Weeks: No - Immunization History Tetanus Immunization: Unsure Hx Influenza Vaccine This Season: Yes Medications and Allergies Active Medications: Active Medications Acetaminophen (Tylenol) 650 mg PO Q4H PRN PRN Reason: Temp > 100.4 Hydrocodone Bitart/Acetaminophen ([place] 5/325) 1 tab PO Q6H PRN PRN Reason: PAIN 1-10 AND/OR FEVER >101F Last Admin: 11/27/18 20:54 Dose: 1 tab Al Hydroxide/Mg Hydroxide (Milk Of [place] Liq) 30 ml PO Q12H PRN PRN Reason: Mild Constipation Amlodipine Besylate (Norvasc) 10 mg PO DAILY [facility] Last Admin: 11/23/18 08:51 Dose: 10 mg Bisacodyl (Dulcolax Supp) 10 mg RECTAL DAILY PRN PRN Reason: SEVERE CONSITIPATION Enalaprilat (Vasotec Inj) 2.5 mg IV.PUSH Q6H PRN PRN Reason: SBP>160, DBP>90 Last Admin: 11/17/18 05:39 Dose: 2.5 mg Enoxaparin Sodium (Lovenox Inj) 40 mg SQ DAILY [facility] Last Admin: 11/25/18 09:28 Dose: 40 mg Famotidine (Pepcid) 20 mg PO BID [facility] Last Admin: 11/28/18 09:20 Dose: 20 mg Lactobacillus Acidophilus (Lactinex Pkt) 1 gm PO TID [facility] Last Admin: 11/28/18 14:13 Dose: 1 gm Mesalamine (Asacol Hd Dr) 1,600 mg PO TID [facility] Last Admin: 11/28/18 14:13 Dose: 1,600 mg Morphine Sulfate (Morphine Inj) 2 mg IV.PUSH Q3H PRN PRN Reason: SEE LABEL COMMENTS Nystatin (Mycostatin Cream) 1 applicatio TOPICAL BID [facility] Last Admin: 11/28/18 09:23 Dose: 1 applicatio Ondansetron HCl (Zofran Inj) 4 mg IV.PUSH Q6H PRN PRN Reason: NAUSEA OR VOMITING Last Admin: 11/22/18 20:29 Dose: 4 mg Sennosides (Senokot) 17.2 mg PO Q12H PRN PRN Reason: Moderate Constipation Simethicone (Mylicon Chew) 80 mg PO DAILY [facility] Last Admin: 11/28/18 09:20 Dose: 80 mg Sodium Chloride (Ns Flush) 2 ml IV.FLUSH BID [facility] Last Admin: 11/28/18 14:14 Dose: 2 ml Sodium Chloride (Ns Flush) 2 ml IV.FLUSH PRN PRN PRN Reason: FLUSH AFTER USING IV ACCESS Last Admin: 11/15/18 01:34 Dose: 2 ml Allergies Allergy/AdvReac Type Severity Reaction Status Date / Time No Known Allergies Allergy Verified 11/14/18 17:35 Home Medications Medication Instructions Recorded Confirmed Type Unable to Obtain Home Meds 11/14/18 11/14/18 History Exam Vital signs: Vital Signs 11/27/18 16:00 11/27/18 19:10 11/27/18 20:00 Temperature 97.8 F 97.7 F Pulse Rate 71 75 75 Respiratory Rate 16 18 Blood Pressure 125/74 123/73 Pulse Oximetry 96 96 11/27/18 23:05 11/28/18 00:00 11/28/18 03:15 Temperature 97.8 F 97.6 F Pulse Rate 76 75 69 Respiratory Rate 18 18 Blood Pressure 131/78 112/65 Pulse Oximetry 95 95 11/28/18 04:02 11/28/18 08:00 11/28/18 12:00 Temperature 97.6 F 98.4 F Pulse Rate 68 92 H 70 Respiratory Rate 18 18 Blood Pressure 125/73 119/66 Pulse Oximetry 95 95 Intake & Output 11/27/18 11/28/18 11/28/18 18:59 06:59 18:59 Intake Total 2180 / 2180 120 / 120 Output Total 500 / 500 600 / 600 Balance 1680 / 1680 -480 / -480 Weight 90.1 kg Intake: Oral 480 / 480 120 / 120 Anesthesia Amount 1700 / 1700 Output: Urine 400 / 400 600 / 600 Estimated Blood Loss 50 / 50 Wound Drainage 50 / 50 # 1 Abdomen 50 / 50 Other: # Voids 3 # Incontinent Voids 3 # Urine Diapers 4 Date of Last Bowel Movement 11/26/18 11/27/18 11/27/18 # Bowel Movements 3 # Incontinent Bowel Movements 1 1 Narrative: Patient seen in his room laying in his bed RN and family members present. He is in no acute distress, he is in no respiratory distress, no complaints of chest pain though has a vague abdominal discomfort that has been chronic since hospitalization. Patient refusing to get out of bed Mental Status Examination Appearance: Appropriate Consciousness: Alert Orientation: Person, Place, Date/Time, Situation Motor Activity: Other (Patient laying in bed refusing to get out of bed) Speech: Unremarkable Language: Adequate Fund of Knowledge: Inadequate Attention and Concentration: Easily distracted Memory: Impaired Mood: Other (Euthymic to mildly irritable) Affect: Other (Good range and intensity) Thought Process & Associations: Disorganized Thought Content: Other (Disorganized) Hallucination Type: None Delusion Type: None Suicidal Ideation: No Suicidal Plan: No Suicidal Intention: No Homicidal Ideation: No Homicidal Plan: No Homicidal Intention: No Insight: Poor Judgment: Poor Assessment and Plan - Assessment (1) Dementia in other diseases classified elsewhere with behavioral disturbance Code(s): F02.81 - Dementia in other diseases classified elsewhere with behavioral disturbance Status: Acute (2) Alzheimer's disease with early onset Code(s): G30.0 - Alzheimer's disease with early onset; F02.80 - Dementia in other diseases classified elsewhere without behavioral disturbance Status: Acute (3) Alzheimer's disease with early onset Code(s): G30.0 - Alzheimer's disease with early onset; F02.80 - Dementia in other diseases classified elsewhere without behavioral disturbance Status: Acute - Plan Plan: Estimated LOS: [] days He does have severe dementia, I agree with family that patient needs appropriate placement. Did talk with treatment team they will be referring patient to [facility] and also refer to palliative care. Her did suggest the treatment team the possibility of use of Seroquel for behavior management. Otherwise patient is not a candidate for HPC. Placement is necessary. Thanks a consult will sign off the present time Justification for Continued Inpatient Stay: At this time patient with decompensated placed on a lower level of care Discharge Planning: To be determined by family treatment team [facility] and perhaps palliative care
--- NOTE | 2018-11-28 16:33 | P.PNONC ---
Subjective Interval history: Patient lying in bed, his sister is at the bedside. Poor historian. Questionable insight. Psychiatry arrives at bedside during my exam. Objective Vital Signs/Intake & Output: Vital Signs 11/27/18 19:10 11/27/18 20:00 11/27/18 23:05 Temperature 97.7 F 97.8 F Pulse Rate 75 75 76 Respiratory Rate 18 18 Blood Pressure 123/73 131/78 Pulse Oximetry 96 95 11/28/18 00:00 11/28/18 03:15 11/28/18 04:02 Temperature 97.6 F Pulse Rate 75 69 68 Respiratory Rate 18 Blood Pressure 112/65 Pulse Oximetry 95 11/28/18 08:00 11/28/18 12:00 Temperature 97.6 F 98.4 F Pulse Rate 92 H 70 Respiratory Rate 18 18 Blood Pressure 125/73 119/66 Pulse Oximetry 95 95 Intake & Output 11/27/18 11/28/18 11/28/18 18:59 06:59 18:59 Intake Total 2180 / 2180 120 / 120 Output Total 500 / 500 600 / 600 Balance 1680 / 1680 -480 / -480 Weight 90.1 kg Intake: Oral 480 / 480 120 / 120 Anesthesia Amount 1700 / 1700 Output: Urine 400 / 400 600 / 600 Estimated Blood Loss 50 / 50 Wound Drainage 50 / 50 # 1 Abdomen 50 / 50 Other: # Voids 3 # Incontinent Voids 3 # Urine Diapers 4 Date of Last Bowel Movement 11/26/18 11/27/18 11/27/18 # Bowel Movements 3 # Incontinent Bowel Movements 1 1 Result Diagrams: 11/28/18 06:33 11/28/18 06:33 Laboratory Results: Laboratory Results - last 24 hr 11/28/18 11/28/18 11/28/18 06:33 06:33 06:33 WBC 19.9 H RBC 4.33 L Hgb 11.0 L Hct 34.7 L MCV 80.1 MCH 25.4 L MCHC 31.8 L RDW 18.1 H Plt Count 431 MPV 8.9 Prelim Diff (Auto) Slide review pending Neut % (Auto) 55.5 Lymph % (Auto) 34.3 [place] % (Auto) 6.5 Eos % (Auto) 3.5 Baso % (Auto) 0.2 Neut # (Auto) 11.0 H Lymph # (Auto) 6.8 H [place] # (Auto) 1.3 H Eos # (Auto) 0.7 H Baso # (Auto) 0.0 WBC Differential Manual diff final Seg Neuts % (Manual) 42 Lymphocytes % (Manual) 47 H Monocytes % (Manual) 7 Eosinophils % (Manual) 2 Myelocytes % (Man) 2 H Abs Neuts (Manual) 8.8 H Differential Comment . Smudge Cells Present H Platelet Estimate Normal Platelet Morphology Normal ESR 47 H Sodium 137 Potassium 4.1 Chloride 108 H Carbon Dioxide 22.5 Anion Gap 7 BUN 10 Creatinine 0.70 Estimated GFR Greater than 89 Random Glucose 86 Calcium 7.7 L Total Bilirubin 1.1 H AST 133 H ALT 88 H Alkaline Phosphatase 843 H C-Reactive Protein 2.20 H Total Protein 6.2 L Albumin 2.1 L Lipase 379 Culture Results: Microbiology 11/24/18 05:00 Urine Culture - Final Clean Catch Urine <10,000 cfu/mL gram positive xuan - no further workup Medications: Active Medications Generic Name Dose Route Start Last Admin Trade Name Freq PRN Reason Stop Dose Admin Hydrocodone Bitart/Acetaminophen 1 tab 11/17/18 16:08 11/27/18 20:54 [place] 5/325 PO 1 tab Q6H PRN Administration PAIN 1-10 AND/OR FEVER >101F Amlodipine Besylate 10 mg 11/18/18 09:00 11/23/18 08:51 Norvasc PO 10 mg DAILY ANG Administration Enalaprilat 2.5 mg 11/14/18 23:42 11/17/18 05:39 Vasotec Inj IV.PUSH 2.5 mg Q6H PRN Administration SBP>160, DBP>90 Enoxaparin Sodium 40 mg 11/23/18 09:00 11/25/18 09:28 Lovenox Inj SQ 40 mg DAILY ANG Administration Famotidine 20 mg 11/23/18 21:00 11/28/18 09:20 Pepcid PO 20 mg BID ANG Administration Lactobacillus Acidophilus 1 gm 11/23/18 18:30 11/28/18 14:13 Lactinex Pkt PO 1 gm TID ANG Administration Mesalamine 1,600 mg 11/27/18 18:00 11/28/18 14:[address] PO 1,600 mg TID ANG Administration Nystatin 1 applicatio 11/23/18 21:00 11/28/18 09:23 Mycostatin Cream TOPICAL 1 applicatio BID ANG Administration Ondansetron HCl 4 mg 11/14/18 22:44 11/22/18 20:29 Zofran Inj IV.PUSH 4 mg Q6H PRN Administration NAUSEA OR VOMITING Simethicone 80 mg 11/20/18 15:00 11/28/18 09:20 Mylicon Chew PO 80 mg DAILY ANG Administration Sodium Chloride 2 ml 11/15/18 09:00 11/28/18 14:14 Ns Flush IV.FLUSH 2 ml BID ANG Administration Sodium Chloride 2 ml 11/14/18 22:44 11/15/18 01:34 Ns Flush IV.FLUSH 2 ml PRN PRN Administration FLUSH AFTER USING IV ACCESS Objective Remarks: GENERAL: Well-nourished, well-developed patient. Not a good historian. SKIN: Warm and dry. HEAD: Normocephalic. EYES: No scleral icterus. No injection or drainage. NECK: Supple, trachea midline. CARDIOVASCULAR: Regular rate and rhythm without murmurs. RESPIRATORY: Anterior breath sounds clear, equal bilaterally. No accessory muscle use. GASTROINTESTINAL: Abdomen soft, non-tender, nondistended. EXTREMITIES: No cyanosis, or edema. MUSCULOSKELETAL: Adequate muscle tone. NEUROLOGICAL: No obvious focal deficit. Awake, alert, and oriented x3. PSYCHIATRIC: Poor insight. Assessment/Plan - Plan This is a 63-year-old male patient status post cholecystectomy related to gangrenous cholecystitis, pathology pending. Oncology consulted in relation to leukocytosis. Plan: 1. Leukocytosis, afebrile. WBC has trended down to 19.9. Peripheral flow consistent with chronic lymphocytic leukemia, stage 0 no treatment warranted at this time. This will need to be monitored in the outpatient setting. 2. Patient evaluated by psychiatry today, note reviewed severe dementia. Family considering hospice, hospice consult noted. - Attending Statement The exam, history, and the medical decision-making described in the above note were completed with the assistance of the mid-level provider. I reviewed and agree with the findings presented. I attest that I had a [id number] encounter with the patient on the same day, and personally performed and documented my assessment and findings in the medical record.Patient has no new complaint. Diarrhea has improved. Remains afebrile. Flow showed CLL. CT did not show significant adenopathy or splenomegaly. This is stage 0 CLL and low lymphocytes count. The leukocytosis is mostly neutrophil due to reactive process. No treatment needed for CLL at this time. Discussed with patient's sister and her questions answered.
--- NOTE | 2018-11-28 18:32 | P.PNIM ---
Subjective Interval history: 63-year-old gentleman with dementia admitted with acute cholecystitis status post lap [place], postoperative course has been complicated by patient's leukocytosis and his refusal from treatment and ambulation. Oncologic workup revealed chronic lymphocytic leukemia stage 0, with no indication for treatment at this time. Discussed with family at bedside, patient's sister and father at bedside, case discussed, patient is resistant, refusing to get out of bed, refusing to roll from side to side, lying on buttocks, in his stools, refusing to get out of bed, not eating much, sometimes agreeing to taking pills sometimes not, he is quite difficult to manage, can be argumentative at times in his refusal of activities, and family are not willing to care for him at home as they are unable to do so. I had a lengthy discussion with them regarding his prognosis and the light that his dementia seems to have been progressing over the past few months. He has been having progressive incontinence and self-neglect. And weight loss due to not eating. They are agreeable to hospice consult. Psychiatry was consulted and patient examined, he recommended possibly addition of Seroquel for symptomatic behavioral management. Patient seen and examined, he is awake, alert, very flat affect, responds yes or no to questions, states his pain is better, but not gone Physical Exam Vital signs: Vital Signs 11/27/18 19:10 11/27/18 20:00 11/27/18 23:05 Temperature 97.7 F 97.8 F Pulse Rate 75 75 76 Respiratory Rate 18 18 Blood Pressure 123/73 131/78 Pulse Oximetry 96 95 11/28/18 00:00 11/28/18 03:15 11/28/18 04:02 Temperature 97.6 F Pulse Rate 75 69 68 Respiratory Rate 18 Blood Pressure 112/65 Pulse Oximetry 95 11/28/18 08:00 11/28/18 12:00 11/28/18 16:00 Temperature 97.6 F 98.4 F 98.2 F Pulse Rate 92 H 70 73 Respiratory Rate 18 18 18 Blood Pressure 125/73 119/66 129/76 Pulse Oximetry 95 95 97 Intake & Output 11/27/18 11/28/18 11/28/18 18:59 06:59 18:59 Intake Total 2180 / 2180 120 / 120 Output Total 500 / 500 600 / 600 Balance 1680 / 1680 -480 / -480 Weight 90.1 kg Intake: Oral 480 / 480 120 / 120 Anesthesia Amount 1700 / 1700 Output: Urine 400 / 400 600 / 600 Estimated Blood Loss 50 / 50 Wound Drainage 50 / 50 # 1 Abdomen 50 / 50 Other: # Voids 3 # Incontinent Voids 3 # Urine Diapers 4 Date of Last Bowel Movement 11/26/18 11/27/18 11/27/18 # Bowel Movements 3 # Incontinent Bowel Movements 1 1 Narrative: Well-developed well-nourished 63-year-old white male Awake alert flat affect Heart S1-S2 regular Lungs clear no wheeze no rhonchi Abdomen soft mild tenderness right upper quadrant positive bowel sounds no mass Extremities no clubbing cyanosis no edema Sacrum stage I breakdown's sacral area, with surrounding erythema Urinary Catheter Management Indwelling Urethral Catheter: Cath placed during this visit: yes, but has since been removed by the nurse Reason for continuing: Hourly intake/output Insertion date: 11/17/18 Insertion time: 14:07 Removal date: 11/18/18 Removal time: 13:30 Results Labs CBC & Chem 7: 11/28/18 06:33 11/28/18 06:33 Assessment and Plan (1) Dementia in other diseases classified elsewhere with behavioral disturbance : Code(s): F02.81 - Dementia in other diseases classified elsewhere with behavioral disturbance Status: Acute (2) Alzheimer's disease with early onset: Code(s): G30.0 - Alzheimer's disease with early onset; F02.80 - Dementia in other diseases classified elsewhere without behavioral disturbance Status: Acute (3) Alzheimer's disease with early onset: Code(s): G30.0 - Alzheimer's disease with early onset; F02.80 - Dementia in other diseases classified elsewhere without behavioral disturbance Status: Acute Plan ACUTE GANGRENOUS CHOLECYSTITIS s/p lap choly 11/17/18 and liver bx, mild elevation lfts will trend, pathology report severe acute necrotizing gangrenous and suppurative cholecystitis and cholelithiasis Liver biopsy showing chronic hepatitis with bridging fibrosis and steatosis consistent with inflammatory bowel disease not changed from 04/23/14 LEUKOCYTOSIS persistant w reactive thrombocythemia - likely reactive post op, however, flow cytometry finding c/ w CLL stage o, no treatment required at this time, fu w hemeonc as outpt. -abx dcd, uti, urine cx w few colonies of gram pos growth not significant, started on rocephin for uti, cdif was neg, now lfts up a bit prob due to rocephin. I will stop all abx and monitor, and repeat crp/esr, if still up will start augmentin. so far stable cont to monitor of abx, crp better, sed rate still up a bit may be chronic, will cont to hold abx for now and monitor. DIARRHEA abx assc w bleeding- hemorroidal vs UC vc dcif colitis - guiac pos, gi fu, on flagyl, no further bleeding, pepcid stable DEPENDENT ATELECTASIS of both lungs - incentive spirometry, ezpap, oob to chair and ambulate daily DEMENTIA baseline w mild decompensation due to acute illness, discussed w family. he is refusing oob and mobilization, not being cooperative and very apathetic and self neglectful, will consult psychiatry reasonable to consult palliative care and hospice. I discussed feeding tube for meds hydration longterm management, they are considering, fu w palliative care ULCERTIVE COLITIS w chronic hepatitis - fu w GI, asacol HTN - cont bp control DEHYDRATION - better post IVT fluids, encourage po dvt prophylaxis - scd dispo - patient has no placement benefits at this time, medicaid pending, hes refusing to work w PT, discussed w family, hospice consult. clinically stable for dc to SNF/Hospice when arranged Progress Note: Quality VTE Deep Vein Thrombosis/Pulmonary Embolism Present on Admission: No _ (1) Alzheimer's disease with early onset Qualifiers: Dementia behavioral disturbance: (2) Alzheimer's disease with early onset Qualifiers: Dementia behavioral disturbance:
[2018-11-29 07:17] LABS: Baso # (Auto) 0.1 th/mm3 (0.0-0.2); Baso % (Auto) 0.3 % (0.0-2.0); Eos # (Auto) 0.7 th/mm3 (0.0-0.4); Eos % (Auto) 3.9 % (0.0-4.0); Hematocrit 35.1 % (39.0-51.0); Hemoglobin 11.3 gm/dL (13.0-17.0); Lymph # (Auto) 6.3 th/mm3 (1.0-4.8); Lymph % (Auto) 33.6 % (9.0-44.0); Mean Corpuscular HGB Conc 32.1 % (32.0-36.0); Mean Corpuscular Hemoglobin 25.8 pg (27.0-34.0); Mean Corpuscular Volume 80.4 fL (80.0-100.0); Mean Platelet Volume 9.2 fL (7.0-11.0); Mono # (Auto) 1.2 th/mm3 (0.0-0.9); Mono % (Auto) 6.3 % (0.0-8.0); Neut # (Auto) 10.5 th/mm3 (1.8-7.7); Neut % (Auto) 55.9 % (16.0-70.0); Platelet Count 426 th/mm3 (150-450); Red Blood Count 4.37 mil/mm3 (4.50-5.90); Red Cell Distribution Width 18.2 % (11.6-17.2); White Blood Count 18.7 th/mm3 (4.0-11.0)
--- NOTE | 2018-11-29 08:11 | P.PNONC ---
Subjective Interval history: Patient denies any chest pain or shortness of breath. He denies any abdominal pain. No significant diarrhea reported. No family at the bedside this morning. Objective Vital Signs/Intake & Output: Vital Signs 11/28/18 12:00 11/28/18 16:00 11/28/18 20:00 Temperature 98.4 F 98.2 F 97.8 F Pulse Rate 70 73 76 Respiratory Rate 18 18 18 Blood Pressure 119/66 129/76 125/79 Pulse Oximetry 95 97 97 11/29/18 00:00 11/29/18 04:00 Temperature 98.4 F 98 F Pulse Rate 69 67 Respiratory Rate 17 18 Blood Pressure 130/72 117/75 Pulse Oximetry 93 L 96 Intake & Output 11/28/18 11/29/18 11/29/18 18:59 06:59 18:59 Intake Total 720 / 720 240 / 240 Output Total 450 / 450 400 / 400 Balance 270 / 270 -160 / -160 Weight 90.1 kg Intake: Oral 720 / 720 240 / 240 Output: Urine 450 / 450 400 / 400 Other: Date of Last Bowel Movement 11/27/18 11/27/18 # Bowel Movements 1 Result Diagrams: 11/29/18 05:40 11/28/18 06:33 Laboratory Results: Laboratory Results - last 24 hr 11/28/18 11/28/18 11/28/18 06:33 06:33 06:33 WBC RBC Hgb Hct MCV MCH MCHC RDW Plt Count MPV Prelim Diff (Auto) Neut % (Auto) Lymph % (Auto) Banks % (Auto) Eos % (Auto) Baso % (Auto) Neut # (Auto) Lymph # (Auto) Banks # (Auto) Eos # (Auto) Baso # (Auto) WBC Differential Manual diff final Seg Neuts % (Manual) 42 Lymphocytes % (Manual) 47 H Monocytes % (Manual) 7 Eosinophils % (Manual) 2 Myelocytes % (Man) 2 H Abs Neuts (Manual) 8.8 H Differential Comment Smudge Cells Present H Platelet Estimate Normal Platelet Morphology Normal ESR 47 H Sodium 137 Potassium 4.1 Chloride 108 H Carbon Dioxide 22.5 Anion Gap 7 BUN 10 Creatinine 0.70 Estimated GFR Greater than 89 Random Glucose 86 Calcium 7.7 L Total Bilirubin 1.1 H AST 133 H ALT 88 H Alkaline Phosphatase 843 H C-Reactive Protein 2.20 H Total Protein 6.2 L Albumin 2.1 L Lipase 379 11/29/18 05:40 WBC 18.7 H RBC 4.37 L Hgb 11.3 L Hct 35.1 L MCV 80.4 MCH 25.8 L MCHC 32.1 RDW 18.2 H Plt Count 426 MPV 9.2 Prelim Diff (Auto) Slide review pending Neut % (Auto) 55.9 Lymph % (Auto) 33.6 Banks % (Auto) 6.3 Eos % (Auto) 3.9 Baso % (Auto) 0.3 Neut # (Auto) 10.5 H Lymph # (Auto) 6.3 H Banks # (Auto) 1.2 H Eos # (Auto) 0.7 H Baso # (Auto) 0.1 WBC Differential Seg Neuts % (Manual) Lymphocytes % (Manual) Monocytes % (Manual) Eosinophils % (Manual) Myelocytes % (Man) Abs Neuts (Manual) Differential Comment . Smudge Cells Platelet Estimate Platelet Morphology ESR Sodium Potassium Chloride Carbon Dioxide Anion Gap BUN Creatinine Estimated GFR Random Glucose Calcium Total Bilirubin AST ALT Alkaline Phosphatase C-Reactive Protein Total Protein Albumin Lipase Culture Results: Microbiology 11/24/18 05:00 Urine Culture - Final Clean Catch Urine <10,000 cfu/mL gram positive xuan - no further workup Medications: Active Medications Generic Name Dose Route Start Last Admin Trade Name Freq PRN Reason Stop Dose Admin Hydrocodone Bitart/Acetaminophen 1 tab 11/17/18 16:08 11/28/18 21:30 [place] 5/325 PO 1 tab Q6H PRN Administration PAIN 1-10 AND/OR FEVER >101F Amlodipine Besylate 10 mg 11/18/18 09:00 11/23/18 08:51 Norvasc PO 10 mg DAILY ANG Administration Enalaprilat 2.5 mg 11/14/18 23:42 11/17/18 05:39 Vasotec Inj IV.PUSH 2.5 mg Q6H PRN Administration SBP>160, DBP>90 Enoxaparin Sodium 40 mg 11/23/18 09:00 11/25/18 09:28 Lovenox Inj SQ 40 mg DAILY ANG Administration Famotidine 20 mg 11/23/18 21:00 11/28/18 21:31 Pepcid PO 20 mg BID ANG Administration Lactobacillus Acidophilus 1 gm 11/23/18 18:30 11/28/18 18:11 Lactinex Pkt PO 1 gm TID ANG Administration Mesalamine 1,600 mg 11/27/18 18:00 11/28/18 18:[address] PO 1,600 mg TID ANG Administration Nystatin 1 applicatio 11/23/18 21:00 11/28/18 21:31 Mycostatin Cream TOPICAL 1 applicatio BID ANG Administration Ondansetron HCl 4 mg 11/14/18 22:44 11/22/18 20:29 Zofran Inj IV.PUSH 4 mg Q6H PRN Administration NAUSEA OR VOMITING Simethicone 80 mg 11/20/18 15:00 11/28/18 09:20 Mylicon Chew PO 80 mg DAILY ANG Administration Sodium Chloride 2 ml 11/15/18 09:00 11/28/18 21:31 Ns Flush IV.FLUSH 2 ml BID ANG Administration Sodium Chloride 2 ml 11/14/18 22:44 11/15/18 01:34 Ns Flush IV.FLUSH 2 ml PRN PRN Administration FLUSH AFTER USING IV ACCESS Objective Remarks: GENERAL: Well-nourished, well-developed patient. No acute distress. SKIN: Warm and dry. HEAD: Normocephalic. EYES: No scleral icterus. No injection or drainage. NECK: Supple, trachea midline. No JVD or lymphadenopathy. LYMPHATIC: No adenopathy. CARDIOVASCULAR: Regular rate and rhythm without murmurs. RESPIRATORY: Breath sounds equal bilaterally. No accessory muscle use. GASTROINTESTINAL: Abdomen soft, non-tender, nondistended. EXTREMITIES: No cyanosis, or edema. MUSCULOSKELETAL: Adequate muscle tone. NEUROLOGICAL: No obvious focal deficit. Awake, alert. PSYCHIATRIC: Poor insight. Assessment/Plan - Plan This is a 63-year-old male patient status post cholecystectomy related to gangrenous cholecystitis, pathology pending. Oncology consulted in relation to leukocytosis. Plan: 1. Leukocytosis, afebrile. Peripheral flow consistent with chronic lymphocytic leukemia, JIMÉNEZ stage 0. CT did not show significant adenopathy or splenomegaly. The leukocytosis is mostly neutrophil with low number of lymphocyte. The leukocytosis is due to underlying inflammatory process. WBC has trended down to 18.7 today. No treatment warranted for CLL at this time. This can be monitored in the outpatient setting. Monitor CBC when inpatient. 2. Patient evaluated by psychiatry and found to have severe dementia. Family considering hospice, hospice consult noted.
[2018-11-29 09:07] LABS: Eosinophils 7 % (0-4); Lymphocytes 45 % (9-44); Monocytes 5 % (0-8); Myelocytes 1 % (0-0)
[2018-11-29] MEDS: Simethicone 80 MG Chew Tablet PO SCH (09:08)
[2018-11-29] MEDS: Famotidine 20 MG Tablet PO SCH ×2 (09:08→21:07)
[2018-11-29] MEDS: Mesalamine 800 MG Tablet DR PO SCH ×3 (09:08→18:20)
[2018-11-29 09:09] LABS: Platelet Estimate Normal (Normal); Platelet Morphology Normal (Normal); Smudge Cells Present
--- NOTE | 2018-11-29 10:22 | P.CONPAL ---
Consult Service: Palliative Care Requesting Physician: Apoorva Grayson Reason for Consult: a. To assist with evaluation and management of symptoms including: pain, dysphagia b. To assist medical decision maker(s) with: better understanding of current medical conditions; weighing benefits/burdens of medical treatment options; making medical treatment decisions. Primary Care Provider: Tabatha Murrell MD History of Present Illness History of Present Illness: Mr. Lloyd is a 63-year-old male who presented to [facility] on 11/14/2018 for evaluation of cramping RUQ pain times 1 week and intermittent diarrhea. He has a known history of colitis, cholelithiasis, dementia and elevated ammonia levels for which he takes lactulose. Medical history was limited as the patient /family were poor historians. Diagnostic data: * Vital signs: Pulse 111, respirations 18, BP 101/55, oxygen saturation 96% on room air, oral temperature 97.1 * WBC: 36.0, hemoglobin 13.0, hematocrit 39.6, platelets 363, neutrophils 79.1% * PT: 13.5, INR 1.3, APTT 36.2 * Sodium: 141, potassium 3.0, chloride 105, carbon dioxide 25.7, glucose 148, calcium 8.3, magnesium 2.1 * BUN: 20, creatinine 1.14, GFR 65 * Total bilirubin 1.9, AST 28, ALT 34, alkaline phosphatase 240 * Ammonia: 33 * Total creatine kinase: 12 * Troponin: <0.02 * Total protein: 7.8, albumin 2.5 * Gallbladder ultrasound was positive for gallbladder sludge and gallstones also seen on the prior MRI from 05/2018. Gallbladder wall thickened to 7 mm. Common bile duct and pancreas were not well-visualized. 6.9 cm right renal cyst. No hydronephrosis. Fatty infiltration of the liver. Patient was discussed with the GI physician on-call, Dr. Serrano. Tentative plan for ERCP the following day. Patient will likely require cholecystectomy therefore general surgery was consulted as as well. Patient was made NPO and started on Zosyn. CT abdomen/pelvis on 11/14/2018. Showed distended gallbladder with pericholecystic inflammatory changes and gallstones including a gallstone that may be impacted in the gallbladder neck. Findings most characteristic of cholecystitis. Questionable adjacent inflammatory changes in the right colon versus mild right-sided colitis. Subsegmental atelectasis in the lung bases. Mild intrahepatic ductal dilatation. Common bile duct is not significantly dilated. MRCP on 11/15/2018 showed a stone in the cystic duct; multiple gallstones; findings consistent with cholecystitis. Patient was taken to the OR on 11/17/2018 for a laparoscopic cholecystectomy with laparoscopic liver biopsy. Histopathology was similar to the findings present in the biopsy from April,. Differential diagnosis include changes associated with inflammatory bowel disease and drug-induced liver. Chest x-ray on 11/20/2018 revealed cardiomegaly; bibasilar consolidation. Hematology was consulted to evaluate patient with persistent leukocytosis. Peripheral flow cytology consistent with chronic lymphocytic leukemia; stage 0 with no treatment warranted at this time. Neurology recommending outpatient monitoring. Per Dr. Du Truong, leukocytosis is mostly neutrophil due to reactive process and not CLL. Patient having diffuse abdominal pain on 11/23/2018. Hemoccult positive stool, maintaining stable hemoglobin. C. difficile negative. Urinalysis consistent with UTI; urine culture negative. Psychiatry was consulted to evaluate patient with dementia who has been somewhat resistant to care. Dr. Wynn evaluated the patient; recommendations to consider adding Seroquel for symptomatic behavioral management. Palliative Care was consulted to assist with symptom management and to discuss with the family the benefits and burdens of her current illnesses and the options regarding future care. Dual visit with Marnie Borges STRAINER CLEANER. Patient seen and examined in room 1426 with family at bedside. Patient is awake and alert. He is able to tell me his name and responds to questions with 1 -2 word answers. Hospice was consulted and will be meeting with the patient and family later today. Function/Cognitive Trajectory: Patient is a 63-year-old gentleman who was admitted on 11/14/2018 status post laparoscopic cholecystectomy and liver biopsy. Patient has a known history of dementia, diagnosed approximately 1 year ago. He lives with his stepfather. Prior to this admission the patient was ambulatory, relatively independent with a good appetite. The family reports the patient has had an acute decline during this hospitalization with generalized weakness. He is taking only bites food. They report a subjective weight loss of 25-35 pounds in the past month. Review of Systems unobtainable due to mental status PMFSH - History History Provided By: Patient, Family Member - Medical History Medical History: Medical History (Last Updated 11/29/18 @ 09:37 by NATALY Wilde) Chronic hepatitis Colitis Dementia History of basal cell carcinoma History of cholelithiasis Hypertension Ulcerative colitis - Surgical History Surgical History: Surgical History (Last Updated 11/29/18 @ 11:48 by NATALY Wilde) History of ERCP (Acute) Status post laparoscopic cholecystectomy - Family History Family History: Family History (Last Updated 11/29/18 @ 11:49 by NATALY Wilde) Other No pertinent family history - Tobacco History Second Hand Smoke Exposure: No Tobacco Use In Past 30 Days: No Smoking Status: Never smoker - Alcohol History How Often Do You Have a Drink Containing Alcohol: Never - Substance Use History Substance History: No History of Abuse - Travel History Recent Travel in the [place] Within the Last 8 Weeks: No Recent Travel Out of the Country Within the Last 8 Weeks: No - Immunization History Tetanus Immunization: Unsure Hx Influenza Vaccine This Season: Yes Medications and Allergies Active Medications: Active Medications Acetaminophen (Tylenol) 650 mg PO Q4H PRN PRN Reason: Temp > 100.4 Hydrocodone Bitart/Acetaminophen ([place] 5/325) 1 tab PO Q6H PRN PRN Reason: PAIN 1-10 AND/OR FEVER >101F Last Admin: 11/28/18 21:30 Dose: 1 tab Al Hydroxide/Mg Hydroxide (Milk Of Magnkelli Liq) 30 ml PO Q12H PRN PRN Reason: Mild Constipation Amlodipine Besylate (Norvasc) 10 mg PO DAILY [facility] Last Admin: 11/23/18 08:51 Dose: 10 mg Bisacodyl (Dulcolax Supp) 10 mg RECTAL DAILY PRN PRN Reason: SEVERE CONSITIPATION Enalaprilat (Vasotec Inj) 2.5 mg IV.PUSH Q6H PRN PRN Reason: SBP>160, DBP>90 Last Admin: 11/17/18 05:39 Dose: 2.5 mg Enoxaparin Sodium (Lovenox Inj) 40 mg SQ DAILY [facility] Last Admin: 11/25/18 09:28 Dose: 40 mg Famotidine (Pepcid) 20 mg PO BID [facility] Last Admin: 11/29/18 09:08 Dose: 20 mg Lactobacillus Acidophilus (Lactinex Pkt) 1 gm PO TID [facility] Last Admin: 11/29/18 09:08 Dose: 1 gm Mesalamine (Asacol Hd Dr) 1,600 mg PO TID [facility] Last Admin: 11/29/18 09:08 Dose: 1,600 mg Morphine Sulfate (Morphine Inj) 2 mg IV.PUSH Q3H PRN PRN Reason: SEE LABEL COMMENTS Nystatin (Mycostatin Cream) 1 applicatio TOPICAL BID [facility] Last Admin: 11/28/18 21:31 Dose: 1 applicatio Ondansetron HCl (Zofran Inj) 4 mg IV.PUSH Q6H PRN PRN Reason: NAUSEA OR VOMITING Last Admin: 11/22/18 20:29 Dose: 4 mg Sennosides (Senokot) 17.2 mg PO Q12H PRN PRN Reason: Moderate Constipation Simethicone (Mylicon Chew) 80 mg PO DAILY [facility] Last Admin: 11/29/18 09:08 Dose: 80 mg Sodium Chloride (Ns Flush) 2 ml IV.FLUSH BID [facility] Last Admin: 11/29/18 09:09 Dose: 2 ml Sodium Chloride (Ns Flush) 2 ml IV.FLUSH PRN PRN PRN Reason: FLUSH AFTER USING IV ACCESS Last Admin: 11/15/18 01:34 Dose: 2 ml Allergies Allergy/AdvReac Type Severity Reaction Status Date / Time No Known Allergies Allergy Verified 11/14/18 17:35 Home Medications Medication Instructions Recorded Confirmed Type Unable to Obtain Home Meds 11/14/18 11/14/18 History Advance Directives Advance Directives Date on File: 11/21/18 Living Will: Yes Healthcare Surrogate: Yes Health Care Surrogate Name and Number: Austyn Lloyd and Saul Carlton Power of Cannery Tender Engineer: Yes Power of Cannery Tender Engineer Name: Saul Carlton Power of Cannery Tender Engineer Documented care wishes: Health care surrogate designation form, living well and DPOA were completed on . Documents are accessible in the patient's paper chart; copies have been faxed to HIM to be scanned into EMR. Today's verbally stated goals: Patient does not demonstrate insight or judgment related to his medical conditions. Family/friends goals: Family verbalizes aggressive goals up to the point of cardiopulmonary resuscitation while hospitalized. They are considering transitioning to comfort focused care upon discharge and will be meeting with the hospice admission nurse (drew) later today. Ethical and Legal Issues: Living will designates Austyn Lloyd (son) as the the primary healthcare surrogate decision-maker. Healthcare surrogate designation form designates Saul Carlton (step-father) as the healthcare surrogate decision-maker. Both are making decisions together. Physical Exam Vital Signs: Vital Signs - 24 hr 11/28/18 12:00 11/28/18 16:00 11/28/18 20:00 Temperature 98.4 F 98.2 F 97.8 F Pulse Rate 70 73 76 Respiratory Rate 18 18 18 Blood Pressure 119/66 129/76 125/79 Pulse Oximetry 95 97 97 11/29/18 00:00 11/29/18 04:00 11/29/18 08:00 Temperature 98.4 F 98 F 98.2 F Pulse Rate 69 67 71 Respiratory Rate 17 18 18 Blood Pressure 130/72 117/75 115/71 Pulse Oximetry 93 L 96 94 L I&O: Intake & Output 11/27/18 11/28/18 11/29/18 11/30/18 06:59 06:59 06:59 06:59 Intake Total 2500 / 2500 2300 / 2300 960 / 960 Output Total 1050 / 1050 1100 / 1100 850 / 850 Balance 1450 / 1450 1200 / 1200 110 / 110 Weight 89 kg 90.1 kg 90.1 kg Physical Exam: CONSTITUTIONAL/GENERAL: This is an adequately nourished patient, in no apparent distress. TUBES/LINES/DRAINS: PIV SKIN: No jaundice, rashes, or lesions. Ecchymoses on upper extremities. Skin temperature appropriate. Not diaphoretic. HEAD: Atraumatic. Normocephalic. EYES: Pupils equal and round and reactive. Extraocular motions intact. No scleral icterus. No injection or drainage. Fundi not examined. ENT: Hearing grossly normal. Nose without bleeding or purulent drainage. NECK: Trachea midline. Supple, nontender. No palpable thyroid enlargement or nodularity. CARDIOVASCULAR: Regular rate and rhythm without murmurs, gallops, or rubs. No JVD. Peripheral pulses symmetric. RESPIRATORY/CHEST: Symmetric, unlabored respirations. CTA. Breath sounds equal bilaterally. No wheezes, rales, or rhonchi. GASTROINTESTINAL: Abdomen soft, non-tender, nondistended. Surgical sites from laparoscopic cholecystectomy c/d/i. Bowel sounds present. GENITOURINARY: Without palpable bladder distension. Middleton catheter in place. MUSCULOSKELETAL: Extremities without clubbing, cyanosis, or edema. No mottling or clubbing. LYMPHATICS: No palpable cervical or supraclavicular adenopathy. NEUROLOGICAL: Awake and alert. Confused. Responds to questions with 1-2 word answers. PSYCHIATRIC: Flat affect. Confabulation Diagnostic Tests Laboratory: Laboratory Results - last 72 hr 11/26/18 11/26/18 11/27/18 13:14 22:04 09:33 WBC 22.0 H 21.6 H 21.0 H RBC 4.41 L 4.28 L 4.31 L Hgb 11.1 L 10.6 L 10.9 L Hct 35.4 L 34.1 L 34.5 L MCV 80.3 79.7 L 80.1 MCH 25.3 L 24.6 L 25.3 L MCHC 31.4 L 30.9 L 31.6 L RDW 17.7 H 18.0 H 18.1 H Plt Count 551 H 485 H 479 H MPV 8.5 8.1 8.6 Prelim Diff (Auto) Slide review pending Slide review pending Slide review pending Neut % (Auto) 56.0 57.9 58.3 Lymph % (Auto) 34.6 33.4 32.9 Stokes % (Auto) 6.9 5.5 5.0 Eos % (Auto) 2.1 2.8 3.1 Baso % (Auto) 0.4 0.4 0.7 Neut # (Auto) 12.3 H 12.5 H 12.3 H Lymph # (Auto) 7.6 H 7.2 H 6.9 H Stokes # (Auto) 1.5 H 1.2 H 1.1 H Eos # (Auto) 0.5 H 0.6 H 0.7 H Baso # (Auto) 0.1 0.1 0.1 WBC Differential Manual diff final Manual diff final Manual diff final Seg Neuts % (Manual) 59 55 65 Band Neuts % (Manual) 2 Lymphocytes % (Manual) 35 36 31 Monocytes % (Manual) 4 5 3 Eosinophils % (Manual) 1 2 Myelocytes % (Man) 1 H 1 H Abs Neuts (Manual) 13.2 H 12.3 H 13.9 H Differential Comment . . . Hypersegmented Neuts 1+ H Smudge Cells Platelet Estimate High H High H High H Platelet Morphology Normal Normal Clumped H Ovalocytes 1+ H ESR Sodium Potassium Chloride Carbon Dioxide Anion Gap BUN Creatinine Estimated GFR Random Glucose Calcium Total Bilirubin AST ALT Alkaline Phosphatase Ammonia C-Reactive Protein Total Protein Albumin Lipase 11/27/18 11/27/18 11/28/18 09:33 09:33 06:33 WBC 19.9 H RBC 4.33 L Hgb 11.0 L Hct 34.7 L MCV 80.1 MCH 25.4 L MCHC 31.8 L RDW 18.1 H Plt Count 431 MPV 8.9 Prelim Diff (Auto) Slide review pending Neut % (Auto) 55.5 Lymph % (Auto) 34.3 Stokes % (Auto) 6.5 Eos % (Auto) 3.5 Baso % (Auto) 0.2 Neut # (Auto) 11.0 H Lymph # (Auto) 6.8 H Stokes # (Auto) 1.3 H Eos # (Auto) 0.7 H Baso # (Auto) 0.0 WBC Differential Manual diff final Seg Neuts % (Manual) 42 Band Neuts % (Manual) Lymphocytes % (Manual) 47 H Monocytes % (Manual) 7 Eosinophils % (Manual) 2 Myelocytes % (Man) 2 H Abs Neuts (Manual) 8.8 H Differential Comment . Hypersegmented Neuts Smudge Cells Present H Platelet Estimate Normal Platelet Morphology Normal Ovalocytes ESR Sodium 140 Potassium 4.4 D Chloride 114 H Carbon Dioxide 20.1 L Anion Gap 6 BUN 10 Creatinine 0.78 Estimated GFR Greater than 89 Random Glucose 100 Calcium 7.7 L Total Bilirubin 1.2 H AST 152 H ALT 92 H Alkaline Phosphatase 815 H Ammonia 27 C-Reactive Protein Total Protein 6.4 Albumin 2.2 L Lipase 11/28/18 11/28/18 11/29/18 06:33 06:33 05:40 WBC 18.7 H RBC 4.37 L Hgb 11.3 L Hct 35.1 L MCV 80.4 MCH 25.8 L MCHC 32.1 RDW 18.2 H Plt Count 426 MPV 9.2 Prelim Diff (Auto) Slide review pending Neut % (Auto) 55.9 Lymph % (Auto) 33.6 Stokes % (Auto) 6.3 Eos % (Auto) 3.9 Baso % (Auto) 0.3 Neut # (Auto) 10.5 H Lymph # (Auto) 6.3 H Stokes # (Auto) 1.2 H Eos # (Auto) 0.7 H Baso # (Auto) 0.1 WBC Differential Manual diff final Seg Neuts % (Manual) 40 Band Neuts % (Manual) 2 Lymphocytes % (Manual) 45 H Monocytes % (Manual) 5 Eosinophils % (Manual) 7 H Myelocytes % (Man) 1 H Abs Neuts (Manual) 8.0 H Differential Comment . Hypersegmented Neuts Smudge Cells Present H Platelet Estimate Normal Platelet Morphology Normal Ovalocytes ESR 47 H Sodium 137 Potassium 4.1 Chloride 108 H Carbon Dioxide 22.5 Anion Gap 7 BUN 10 Creatinine 0.70 Estimated GFR Greater than 89 Random Glucose 86 Calcium 7.7 L Total Bilirubin 1.1 H AST 133 H ALT 88 H Alkaline Phosphatase 843 H Ammonia C-Reactive Protein 2.20 H Total Protein 6.2 L Albumin 2.1 L Lipase 379 Result Diagrams: 11/30/18 07:10 11/30/18 07:10 Microbiology: Microbiology 11/24/18 05:00 Urine Culture - Final Clean Catch Urine <10,000 cfu/mL gram positive xuan - no further workup Imaging: Gallbladder Ultrasound 11/14/18 17:35 CONCLUSION: 1. Positive for gallbladder sludge and gallstones also seen on prior MRI from May 2018. Gallbladder wall thickened to 7 mm. Common bile duct and pancreas not well visualized. 2. 6.9 cm right renal cyst. No hydronephrosis. 3. Fatty infiltration of the liver. Cholangiopancreatography MRI 11/15/18 00:00 CONCLUSION: 1. Chest X-Ray 11/20/18 00:00 CONCLUSION: 1. Cardiomegaly. 2. Bibasilar consolidation but there is a poor inspiratory effort and this may simply relate to atelectasis. 3. Tracheal deviation towards the right which is going to be accentuated by the obliquity of the film. There is a right paratracheal stripe prominence. At this point mediastinal mass cannot be excluded. Consider CT of the thorax with IV contrast to further assess. Abdomen/Pelvis CT 11/21/18 00:00 CONCLUSION: 1. Interval cholecystectomy with residual fluid collection in the gallbladder fossa and small locule of air. Differential diagnosis includes postoperative fluid but cannot exclude infection. 2. Distended stomach with dilated proximal and mid small bowel and distal decompression most characteristic of at least a partial small bowel obstruction. Colon is relatively decompressed as well. 3. Stable enlargement of right infrahilar lymph node and aortocaval lymph node compared with prior recent CT. Chest CT 11/21/18 00:00 CONCLUSION: 1. Dependent atelectasis with small effusions in both lungs. No pneumothorax. 2. Moderate coronary calcifications. 3. Mediastinal fat deposition. No adenopathy. Procedures: 11/17/2018: Laparoscopic cholecystectomy Patient/Family Conference Present at Family Conference: Met with patient and his family at bedside Family Conference Location: Bedside Issues Discussed: * Palliative care role, purpose, approach * Additional medical, psychosocial, and spiritual history * Patients general health, functional status, and cognitive changes in the months leading up to the current hospitalization * Patient/family understanding of the current medical problems * Patient/family understanding of prognosis * Patients goals of care as best understood from advance directives and/or conversations and/or values * Current medical treatment options and benefits/burdens of those options * Likely scenarios comparing ongoing aggressive care with a transition to comfort measures only * Questions answered to the best of my ability * Palliative care contact information provided Assessment and Plan - Disease Oriented Problem List (1) Acute cholecystitis (2) Status post laparoscopic cholecystectomy (3) Dementia Pertinent Non-Medical Issues: Psychosocial: Patient is originally from [place]. He moved to [place] in the mid 1980s. He has been and x2. He has 3 adult sons (Austyn, Maikel and Cb). 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 He currently lives with his stepfather. Spiritual: Taoism chema Legal:Living will designates Austyn Lloyd (son) as the the primary healthcare surrogate decision-maker. Healthcare surrogate designation form designates Saul Brandt (step-father) as the healthcare surrogate decision-maker. Both are making decisions together. Ethical issues impacting care: No known ethical issues impacting care at this time. Important Contacts: Saul Desai, stepfather: [phone] Austyn Lloyd, son: [phone] Prognosis: Patient is a 63 year old male with a history of dementia who was admitted with an impacted stone in the gallbladder neck and cholecystitis status post laparoscopic cholecystectomy. Family reports an acute decline in the past month with progressive dementia. Condition is guarded. Code Status: No Code DNR Plan: * NO CODE/DNR * Patient demonstrates limited insight and judgment related to his medical conditions. Living will designates Austyn Lloyd (son) as the the primary healthcare surrogate decision-maker. Healthcare surrogate designation form designates Saul Carlton (step-father) as the healthcare surrogate decision- maker. Both (Austyn and Saul)are making decisions together. * Health care surrogate designation form, living well and DPOA were completed on 11/21/2018. Documents are accessible in the patient's paper chart; copies have been faxed to HIM to be scanned into EMR. * Family verbalizes aggressive goals up to the point of cardiopulmonary resuscitation while hospitalized. They are considering transitioning to comfort focused care upon discharge and will be meeting with the hospice admission nurse (Drew) later today. * Discussed patient with Dr. Otto, hospice intake (Cathleen) and hospice admission nurse (Drew). * Palliative care contact information was provided to the patient's family. * Symptom management: Dysphasia: Patient is currently on a regular diet with thin consistency liquids. Patient is eating only bites in recent days. Family reports patient is coughing with oral intake. Consider consulting speech therapy for swallow evaluation. Pain: Multifactoral. History of colitis, cholelithiasis, cholecystitis status post laparoscopic cholecystectomy. Other contributing factors include debility, lack of mobility, invasive lines etc. Patient denies pain on exam; shows no nonverbal signs or symptoms of pain. PRN Morphine and [place] are available. 24 hour PRN requirements = [place] 5/ 325 x 2. No recommendations. * Palliative care will follow this patient throughout his hospitalization to establish trust, assist with symptom management and clarification of medical treatment goals. Appreciation Thank you for the opportunity to participate in the care of Avery Lloyd.
--- NOTE | 2018-11-29 10:59 | P.PNIM ---
Subjective Interval history: 63 yo male with HTN, dementia admitted for gangrenous cholecystitis now s/p lap cholecystectomy being seen for f/u. This morning reports feeling well, no chest pains or SOB. Son at bedside notes he is still resistant to nursing care such as position changes, ambulation +/- PT, and cleaning. Patient is able to express understanding of his disease process. Other family at bedside include stepfather (who patient lives with) and sister. All family note that he has been having trouble taking care of himself for some time now, and they feel he has severe dementia. Patient denies symptoms of depression including depressed mood, anhedonia, or poor appetite. Physical Exam Vital signs: Vital Signs 11/28/18 12:00 11/28/18 16:00 11/28/18 20:00 Temperature 98.4 F 98.2 F 97.8 F Pulse Rate 70 73 76 Respiratory Rate 18 18 18 Blood Pressure 119/66 129/76 125/79 Pulse Oximetry 95 97 97 11/29/18 00:00 11/29/18 04:00 11/29/18 08:00 Temperature 98.4 F 98 F 98.2 F Pulse Rate 69 67 71 Respiratory Rate 17 18 18 Blood Pressure 130/72 117/75 115/71 Pulse Oximetry 93 L 96 94 L Intake & Output 11/28/18 11/29/18 11/29/18 18:59 06:59 18:59 Intake Total 720 / 720 240 / 240 Output Total 450 / 450 400 / 400 Balance 270 / 270 -160 / -160 Weight 90.1 kg Intake: Oral 720 / 720 240 / 240 Output: Urine 450 / 450 400 / 400 Other: Date of Last Bowel Movement 11/27/18 11/27/18 # Bowel Movements 1 Narrative: Gen: WDWN late middle-aged white male sitting in chair in NAD Eyes: non-icteric ENT: MMM CV: NRRR, normal S1/S2, no MRG Lungs: No dyspnea, CTAB, no crackles/wheezes Abd: Soft, NDNT. Surgical sites from lap clayton c/d/i. MSK: No cyanosis or edema BLE. Neuro/Psy: A&Ox3. Recent memory intact. Normal eye contact, concentration. Mood and affect normal. No AVH. - Urinary Catheter Management Indwelling Urethral Catheter Cath placed during this visit: yes, but has since been removed by the nurse Reason for continuing: Hourly intake/output Insertion date: 11/17/18 Insertion time: 14:07 Removal date: 11/18/18 Removal time: 13:30 Results - Labs CBC & Chem 7: 11/29/18 05:40 11/28/18 06:33 Laboratory Results - last 24 hr 11/29/18 05:40 WBC 18.7 H RBC 4.37 L Hgb 11.3 L Hct 35.1 L MCV 80.4 MCH 25.8 L MCHC 32.1 RDW 18.2 H Plt Count 426 MPV 9.2 Prelim Diff (Auto) Slide review pending Neut % (Auto) 55.9 Lymph % (Auto) 33.6 [place] % (Auto) 6.3 Eos % (Auto) 3.9 Baso % (Auto) 0.3 Neut # (Auto) 10.5 H Lymph # (Auto) 6.3 H [place] # (Auto) 1.2 H Eos # (Auto) 0.7 H Baso # (Auto) 0.1 WBC Differential Manual diff final Seg Neuts % (Manual) 40 Band Neuts % (Manual) 2 Lymphocytes % (Manual) 45 H Monocytes % (Manual) 5 Eosinophils % (Manual) 7 H Myelocytes % (Man) 1 H Abs Neuts (Manual) 8.0 H Differential Comment . Smudge Cells Present H Platelet Estimate Normal Platelet Morphology Normal Assessment and Plan - Assessment (1) CLL (chronic lymphocytic leukemia) Code(s): C91.90 - Lymphoid leukemia, unspecified not having achieved remission Status: Acute (2) Status post laparoscopic cholecystectomy Code(s): Z90.49 - Acquired absence of other specified parts of digestive tract Status: Acute (3) Dementia Code(s): F03.90 - Unspecified dementia without behavioral disturbance Status: Acute - Plan ACUTE GANGRENOUS CHOLECYSTITIS - resolved s/p lap choly 11/17/18 and liver bx, mild elevation lfts will trend, pathology report severe acute necrotizing gangrenous and suppurative cholecystitis and cholelithiasis. Liver biopsy showing chronic hepatitis with bridging fibrosis and steatosis consistent with inflammatory bowel disease not changed from 04/23/14 CLL stage 0 - flow cytometry finding c/ w CLL stage 0, no treatment required at this time, w [facility] as outpt or otherwise monitor CBC periodically. Daily CBC while in hospital DIARRHEA abx assc w bleeding- hemorroidal vs UC vc dcif colitis - guiac pos, c diff negative, h/h stable, monitor clinically, avoid excessive use of stool softener DEPENDENT ATELECTASIS of both lungs - incentive spirometry, ezpap, oob to chair and ambulate daily DEMENTIA per family report dementia is baseline w mild decompensation due to acute illness, discussed w family. Often refusing oob and mobilization, often not cooperative with care efforts. Family reports poor self care at home. Does not seem depressed on evaluation this morning. Psychiatry did not note depression either, recommended Seroquel HS if needed for behavioral disturbance. Given reported long history of progressive dementia and poor self care patient would be appropriate for SNF. If dementia as advanced as family making it seem, hospice certainly appropriate as well. Hospice consult placed, will await input. ULCERTIVE COLITIS w chronic hepatitis - fu w GI, asacol HTN - at goal; cont bp control with amlodipine DEHYDRATION - resolved post IVT fluids, encourage po dvt prophylaxis - scd dispo - patient has no placement benefits at this time, medicaid pending, intermittently refusing to work w PT, discussed w family, hospice consult possibly appropriate given reported dementia with evidence of behavioral disturbance this hospitalization. Clinically stable for dc to SNF/Hospice when placement arranged.
--- NOTE | 2018-11-30 08:25 | P.PNONC ---
Subjective Interval history: Patient is refusing care from the nursing staff. He does not want to be changed. His sister at the bedside and he also does not want assisted to help him. He denies any pain. He has no shortness of breath or cough. Family is talking to palliative care and hospice. Objective Vital Signs/Intake & Output: Vital Signs 11/29/18 12:00 11/29/18 16:00 11/29/18 20:00 Temperature 97.6 F 97.4 F L 98.9 F Pulse Rate 77 76 74 Respiratory Rate 18 18 16 Blood Pressure 111/73 124/81 111/67 Pulse Oximetry 97 20 L 94 L 11/30/18 00:00 Temperature 98.7 F Pulse Rate 75 Respiratory Rate 16 Blood Pressure 123/72 Pulse Oximetry 95 Intake & Output 11/29/18 11/30/18 11/30/18 18:59 06:59 18:59 Intake Total 0 / 0 Balance 0 / 0 Intake: Other 0 / 0 Other: Date of Last Bowel Movement 11/28/18 Result Diagrams: 11/29/18 05:40 11/28/18 06:33 Laboratory Results: Laboratory Results - last 24 hr 11/29/18 05:40 WBC Differential Manual diff final Seg Neuts % (Manual) 40 Band Neuts % (Manual) 2 Lymphocytes % (Manual) 45 H Monocytes % (Manual) 5 Eosinophils % (Manual) 7 H Myelocytes % (Man) 1 H Abs Neuts (Manual) 8.0 H Smudge Cells Present H Platelet Estimate Normal Platelet Morphology Normal Medications: Active Medications Generic Name Dose Route Start Last Admin Trade Name Freq PRN Reason Stop Dose Admin Hydrocodone Bitart/Acetaminophen 1 tab 11/17/18 16:08 11/29/18 21:07 [place] 5/325 PO 1 tab Q6H PRN Administration PAIN 1-10 AND/OR FEVER >101F Amlodipine Besylate 10 mg 11/18/18 09:00 11/23/18 08:51 Norvasc PO 10 mg DAILY ANG Administration Enalaprilat 2.5 mg 11/14/18 23:42 11/17/18 05:39 Vasotec Inj IV.PUSH 2.5 mg Q6H PRN Administration SBP>160, DBP>90 Enoxaparin Sodium 40 mg 11/23/18 09:00 11/25/18 09:28 Lovenox Inj SQ 40 mg DAILY ANG Administration Famotidine 20 mg 11/23/18 21:00 11/29/18 21:07 Pepcid PO 20 mg BID ANG Administration Lactobacillus Acidophilus 1 gm 11/23/18 18:30 11/29/18 18:20 Lactinex Pkt PO 1 gm TID ANG Administration Mesalamine 1,600 mg 11/27/18 18:00 11/29/18 18:[address] PO 1,600 mg TID ANG Administration Nystatin 1 applicatio 11/23/18 21:00 11/29/18 21:08 Mycostatin Cream TOPICAL 1 applicatio BID ANG Administration Ondansetron HCl 4 mg 11/14/18 22:44 11/22/18 20:29 Zofran Inj IV.PUSH 4 mg Q6H PRN Administration NAUSEA OR VOMITING Simethicone 80 mg 11/20/18 15:00 11/29/18 09:08 Mylicon Chew PO 80 mg DAILY ANG Administration Sodium Chloride 2 ml 11/15/18 09:00 11/29/18 21:08 Ns Flush IV.FLUSH 2 ml BID ANG Administration Sodium Chloride 2 ml 11/14/18 22:44 11/15/18 01:34 Ns Flush IV.FLUSH 2 ml PRN PRN Administration FLUSH AFTER USING IV ACCESS Objective Remarks: GENERAL: Well-nourished, well-developed patient. No acute distress. SKIN: Warm and dry. HEAD: Normocephalic. EYES: No scleral icterus. No injection or drainage. NECK: Supple, trachea midline. No JVD or lymphadenopathy. LYMPHATIC: No adenopathy. CARDIOVASCULAR: Regular rate and rhythm without murmurs. RESPIRATORY: Breath sounds equal bilaterally anteriorly. No accessory muscle use. GASTROINTESTINAL: Abdomen soft, non-tender, nondistended. Positive bowel sound. EXTREMITIES: No cyanosis, or edema. MUSCULOSKELETAL: Adequate muscle tone. NEUROLOGICAL: No obvious focal deficit. Awake, alert. PSYCHIATRIC: Poor insight and judgment. Assessment/Plan - Plan This is a 63-year-old male patient status post cholecystectomy related to gangrenous cholecystitis, pathology pending. Oncology consulted in relation to leukocytosis. Plan: 1. Leukocytosis, afebrile. Peripheral flow consistent with chronic lymphocytic leukemia, JIMÉNEZ stage 0. CT did not show significant adenopathy or splenomegaly. The leukocytosis is mostly neutrophil with low number of lymphocyte. The leukocytosis is due to underlying inflammatory process. WBC has trended down to 18.7 yesterday. No treatment warranted for CLL at this time. This can be monitored in the outpatient setting. Patient is refusing care. Family is talking to hospice and thinking about hospice placement. As such there is no further hematology intervention recommended at this time. I will sign off and please call if there is further question arises. 2. Patient evaluated by psychiatry and found to have severe dementia. Family considering hospice, hospice consult noted.
[2018-11-30] MEDS: Simethicone 80 MG Chew Tablet PO SCH (08:35)
[2018-11-30] MEDS: Mesalamine 800 MG Tablet DR PO SCH ×3 (08:35→17:44)
[2018-11-30] MEDS: Famotidine 20 MG Tablet PO SCH ×2 (08:35→20:44)
[2018-11-30 09:20] LABS: Baso # (Auto) 0.1 th/mm3 (0.0-0.2); Baso % (Auto) 0.4 % (0.0-2.0); Eos # (Auto) 0.8 th/mm3 (0.0-0.4); Eos % (Auto) 4.7 % (0.0-4.0); Hematocrit 34.5 % (39.0-51.0); Hemoglobin 11.2 gm/dL (13.0-17.0); Lymph # (Auto) 6.5 th/mm3 (1.0-4.8); Lymph % (Auto) 36.7 % (9.0-44.0); Mean Corpuscular HGB Conc 32.4 % (32.0-36.0); Mean Corpuscular Hemoglobin 25.8 pg (27.0-34.0); Mean Corpuscular Volume 79.6 fL (80.0-100.0); Mean Platelet Volume 9.2 fL (7.0-11.0); Mono # (Auto) 1.3 th/mm3 (0.0-0.9); Mono % (Auto) 7.4 % (0.0-8.0); Neut % (Auto) 50.8 % (16.0-70.0); Platelet Count 457 th/mm3 (150-450); Red Blood Count 4.33 mil/mm3 (4.50-5.90); Red Cell Distribution Width 18.6 % (11.6-17.2); White Blood Count 17.7 th/mm3 (4.0-11.0)
[2018-11-30 09:48] LABS: Alanine Aminotransferase 80 U/L (12-78); Albumin 2.1 g/dL (3.4-5.0); Anion Gap 10 meq/L (5-15); Aspartate Aminotransferase 115 U/L (15-37); Blood Urea Nitrogen 6 mg/dL (7-18); Calcium 7.9 mg/dL (8.5-10.1); Carbon Dioxide 21.1 meq/L (21.0-32.0); Chloride 108 meq/L (98-107); Glomerular Filtration Rate Greater Than 89 mL/min (>89); Glucose,Random 103 mg/dL (74-106); Potassium 3.7 meq/L (3.5-5.1); Sodium 139 meq/L (136-145)
[2018-11-30 09:51] LABS: Alkaline Phosphatase 923 U/L (45-117); Total Protein 6.4 g/dL (6.4-8.2)
[2018-11-30 10:20] LABS: Eosinophils 7 % (0-4); Lymphocytes 48 % (9-44); Monocytes 5 % (0-8); Smudge Cells Present; Tallied Nucleated RBC 1 (0-0)
--- NOTE | 2018-11-30 11:06 | P.PNIM ---
Subjective Interval history: 63 yo male with early onset dementia with behavioral disturbance admitted for necrotizing cholecystitis now s/p cholecystectomy. Today reports feeling well, no CP, SOB, or abdominal pain. OOB briefly yesterday but didn't ambulate far. Nursing staff reports intermittent refusal to allow care such as position changes and cleaning. This morning RN was able to clean patient after BM with not much difficulty. Physical Exam Vital signs: Vital Signs 11/29/18 12:00 11/29/18 16:00 11/29/18 20:00 Temperature 97.6 F 97.4 F L 98.9 F Pulse Rate 77 76 74 Respiratory Rate 18 18 16 Blood Pressure 111/73 124/81 111/67 Pulse Oximetry 97 20 L 94 L 11/30/18 00:00 11/30/18 08:05 Temperature 98.7 F 97.9 F Pulse Rate 75 71 Respiratory Rate 16 20 Blood Pressure 123/72 120/68 Pulse Oximetry 95 95 Intake & Output 11/29/18 11/30/18 11/30/18 18:59 06:59 18:59 Intake Total 0 / 0 Balance 0 / 0 Intake: Other 0 / 0 Other: Date of Last Bowel Movement 11/28/18 Narrative: Gen: WDWN late middle-aged white male resting in bed in NAD Eyes: non-icteric ENT: MMM CV: NRRR, normal S1/S2, no MRG Lungs: No dyspnea, CTAB, no crackles/wheezes Abd: Soft, non-distended, minimally tender at LLQ. Surgical sites from lap clayton c/d/i. : Condom catheter in place MSK: No cyanosis or edema BLE. Neuro/Psy: A&Ox3. Normal eye contact, concentration. Mood and affect normal. No AVH. - Urinary Catheter Management Indwelling Urethral Catheter Cath placed during this visit: yes, but has since been removed by the nurse Reason for continuing: Hourly intake/output Insertion date: 11/17/18 Insertion time: 14:07 Removal date: 11/18/18 Removal time: 13:30 Results - Labs CBC & Chem 7: 11/30/18 07:10 11/30/18 07:10 Laboratory Results - last 24 hr 11/30/18 11/30/18 07:10 07:10 WBC 17.7 H RBC 4.33 L Hgb 11.2 L Hct 34.5 L MCV 79.6 L MCH 25.8 L MCHC 32.4 RDW 18.6 H Plt Count 457 H MPV 9.2 Prelim Diff (Auto) Slide review pending Neut % (Auto) 50.8 Lymph % (Auto) 36.7 [place] % (Auto) 7.4 Eos % (Auto) 4.7 H Baso % (Auto) 0.4 Neut # (Auto) 9.0 H Lymph # (Auto) 6.5 H [place] # (Auto) 1.3 H Eos # (Auto) 0.8 H Baso # (Auto) 0.1 WBC Differential Manual diff final Seg Neuts % (Manual) 38 Band Neuts % (Manual) 1 Lymphocytes % (Manual) 48 H Monocytes % (Manual) 5 Eosinophils % (Manual) 7 H Basophils % (Manual) 1 Abs Neuts (Manual) 6.9 Nucleated RBCs/100 WBC 1 H Differential Comment . Smudge Cells Present H Platelet Estimate High H Platelet Morphology Enlarged H Sodium 139 Potassium 3.7 Chloride 108 H Carbon Dioxide 21.1 Anion Gap 10 BUN 6 L Creatinine 0.61 Estimated GFR Greater than 89 Random Glucose 103 Calcium 7.9 L Total Bilirubin 0.7 AST 115 H ALT 80 H Alkaline Phosphatase 923 H Total Protein 6.4 Albumin 2.1 L Assessment and Plan - Assessment (1) CLL (chronic lymphocytic leukemia) Code(s): C91.90 - Lymphoid leukemia, unspecified not having achieved remission Status: Acute (2) Status post laparoscopic cholecystectomy Code(s): Z90.49 - Acquired absence of other specified parts of digestive tract Status: Acute (3) Dementia Code(s): F03.90 - Unspecified dementia without behavioral disturbance Status: Acute - Plan ACUTE GANGRENOUS CHOLECYSTITIS - resolved s/p lap choly 11/17/18 and liver bx, mild elevation lfts will trend, pathology report severe acute necrotizing gangrenous and suppurative cholecystitis and cholelithiasis. Liver biopsy showing chronic hepatitis with bridging fibrosis and steatosis consistent with inflammatory bowel disease not changed from 04/23/14 CLL stage 0 - flow cytometry finding c/ w CLL stage 0, WBC improving, heme/onc signed off, no treatment required at this time, fu w hemeonc as outpt or otherwise monitor CBC periodically. Daily CBC while in hospital DIARRHEA abx assc w bleeding- hemorroidal vs UC vc dcif colitis - guiac pos, c diff negative, h/h stable, monitor clinically, avoid excessive use of stool softener DEPENDENT ATELECTASIS of both lungs - incentive spirometry, ezpap, oob to chair and ambulate daily DEMENTIA per family report dementia is baseline w mild decompensation due to acute illness, discussed w family. Often refusing oob and mobilization, often not cooperative with care efforts. Family reports poor self care at home. Does not seem depressed on evaluation this morning. Psychiatry did not note depression either, recommended Seroquel HS if needed for behavioral disturbance associated with dementia, but at this time I feel risk of antipsychotic would outweigh benefit. Given reported long history of progressive dementia and poor self care patient would be appropriate for SNF. ST evaluated patient today and noted good remote memory but poor recall and definite confabulation. Goals of care consistent with hospice, which patient may be appropriate for given reported level of dementia. Hospice to evaluate patient on Wednesday (family meeting arranged). In meantime advised family to work on finding long-term placement SNF (most likely) vs home with home health care / aide. ULCERTIVE COLITIS w chronic hepatitis - fu w GI, asacol HTN - at goal; cont bp control with amlodipine DEHYDRATION - resolved post IVT fluids, encourage po dvt prophylaxis - scd dispo - Clinically stable for dc to SNF +/- Hospice when placement arranged. Appreciate assistance of hospice / palliative care / CM. Code Status: No code / DNR - Attending Attestation The exam, history, and the medical decision-making described in the above note were completed with the assistance of the resident physician. I reviewed and agree with the findings presented. I attest that I had a [id number] encounter with the patient on the same day, and personally performed and documented my assessment and findings in the medical record. Patient still reluctant and not fully participating with care. He refuses care at times. Discussed with family at bedside. On exam, he is alert and oriented. However insight is poor. He does not understand his current medical situation. Acute medical issues resolving. However long-term goals is uncertain. Palliative care is following and hospice is following. Family meeting is planned for Wednesday with hospice.
--- NOTE | 2018-11-30 16:45 | P.PNPAL ---
Reason for Visit Reason for visit: a. To assist with evaluation and management of symptoms including: pain, dysphagia b. To assist medical decision maker(s) with: better understanding of current medical conditions; weighing benefits/burdens of medical treatment options; making medical treatment decisions. Subjective Subjective/Interval History: Follow-up visit for symptom management of dysphasia and pain and clarification of medical treatment goals. Patient seen and assessed in room 1425. His sister Marina was present. Patient had no complaints. He denied abdominal pain, shortness of breath, nausea or vomiting. No acute issues per nursing report, however the patient continues to refuse care at times. Clinical data today 11/30/2018: = WBC: 17.7, hemoglobin 11.2, hematocrit 34.5, platelets 457, neutrophils 50.8% = Sodium: 139, potassium 3.7, chloride 108, carbon dioxide 21.1, glucose 103, calcium 7.9 = BUN: 6, creatinine 0.61, GFR >89 = Total bilirubin: 0.7, AST 115, ALT 80, alkaline phosphatase 923 = Total protein: 6.4, albumin 2.1 The family is uncertain regarding hospice services. They will be meeting with hospice again on 12/02/2018 after another sister arrives. Patient will likely qualify for hospice services if his medical treatment goals are hospice appropriate. At the time of exam, the patient does not qualify for care center placement because he is not symptomatic. The family does not feel they can meet the patient's needs in the home any longer. Case management is working on placement. Family/Friend Interactions: See interval history Advance Directives Advance Directives Date on File: 11/21/18 Health Care Surrogate Name and Number: Austyn Gabino and Saul Carlton Documented care wishes:: Health care surrogate designation form, living well and DPOA were completed on . Documents are accessible in the patient's paper chart; copies have been faxed to HIM to be scanned into EMR. Objective Vital Signs: Vital Signs 11/29/18 20:00 11/30/18 00:00 11/30/18 08:05 Temperature 98.9 F 98.7 F 97.9 F Pulse Rate 74 75 71 Respiratory Rate 16 16 20 Blood Pressure 111/67 123/72 120/68 Pulse Oximetry 94 L 95 95 Intake & Output 11/29/18 11/30/18 11/30/18 18:59 06:59 18:59 Intake Total 0 / 0 Balance 0 / 0 Intake: Other 0 / 0 Other: Date of Last Bowel Movement 11/28/18 Physical Exam: CONSTITUTIONAL/GENERAL: This is an adequately nourished patient, in no apparent distress. TUBES/LINES/DRAINS: PIV SKIN: No jaundice, rashes, or lesions. Ecchymoses on upper extremities. Skin temperature appropriate. Not diaphoretic. HEAD: Atraumatic. Normocephalic. EYES: Pupils equal and round and reactive. Extraocular motions intact. No scleral icterus. No injection or drainage. Fundi not examined. ENT: Hearing grossly normal. Nose without bleeding or purulent drainage. NECK: Trachea midline. Supple, nontender. No palpable thyroid enlargement or nodularity. CARDIOVASCULAR: Regular rate and rhythm without murmurs, gallops, or rubs. No JVD. Peripheral pulses symmetric. RESPIRATORY/CHEST: Symmetric, unlabored respirations. CTA. Breath sounds equal bilaterally. No wheezes, rales, or rhonchi. GASTROINTESTINAL: Abdomen soft, non-tender, nondistended. Surgical sites from laparoscopic cholecystectomy c/d/i. Bowel sounds present. GENITOURINARY: Without palpable bladder distension. Middleton catheter in place. MUSCULOSKELETAL: Extremities without clubbing, cyanosis, or edema. No mottling or clubbing. LYMPHATICS: No palpable cervical or supraclavicular adenopathy. NEUROLOGICAL: Awake and alert. Confused. Responds to questions with 1-2 word answers. PSYCHIATRIC: Flat affect. Confabulation Diagnostic Tests Laboratory: Laboratory Results - last 72 hr 11/28/18 11/28/18 11/28/18 06:33 06:33 06:33 WBC 19.9 H RBC 4.33 L Hgb 11.0 L Hct 34.7 L MCV 80.1 MCH 25.4 L MCHC 31.8 L RDW 18.1 H Plt Count 431 MPV 8.9 Prelim Diff (Auto) Slide review pending Neut % (Auto) 55.5 Lymph % (Auto) 34.3 [place] % (Auto) 6.5 Eos % (Auto) 3.5 Baso % (Auto) 0.2 Neut # (Auto) 11.0 H Lymph # (Auto) 6.8 H [place] # (Auto) 1.3 H Eos # (Auto) 0.7 H Baso # (Auto) 0.0 WBC Differential Manual diff final Seg Neuts % (Manual) 42 Band Neuts % (Manual) Lymphocytes % (Manual) 47 H Monocytes % (Manual) 7 Eosinophils % (Manual) 2 Basophils % (Manual) Myelocytes % (Man) 2 H Abs Neuts (Manual) 8.8 H Nucleated RBCs/100 WBC Differential Comment . Smudge Cells Present H Platelet Estimate Normal Platelet Morphology Normal ESR 47 H Sodium 137 Potassium 4.1 Chloride 108 H Carbon Dioxide 22.5 Anion Gap 7 BUN 10 Creatinine 0.70 Estimated GFR Greater than 89 Random Glucose 86 Calcium 7.7 L Total Bilirubin 1.1 H AST 133 H ALT 88 H Alkaline Phosphatase 843 H C-Reactive Protein 2.20 H Total Protein 6.2 L Albumin 2.1 L Lipase 379 11/29/18 11/30/18 11/30/18 05:40 07:10 07:10 WBC 18.7 H 17.7 H RBC 4.37 L 4.33 L Hgb 11.3 L 11.2 L Hct 35.1 L 34.5 L MCV 80.4 79.6 L MCH 25.8 L 25.8 L MCHC 32.1 32.4 RDW 18.2 H 18.6 H Plt Count 426 457 H MPV 9.2 9.2 Prelim Diff (Auto) Slide review pending Slide review pending Neut % (Auto) 55.9 50.8 Lymph % (Auto) 33.6 36.7 [place] % (Auto) 6.3 7.4 Eos % (Auto) 3.9 4.7 H Baso % (Auto) 0.3 0.4 Neut # (Auto) 10.5 H 9.0 H Lymph # (Auto) 6.3 H 6.5 H [place] # (Auto) 1.2 H 1.3 H Eos # (Auto) 0.7 H 0.8 H Baso # (Auto) 0.1 0.1 WBC Differential Manual diff final Manual diff final Seg Neuts % (Manual) 40 38 Band Neuts % (Manual) 2 1 Lymphocytes % (Manual) 45 H 48 H Monocytes % (Manual) 5 5 Eosinophils % (Manual) 7 H 7 H Basophils % (Manual) 1 Myelocytes % (Man) 1 H Abs Neuts (Manual) 8.0 H 6.9 Nucleated RBCs/100 WBC 1 H Differential Comment . . Smudge Cells Present H Present H Platelet Estimate Normal High H Platelet Morphology Normal Enlarged H ESR Sodium 139 Potassium 3.7 Chloride 108 H Carbon Dioxide 21.1 Anion Gap 10 BUN 6 L Creatinine 0.61 Estimated GFR Greater than 89 Random Glucose 103 Calcium 7.9 L Total Bilirubin 0.7 AST 115 H ALT 80 H Alkaline Phosphatase 923 H C-Reactive Protein Total Protein 6.4 Albumin 2.1 L Lipase Result Diagrams: 11/30/18 07:10 11/30/18 07:10 Microbiology: Microbiology 11/24/18 05:00 Clean Catch Urine Urine Culture - Final <10,000 cfu/mL gram positive xuan - no further workup 11/20/18 16:46 Blood - Peripheral Aerobic Blood Culture - Final No growth in 5 days 11/20/18 16:46 Blood - Peripheral Anaerobic Blood Culture - Final No growth in 5 days 11/23/18 06:30 Stool Stool Occult Blood (JEMIMA) - Final Hemoccult positive 11/17/18 14:44 Fluid - Gallbladder Gram Stain - Final 11/17/18 14:44 Fluid - Gallbladder Wound Culture - Final Mixed Anaerobes 11/16/18 15:11 Blood - Peripheral Aerobic Blood Culture - Final No growth in 5 days 11/16/18 15:11 Blood - Peripheral Anaerobic Blood Culture - Final No growth in 5 days 11/16/18 15:05 Blood - Peripheral Aerobic Blood Culture - Final No growth in 5 days 11/16/18 15:05 Blood - Peripheral Anaerobic Blood Culture - Final No growth in 5 days Imaging: Gallbladder Ultrasound 11/14/18 17:35 CONCLUSION: 1. Positive for gallbladder sludge and gallstones also seen on prior MRI from May 2018. Gallbladder wall thickened to 7 mm. Common bile duct and pancreas not well visualized. 2. 6.9 cm right renal cyst. No hydronephrosis. 3. Fatty infiltration of the liver. Cholangiopancreatography MRI 11/15/18 00:00 CONCLUSION: 1. Chest X-Ray 11/20/18 00:00 CONCLUSION: 1. Cardiomegaly. 2. Bibasilar consolidation but there is a poor inspiratory effort and this may simply relate to atelectasis. 3. Tracheal deviation towards the right which is going to be accentuated by the obliquity of the film. There is a right paratracheal stripe prominence. At this point mediastinal mass cannot be excluded. Consider CT of the thorax with IV contrast to further assess. Abdomen/Pelvis CT 11/21/18 00:00 CONCLUSION: 1. Interval cholecystectomy with residual fluid collection in the gallbladder fossa and small locule of air. Differential diagnosis includes postoperative fluid but cannot exclude infection. 2. Distended stomach with dilated proximal and mid small bowel and distal decompression most characteristic of at least a partial small bowel obstruction. Colon is relatively decompressed as well. 3. Stable enlargement of right infrahilar lymph node and aortocaval lymph node compared with prior recent CT. Chest CT 11/21/18 00:00 CONCLUSION: 1. Dependent atelectasis with small effusions in both lungs. No pneumothorax. 2. Moderate coronary calcifications. 3. Mediastinal fat deposition. No adenopathy. Procedures: 11/17/2018: Laparoscopic cholecystectomy Assessment and Plan - Disease Oriented Problem List (1) Acute cholecystitis (2) Status post laparoscopic cholecystectomy (3) Dementia Pertinent Non-Medical Issues: Psychosocial: Patient is originally from [place]. He moved to [place] in the mid 1980s. He has been and x2. He has 3 adult sons (Austyn, Maikel and Cb). Patient worked at a [employer] previously. He currently lives with his stepfather. Spiritual: Catholic chema Legal:Living will designates Austyn Lloyd (son) as the the primary healthcare surrogate decision-maker. Healthcare surrogate designation form designates Saul Carlton (step-father) as the healthcare surrogate decision-maker. Both are making decisions together. Ethical issues impacting care: No known ethical issues impacting care at this time. Important Contacts: Saul Desai, stepfather: [phone] Austyn Lloyd, son: [phone] Prognosis: Patient is a 63 year old male with a history of dementia who was admitted with an impacted stone in the gallbladder neck and cholecystitis status post laparoscopic cholecystectomy. Family reports an acute decline in the past month with progressive dementia. Condition is guarded. Code Status: No Code DNR Plan: * NO CODE/DNR * Patient demonstrates limited insight and judgment related to his medical conditions. Living will designates Austyn Lloyd (son) as the the primary healthcare surrogate decision-maker. Healthcare surrogate designation form designates Saul Carlton (step-father) as the healthcare surrogate decision- maker. Both (AustynMichelle)are making decisions together. * Health care surrogate designation form, living well and DPOA were completed on 11/21/2018. Documents are accessible in the patient's paper chart; copies have been faxed to HIM to be scanned into EMR. * Family verbalizes aggressive goals up to the point of cardiopulmonary resuscitation while hospitalized. * The family is uncertain regarding hospice services. They will be meeting with hospice again on 12/02/2018 after another sister arrives. Patient will likely qualify for hospice services if his medical treatment goals are hospice appropriate. At the time of exam, the patient does not qualify for care center placement because he is not symptomatic. The family does not feel they can meet the patient's needs in the home any longer. Case management is working on placement. * Discussed patient with Dr. Otto. * Symptom management: Dysphasia: Patient is currently on a regular diet with thin consistency liquids. Patient is eating only bites in recent days. Family reports patient is coughing with oral intake. Speech therapy was consulted for swallow evaluation but the patient refused. Pain: Multifactoral. History of colitis, cholelithiasis, cholecystitis status post laparoscopic cholecystectomy. Other contributing factors include debility, lack of mobility, invasive lines etc. Patient denies pain on exam; shows no nonverbal signs or symptoms of pain. PRN Morphine and Wasta are available. 24 hour PRN requirements = Wasta 5/ 325 x 1. No recommendations. * Palliative care will follow this patient throughout his hospitalization to establish trust, assist with symptom management and clarification of medical treatment goals. Attestation Attestation: To help prompt me to consider important information that might be impacting today's encounter and assessment, information from prior notes written by myself or my colleagues may have been "brought forward" into today's note. My signature on this note, however, is an attestation that I personally performed the exam, history, and/or decision-making noted today, and, unless otherwise indicated, the interactions with patient, family, and staff as well as the review of records all occurred today. I also attest that the listed assessment and stated plan reflect my best clinical judgment today based on the combination of historical information, prior notes, and today's exam/ interactions. When time spent is documented, it refers only to time spent today by the signer, or if indicated, combined time spent today by collaborating physician/nurse practitioner.
[2018-12-01 07:27] LABS: Baso # (Auto) 0.1 th/mm3 (0.0-0.2); Baso % (Auto) 0.3 % (0.0-2.0); Eos # (Auto) 0.8 th/mm3 (0.0-0.4); Hematocrit 34.6 % (39.0-51.0); Hemoglobin 11.1 gm/dL (13.0-17.0); Lymph % (Auto) 37.8 % (9.0-44.0); Mean Corpuscular Hemoglobin 25.5 pg (27.0-34.0); Mean Corpuscular Volume 79.8 fL (80.0-100.0); Mean Platelet Volume 8.9 fL (7.0-11.0); Mono # (Auto) 1.4 th/mm3 (0.0-0.9); Mono % (Auto) 8.7 % (0.0-8.0); Neut # (Auto) 7.7 th/mm3 (1.8-7.7); Neut % (Auto) 48.2 % (16.0-70.0); Platelet Count 431 th/mm3 (150-450); Red Blood Count 4.34 mil/mm3 (4.50-5.90)
[2018-12-01 07:50] LABS: Alanine Aminotransferase 70 U/L (12-78); Albumin 2.1 g/dL (3.4-5.0); Anion Gap 8 meq/L (5-15); Aspartate Aminotransferase 84 U/L (15-37); Blood Urea Nitrogen 7 mg/dL (7-18); Calcium 7.7 mg/dL (8.5-10.1); Chloride 110 meq/L (98-107); Glucose,Random 104 mg/dL (74-106); Potassium 3.8 meq/L (3.5-5.1); Sodium 141 meq/L (136-145)
[2018-12-01 07:52] LABS: Alkaline Phosphatase 818 U/L (45-117); Glomerular Filtration Rate Greater Than 89 mL/min (>89); Total Protein 6.4 g/dL (6.4-8.2)
[2018-12-01 08:30] LABS: Eosinophils 2 % (0-4); Lymphocytes 53 % (9-44); Monocytes 2 % (0-8); Smudge Cells Present
[2018-12-01 08:31] LABS: Platelet Morphology Normal (Normal)
--- NOTE | 2018-12-01 09:22 | P.PNIM ---
Subjective Interval history: 63 yo male with PMH of HTN, dementia admitted for necrotizing cholecystitis now s/p lap clayton. Today feels well. No CP, SOB, or abdominal pain. Ate small breakfast this morning. Reports he feels "better." Physical Exam Vital signs: Vital Signs 11/30/18 12:00 11/30/18 16:00 11/30/18 19:20 Temperature 97.3 F L 97.3 F L 97.2 F L Pulse Rate 76 73 72 Respiratory Rate 20 20 18 Blood Pressure 117/62 113/61 121/68 Pulse Oximetry 97 97 95 11/30/18 23:00 12/01/18 04:00 12/01/18 08:00 Temperature 97.5 F L 97.7 F 97.9 F Pulse Rate 70 70 66 Respiratory Rate 18 18 16 Blood Pressure 125/73 128/75 138/90 Pulse Oximetry 95 96 97 Intake & Output 11/30/18 12/01/18 12/01/18 18:59 06:59 18:59 Intake Total 840 / 840 Output Total 375 / 375 1300 / 1300 Balance 465 / 465 -1300 / -1300 Intake: Oral 840 / 840 Output: Urine 375 / 375 1300 / 1300 Other: # Voids 1 Date of Last Bowel Movement 11/30/18 12/01/18 # Bowel Movements 3 # Incontinent Bowel Movements 3 Narrative: Gen: WDWN late middle-aged white male resting in bed in NAD Eyes: non-icteric ENT: MMM CV: NRRR, normal S1/S2, no MRG Lungs: No dyspnea, CTAB, no crackles/wheezes Abd: Soft, NDNT. Surgical sites from lap clayton c/d/i. MSK: No cyanosis or edema BLE. Neuro/Psy: Normal eye contact, concentration. Mood and affect normal. No AVH. - Urinary Catheter Management Indwelling Urethral Catheter Cath placed during this visit: yes, but has since been removed by the nurse Reason for continuing: Hourly intake/output Insertion date: 11/17/18 Insertion time: 14:07 Removal date: 11/18/18 Removal time: 13:30 Results - Labs CBC & Chem 7: 12/01/18 06:03 12/01/18 06:03 Laboratory Results - last 24 hr 11/30/18 11/30/18 12/01/18 07:10 07:10 06:03 WBC 17.7 H 16.0 H RBC 4.33 L 4.34 L Hgb 11.2 L 11.1 L Hct 34.5 L 34.6 L MCV 79.6 L 79.8 L MCH 25.8 L 25.5 L MCHC 32.4 32.0 RDW 18.6 H 19.0 H Plt Count 457 H 431 MPV 9.2 8.9 Prelim Diff (Auto) Slide review pending Slide review pending Neut % (Auto) 50.8 48.2 Lymph % (Auto) 36.7 37.8 [place] % (Auto) 7.4 8.7 H Eos % (Auto) 4.7 H 5.0 H Baso % (Auto) 0.4 0.3 Neut # (Auto) 9.0 H 7.7 Lymph # (Auto) 6.5 H 6.0 H [place] # (Auto) 1.3 H 1.4 H Eos # (Auto) 0.8 H 0.8 H Baso # (Auto) 0.1 0.1 WBC Differential Manual diff final Manual diff final Seg Neuts % (Manual) 38 41 Band Neuts % (Manual) 1 2 Lymphocytes % (Manual) 48 H 53 H Monocytes % (Manual) 5 2 Eosinophils % (Manual) 7 H 2 Basophils % (Manual) 1 Abs Neuts (Manual) 6.9 6.9 Nucleated RBCs/100 WBC 1 H Differential Comment . . Smudge Cells Present H Present H Platelet Estimate High H High H Platelet Morphology Enlarged H Normal Sodium 139 Potassium 3.7 Chloride 108 H Carbon Dioxide 21.1 Anion Gap 10 BUN 6 L Creatinine 0.61 Estimated GFR Greater than 89 Random Glucose 103 Calcium 7.9 L Total Bilirubin 0.7 AST 115 H ALT 80 H Alkaline Phosphatase 923 H Total Protein 6.4 Albumin 2.1 L 12/01/18 06:03 WBC RBC Hgb Hct MCV MCH MCHC RDW Plt Count MPV Prelim Diff (Auto) Neut % (Auto) Lymph % (Auto) [place] % (Auto) Eos % (Auto) Baso % (Auto) Neut # (Auto) Lymph # (Auto) [place] # (Auto) Eos # (Auto) Baso # (Auto) WBC Differential Seg Neuts % (Manual) Band Neuts % (Manual) Lymphocytes % (Manual) Monocytes % (Manual) Eosinophils % (Manual) Basophils % (Manual) Abs Neuts (Manual) Nucleated RBCs/100 WBC Differential Comment Smudge Cells Platelet Estimate Platelet Morphology Sodium 141 Potassium 3.8 Chloride 110 H Carbon Dioxide 23.0 Anion Gap 8 BUN 7 Creatinine 0.59 L Estimated GFR Greater than 89 Random Glucose 104 Calcium 7.7 L Total Bilirubin 0.7 AST 84 H ALT 70 Alkaline Phosphatase 818 H Total Protein 6.4 Albumin 2.1 L - Procedures Laparoscopic cholecystectomy - 11/17/18 Assessment and Plan - Assessment (1) CLL (chronic lymphocytic leukemia) Code(s): C91.90 - Lymphoid leukemia, unspecified not having achieved remission Status: Acute (2) Status post laparoscopic cholecystectomy Code(s): Z90.49 - Acquired absence of other specified parts of digestive tract Status: Acute (3) Dementia Code(s): F03.90 - Unspecified dementia without behavioral disturbance Status: Acute - Plan ACUTE GANGRENOUS CHOLECYSTITIS - resolved s/p lap choly 11/17/18 and liver bx, mild elevation lfts will trend, pathology report severe acute necrotizing gangrenous and suppurative cholecystitis and cholelithiasis. Liver biopsy showing chronic hepatitis with bridging fibrosis and steatosis consistent with inflammatory bowel disease not changed from 04/23/14 CLL stage 0 - flow cytometry finding c/ w CLL stage 0, WBC improving, heme/onc signed off, no treatment required at this time, fu w hemeonc as outpt or otherwise monitor CBC periodically. Daily CBC while in hospital DIARRHEA - improving. Likely abx assc w bleeding- hemorroidal vs UC - guiac pos , c diff negative, h/h stable, monitor clinically, avoid excessive use of stool softener DEPENDENT ATELECTASIS - resolved - incentive spirometry, ezpap, oob to chair and ambulate daily DEMENTIA - per family report dementia is baseline w mild decompensation due to acute illness, discussed w family. Often refusing oob and mobilization, often not cooperative with care efforts. Family reports poor self care at home. Does not seem depressed on evaluation this morning. Psychiatry did not note depression either, recommended Seroquel HS if needed for behavioral disturbance associated with dementia, but at this time I feel risk of antipsychotic would outweigh benefit. Given reported long history of progressive dementia and poor self care patient would be appropriate for SNF. ST evaluated patient today and noted good remote memory but poor recall and definite confabulation. Goals of care consistent with hospice, which patient may be appropriate for given reported level of dementia. Hospice to evaluate patient on Wednesday (family meeting arranged). In meantime advised family to work on finding long-term placement SNF (most likely) vs home with home health care / aide. ULCERTIVE COLITIS w chronic hepatitis - fu w GI, asacol HTN - at goal; cont bp control with amlodipine DEHYDRATION - resolved post IVT fluids, encourage po dvt prophylaxis - scd dispo - Clinically stable for dc to SNF/home +/- Hospice when placement arranged. Appreciate assistance of hospice / palliative care / CM. - Attending Attestation The exam, history, and the medical decision-making described in the above note were completed with the assistance of the resident physician. I reviewed and agree with the findings presented. I attest that I had a [id number] encounter with the patient on the same day, and personally performed and documented my assessment and findings in the medical record. Patient still reluctant and not fully participating with care. He refuses care at times. Discussed with family at bedside. On exam, he is alert and oriented. However insight is poor. He does not understand his current medical situation. DW family at bedside. They are considering SNF placement but the patient does not have benefit at this time. Acute medical issues resolving. However long-term goals is uncertain. Palliative care is following and hospice is following. Family meeting is planned for Wednesday with hospice.
[2018-12-01] MEDS: Famotidine 20 MG Tablet PO SCH ×2 (09:48→21:11)
[2018-12-01] MEDS: Simethicone 80 MG Chew Tablet PO SCH (09:48)
[2018-12-01] MEDS: Mesalamine 800 MG Tablet DR PO SCH ×3 (09:48→17:47)
[2018-12-01] MEDS: Lactobacillus Acidophilus/L. Spores Tablet PO SCH (21:11)
[2018-12-02 06:20] LABS: Baso # (Auto) 0.1 th/mm3 (0.0-0.2); Baso % (Auto) 0.6 % (0.0-2.0); Eos # (Auto) 0.7 th/mm3 (0.0-0.4); Eos % (Auto) 4.5 % (0.0-4.0); Hematocrit 34.2 % (39.0-51.0); Hemoglobin 10.9 gm/dL (13.0-17.0); Lymph # (Auto) 5.7 th/mm3 (1.0-4.8); Lymph % (Auto) 39.4 % (9.0-44.0); Mean Corpuscular HGB Conc 31.9 % (32.0-36.0); Mean Corpuscular Hemoglobin 25.5 pg (27.0-34.0); Mean Corpuscular Volume 79.9 fL (80.0-100.0); Mean Platelet Volume 8.9 fL (7.0-11.0); Mono % (Auto) 7.1 % (0.0-8.0); Neut % (Auto) 48.4 % (16.0-70.0); Platelet Count 394 th/mm3 (150-450); Red Blood Count 4.29 mil/mm3 (4.50-5.90); Red Cell Distribution Width 18.9 % (11.6-17.2); White Blood Count 14.5 th/mm3 (4.0-11.0)
[2018-12-02] MEDS: Mesalamine 800 MG Tablet DR PO SCH ×3 (08:00→18:50)
[2018-12-02 08:42] LABS: Eosinophils 3 % (0-4); Lymphocytes 59 % (9-44); Monocytes 4 % (0-8); Platelet Estimate Normal (Normal); Platelet Morphology Normal (Normal); Smudge Cells Present
[2018-12-02] MEDS: Lactobacillus Acidophilus/L. Spores Tablet PO SCH ×2 (08:51→21:18)
[2018-12-02] MEDS: Simethicone 80 MG Chew Tablet PO SCH (08:52)
[2018-12-02] MEDS: Famotidine 20 MG Tablet PO SCH ×2 (10:30→21:18)
--- NOTE | 2018-12-02 11:08 | P.PNIM ---
Subjective Interval history: 63 yo male with chronic hepatitis, progressive dementia admitted for necrotizing cholecystitis now s/p lap [place]. Today reports feeling well, no CP/ SOB, no abdominal pain, no fevers. Physical Exam Vital signs: Vital Signs 12/01/18 12:25 12/01/18 15:45 12/01/18 19:41 Temperature 97.5 F L 97.9 F 97.7 F Pulse Rate 71 69 69 Respiratory Rate 16 16 17 Blood Pressure 116/72 124/78 122/79 Pulse Oximetry 96 97 98 12/01/18 23:10 12/02/18 05:15 12/02/18 07:52 Temperature 98.5 F 97.8 F 96.4 F L Pulse Rate 72 69 69 Respiratory Rate 17 17 16 Blood Pressure 136/79 131/76 136/79 Pulse Oximetry 96 96 96 12/02/18 08:00 12/02/18 10:32 Temperature 98.1 F 97.2 F L Pulse Rate 70 71 Respiratory Rate 18 16 Blood Pressure 127/68 123/74 Pulse Oximetry 100 99 Intake & Output 12/01/18 12/02/18 12/02/18 18:59 06:59 18:59 Intake Total 480 / 480 240 / 240 Output Total 650 / 650 600 / 600 Balance -170 / -170 -360 / -360 Weight 89.8 kg Intake: Oral 480 / 480 240 / 240 Output: Urine 650 / 650 600 / 600 Other: # Incontinent Voids 1 Date of Last Bowel Movement 12/01/18 12/01/18 # Bowel Movements 2 1 Narrative: Gen: WDWN late middle-aged white male resting in bed in NAD Eyes: non-icteric ENT: MMM CV: NRRR, normal S1/S2, no MRG Lungs: No dyspnea, CTAB, no crackles/wheezes Abd: Soft, NDNT. MSK: No cyanosis or edema BLE. Neuro/Psy: Normal eye contact, concentration. Mood and affect normal. No AVH. - Urinary Catheter Management Indwelling Urethral Catheter Cath placed during this visit: yes, but has since been removed by the nurse Reason for continuing: Hourly intake/output Insertion date: 11/17/18 Insertion time: 14:07 Removal date: 11/18/18 Removal time: 13:30 Results - Labs CBC & Chem 7: 12/02/18 05:33 12/01/18 06:03 Laboratory Results - last 24 hr 12/02/18 05:33 WBC 14.5 H RBC 4.29 L Hgb 10.9 L Hct 34.2 L MCV 79.9 L MCH 25.5 L MCHC 31.9 L RDW 18.9 H Plt Count 394 MPV 8.9 Prelim Diff (Auto) Slide review pending Neut % (Auto) 48.4 Lymph % (Auto) 39.4 [place] % (Auto) 7.1 Eos % (Auto) 4.5 H Baso % (Auto) 0.6 Neut # (Auto) 7.0 Lymph # (Auto) 5.7 H [place] # (Auto) 1.0 H Eos # (Auto) 0.7 H Baso # (Auto) 0.1 WBC Differential Manual diff final Seg Neuts % (Manual) 30 Band Neuts % (Manual) 4 Lymphocytes % (Manual) 59 H Monocytes % (Manual) 4 Eosinophils % (Manual) 3 Abs Neuts (Manual) 4.9 Differential Comment . Smudge Cells Present H Platelet Estimate Normal Platelet Morphology Normal - Procedures Laparoscopic cholecystectomy - 11/17/18 Assessment and Plan - Assessment (1) CLL (chronic lymphocytic leukemia) Code(s): C91.90 - Lymphoid leukemia, unspecified not having achieved remission Status: Acute (2) Status post laparoscopic cholecystectomy Code(s): Z90.49 - Acquired absence of other specified parts of digestive tract Status: Acute (3) Dementia Code(s): F03.90 - Unspecified dementia without behavioral disturbance Status: Acute - Plan ACUTE GANGRENOUS CHOLECYSTITIS - resolved s/p lap choly 11/17/18 and liver bx, mild elevation lfts will trend, pathology report severe acute necrotizing gangrenous and suppurative cholecystitis and cholelithiasis. Liver biopsy showing chronic hepatitis with bridging fibrosis and steatosis consistent with inflammatory bowel disease not changed from 04/23/14 CLL stage 0 - flow cytometry finding c/ w CLL stage 0, WBC decreasing toward normal rage, heme/onc signed off, no treatment required at this time, fu w hemeonc as outpt or otherwise monitor CBC periodically. Daily CBC while in hospital DIARRHEA - stable, associated with incontinence. Likely abx assc w bleeding- hemorroidal vs UC - guiac pos, c diff negative, h/h stable, monitor clinically, avoid excessive use of stool softener; give Imodium PRN DEPENDENT ATELECTASIS - resolved - incentive spirometry, ezpap, oob to chair and ambulate daily DEMENTIA - per family report dementia is baseline and has rapidly progressed over the last year to year and a half. Often refusing oob and mobilization, often not cooperative with care efforts. Family reports poor self care at home. Does not seem depressed on evaluation this morning. Psychiatry did not note depression either, recommended Seroquel HS if needed for behavioral disturbance associated with dementia, but at this time I feel risk of antipsychotic would outweigh benefit. Given reported long history of progressive dementia and poor self care patient would be appropriate for SNF. ST evaluated patient today and noted good remote memory but poor recall and definite confabulation. Goals of care consistent with hospice, which patient may be appropriate for given reported level of dementia. Hospice to evaluate patient today (family meeting arranged). In meantime advised family to work on finding long-term placement SNF (most likely) vs home with home health care / aide. Discussed with family that whatever the underlying etiology of his dementia is, it is likely to be irreversible and not progressive -Check MRI, B12, TSH to rule out reversible causes ULCERTIVE COLITIS w chronic hepatitis - fu w GI, asacol HTN - at goal; cont bp control with amlodipine DEHYDRATION - resolved post IVT fluids, encourage po dvt prophylaxis - scd dispo - Clinically stable for dc to SNF/home +/- Hospice when placement arranged. Appreciate assistance of hospice / palliative care / CM. In my view is not a candidate for hospice care center however would be appropriate for overall hospice services given rapid progression of dementia. - Attending Attestation The exam, history, and the medical decision-making described in the above note were completed with the assistance of the resident physician. I reviewed and agree with the findings presented. I attest that I had a [id number] encounter with the patient on the same day, and personally performed and documented my assessment and findings in the medical record. No acute issues overnight. Family to meet with hospice today. On exam, he is alert and oriented. Normal S1 and S2. Lungs clear to auscultation bilaterally. However insight is poor. He does not understand his current medical situation. Acute medical issues as noted above resolved. However long-term goals is uncertain. Palliative care is following and hospice is following. Family meeting is planned with hospice today No recent brain imaging in the EMR. MRI ordered to ensure no possible organic causes. Based on the history from the family, overall picture more consistent with progressive dementia
--- NOTE | 2018-12-02 14:06 | P.PNPAL ---
Reason for Visit Reason for visit: a. To assist with evaluation and management of symptoms including: pain, dysphagia, confusion b. To assist medical decision maker(s) with: better understanding of current medical conditions; weighing benefits/burdens of medical treatment options; making medical treatment decisions. Subjective Subjective/Interval History: Follow-up visit for symptom management of dysphasia, confusion, pain and clarification of medical treatment goals. Patient seen and assessed in room 1425. No family at bedside. Answers questions with 1-2 word answers. Ongoing confabulation. Follow-up MRI brain today showed central and cortical atrophy otherwise negative for acute process which is consistent with progressive dementia. Physical therapy following; patient continues to refuse care/therapy at times. Patient denied pain, shortness of breath, nausea or vomiting. Clinical data today 11/30/2018: WBC: 14.5, hemoglobin 10.9, hematocrit 34.2, platelets 394, neutrophils 48.4% Patient would likely qualify for hospice services if his medical treatment goals were hospice appropriate. At the time of exam, the patient does not qualify for care center placement because he is asymptomatic. Patient's family met with hospice and Palliative care again today. The family remains uncertain about hospice. The family does not feel they can meet the patient's needs in the home any longer and would like SNF placement with rehab but understand the potential barriers to this. Case management is working on placement. Family requesting to meet with test case developerTiera. Family/Friend Interactions: See interval history Advance Directives Advance Directives Date on File: 11/21/18 Health Care Surrogate Name and Number: Austyn Lloyd and Saul Carlton Documented care wishes:: Health care surrogate designation form, living well and DPOA were completed on . Documents are accessible in the patient's paper chart; copies have been faxed to HIM to be scanned into EMR. Objective Vital Signs: Vital Signs 12/01/18 15:45 12/01/18 19:41 12/01/18 23:10 Temperature 97.9 F 97.7 F 98.5 F Pulse Rate 69 69 72 Respiratory Rate 16 17 17 Blood Pressure 124/78 122/79 136/79 Pulse Oximetry 97 98 96 12/02/18 05:15 12/02/18 07:52 12/02/18 08:00 Temperature 97.8 F 96.4 F L 98.1 F Pulse Rate 69 69 70 Respiratory Rate 17 16 18 Blood Pressure 131/76 136/79 127/68 Pulse Oximetry 96 96 100 12/02/18 10:32 Temperature 97.2 F L Pulse Rate 71 Respiratory Rate 16 Blood Pressure 123/74 Pulse Oximetry 99 Intake & Output 12/01/18 12/02/18 12/02/18 18:59 06:59 18:59 Intake Total 480 / 480 240 / 240 Output Total 650 / 650 600 / 600 Balance -170 / -170 -360 / -360 Weight 89.8 kg Intake: Oral 480 / 480 240 / 240 Output: Urine 650 / 650 600 / 600 Other: # Incontinent Voids 1 Date of Last Bowel Movement 12/01/18 12/01/18 # Bowel Movements 2 1 Physical Exam: CONSTITUTIONAL/GENERAL: This is an adequately nourished patient, in no apparent distress. TUBES/LINES/DRAINS: PIV SKIN: No jaundice, rashes, or lesions. Ecchymoses on upper extremities. Skin temperature appropriate. Not diaphoretic. HEAD: Atraumatic. Normocephalic. EYES: Pupils equal and round and reactive. Extraocular motions intact. No scleral icterus. No injection or drainage. Fundi not examined. ENT: Hearing grossly normal. Nose without bleeding or purulent drainage. NECK: Trachea midline. Supple, nontender. No palpable thyroid enlargement or nodularity. CARDIOVASCULAR: Regular rate and rhythm without murmurs, gallops, or rubs. No JVD. Peripheral pulses symmetric. RESPIRATORY/CHEST: Symmetric, unlabored respirations. CTA. Breath sounds equal bilaterally. No wheezes, rales, or rhonchi. GASTROINTESTINAL: Abdomen soft, non-tender, nondistended. Surgical sites from laparoscopic cholecystectomy c/d/i. Bowel sounds present. GENITOURINARY: Without palpable bladder distension. MUSCULOSKELETAL: Extremities without clubbing, cyanosis, or edema. No mottling or clubbing. LYMPHATICS: No palpable cervical or supraclavicular adenopathy. NEUROLOGICAL: Awake and alert. Cooperative. Responds to questions with 1-2 word answers. PSYCHIATRIC: Flat affect. Continued confabulation Diagnostic Tests Laboratory: Laboratory Results - last 72 hr 11/30/18 11/30/18 12/01/18 07:10 07:10 06:03 WBC 17.7 H 16.0 H RBC 4.33 L 4.34 L Hgb 11.2 L 11.1 L Hct 34.5 L 34.6 L MCV 79.6 L 79.8 L MCH 25.8 L 25.5 L MCHC 32.4 32.0 RDW 18.6 H 19.0 H Plt Count 457 H 431 MPV 9.2 8.9 Prelim Diff (Auto) Slide review pending Slide review pending Neut % (Auto) 50.8 48.2 Lymph % (Auto) 36.7 37.8 [place] % (Auto) 7.4 8.7 H Eos % (Auto) 4.7 H 5.0 H Baso % (Auto) 0.4 0.3 Neut # (Auto) 9.0 H 7.7 Lymph # (Auto) 6.5 H 6.0 H [place] # (Auto) 1.3 H 1.4 H Eos # (Auto) 0.8 H 0.8 H Baso # (Auto) 0.1 0.1 WBC Differential Manual diff final Manual diff final Seg Neuts % (Manual) 38 41 Band Neuts % (Manual) 1 2 Lymphocytes % (Manual) 48 H 53 H Monocytes % (Manual) 5 2 Eosinophils % (Manual) 7 H 2 Basophils % (Manual) 1 Abs Neuts (Manual) 6.9 6.9 Nucleated RBCs/100 WBC 1 H Differential Comment . . Smudge Cells Present H Present H Platelet Estimate High H High H Platelet Morphology Enlarged H Normal Sodium 139 Potassium 3.7 Chloride 108 H Carbon Dioxide 21.1 Anion Gap 10 BUN 6 L Creatinine 0.61 Estimated GFR Greater than 89 Random Glucose 103 Calcium 7.9 L Total Bilirubin 0.7 AST 115 H ALT 80 H Alkaline Phosphatase 923 H Total Protein 6.4 Albumin 2.1 L 12/01/18 12/02/18 06:03 05:33 WBC 14.5 H RBC 4.29 L Hgb 10.9 L Hct 34.2 L MCV 79.9 L MCH 25.5 L MCHC 31.9 L RDW 18.9 H Plt Count 394 MPV 8.9 Prelim Diff (Auto) Slide review pending Neut % (Auto) 48.4 Lymph % (Auto) 39.4 [place] % (Auto) 7.1 Eos % (Auto) 4.5 H Baso % (Auto) 0.6 Neut # (Auto) 7.0 Lymph # (Auto) 5.7 H [place] # (Auto) 1.0 H Eos # (Auto) 0.7 H Baso # (Auto) 0.1 WBC Differential Manual diff final Seg Neuts % (Manual) 30 Band Neuts % (Manual) 4 Lymphocytes % (Manual) 59 H Monocytes % (Manual) 4 Eosinophils % (Manual) 3 Basophils % (Manual) Abs Neuts (Manual) 4.9 Nucleated RBCs/100 WBC Differential Comment . Smudge Cells Present H Platelet Estimate Normal Platelet Morphology Normal Sodium 141 Potassium 3.8 Chloride 110 H Carbon Dioxide 23.0 Anion Gap 8 BUN 7 Creatinine 0.59 L Estimated GFR Greater than 89 Random Glucose 104 Calcium 7.7 L Total Bilirubin 0.7 AST 84 H ALT 70 Alkaline Phosphatase 818 H Total Protein 6.4 Albumin 2.1 L Result Diagrams: 12/02/18 05:33 12/01/18 06:03 Microbiology: Microbiology 11/24/18 05:00 Clean Catch Urine Urine Culture - Final <10,000 cfu/mL gram positive xuan - no further workup 11/20/18 16:46 Blood - Peripheral Aerobic Blood Culture - Final No growth in 5 days 11/20/18 16:46 Blood - Peripheral Anaerobic Blood Culture - Final No growth in 5 days 11/23/18 06:30 Stool Stool Occult Blood (JEMIMA) - Final Hemoccult positive 11/17/18 14:44 Fluid - Gallbladder Gram Stain - Final 11/17/18 14:44 Fluid - Gallbladder Wound Culture - Final Mixed Anaerobes 11/16/18 15:11 Blood - Peripheral Aerobic Blood Culture - Final No growth in 5 days 11/16/18 15:11 Blood - Peripheral Anaerobic Blood Culture - Final No growth in 5 days 11/16/18 15:05 Blood - Peripheral Aerobic Blood Culture - Final No growth in 5 days 11/16/18 15:05 Blood - Peripheral Anaerobic Blood Culture - Final No growth in 5 days Imaging: Gallbladder Ultrasound 11/14/18 17:35 CONCLUSION: 1. Positive for gallbladder sludge and gallstones also seen on prior MRI from May 2018. Gallbladder wall thickened to 7 mm. Common bile duct and pancreas not well visualized. 2. 6.9 cm right renal cyst. No hydronephrosis. 3. Fatty infiltration of the liver. Cholangiopancreatography MRI 11/15/18 00:00 CONCLUSION: 1. Chest X-Ray 11/20/18 00:00 CONCLUSION: 1. Cardiomegaly. 2. Bibasilar consolidation but there is a poor inspiratory effort and this may simply relate to atelectasis. 3. Tracheal deviation towards the right which is going to be accentuated by the obliquity of the film. There is a right paratracheal stripe prominence. At this point mediastinal mass cannot be excluded. Consider CT of the thorax with IV contrast to further assess. Abdomen/Pelvis CT 11/21/18 00:00 CONCLUSION: 1. Interval cholecystectomy with residual fluid collection in the gallbladder fossa and small locule of air. Differential diagnosis includes postoperative fluid but cannot exclude infection. 2. Distended stomach with dilated proximal and mid small bowel and distal decompression most characteristic of at least a partial small bowel obstruction. Colon is relatively decompressed as well. 3. Stable enlargement of right infrahilar lymph node and aortocaval lymph node compared with prior recent CT. Chest CT 11/21/18 00:00 CONCLUSION: 1. Dependent atelectasis with small effusions in both lungs. No pneumothorax. 2. Moderate coronary calcifications. 3. Mediastinal fat deposition. No adenopathy. Head MRI 12/02/18 00:00 CONCLUSION: 1. Central and cortical atrophy otherwise negative for acute process. 2. I do not see evidence for acute ischemic event. Procedures: 11/17/2018: Laparoscopic cholecystectomy Assessment and Plan - Disease Oriented Problem List (1) Acute cholecystitis (2) Status post laparoscopic cholecystectomy (3) Dementia Pertinent Non-Medical Issues: Psychosocial: Patient is originally from [place]. He moved to [place] in the mid 1980s. He has been and x2. He has 3 adult sons (Austyn, Maikel and Cb). 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 He currently lives with his stepfather. Spiritual: Rastafarian chema Legal:Living will designates Austyn Lloyd (son) as the the primary healthcare surrogate decision-maker. Healthcare surrogate designation form designates Saul Brandt (step-father) as the healthcare surrogate decision-maker. Both are making decisions together. Ethical issues impacting care: No known ethical issues impacting care at this time. Important Contacts: Saul Desai, stepfather: [phone] Austyn Lloyd, son: [phone] Prognosis: Patient is a 63 year old male with a history of dementia who was admitted with an impacted stone in the gallbladder neck and cholecystitis status post laparoscopic cholecystectomy. Family reports an acute decline in the past month with progressive dementia. Condition is guarded. Code Status: No Code DNR Plan: * NO CODE/DNR * Patient demonstrates limited insight and judgment related to his medical conditions. Living will designates Austyn Lloyd (son) as the the primary healthcare surrogate decision-maker. Healthcare surrogate designation form designates Saul Carlton (step-father) as the healthcare surrogate decision- maker. Both (Austyn and Saul)are making decisions together. * Health care surrogate designation form, living well and DPOA were completed on 11/21/2018. Documents are accessible in the patient's paper chart; copies have been faxed to HIM to be scanned into EMR. * Hospice and Palliative care met with family again today; goals remain aggressive at this time. * Patient's family requesting to meet with case management to discuss discharge plan, placement options. * Symptom management: Dysphasia: Patient is currently on a regular diet with thin consistency liquids. Appetite fair to good per family who report intermittent coughing with nutritional intake. Speech therapy was consulted for swallow evaluation but the patient refused. * Confusion: Patient with a known history of early onset dementia. He is oriented to self. Confused with ongoing confabulation. Patient refuses care at times. MRI brain 12/02/18 shows central and cortical atrophy otherwise negative for acute process which is consistent with progressive dementia. * Pain: Multifactoral. History of colitis, cholelithiasis, cholecystitis status post laparoscopic cholecystectomy. Other contributing factors include debility, lack of mobility, invasive lines etc. Patient denies pain on exam; shows no nonverbal signs or symptoms of pain. PRN [place] are available but not required in the past 24 hours. No recommendations at this time. * Palliative care will follow this patient throughout his hospitalization to establish trust, assist with symptom management and clarification of medical treatment goals. Attestation Attestation: To help prompt me to consider important information that might be impacting today's encounter and assessment, information from prior notes written by myself or my colleagues may have been "brought forward" into today's note. My signature on this note, however, is an attestation that I personally performed the exam, history, and/or decision-making noted today, and, unless otherwise indicated, the interactions with patient, family, and staff as well as the review of records all occurred today. I also attest that the listed assessment and stated plan reflect my best clinical judgment today based on the combination of historical information, prior notes, and today's exam/ interactions. When time spent is documented, it refers only to time spent today by the signer, or if indicated, combined time spent today by collaborating physician/nurse practitioner.
--- NOTE | 2018-12-02 14:12 | MR ---
EXAM DATE: 12/02/2018 1:49 PM EST AGE/SEX: 63 years / Male INDICATIONS: Confusion. CLINICAL DATA: This is the patient's initial encounter. Patient reports that signs and symptoms have been present for 1 day and indicates a pain score of 0/10. MEDICAL/SURGICAL HISTORY: Hypertension. None. COMPARISON: No prior exams available for comparison. TECHNIQUE: Multiplanar, multisequence examination of the brain was performed without contrast. FINDINGS: Cerebrum: Mild central and cortical atrophy with dilatation of ventricular and sulcal spaces. No restricted diffusion No extra-axial fluid collections appreciated. No parenchymal hemorrhage. Posterior Fossa: The cerebellum and brainstem are intact. The 4th ventricle is midline. The cerebel lopontine angle is unremarkable. The cerebellar tonsils are normal in position. . Extracranial: The visualized portions of the orbits and paranasal sinuses are unremarkable. CONCLUSION: 1. Central and cortical atrophy otherwise negative for acute process. 2. I do not see evidence for acute ischemic event. Electronically signed by: Evens Peace MD Board Certified Radiologist 12/02/2018 2:11 PM EST
[2018-12-02 14:14] LABS: Thyroid Stimulating Hormone 1.94 uIU/mL (0.358-3.740)
[2018-12-03] MEDS: Lactobacillus Acidophilus/L. Spores Tablet PO SCH ×2 (09:43→20:21)
[2018-12-03] MEDS: Mesalamine 800 MG Tablet DR PO SCH ×3 (09:43→18:20)
[2018-12-03] MEDS: Famotidine 20 MG Tablet PO SCH ×2 (09:43→20:21)
[2018-12-03] MEDS: Simethicone 80 MG Chew Tablet PO SCH (09:43)
[2018-12-03] MEDS: Loperamide 2 MG Capsule PO PRN (09:48)
[2018-12-03 11:07] LABS: Baso # (Auto) 0.1 th/mm3 (0.0-0.2); Baso % (Auto) 0.5 % (0.0-2.0); Eos # (Auto) 0.4 th/mm3 (0.0-0.4); Eos % (Auto) 3.2 % (0.0-4.0); Hematocrit 34.6 % (39.0-51.0); Hemoglobin 10.8 gm/dL (13.0-17.0); Lymph # (Auto) 5.1 th/mm3 (1.0-4.8); Lymph % (Auto) 39.1 % (9.0-44.0); Mean Corpuscular HGB Conc 31.3 % (32.0-36.0); Mean Corpuscular Hemoglobin 25.4 pg (27.0-34.0); Mean Corpuscular Volume 81.2 fL (80.0-100.0); Mean Platelet Volume 8.7 fL (7.0-11.0); Mono % (Auto) 7.4 % (0.0-8.0); Neut # (Auto) 6.5 th/mm3 (1.8-7.7); Neut % (Auto) 49.8 % (16.0-70.0); Platelet Count 379 th/mm3 (150-450); Red Blood Count 4.26 mil/mm3 (4.50-5.90); Red Cell Distribution Width 19.3 % (11.6-17.2)
[2018-12-03 11:39] LABS: Albumin 2.1 g/dL (3.4-5.0)
[2018-12-03 11:42] LABS: Total Protein 6.5 g/dL (6.4-8.2)
--- NOTE | 2018-12-03 12:57 | P.PNIM ---
Subjective Interval history: Patient reports he is feeling okay today. Sisters at bedside. He ate breakfast today. Physical Exam Vital signs: Vital Signs 12/02/18 16:00 12/02/18 20:00 12/03/18 00:00 Temperature 97.2 F L 97.5 F L 97.8 F Pulse Rate 68 71 70 Respiratory Rate 18 20 20 Blood Pressure 125/75 128/90 127/74 Pulse Oximetry 98 96 97 12/03/18 04:00 12/03/18 08:39 Temperature 98.5 F 97.7 F Pulse Rate 70 69 Respiratory Rate 20 18 Blood Pressure 129/72 119/75 Pulse Oximetry 96 95 Intake & Output 12/02/18 12/03/18 12/03/18 18:59 06:59 18:59 Output Total 650 / 650 Balance -650 / -650 Weight 97.5 kg Output: Urine 650 / 650 Other: Date of Last Bowel Movement 12/02/18 12/02/18 Narrative: Gen: WDWN late middle-aged white male resting in bed in NAD CV: NRRR, normal S1/S2, no MRG Lungs: No dyspnea, CTAB, no crackles/wheezes Abd: Soft, NDNT. MSK: No cyanosis or edema BLE. Neuro/Psy: Normal eye contact, concentration. Mood and affect normal. However poor insight into his current condition. Urinary Catheter Management Indwelling Urethral Catheter: Cath placed during this visit: yes, but has since been removed by the nurse Reason for continuing: Hourly intake/output Insertion date: 11/17/18 Insertion time: 14:07 Removal date: 11/18/18 Removal time: 13:30 Results Labs CBC & Chem 7: 12/03/18 08:20 12/01/18 06:03 Imaging Imaging: Impressions Head MRI 12/02/18 00:00 CONCLUSION: 1. Central and cortical atrophy otherwise negative for acute process. 2. I do not see evidence for acute ischemic event. Procedures Procedures: Laparoscopic cholecystectomy - 11/17/18 Assessment and Plan Plan 63-year-old male initially admitted for acute gangrenous cholecystitis. Patient underwent cholecystectomy. He was treated with antibiotics. His acute medical issues have resolved. However he has dementia that has been progressing and exhibits significant self-neglect. He needs placement. Case management assisting family with placement. ACUTE GANGRENOUS CHOLECYSTITIS - resolved s/p lap choly 11/17/18 and liver bx, mild elevation lfts will trend, pathology report severe acute necrotizing gangrenous and suppurative cholecystitis and cholelithiasis. Liver biopsy showing chronic hepatitis with bridging fibrosis and steatosis consistent with inflammatory bowel disease not changed from 04/23/14 DEMENTIA - per family report dementia is baseline and has rapidly progressed over the last year to year and a half. Often refusing oob and mobilization, often not cooperative with care efforts. Family reports poor self care at home. Does not seem depressed on evaluation. Psychiatry did not note depression either , recommended Seroquel HS if needed for behavioral disturbance associated with dementia, but at this time he is calm and just chooses not to participate at times. Given reported long history of progressive dementia and poor self care patient would be appropriate for SNF. ST evaluated patient today and noted good remote memory but poor recall and definite confabulation. Goals of care consistent with hospice,\ -MRI showed central and cortical atrophy. No acute findings. -Hospice services following. Case management assisting family with placement. 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 DIARRHEA -resolved. C. difficile negative. give Imodium PRN DEPENDENT ATELECTASIS - resolved - incentive spirometry, ezpap, oob to chair and ambulate daily ULCERTIVE COLITIS w chronic hepatitis - fu w GI, asacol HTN - at goal; cont bp control with amlodipine DEHYDRATION - resolved post IV fluids, encourage po dvt prophylaxis - scd dispo - Clinically stable for dc to SNF/home +/- Hospice when placement arranged. Appreciate assistance of hospice / palliative care / CM. Progress Note: Quality VTE Deep Vein Thrombosis/Pulmonary Embolism Present on Admission: No
[2018-12-04] MEDS: Mesalamine 800 MG Tablet DR PO SCH ×3 (08:34→17:03)
[2018-12-04] MEDS: Simethicone 80 MG Chew Tablet PO SCH (08:34)
[2018-12-04] MEDS: Lactobacillus Acidophilus/L. Spores Tablet PO SCH ×2 (08:34→20:47)
[2018-12-04] MEDS: Famotidine 20 MG Tablet PO SCH ×2 (08:34→20:47)
[2018-12-04] MEDS: Loperamide 2 MG Capsule PO PRN ×2 (12:06→20:47)
--- NOTE | 2018-12-04 14:47 | P.PNIM ---
Subjective Interval history: Patient refused to get cleaned up earlier. He later agreed. No other changes. Discussed with family at bedside. Physical Exam Vital signs: Vital Signs 12/03/18 17:23 12/03/18 20:00 12/04/18 00:00 Temperature 97.6 F 97.9 F 98.0 F Pulse Rate 71 80 75 Respiratory Rate 18 16 16 Blood Pressure 126/78 130/77 150/79 H Pulse Oximetry 97 97 97 12/04/18 04:00 12/04/18 08:00 12/04/18 12:00 Temperature 97.6 F 98.2 F 97.8 F Pulse Rate 72 78 74 Respiratory Rate 16 18 18 Blood Pressure 120/71 134/79 114/68 Pulse Oximetry 96 96 97 Intake & Output 12/03/18 12/04/18 12/04/18 18:59 06:59 18:59 Intake Total 0 / 0 Output Total 750 / 750 1150 / 1150 Balance -750 / -750 -1150 / -1150 Weight 92.3 kg Intake: Other 0 / 0 Output: Urine 750 / 750 1150 / 1150 Other: Date of Last Bowel Movement 12/02/18 # Bowel Movements 1 Narrative: Gen: WDWN late middle-aged white male resting in bed in NAD CV: NRRR, normal S1/S2, no MRG Lungs: No dyspnea, CTAB, no crackles/wheezes Abd: Soft, NDNT. MSK: No cyanosis or edema BLE. Neuro/Psy: Normal eye contact, concentration. Mood and affect normal. However poor insight into his current condition. Urinary Catheter Management Indwelling Urethral Catheter: Cath placed during this visit: yes, but has since been removed by the nurse Reason for continuing: Hourly intake/output Insertion date: 11/17/18 Insertion time: 14:07 Removal date: 11/18/18 Removal time: 13:30 Results Labs CBC & Chem 7: 12/03/18 08:20 12/01/18 06:03 Procedures Procedures: Laparoscopic cholecystectomy - 11/17/18 Assessment and Plan Plan 63-year-old male initially admitted for acute gangrenous cholecystitis. Patient underwent cholecystectomy. He was treated with antibiotics. His acute medical issues have resolved. However he has dementia that has been progressing and exhibits significant self-neglect. He needs placement. Case management assisting family with placement. ACUTE GANGRENOUS CHOLECYSTITIS - resolved s/p lap choly 11/17/18 and liver bx, mild elevation lfts improved, pathology report severe acute necrotizing gangrenous and suppurative cholecystitis and cholelithiasis. Liver biopsy showing chronic hepatitis with bridging fibrosis and steatosis consistent with inflammatory bowel disease not changed from 04/23/14 DEMENTIA - per family report dementia is baseline and has rapidly progressed over the last year to year and a half. Often refusing oob and mobilization, often not cooperative with care efforts. Family reports poor self care at home. Does not seem depressed on evaluation. Psychiatry did not note depression either , recommended Seroquel HS if needed for behavioral disturbance associated with dementia, but at this time he is calm and just chooses not to participate at times. Given reported long history of progressive dementia and poor self care patient would be appropriate for SNF. Per speech therapy cognitive eval patient noted to have good remote memory but poor recall and definite confabulation. Goals of care consistent with hospice per family. -MRI showed central and cortical atrophy. No acute findings. -Hospice services following. Case management assisting family with placement. -I encouraged the patient to participate with care. 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 DIARRHEA -resolved. C. difficile negative. give Imodium PRN DEPENDENT ATELECTASIS - resolved - incentive spirometry, ezpap, oob to chair and ambulate daily ULCERTIVE COLITIS w chronic hepatitis - fu w GI, asacol HTN - at goal; cont bp control with amlodipine DEHYDRATION - resolved post IV fluids, encourage po dvt prophylaxis - scd dispo - Clinically stable for dc to SNF/home +/- Hospice when placement arranged. Appreciate assistance of hospice / palliative care / CM. Progress Note: Quality VTE Deep Vein Thrombosis/Pulmonary Embolism Present on Admission: No
[2018-12-05] MEDS: Mesalamine 800 MG Tablet DR PO SCH ×3 (08:48→17:40)
[2018-12-05] MEDS: Lactobacillus Acidophilus/L. Spores Tablet PO SCH ×2 (08:48→21:20)
[2018-12-05] MEDS: Famotidine 20 MG Tablet PO SCH ×2 (08:48→21:20)
[2018-12-05] MEDS: Loperamide 2 MG Capsule PO PRN ×2 (08:48→17:40)
[2018-12-05] MEDS: Simethicone 80 MG Chew Tablet PO SCH (08:49)
--- NOTE | 2018-12-05 14:39 | P.PNIM ---
Subjective Interval history: Patient seen earlier this morning, he denied any complaint at the time. This afternoon, per nursing he refused to get cleaned up and was laying in his feces. He reportedly became combative as well. Physical Exam Vital signs: Vital Signs 12/04/18 16:00 12/04/18 20:00 12/05/18 00:00 Temperature 98.0 F 97.7 F 97.8 F Pulse Rate 71 76 72 Respiratory Rate 18 16 16 Blood Pressure 131/75 123/83 131/80 Pulse Oximetry 97 95 95 12/05/18 04:00 12/05/18 08:00 12/05/18 12:00 Temperature 98.1 F 97.7 F 97.7 F Pulse Rate 67 64 66 Respiratory Rate 16 18 18 Blood Pressure 155/89 H 142/79 H 131/88 Pulse Oximetry 96 94 L 98 Intake & Output 12/04/18 12/05/18 12/05/18 18:59 06:59 18:59 Intake Total 480 / 480 720 / 720 Output Total 1300 / 1300 1400 / 1400 Balance -820 / -820 -680 / -680 Weight 96.5 kg Intake: Oral 480 / 480 720 / 720 Other 0 / 0 Output: Urine 1300 / 1300 1400 / 1400 Other: Date of Last Bowel Movement 12/02/18 12/04/18 # Bowel Movements 1 Narrative: Gen: WDWN late middle-aged white male resting in bed in NAD CV: NRRR, normal S1/S2, no MRG Lungs: No dyspnea, CTAB, no crackles/wheezes Abd: Soft, NDNT. MSK: No cyanosis or edema BLE. Neuro/Psy: Normal eye contact, concentration. Mood and affect normal. However poor insight into his current condition. Urinary Catheter Management Indwelling Urethral Catheter: Cath placed during this visit: yes, but has since been removed by the nurse Reason for continuing: Hourly intake/output Insertion date: 11/17/18 Insertion time: 14:07 Removal date: 11/18/18 Removal time: 13:30 Results Labs CBC & Chem 7: 12/03/18 08:20 12/01/18 06:03 Procedures Procedures: Laparoscopic cholecystectomy - 11/17/18 Assessment and Plan Plan 63-year-old male initially admitted for acute gangrenous cholecystitis. Patient underwent cholecystectomy. He was treated with antibiotics. His acute medical issues have resolved. However he has dementia that has been progressing and exhibits significant self-neglect. He needs placement. Case management assisting family with placement. ACUTE GANGRENOUS CHOLECYSTITIS - resolved s/p lap choly 11/17/18 and liver bx, mild elevation lfts improved, pathology report severe acute necrotizing gangrenous and suppurative cholecystitis and cholelithiasis. Liver biopsy showing chronic hepatitis with bridging fibrosis and steatosis consistent with inflammatory bowel disease not changed from 04/23/14 DEMENTIA - per family report dementia is baseline and has rapidly progressed over the last year to year and a half. Often refusing oob and mobilization, often not cooperative with care efforts. Family reports poor self care at home. Does not seem depressed on evaluation. Psychiatry did not note depression either , recommended Seroquel HS if needed for behavioral disturbance. Given reported long history of progressive dementia and poor self care patient would be appropriate for SNF. Per speech therapy cognitive eval patient noted to have good remote memory but poor recall and definite confabulation. Family was considering hospice but is now reconsidering and hoping to place the patient in senior living facility for rehab. Case management following. -MRI showed central and cortical atrophy. No acute findings. -Case management assisting family with placement. -I encouraged the patient to participate with care. -Per nursing, he became more agitated today and continued to refuse care, laying in his feces, became combative with staff. Will start Seroquel to help with agitation symptoms. 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 DIARRHEA -resolved. C. difficile negative. give Imodium PRN DEPENDENT ATELECTASIS - resolved - incentive spirometry, ezpap, oob to chair and ambulate daily ULCERTIVE COLITIS w chronic hepatitis - fu w GI, asacol HTN - at goal; cont bp control with amlodipine DEHYDRATION - resolved post IV fluids, encourage po dvt prophylaxis - scd dispo - Clinically stable for dc. Appreciate palliative care following. Discharge to once arrangements are made and case management following Progress Note: Quality VTE Deep Vein Thrombosis/Pulmonary Embolism Present on Admission: No
--- NOTE | 2018-12-05 14:55 | P.PNPAL ---
Reason for Visit Reason for visit: a. To assist with evaluation and management of symptoms including: pain, confusion b. To assist medical decision maker(s) with: better understanding of current medical conditions; weighing benefits/burdens of medical treatment options; making medical treatment decisions. Subjective Subjective/Interval History: Follow-up visit for symptom management of dysphasia, confusion, pain and clarification of medical treatment goals. Patient seen and assessed in room 1425. No family at bedside. Answers questions with 1-2 word answers. Follow-up MRI brain showed central and cortical atrophy but no acute findings. Physical therapy following; patient continues to refuse care/therapy at times. Patient had no complaints at the time of exam. He denied pain, shortness of breath, nausea or vomiting. PRN hydrocodone/acetaminophen 5/325 mg is available every 6 hours PO for pain. Received hydrocodone/ acetaminophen x1 this morning for abdominal pain rated 5 out of 10. Tolerating a regular diet; patient took 25% of lunch. No new labs or imaging available. Per the hospice admission nurse's note, the patient 's family has decided they would like the patient to go to [facility] for rehab. Case management has mirlande in contact with Maite from [facility]. Hospice will continue to follow this patient. Discussed with Dr. Otto and pillowcase cutter, Tarsha. Family/Friend Interactions: See interval history Advance Directives Advance Directives Date on File: 11/21/18 Health Care Surrogate Name and Number: Austyn Lloyd and Saul Carlton Documented care wishes:: Health care surrogate designation form, living well and DPOA were completed on . Documents are accessible in the patient's paper chart; copies have been faxed to HIM to be scanned into EMR. Significant change in goals:: Family would like the patient to go to [facility] for rehab. Objective Vital Signs: Vital Signs 12/04/18 16:00 12/04/18 20:00 12/05/18 00:00 Temperature 98.0 F 97.7 F 97.8 F Pulse Rate 71 76 72 Respiratory Rate 18 16 16 Blood Pressure 131/75 123/83 131/80 Pulse Oximetry 97 95 95 12/05/18 04:00 12/05/18 08:00 12/05/18 12:00 Temperature 98.1 F 97.7 F 97.7 F Pulse Rate 67 64 66 Respiratory Rate 16 18 18 Blood Pressure 155/89 H 142/79 H 131/88 Pulse Oximetry 96 94 L 98 Intake & Output 12/04/18 12/05/18 12/05/18 18:59 06:59 18:59 Intake Total 480 / 480 720 / 720 Output Total 1300 / 1300 1400 / 1400 Balance -820 / -820 -680 / -680 Weight 96.5 kg Intake: Oral 480 / 480 720 / 720 Other 0 / 0 Output: Urine 1300 / 1300 1400 / 1400 Other: Date of Last Bowel Movement 12/02/18 12/04/18 # Bowel Movements 1 Physical Exam: CONSTITUTIONAL/GENERAL: This is an adequately nourished male patient, in no apparent distress. TUBES/LINES/DRAINS: PIV SKIN: No jaundice, rashes, or lesions. Skin temperature appropriate. Not diaphoretic. HEAD: Atraumatic. Normocephalic. EYES: Pupils equal and round and reactive. No scleral icterus. No injection or drainage. Fundi not examined. ENT: Hearing grossly normal. Nose without bleeding or purulent drainage. NECK: Trachea midline. CARDIOVASCULAR: Regular rate and rhythm without murmurs, gallops, or rubs. No JVD. Peripheral pulses symmetric. RESPIRATORY/CHEST: Symmetric, unlabored respirations. CTA. Breath sounds equal bilaterally. No wheezes, rales, or rhonchi. GASTROINTESTINAL: Abdomen soft, non-tender, nondistended. No guarding. Bowel sounds present. GENITOURINARY: Without palpable bladder distension. MUSCULOSKELETAL: Extremities without clubbing, cyanosis, or edema. No mottling or clubbing. NEUROLOGICAL: Awake and alert. Cooperative. Responds to questions with 1-2 word answers. PSYCHIATRIC: Limited insight toward his medical condition. No overt anxiety/ agitation on exam. Diagnostic Tests Laboratory: Laboratory Results - last 72 hr 11/24/18 12/03/18 12/03/18 15:40 08:20 08:20 WBC 13.0 H RBC 4.26 L Hgb 10.8 L Hct 34.6 L MCV 81.2 MCH 25.4 L MCHC 31.3 L RDW 19.3 H Plt Count 379 MPV 8.7 Neut % (Auto) 49.8 Lymph % (Auto) 39.1 Rankin % (Auto) 7.4 Eos % (Auto) 3.2 Baso % (Auto) 0.5 Neut # (Auto) 6.5 Lymph # (Auto) 5.1 H Rankin # (Auto) 1.0 H Eos # (Auto) 0.4 Baso # (Auto) 0.1 WBC Differential . Differential Comment Auto diff final Total Bilirubin 0.5 Direct Bilirubin 0.3 H Indirect Bilirubin 0.2 AST 69 H ALT 56 Alkaline Phosphatase 754 H Total Protein 6.5 Albumin 2.1 L Hemat Chromosome Result Result Diagrams: 12/03/18 08:20 12/01/18 06:03 Microbiology: Microbiology 11/24/18 05:00 Clean Catch Urine Urine Culture - Final <10,000 cfu/mL gram positive xuan - no further workup 11/20/18 16:46 Blood - Peripheral Aerobic Blood Culture - Final No growth in 5 days 11/20/18 16:46 Blood - Peripheral Anaerobic Blood Culture - Final No growth in 5 days 11/23/18 06:30 Stool Stool Occult Blood (JEMIMA) - Final Hemoccult positive 11/17/18 14:44 Fluid - Gallbladder Gram Stain - Final 11/17/18 14:44 Fluid - Gallbladder Wound Culture - Final Mixed Anaerobes 11/16/18 15:11 Blood - Peripheral Aerobic Blood Culture - Final No growth in 5 days 11/16/18 15:11 Blood - Peripheral Anaerobic Blood Culture - Final No growth in 5 days 11/16/18 15:05 Blood - Peripheral Aerobic Blood Culture - Final No growth in 5 days 11/16/18 15:05 Blood - Peripheral Anaerobic Blood Culture - Final No growth in 5 days Imaging: Gallbladder Ultrasound 11/14/18 17:35 CONCLUSION: 1. Positive for gallbladder sludge and gallstones also seen on prior MRI from May 2018. Gallbladder wall thickened to 7 mm. Common bile duct and pancreas not well visualized. 2. 6.9 cm right renal cyst. No hydronephrosis. 3. Fatty infiltration of the liver. Cholangiopancreatography MRI 11/15/18 00:00 CONCLUSION: 1. Chest X-Ray 11/20/18 00:00 CONCLUSION: 1. Cardiomegaly. 2. Bibasilar consolidation but there is a poor inspiratory effort and this may simply relate to atelectasis. 3. Tracheal deviation towards the right which is going to be accentuated by the obliquity of the film. There is a right paratracheal stripe prominence. At this point mediastinal mass cannot be excluded. Consider CT of the thorax with IV contrast to further assess. Abdomen/Pelvis CT 11/21/18 00:00 CONCLUSION: 1. Interval cholecystectomy with residual fluid collection in the gallbladder fossa and small locule of air. Differential diagnosis includes postoperative fluid but cannot exclude infection. 2. Distended stomach with dilated proximal and mid small bowel and distal decompression most characteristic of at least a partial small bowel obstruction. Colon is relatively decompressed as well. 3. Stable enlargement of right infrahilar lymph node and aortocaval lymph node compared with prior recent CT. Chest CT 11/21/18 00:00 CONCLUSION: 1. Dependent atelectasis with small effusions in both lungs. No pneumothorax. 2. Moderate coronary calcifications. 3. Mediastinal fat deposition. No adenopathy. Head MRI 12/02/18 00:00 CONCLUSION: 1. Central and cortical atrophy otherwise negative for acute process. 2. I do not see evidence for acute ischemic event. Procedures: 11/17/2018: Laparoscopic cholecystectomy Assessment and Plan - Disease Oriented Problem List (1) Acute cholecystitis (2) Status post laparoscopic cholecystectomy (3) Dementia Pertinent Non-Medical Issues: Psychosocial: Patient is originally from [place]. He moved to [place] in the mid 1980s. He has been and x2. He has 3 adult sons (Austyn, Maikel and Cb). Patient worked at a car dealership previously. He currently lives with his stepfather. Spiritual: Quaker chema Legal:Living will designates Austyn Lloyd (son) as the the primary healthcare surrogate decision-maker. Healthcare surrogate designation form designates Saul Carlton (step-father) as the healthcare surrogate decision-maker. Both are making decisions together. Ethical issues impacting care: No known ethical issues impacting care at this time. Important Contacts: Saul Desai, stepfather: [phone] Austyn Lloyd, son: [phone] Prognosis: Patient is a 63 year old male with a history of dementia who was admitted with an impacted stone in the gallbladder neck and cholecystitis status post laparoscopic cholecystectomy. Family reports an acute decline in the past month with progressive dementia. Condition is guarded. Code Status: No Code DNR Plan: * NO CODE/DNR * Patient demonstrates limited insight and judgment related to his medical conditions. Living will designates Austyn Lloyd (son) as the the primary healthcare surrogate decision-maker. Healthcare surrogate designation form designates Saul Carlton (step-father) as the healthcare surrogate decision- maker. Both (Austyn and Saul)are making decisions together. * Health care surrogate designation form, living well and DPOA were completed on 11/21/2018. Documents are accessible in the patient's paper chart; copies have been faxed to HIM to be scanned into EMR. * Dual visit with Itzel Allen LCSW * Goals remain aggressive up to the point of cardiopulmonary resuscitation. * Per the hospice admission nurse's note, the patient 's family has decided they would like the patient to go to [facility] for rehab. Case management has mirlande in contact with Maite from [facility]. Hospice will continue to follow this patient. * Discussed patient with Dr. Otto and pillowcase cutter, Tarsha. * Symptom management: * Confusion: Patient with a known history of early onset dementia. He is oriented to self. Confused with ongoing confabulation. Patient refuses care at times. MRI brain 12/02/18 shows central and cortical atrophy consistent with progressive dementia. * Pain: Multifactoral. History of colitis, cholelithiasis, cholecystitis status post laparoscopic cholecystectomy. Other contributing factors include debility, lack of mobility, invasive lines etc. showing no nonverbal signs or symptoms of pain. PRN Hydrocodone/acetaminophen is available every 6 hours PO as needed for pain. Patient had one dose earlier this morning for abdominal pain rated 5 out of 10. He denied pain on exam. No recommendations at this time. * Palliative care will follow this patient throughout his hospitalization to establish trust, assist with symptom management and clarification of medical treatment goals. Attestation Attestation: To help prompt me to consider important information that might be impacting today's encounter and assessment, information from prior notes written by myself or my colleagues may have been "brought forward" into today's note. My signature on this note, however, is an attestation that I personally performed the exam, history, and/or decision-making noted today, and, unless otherwise indicated, the interactions with patient, family, and staff as well as the review of records all occurred today. I also attest that the listed assessment and stated plan reflect my best clinical judgment today based on the combination of historical information, prior notes, and today's exam/ interactions. When time spent is documented, it refers only to time spent today by the signer, or if indicated, combined time spent today by collaborating physician/nurse practitioner.
[2018-12-05] MEDS: QUEtiapine 25 MG Tablet PO SCH (21:20)
[2018-12-06] MEDS: Famotidine 20 MG Tablet PO SCH (08:39)
[2018-12-06] MEDS: QUEtiapine 25 MG Tablet PO SCH (08:39)
[2018-12-06] MEDS: Mesalamine 800 MG Tablet DR PO SCH ×3 (08:39→17:28)
[2018-12-06] MEDS: Loperamide 2 MG Capsule PO PRN ×3 (08:39→17:28)
[2018-12-06] MEDS: Simethicone 80 MG Chew Tablet PO SCH (08:39)
[2018-12-06] MEDS: Lactobacillus Acidophilus/L. Spores Tablet PO SCH (08:39)
[2018-12-06 09:10] LABS: Hematocrit 34.4 % (39.0-51.0); Hemoglobin 10.9 gm/dL (13.0-17.0); Mean Corpuscular HGB Conc 31.8 % (32.0-36.0); Mean Corpuscular Hemoglobin 25.2 pg (27.0-34.0); Mean Corpuscular Volume 79.5 fL (80.0-100.0); Mean Platelet Volume 8.4 fL (7.0-11.0); Platelet Count 285 th/mm3 (150-450); Red Blood Count 4.32 mil/mm3 (4.50-5.90); Red Cell Distribution Width 18.6 % (11.6-17.2); White Blood Count 13.4 th/mm3 (4.0-11.0)
[2018-12-06 09:36] LABS: Albumin 2.2 g/dL (3.4-5.0); Anion Gap 7 meq/L (5-15); Aspartate Aminotransferase 52 U/L (15-37); Blood Urea Nitrogen 7 mg/dL (7-18); Calcium 8.5 mg/dL (8.5-10.1); Carbon Dioxide 26.4 meq/L (21.0-32.0); Chloride 108 meq/L (98-107); Glomerular Filtration Rate Greater Than 89 mL/min (>89); Glucose,Random 79 mg/dL (74-106); Potassium 4.2 meq/L (3.5-5.1); Sodium 141 meq/L (136-145)
[2018-12-06 09:37] LABS: Alanine Aminotransferase 52 U/L (12-78)
[2018-12-06 09:39] LABS: Alkaline Phosphatase 634 U/L (45-117); Total Protein 6.7 g/dL (6.4-8.2)
--- NOTE | 2018-12-06 11:07 | P.PNIM ---
Subjective Interval history: 63 yo male with chronic hepatitis, progressive dementia admitted for necrotizing cholecystitis now s/p lap clayton. Awaiting placement. Today reports feeling well, no CP/SOB, no abdominal pain, no fevers. Physical Exam Vital signs: Vital Signs 12/05/18 12:00 12/05/18 20:00 12/06/18 04:00 Temperature 97.7 F 97.4 F L 97.9 F Pulse Rate 66 72 69 Respiratory Rate 18 18 18 Blood Pressure 131/88 139/77 145/73 H Pulse Oximetry 98 97 97 12/06/18 08:00 Temperature 97.4 F L Pulse Rate 73 Respiratory Rate 16 Blood Pressure 129/75 Pulse Oximetry 96 Intake & Output 12/05/18 12/06/18 12/06/18 18:59 06:59 18:59 Intake Total 240 / 240 Output Total 1900 / 1900 400 / 400 Balance -1900 / -1900 -160 / -160 Weight 95.9 kg Intake: Oral 240 / 240 Output: Urine 1900 / 1900 400 / 400 Other: # Incontinent Voids 2 Date of Last Bowel Movement 12/05/18 # Bowel Movements 2 # Incontinent Bowel Movements 3 Narrative: Gen: WDWN late middle-aged white male lying in bed in NAD CV: NRRR, normal S1/S2, no MRG Lungs: No dyspnea, CTAB, no crackles/wheezes Abd: Soft, NDNT. MSK: No cyanosis or edema BLE. Neuro/Psy: Normal eye contact, concentration. Mood and affect normal. However poor insight into his current condition. - Urinary Catheter Management Indwelling Urethral Catheter Cath placed during this visit: yes, but has since been removed by the nurse Reason for continuing: Hourly intake/output Insertion date: 11/17/18 Insertion time: 14:07 Removal date: 11/18/18 Removal time: 13:30 Results - Labs CBC & Chem 7: 12/06/18 08:36 12/06/18 08:36 Laboratory Results - last 24 hr 12/06/18 12/06/18 08:36 08:36 WBC 13.4 H RBC 4.32 L Hgb 10.9 L Hct 34.4 L MCV 79.5 L MCH 25.2 L MCHC 31.8 L RDW 18.6 H Plt Count 285 MPV 8.4 Sodium 141 Potassium 4.2 Chloride 108 H Carbon Dioxide 26.4 Anion Gap 7 BUN 7 Creatinine 0.54 L Estimated GFR Greater than 89 Random Glucose 79 Calcium 8.5 Total Bilirubin 0.9 Direct Bilirubin 0.4 H Indirect Bilirubin 0.5 AST 52 H ALT 52 Alkaline Phosphatase 634 H Total Protein 6.7 Albumin 2.2 L - Procedures Laparoscopic cholecystectomy - 11/17/18 Assessment and Plan - Assessment (1) CLL (chronic lymphocytic leukemia) Code(s): C91.90 - Lymphoid leukemia, unspecified not having achieved remission Status: Acute (2) Status post laparoscopic cholecystectomy Code(s): Z90.49 - Acquired absence of other specified parts of digestive tract Status: Acute (3) Dementia Code(s): F03.90 - Unspecified dementia without behavioral disturbance Status: Acute - Plan DEMENTIA - per family report dementia is baseline and has rapidly progressed over the last year to year and a half. Medical work-up including MRI brain, TSH , B12 was negative. Often refusing oob and mobilization, often not cooperative with care efforts. Family reports poor self care at home for ~2 years. Does not seem depressed. Psychiatry did not note depression either on their evaluation, recommended Seroquel HS if needed for behavioral disturbance associated with dementia, but at this time I feel risk of antipsychotic would outweigh benefit. Given reported long history of progressive dementia and poor self care patient would be appropriate for SNF. ST evaluated patient today and noted good remote memory but poor recall and definite confabulation. Had meeting with hospice and at this time family opting against hospice services, however can always change. Discussed with family at bedside today and possibly are thinking of hospice again since patient's refusal of cooperation makes aggressive PT difficult. Family working on finding option for placement, CM assisting. -OOBTC 2-3 times per day ACUTE GANGRENOUS CHOLECYSTITIS - resolved s/p lap choly 11/17/18 and liver bx, mild elevation lfts will trend, pathology report severe acute necrotizing gangrenous and suppurative cholecystitis and cholelithiasis. Liver biopsy showing chronic hepatitis with bridging fibrosis and steatosis consistent with inflammatory bowel disease not changed from 04/23/14 CLL stage 0 - flow cytometry finding c/ w CLL stage 0, WBC decreasing toward normal rage, heme/onc signed off, no treatment required at this time, fu w hemeonc as outpt or otherwise monitor CBC periodically. Daily CBC while in hospital DIARRHEA - stable, associated with incontinence. Likely abx assc w bleeding- hemorroidal vs UC - guiac pos, c diff negative, h/h stable, monitor clinically, avoid excessive use of stool softener; give Imodium PRN DEPENDENT ATELECTASIS - resolved - incentive spirometry, ezpap, oob to chair and ambulate daily ULCERTIVE COLITIS w chronic hepatitis - fu w GI, asacol HTN - at goal; cont bp control with amlodipine DEHYDRATION - resolved post IVT fluids, encourage po dvt prophylaxis - scd dispo - Clinically stable for dc to SNF/home +/- Hospice when placement arranged. Appreciate assistance of hospice / palliative care / CM. In my view is not a candidate for hospice care center however would be appropriate for overall hospice services given rapid progression of dementia. At this time family opting against hospice services, but needs plan for placement preferably at SNF versus home with home care. Complicated financial situation due to no insurance / long-term care benefits.
--- NOTE | 2018-12-06 15:34 | P.DS ---
DS: Providers Date of admission: 11/15/18 11:32 Primary care physician: Tabatha Murrell MD Consults: 11/14/18 21:03 Consult to Gastroenterology Stat Consulting Provider: Harmeet Serrano For STAT consult, spoke directly to:: Dr. Serrano Preferred Halftone Operator:: Harmeet Serrano Reason for Consultation: Impacted stone in gallbadder neck Notified:: Service Spoke with:: EBONY Date Notified:: 11/14/18 Time Notified:: 21:26 Comments:: CONFIRMED WITH ROMELIA/JIM MARTINO SPOKE WITH FLEX Ordering Provider: BEBA 11/14/18 21:05 Consult to General Surgery Routine Consulting Provider: Gabriele Byers Reason for Consultation: Acute cholecystitis. Also with impacted stone in gallbladder neck and GI will take pt for ERCP tomorrow. Notified:: Service Spoke with:: EBONY Date Notified:: 11/14/18 Time Notified:: 21:29 Ordering Provider: BEBA 11/15/18 11:15 Consult to Gastroenterology Routine Consulting Provider: Dylan Borja Patient known to:: Dylan Borja Reason for Consultation: Patient known to Dr. Borja; GS impacted into neck of gallbladder; MRCP pending Notified:: Office Spoke with:: Maylin Date Notified:: 11/15/18 Time Notified:: 11:21 Ordering Provider: MARCO 11/22/18 10:36 Consult to Hematology Routine Consulting Provider: Du Truong Reason for Consultation: concern for leukocytosis without source. hematology input. s/p Notified:: Office Spoke with:: Lesia Date Notified:: 11/22/18 Time Notified:: 10:49 Ordering Provider: THERESA 11/27/18 13:49 Consult to Psychiatry Routine Consulting Provider: Antonino Wynn Reason for Consultation: patient has dementia, has been refusing treatment, food, and efforts at mobilization, very dismissive and confrontational with nursing trying to get him oob, he will not call or get oob for bowel movements or urinating, Notified:: Office Spoke with:: CHAVEZ Date Notified:: 11/27/18 Time Notified:: 13:54 Ordering Provider: BRIAN 11/28/18 16:06 Consult to Palliative Care Routine Consulting Provider: Neo Aquino Reason for Consultation: dementia, refusing care, declining family request Notified:: Service Spoke with:: Pearl Date Notified:: 11/28/18 Time Notified:: 16:12 Ordering Provider: BRIAN 12/02/18 12:51 HUB Only Consult Order Routine Consulting Provider: Rashid Hernandez 12/02/18 12:59 HUB Only Consult Order Routine Consulting Provider: [facility],[place] Brief History from admission: HPI on presentation as documented by the admitting physician 63-year-old male with a past medical history significant for dementia, ulcerative colitis and hypertension presents to the emergency department for evaluation of abdominal pain. The patient reports approximately 3 days of bad cramping with associated abdominal pain. He denies any fevers or chills. He states the pain is in his right upper quadrant. He reports intermittent diarrhea. He denies any fevers or nausea/vomiting. No chest pain or shortness of breath. No focal neurologic deficits. Patient update on day of discharge: Patient reports he is feeling okay today. He had eggs for breakfast. DS: Summary 63-year-old male initially admitted for acute gangrenous cholecystitis. Patient underwent cholecystectomy. He was treated with antibiotics. His acute medical issues have resolved. However he has dementia that has been progressing and exhibits significant self-neglect. Patient requires placement. [facility]. Evaluation and treatment course detailed below: ACUTE GANGRENOUS CHOLECYSTITIS - resolved s/p lap choly 11/17/18 and liver bx, mild elevation lfts improved, pathology report severe acute necrotizing gangrenous and suppurative cholecystitis and cholelithiasis. Liver biopsy showing chronic hepatitis with bridging fibrosis and steatosis consistent with inflammatory bowel disease not changed from 04/23/14 DEMENTIA - family report dementia is baseline and has rapidly progressed over the last year to year and a half. Often refusing oob and mobilization, often not cooperative with care efforts. Family reports poor self care at home. Does not seem depressed on evaluation. Psychiatry did not note depression either, recommended Seroquel HS if needed for behavioral disturbance. Given reported long history of progressive dementia and poor self care patient would be appropriate for SNF. Per speech therapy cognitive eval patient noted to have good remote memory but poor recall and definite confabulation. -MRI showed central and cortical atrophy. No acute findings. -I encouraged the patient to participate with care. -Patient was started on Seroquel per psychiatry recommendation for occasional episodes of agitation. 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 DIARRHEA -resolved. C. difficile negative. DEPENDENT ATELECTASIS - resolved with incentive spirometry. ULCERTIVE COLITIS w chronic hepatitis - fu outpatient w GI, continue Asacol HTN - at goal; cont bp control with amlodipine DEHYDRATION - resolved post IV fluids, encourage po Time Spent with Patient Total time spent providing and/or coordinating discharge services: Greater than 30 minutes Quality: VTE Deep Vein Thrombosis/Pulmonary Embolism Present on Admission: No Exam Narrative Exam Narrative: Gen: WDWN late middle-aged white male resting in bed in NAD CV: NRRR, normal S1/S2, no MRG Lungs: No dyspnea, CTAB, no crackles/wheezes Abd: Soft, NDNT. MSK: No cyanosis or edema BLE. Neuro/Psy: Normal eye contact, concentration. Mood and affect normal. However poor insight into his current condition. Results Procedures completed during hospitalization: Laparoscopic cholecystectomy - 11/17/18 Completed studies during hospitalization: Pending at discharge 11/17/18 08:47 Surgical [PTH] Routine Labs on day of discharge: Labs from last 24 hours 12/06/18 12/06/18 08:36 08:36 WBC 13.4 H RBC 4.32 L Hgb 10.9 L Hct 34.4 L MCV 79.5 L MCH 25.2 L MCHC 31.8 L RDW 18.6 H Plt Count 285 MPV 8.4 Sodium 141 Potassium 4.2 Chloride 108 H Carbon Dioxide 26.4 Anion Gap 7 BUN 7 Creatinine 0.54 L Estimated GFR Greater than 89 Random Glucose 79 Calcium 8.5 Total Bilirubin 0.9 Direct Bilirubin 0.4 H Indirect Bilirubin 0.5 AST 52 H ALT 52 Alkaline Phosphatase 634 H Total Protein 6.7 Albumin 2.2 L Impressions ITS Impressions Gallbladder Ultrasound 11/14/18 17:35 CONCLUSION: 1. Positive for gallbladder sludge and gallstones also seen on prior MRI from May 2018. Gallbladder wall thickened to 7 mm. Common bile duct and pancreas not well visualized. 2. 6.9 cm right renal cyst. No hydronephrosis. 3. Fatty infiltration of the liver. Cholangiopancreatography MRI 11/15/18 00:00 CONCLUSION: 1. Chest X-Ray 11/20/18 00:00 CONCLUSION: 1. Cardiomegaly. 2. Bibasilar consolidation but there is a poor inspiratory effort and this may simply relate to atelectasis. 3. Tracheal deviation towards the right which is going to be accentuated by the obliquity of the film. There is a right paratracheal stripe prominence. At this point mediastinal mass cannot be excluded. Consider CT of the thorax with IV contrast to further assess. Abdomen/Pelvis CT 11/21/18 00:00 CONCLUSION: 1. Interval cholecystectomy with residual fluid collection in the gallbladder fossa and small locule of air. Differential diagnosis includes postoperative fluid but cannot exclude infection. 2. Distended stomach with dilated proximal and mid small bowel and distal decompression most characteristic of at least a partial small bowel obstruction. Colon is relatively decompressed as well. 3. Stable enlargement of right infrahilar lymph node and aortocaval lymph node compared with prior recent CT. Chest CT 11/21/18 00:00 CONCLUSION: 1. Dependent atelectasis with small effusions in both lungs. No pneumothorax. 2. Moderate coronary calcifications. 3. Mediastinal fat deposition. No adenopathy. Head MRI 12/02/18 00:00 CONCLUSION: 1. Central and cortical atrophy otherwise negative for acute process. 2. I do not see evidence for acute ischemic event. Discharge Plan Discharge Disposition Patient Disposition: Discharge to SNF Discharge Condition Condition: Stable Discharge Order Discharge Orders: Discharge Order (Routine); Ordered 12/06/18 Ordered By: Linette Otto Physicians Team Primary Care Provider: Tabatha Murrell Attending Provider: Linette Otto Other Providers: Harmeet Serrano ; Dylan Borja ; Du Truong ; Antonino Wynn ; Neo Aquino ; [facility],[place] ; [facility],[place] Rxs /Orders / Referrals /Forms Prescriptions: New quetiapine 25 mg Tablet 50 mg PO BID 30 Days Qty: 120 RF: 0 famotidine 20 mg Tablet 20 mg PO BID 30 Days Qty: 60 RF: 0 amlodipine [Norvasc] 10 mg Tablet 10 mg PO DAILY 30 Days Qty: 30 RF: 0 mesalamine 800 mg Tablet,Delayed Release (Dr/Ec) 1,600 mg PO TID 30 Days Qty: 180 RF: 0 Referrals: Tabatha Murrell MD [Primary Care Provider] - See Instructions Status ED Status: Left Department
[2018-12-06 17:27] VITALS: BP 116/74; PULSE 76; RESP 18; TEMP 97.5; O2SAT 95
== END 2018-12-06 18:17 | DRG 854 ==
LOC: NEPE 14:16 → INTOOBSV 21:12 → NEDA 21:12 → NEPGCP 23:53 → N03 11-15 21:25 → N04 11-17 15:44
PROVIDERS: ADMIT Family Medicine; ATTEND Family Medicine
DX: R59.0 Localized enlarged lymph nodes; C91.10 Chronic lymphocytic leukemia of B-cell type not having achieved remission; R21 Rash and other nonspecific skin eruption; Z51.5 Encounter for palliative care; N39.0 Urinary tract infection, site not specified; N28.1 Cyst of kidney, acquired; I10 Essential (primary) hypertension; K76.0 Fatty (change of) liver, not elsewhere classified; E87.6 Hypokalemia; G30.0 Alzheimer's disease with early onset; E86.0 Dehydration; F02.81 Dementia in other diseases classified elsewhere, unspecified severity, with behavioral disturbance; K82.A1 Gangrene of gallbladder in cholecystitis; R00.0 Tachycardia, unspecified; A41.9 Sepsis, unspecified organism; R32 Unspecified urinary incontinence; K86.2 Cyst of pancreas; K80.62 Calculus of gallbladder and bile duct with acute cholecystitis without obstruction; J98.11 Atelectasis; Z66 Do not resuscitate; K51.90 Ulcerative colitis, unspecified, without complications; K73.9 Chronic hepatitis, unspecified; K76.9 Liver disease, unspecified
CPT/HCPCS: 70551; 71010; 71045; 71260; 74177; 74181; 76377; 76705; 76937; 80048; 80053; 80076; 81001; 82140; 82272; 82550; 82607; 82728; 83540; 83550; 83605; 83690; 83735; 84132; 84443; 84484; 85025; 85027; 85610; 85651; 85652; 85730; 86140; 87040; 87070; 87086; 87181; 87185; 87205; 87493; 88304; 88307; 88313; 90761; 90765; 93005; 94150; 94640; 94650; 96125; 96361; 96365; 97110; 97116; 97162; 97530; 99291; J0131; J0696; J0744; J1650; J2270; J2405; J2543; J3010; J3480; J7030; J7070; Q9963; Q9967